=== PATIENT | female | born 1995 | race Hispanic/Latino ===

== ENCOUNTER 2021-02-20 13:54 | Emergency (ER) | payer OTHER, SELFPAY ==
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
[2021-02-20 14:09] VITALS: BP 110/87; PULSE 92; RESP 16; TEMP 36.6; O2SAT 99
[2021-02-20 14:10] VITALS: BP 110/87; PULSE 92; RESP 16; TEMP 36.6; O2SAT 99
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
[2021-02-20] MEDS: ACETAMINOPHEN 500 MG TABLET 1000 MG PO (14:50)
== END 2021-02-20 15:12 | disposition home or self-care (01) ==
PROVIDERS: Emergency Provider Nurse Practitioner
DX: S16.1XXA Strain of muscle, fascia and tendon at neck level, initial encounter (principal); V49.40XA Driver injured in collision with unspecified motor vehicles in traffic accident, initial encounter
CPT/HCPCS: 72040; 99213; A9270; G0463

== ENCOUNTER 2022-12-20 11:54 | Emergency (ER) | payer OTHER, SELFPAY ==
--- NOTE | ~2022-12-20 | XR_ITS ---
EXAMINATION: XR knee LT min 4V DATE: 12/20/2022 13:53 INDICATION: Left knee pain post fall TECHNIQUE: Anteroposterior, 2 oblique and crosstable lateral views of the left knee were obtained COMPARISON: None. FINDINGS: Alignment is normal. No fracture. No joint effusion/layering lipohemarthrosis. Soft tissues are unre markable. IMPRESSION: 1. Negative left knee radiographs. Reviewed, dictated and finalized at [facility].
[2022-12-20 12:57] VITALS: BP 115/76; PULSE 97; RESP 16; TEMP 37.1; O2SAT 100
--- NOTE | 2022-12-20 14:04 | ED.LOWEXIN ---
HPI - Extremity Injury (Lower) General Chief Complaint: Extremity Injury, Lower Stated Complaint: Knee Pain Time Seen by Provider: 12/20/22 13:44 Source: patient and RN notes reviewed Mode of arrival: ambulatory Limitations: no limitations History of Present Illness HPI Narrative: This is a 27 year old female who presents for evaluation of left knee pain. PAtient states yesterday she tripped and fell onto her left knee. She has been having pain and difficulty walking due to pain. She reports tingling to anterior knee. She denies swelling, fever, chills, chest pain, sob. She has not taken any medication or tried any treatment. Related Data Home Medications Medication Instructions Recorded Confirmed norgestimate 0.25 mg-ethinyl 1 tablet PO DAILY 02/20/21 02/20/21 estradiol 35 mcg tablet (Sprintec (28)) Allergies Allergy/AdvReac Type Severity Reaction Status Date / Time No Known Allergies Allergy Verified 12/20/22 11:54 Review of Systems Review of Systems: All systems reviewed & are unremarkable except as noted in HPI and below PMFSH Past Medical History Medical History (Updated 12/21/22 @ 00:00 by Grayson Craig) Patient denies medical problems Surgical History Surgical History (Updated 12/20/22 @ 14:23 by Ifeoma Blanton MD) No pertinent past surgical history Social History Social History (Updated 12/20/22 @ 14:24 by Ifeoma Blanton MD) Smoking status: Never smoker Exam Const: General: no acute distress and alert Nutritional Appearance: well nourished Orientation/consciousness: patient oriented x3 HENMT: Head: normal to inspection Eyes: EOM: EOMs intact bilaterally Neck: Neck: normal visual inspection Resp: Effort & Inspection: normal respiratory effort Skin: General skin exam: normal color Rashes: no rashes Wounds: no wounds Other: right hand dorsal ulnar side bruising Neuro: General: patient oriented x3, moves all extremities and CN's II-XI intact bilaterally Extrem: Other: no swelling or redness to left knee. She has pain with extension and flexion. strong pedal pulses present. Psych: Mental Status: mental status grossly normal Affect: normal affect Attitude: cooperative Course Reevaluation(s) Reevaluation #1: PAtient is up walking around her room. I discussed with patient that xray is unremarkable. She has bruising to right hand but she refused xray of her hand to rule out fracture. I wrapper her knee with bridger bandage Date: 12/20/22 Time: 15:05 Vital Signs Vital signs: Vital Signs Temperature 98.8 F 12/20/22 12:57 Pulse Rate 97 12/20/22 12:57 Respiratory Rate 16 12/20/22 12:57 Blood Pressure 115/76 12/20/22 12:57 Pulse Oximetry 100 12/20/22 12:57 Oxygen Delivery Room Air 12/20/22 12:57 Temperature 98.8 F 12/20/22 12:57 Pulse Rate 97 12/20/22 12:57 Respiratory Rate 16 12/20/22 12:57 Blood Pressure 115/76 12/20/22 12:57 Pulse Oximetry 100 12/20/22 12:57 Oxygen Delivery Room Air 12/20/22 12:57 MDM - Extremity Injury (Lower) MDM Narrative Medical decision making narrative: Patient presented with knee pain after fall. She also had right hand bruising and swelling along 5th metacarpal. left knee xray was ordered along with right hand xray. Patient refused right hand xray. knee xray was negative. I wrapped patient's knee for comfort and she was given ibuprofen 800 mg and ice pack. Patient is able to ambulate. I discussed discharge plan and follow with PCP if knee pain persist Differential Diagnosis Differential diagnosis: Likely acute internal derangement of knee and other (fibula fracture, tibia fracture, knee effusion, hand contusion, hand fracture) Imaging Data Radiologist's impression: ITS Impressions Knee X-Ray 12/20/22 13:55 IMPRESSION: 1. Negative left knee radiographs. Discharge Plan Discharge Clinical Impression: Left knee sprain, Traumatic ecchymosis
[2022-12-20] MEDS: IBUPROFEN 400 MG TABLET 800 MG PO (14:20)
--- NOTE | 2022-12-20 14:30 | PC.NURSE ---
Patient declined having hand xray after reporting to this RN that her hand was injured during the fall also yesterday.
== END 2022-12-20 15:31 | disposition home or self-care (01) ==
PROVIDERS: Emergency Provider General Practice
DX: S83.92XA Sprain of unspecified site of left knee, initial encounter (principal); S60.221A Contusion of right hand, initial encounter; W01.0XXA Fall on same level from slipping, tripping and stumbling without subsequent striking against object, initial encounter
CPT/HCPCS: 73564; 99283; A9270

== ENCOUNTER 2023-08-21 14:57 | Outpatient (CLI) | payer OTHER, SELFPAY ==
[2023-08-21 15:14] LABS: Basophils Percent Auto 0.4 % (0.2-1.2); Eosinophils Absolute Auto 0.1 K/mm3 (0-0.3); Eosinophils Percent Auto 1.1 % (0-4.4); Hematocrit 36.5 % (37.0-47.0); Hemoglobin 11.4 g/dL (12.0-15.0); Immature Granulocyte Absolute 0.02 K/mm3 (0.00-0.031); Immature Granulocyte Percent A 0.3 % (0-0.5); Lymphocytes Absolute Auto 2.41 K/mm3 (0.9-3.2); Lymphocytes Percent Auto 30.2 % (18.3-44.2); Mean Corpuscular HGB Conc 31.2 g/dl (32-36); Mean Corpuscular Hemoglobin 23.2 pg (26-34); Mean Corpuscular Volume 74.2 fl (80-100); Mean Platelet Volume 8.7 fl (7.4-10.4); Monocytes Absolute Auto 0.5 K/mm3 (0.1-0.6); Monocytes Percent Auto 6.6 % (2.6-8.5); Neutrophils Absolute Auto 4.9 K/mm3 (1.3-6.7); Neutrophils Percent Auto 61.4 % (45.5-73.1); Platelet Count Result 437 k/mm3 (150-375); Red Blood Count 4.92 M/mm3 (4.2-5.4); Red Cell Distribution Width 16.7 % (11.5-14.5)
[2023-08-21 15:22] LABS: Anisocytosis 1+ (NORMAL); Platelet Estimate Increased (Adequate); Schistocytes None Seen (NORMAL)
[2023-08-21 20:00] LABS: Iron 30 ug/dL (37-170)
[2023-08-21 20:09] LABS: Percent Iron Saturation 9 % (20-50)
[2023-08-21 20:16] LABS: Alanine Aminotransferase 17 U/L (6-35); Albumin Level 4.3 g/dL (3.5-5.1); Alkaline Phosphatase 126 U/L (38-126); Anion Gap 11 mmol/L (8-16); Aspartate Amino Transferase 28 U/L (14-36); Bilirubin,Total 0.4 mg/dL (0.2-1.3); Blood Urea Nitrogen 14 mg/dL (7-17); Calcium 9.2 mg/dL (8.4-10.2); Carbon Dioxide 26 mmol/L (22-30); Chloride 100 mmol/L (98-107); Estimated Glomerular Filt Rate > 60; Glucose 99 mg/dL (65-110); Sodium 137 mmol/L (137-145)
[2023-08-21 21:53] LABS: Folic Acid 6.3 ng/mL (2.76->20)
[2023-08-24 22:38] LABS: Methylmalonic Acid 144 nmol/L (87-318)
[2023-08-25 18:06] LABS: Soluble Transferrin Receptor 1.14 mg/L (0.76-1.76)
== END 2023-08-21 14:58 | disposition home or self-care (01) ==
LOC: ANHLAB 14:59
PROVIDERS: Nurse Practitioner Family; Visit Provider Internal Medicine Hematology & Oncology
DX: D50.9 Iron deficiency anemia, unspecified (principal)
CPT/HCPCS: 36415; 80053; 82607; 82728; 82746; 83540; 83550; 83921; 84238; 85025

== ENCOUNTER 2024-09-24 13:16 | Emergency (ER) | payer BC, SELFPAY ==
[2024-09-24 13:32] VITALS: BP 136/89; PULSE 79; RESP 16; TEMP 36.7; O2SAT 99
--- NOTE | 2024-09-24 14:23 | ED_ITS ---
HPI - URI/Sore Throat General Chief Complaint: Upper Respiratory Infection Stated Complaint: left ear pain Time Seen by Provider: 09/24/24 14:23 Source: patient Mode of arrival: ambulatory Limitations: no limitations History of Present Illness HPI Narrative: This is a 28-year-old female that presents the emergency department for left ear pain. Reports she was evaluated for this and diagnosed with an ear infection. She has been on the antibiotics for 2 days. Is still having difficulty hearing out of the ear. Reports subjective fevers. Related Data Home Medications ?Medication ?Instructions ?Recorded ?Confirmed ?Last Taken ?Type norgestimate 0.25 mg-ethinyl 1 tablet PO DAILY 02/20/21 02/20/21 Unknown History estradiol 35 mcg tablet (Sprintec (28)) Allergies Allergy/AdvReac Type Severity Reaction Status Date / Time No Known Allergies Allergy Verified 12/20/22 11:54 Review of Systems Review of Systems: CONSTITUTIONAL: Denies fever ENT: Reports otalgia. All systems reviewed & are unremarkable except as noted in HPI and below PMFSH Past Medical History Medical History (Updated 09/24/24 @ 14:25 by Sheela Garcia PA-C) Patient denies medical problems Surgical History Surgical History (Updated 12/20/22 @ 14:23 by Ifeoma Blanton MD) No pertinent past surgical history Social History Social History (Updated 12/20/22 @ 14:24 by Ifeoma Blanton MD) Smoking status: Never smoker Exam Narrative: GENERAL: Well-appearing, well-nourished, and in no acute distress. HEAD: Normocephalic, atraumatic. EYES: EOMI. ENT: Nares clear, no rhinorrhea or epistaxis. Mucous membranes moist. Oropharynx without tonsillar hypertrophy exudate or other lesions. Bilateral TMs pearly armendariz non-bulging NECK: Supple. No adenopathy or masses. CHEST: Clear to auscultation. No respiratory distress. No wheezes rales or rhonchi HEART: Regular rate and rhythm. No murmur heard. Normal peripheral pulses. EXTREMITIES: Normal range of motion. No edema. SKIN: Warm, dry, no rash. NEURO: No focal deficits. Alert and oriented x3. PSYCH: Normal mood and affect Course Course Emergency Course: Patient agrees with plan of care Vital Signs Vital signs: Vital Signs Temperature 98.0 F 09/24/24 13:32 Pulse Rate 79 09/24/24 13:32 Respiratory Rate 16 09/24/24 13:32 Blood Pressure 136/89 09/24/24 13:32 Pulse Oximetry 99 09/24/24 13:32 Oxygen Delivery Room Air 09/24/24 13:32 Temperature 98.0 F 09/24/24 13:32 Pulse Rate 79 09/24/24 13:32 Respiratory Rate 16 09/24/24 13:32 Blood Pressure 136/89 09/24/24 13:32 Pulse Oximetry 99 09/24/24 13:32 Oxygen Delivery Room Air 09/24/24 13:32 MDM - URI/Sore Throat MDM Narrative Medical decision making narrative: Patient presents the emergency department for ongoing ear discomfort. She is afebrile and nontoxic appearing. External auditory canal is normal. TM without erythema or bulging. She was instructed to finish her antibiotics as prescribed and on use of antihistamines. Will be given follow-up with ENT if symptoms persist. She was given warnings to return to the ER Differential Diagnosis Differential diagnosis: Likely upper respiratory infection, otitis media and other (Otitis externa) Critical Care Time Critical Care Time Critical Care Time: No Discharge Plan Discharge Clinical Impression: Upper respiratory infection Qualifiers: URI type: unspecified URI Qualified Code(s): J06.9 - Acute upper respiratory infection, unspecified Patient Disposition: Home, Self-Care Condition: Stable Instructions: Upper Respiratory Infection (ED) Additional Instructions: Return to the emergency department for worsening symptoms, or any other concerns Remain well-hydrated, get plenty of rest. Take Tylenol or Motrin [id number] for pain as needed. Flonase for nasal congestion. Zyrtec for runny nose. Finish your antibiotic as prescribed Follow up with ENT if your symptoms persist Patient Language: Citizen Of [place] Prescriptions: No Action norgestimate-ethinyl estradiol [Sprintec (28)] 0.25-35 mg-mcg tablet 1 tablet PO DAILY baclofen 10 mg tablet 10 mg PO TID PRN (Reason: muscle pain) Qty: 15 0RF ibuprofen 600 mg tablet 600 mg PO TID PRN (Reason: pain) Qty: 30 0RF ibuprofen 800 mg tablet 800 mg PO Q8H PRN (Reason: pain) Qty: 14 0RF Follow-up/Referrals: Rashaad Garcia MD [Physician] - UNKNOWN,DOCTOR [Primary Care Provider] -
[2024-09-24 14:50] VITALS: O2SAT 99
--- OUTSIDE RECORDS SUMMARY | 2024-10-01 17:55 | XMS_ITS | Encounter Summary ---
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 Name Role Phone Unavailable Primary Care Provider Unavailabl e Encounter Details Date Type Department Care Team (Late st Contact Info) Description 06/19/2023 Orders Only [facility] - Orthopedic Surgery [address] [place] [id number] Kate Merida, PAJoannaC [address] [place] [id number] Left knee pain, unspecified chronicity ; Right knee pain, unspecified chronicity Social History Tobacco Use Types Packs/Day Years Used Date Smoking Tobacco: Never Assessed Sex and Gender Information Value Date Recorded Sex Assigned at Not on file Gender Identity Not on file Sexual Orientation Not on file documented as of this encounter Plan of Treatment Not on file documented as of this encounter Results * XR KNEE BILAT 4VW OR MORE (07/05/2023 2:55 PM CDT) Anatomical Region Laterality Modality Lower Extremity Radiographic Milka ging 07/05/2023 3:09 PM CDT Impressions 07/05/2023 3:09 PM CDT Impression: No evidence of fracture. No acute bony abnormality of the knees. > Interpreting Provider: Kevin Enriquez MD on 07/05/2023 3:09 PM Narrative 07/05/2023 3:09 PM CDT Procedure: XR KNEE BILAT 4VW OR MORE ??Exam Date: ??07/05/2023 2:55 PM ?? Location: ??[facility] Indication: M25.562: Pain in left knee Findings: There is no evidence of fracture. The joint spaces are well-maintained. There is no bony destruction. There is no joint effusion. Procedure Note Kevin Enriquez MD - 07/05/2023 Procedure: XR KNEE BILAT 4VW OR MORE Exam Date: 07/05/2023 2:55 PM Location: [facility] Indication: M25.562: Pain in left knee Findings: There is no evidence of fracture. The joint spaces are well-maintained. There is no bony destruction. There is no jointeffusion. Impression: No evidence of fracture. No acute bony abnormality of the knees. > Interpreting Provider: Kevin Enriquez MD on 07/05/2023 3:09 PM Kate Merida PA-C DIAGNOSTIC IMAGING O RDERABLES documented in this encounter Visit Diagnoses Diagnosis Left knee pain, unspecified chronicity- Primary Right knee pain, unspecified chronicity Left knee pain, unspecified chronicity documented in this encounter
--- OUTSIDE RECORDS SUMMARY | 2024-10-01 17:55 | XMS_ITS | Encounter Summary ---
Author Organization [facility] Address [address] [place] [address] Care Team Providers Care Tower Control Operator Name Role Phone Salinas Escobar MD Primary Care Provider [phone] Reason for Referral * Radiology Services (Routine) - Closed Specialty Diagnoses / Procedures Referred By Contac t Referred To Contact Diagnoses Internal derangement of left knee Procedures MRI KNEE LEFT WO CONTRAST Kate Merida PA-C [address] [place] [phone] Referral ID Status Reason Start Date Expiration Date Visits Re quested Visits Authorized [id number] Closed 08/23/2023 08/22/2024 1 1 TO INSPECTOR * Radiology Services (Routine) - Closed Specialty Diagnoses / Procedures Referred By Contac t Referred To Contact Diagnoses Sprain of anterior cruciate ligament of right knee, subsequent encounter Knee instability, right Procedures MRI KNEE RIGHT WO CONTRAST Kate Merida PA-C [address] [place] [phone] Referral ID Status Reason Start Date Expiration Date Visits Re quested Visits Authorized [id number] Closed 08/23/2023 08/22/2024 1 1 TO INSPECTOR Reason for Visit * Reason Comments Follow-up Bilateral Knee Encounter Details Date Type Department Care Team (Late st Contact Info) Description 08/23/2023 9:30 AM POTATO INSPECTOR Office Visit [facility] - Orthopedic Surgery [address] [place] [id number] Kate Merida PA-C [address] [facility] [address] [place] [phone] Knee instability, right (Primary Dx); Sprain of anterior cruciate ligament of right knee, subsequent encounter; Chronic pain of left knee; Internal derangement of left knee Social History Tobacco Use Types Packs/Day Years Used Date Smoking Tobacco: Never Smokeless Tobacco: Never Sex and Gender Information Value Date Recorded Sex Assigned at Not on file Gender Identity Not on file Sexual Orientation Not on file documented as of this encounter Last Filed Vital Signs Vital Sign Reading Time Taken Comments Blood Pressure - - Pulse - - Temperature - - Respiratory Rate - - Oxygen Saturation - - Inhaled Oxygen Concentration - - Weight 106.1 kg (234 lb) 08/23/2023 9:36 AM POTATO INSPECTOR Height 165.1 cm (5' 5 ) 08/23/2023 9:36 AM POTATO INSPECTOR Body Mass Index 38.94 08/23/2023 9:36 AM POTATO INSPECTOR documented in this encounter Patient Instructions * Patient Instructions* Kate Merida PA-C - 08/23/2023 9:48 AM POTATO INSPECTOR Adult and Pediatric Orthopaedic Surgery Sports Medicine [email or web address] Verónica Stevenson 08/23/2023 Thank you for coming in to see us today. Work/School Excuse: Excused from Work/School on 08/23/23 Impression: 27 year old female Knee instability, right - Plan: MRI KNEE RIGHT WO CONTRAST Sprain of anterior cruciate ligament of right knee, subsequent encounter - Plan: MRI KNEE RIGHT WO CONTRAST Chronic pain of left knee Internal derangement of left knee - Plan: MRI KNEE LEFT WO CONTRAST Plan: Images were personally interpreted and reviewed by me today in clinic. We recommended: icing, tylenol, anti-inflammatory medications, activity modification, and MRI to evaluate for a tear Activity restrictions discussed: none Follow up: I will call them with advanced imaging results via tele health appointment and we will make a final treatment determination after the imaging is complete. DIAGNOSTIC TEST facility Scheduling options: [facility] imaging department: call [phone]. [facility] imaging department: call [phone] [facility] imaging department: call [phone] [facility]: call [phone], ext [phone] [facility]: call [phone] [facility] locations: , [email or web address] ; you will need to take your order to them to get scheduled [facility] locations: [phone], [email or web address] ; you will need e-mail yourorder to them to get scheduled Physical Therapy Facilities recommended (all are centralized scheduling numbers) [facility] PT: [email or web address], or [facility] PT: [phone] [facility]: [email or web address], , Referrals@20:20 Mobile (guaranteed appts within 24 hours) [facility]: [facility], [facility]: [facility], [facility]: [email or web address] [place] [facility]: [email or web address], NSAIDs (non-steroidal anti-inflammatory drugs): Aleve/naproxen and Motrin/ibuprofen are suggested to relieve inflammation and pain for a short course of therapy for 3 weeks, advised to take with food. Cryotherapy: is commonly used to reduce temperature, inflammation, pain, muscle spasm and symptoms of delayed onset muscle soreness. There are various methods of ice application such as ice pack, cold pack, cold water immersion, ice massage. There are also benefits of supplements such as: Vitamin D3 2997-4727 units daily, Glucosamine/chondriotin 500 to 2000 mg daily, and , Turmeric 1000mg daily (a natural anti-inflammatory). [facility] Orthopaedic office contact information: Office @ [facility]; [place] [phone], [address] [place] [address] Office @ [facility] [address] [place] [address], [address], [place] [address] Office @ [facility]; [facility] [address] [place] [id number] Please contact PEDRO Osorio at , if you have any further questions or concerns. Office @ [facility] location: [address] [facility], [place] [address] , [facility] location: [address] [place] [address] Sincerely, Kate Merida MPA, PA-C TO INSPECTOR documented in this encounter Progress Notes * Kate Merida PA-C - 08/23/2023 9:30 AM CST Images from the original note were not included. Dear Dr. Salinas Escobar MD ; Today, 08/23/23, we had the pleasure treating Verónica Stevenson at [facility] Orthopaedic Sports Medicine and [facility] for re-evaluation of her bilateral knee chief complaint. Verónica Stevenson is a 27 year old female who c/o Bilateral knee pain with right knee instability formonths. R knee twisting injury in April 2023. Left knee pain since December 2022 due to a fall. Pain is exacerbated with walking, bending, and any movement. She c/o stiffness in knee. Pain is improved with nothing. She has been doing PT for 6 weeks with no relief. She had a Right knee injectionin Apr 2023 by Ortho provider in [place], [place], she had 30% relief, she was lying down for injection. Previous treatment tried includes icing, physical therapy exercises, corticosteroid injections, anti-inflammatory medications and tylenol for their symptoms. 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 07/05/2023 08/23/2023 Patient-Reported Satisfaction Current state satisfactory? No No Prior treatment? No No Currently taking narcotics? No No 07/05/2023 08/23/2023 PROMIS Pain Interference PROMIS PI Score 76 (severe) 67 (moderate) 07/05/2023 08/23/2023 PROMIS Physical Function PROMIS PF Score 36 (moderate dysfunction) 37 (moderate dysfunction) 07/05/2023 08/23/2023 Depression Screening PHQ-2 Score Incomplete Incomplete Medications: Reviewed Current Outpatient Medications on File Prior to Visit Medication Sig Dispense Refill ??? meloxicam (Mobic) 15 MG tablet Take 1 (one) tablet by mouth once daily 30 tablet 2 No current facility-administered medications on file prior to visit. Allergies: Reviewed Allergies as of 08/23/2023 ??? (No Known Allergies) PMH: Reviewed No past medical history on file. No past surgical history on file. Social History: Reviewed Social History Occupational History ??? Not on file Tobacco Use ??? Smoking status: Never ??? Smokeless tobacco: Never Substance and Sexual Activity ??? Alcohol use: Not on file ??? Drug use: Not on file ??? Sexual activity: Not on file Family History: Reviewed No family history on file. REVIEW OF SYSTEMS: Pertinent Positives and Negatives Musculoskeletal: YES joint pain or stiffness, YES muscle aches, no leg cramping Neurologic: YES numbness and tingling, No dizziness or visual disturbances Endocrine: no thyroid problems, no diabetes General/Constitutional: No fever, chills, night sweats, insomnia, appetite changes, or weight changes Cardio: No chest pain or palpations Respiratory: No shortness of breath Abd: No abdnominal pain 14 System review of systems was otherwise negative as reviewed today. Physical Exam: Body mass index is 38.94 kg/m??. Vitals: 08/23/23 0936 Weight: 106.1 kg (234 lb) Height: 1.651 m (5' 5 ) The patient is awake, alert, oriented and they are pleasant to speak with. There is no pain with rotation of the right or left hip. There is a negative straight leg raise bilaterally. Gait is normal. The bilateral knee is neurovascularly intact with no active skin lesions. There is no effusion. There is tenderness of the medial joint line. Range of motion is unrestricted . Guilherme is negative. Quad strength is 5/5. There is not a palpable gap in the patellar and quadriceps tendons. They are able to do an active straight leg raise. There is no varus laxity. There is no valgus laxity. There is no posterior sag. McMurrays test is positive. Dial test is negative. The extensor mechanism is intact. The patellar tracks well. Patellar apprehension test is negative. Testing for generalized ligamentous laxity is negative. Imaging: bilateral knee X-rays images demonstrate mild medial joint narrowing of left knee. Images were personally reviewed and interpreted by me today in clinic. Impression: 27 year old female Knee instability, right - Plan: MRI KNEE RIGHT WO CONTRAST Sprain of anterior cruciate ligament of right knee, subsequent encounter - Plan: MRI KNEE RIGHT WO CONTRAST Chronic pain of left knee Internal derangement of left knee - Plan: MRI KNEE LEFT WO CONTRAST Plan: Images were personally interpreted and reviewed by me today in clinic. We recommended: icing, tylenol, activity modification, physical therapy exercises, and meloxicam MRI B knee to r/o meniscus tear internal derangement of knee Activity restrictions discussed: as tolerated Follow up: I will call them with advanced imaging results via tele health appointment and we will make a final treatment determination after the imaging is complete. Orders Placed This Encounter ??? MRI KNEE RIGHT WO CONTRAST ??? MRI KNEE LEFT WO CONTRAST On Today's visit with patient: I reviewed and interpreted prior medical records, discussed medication options with individual benefits vs risk/side effects, discussed referral physical therapy options and home exercise instruction. Patient was educated and given information regarding their diagnosis today. Please do not hesitate to contact me with questions regarding her or any other patient in the future. Sincerely, Kate Merida MPA, PA-C TO INSPECTOR documented in this encounter Plan of Treatment Not on file documented as of this encounter Results * MRI KNEE LEFT WO CONTRAST (09/04/2023 11:03 AM POTATO INSPECTOR) Anatomical Region Laterality Modality Lower Extremity Magnetic Resonan ce 09/04/2023 11:4 7 AM POTATO INSPECTOR Impressions 09/04/2023 12:10 PM POTATO INSPECTOR IMPRESSION: Examination demonstrates an abnormal appearance of the anterior cruciate ligament which appears to be somewhat thickened and edematous in appearance at its proximal extent extending to the mid aspect of the tendon. Some images suggest discontinuity of the femoral component of the anterior cruciate ligament raising concern for a full-thickness or complete or near complete tear. There is believed to be at least partial tear of this structure on the femoral side of this structure. This does not have the appearance of an acute tear. Intact appearing posterior cruciate ligament. Suspect a mild degree of tearing of the posterior horn of the medial meniscus which has a beaklike configuration. Thinning without disruption of the medial collateral ligament/medial patellar retinacular complex with suggestion of mild lateral patellar tilt or subluxation. Zone of edema consistent with a contusion of the medial posterior chondral surface of the patella with question a small midline chondral defect at the level of the median ridge. > Interpreting Provider: Daniel Steinberg MD on 09/04/2023 12:10 PM Narrative 09/04/2023 12:10 PM POTATO INSPECTOR PROCEDURE: ??MRI KNEE LEFT WO CONTRAST DATE/TIME OF EXAM: ??09/04/2023 11:03 AM CLINICAL INFORMATION: None relevant/not provided if blank. Indication: M23.92: Unspecified internal derangement of left knee Additional History: Left knee trauma. Meniscal injury. COMPARISON: 4 view left knee study dated 07/05/2023 TECHNIQUE: MRI of the left knee was performed without contrast. FINDINGS: Magnetic resonance imaging of the left knee was performed to include proton density and T2 fat saturation sagittal images as well as attempted T1 coronal, T2 fat saturation coronal and T2 fat saturation axial images. The T1 coronal images are degraded by patient motion. Additionally T2 sagittal images were obtained to assess the cruciate ligaments. The femoral-tibial articulation appears intact. On the axial images there is a question of mild lateral patellar tilt or subluxation. The medial collateral ligament/medial patellar retinaculum complex appears thinned but without definite disruption. The lateral collateral ligament/lateral patellar retinaculum complex appears intact and of normal signal intensity. There is concern for a beak like tear of the posterior horn of the medial meniscus. The anterior horn of the medial meniscus appears intact. The medial meniscal height appears adequately maintained. The lateral meniscus appears to be intact and of relatively normal signal intensity and height. The tibial aspect of the anterior cruciate ligament appears relatively intact with an intact attachment. However the femoral aspect of the anterior cruciate ligament is not clearly defined as a normal intact appearing structure, appearing somewhat thickened and edematous with some images suggesting discontinuity raising concern for a possible full thickness or near complete tear of the femoral side of the anterior cruciate ligament. By comparison the posterior cruciate ligament appears intact and of normal signal intensity. The visualized portions of the distal quadriceps tendon and patellar tendon of the extensor mechanism appears intact with suggestion of mild tendinosis of the distal aspect of the patellar tendon. On the axial images there appears to be considerable increased T2 signal consistent with edema of the medial aspect of the posterior chondral surface of the patella extending to the level of the median ridge. On a single axial image #23 there is a question of a subtle defect of the posterior chondral surface at the level of the median ridge. Mild amount of joint effusion identified. No discrete bone contusion, bone marrow edema, evidence for an occult fracture nor evidence for osteochondritis dissecans identified. Procedure Note Daniel Steinberg MD - 09/04/2023 PROCEDURE: MRI KNEE LEFT WO CONTRAST DATE/TIME OF EXAM: 09/04/2023 11:03 AM CLINICAL INFORMATION: None relevant/not provided if blank. Indication: M23.92: Unspecified internal derangement of left knee Additional History: Left knee trauma. Meniscal injury. COMPARISON: 4 view left knee study dated 07/05/2023 TECHNIQUE: MRI of the left knee was performed without contrast. FINDINGS: Magnetic resonance imaging of the left knee was performed to includeproton density and T2 fat saturation sagittal images as well as attempted T1 coronal, T2 fat saturation coronal and T2 fat saturation axial images.The T1 coronal images are degraded by patient motion. Additionally [id number] images were obtained to assess the cruciate ligaments. The femoral-tibial articulation appears intact. On the axial imagesthere is a question of mild lateral patellar tilt or subluxation. The medial collateral ligament/medial patellar retinaculum complex appears thinnedbut without definite disruption. The lateral collateral ligament/lateral patellar retinaculum complex appears intact and of normal signalintensity. There is concern for a beak like tear of the posterior horn of themedial meniscus. The anterior horn of the medial meniscus appears intact. The medial meniscal height appears adequately maintained. The lateralmeniscus appears to be intact and of relatively normal signal intensity andheight. The tibial aspect of the anterior cruciate ligament appears relatively intact with an intact attachment. However the femoral aspect of the anterior cruciate ligament is not clearly defined as a normal intact appearing structure, appearing somewhat thickened and edematous withsome images suggesting discontinuity raising concern for a possible full thickness or near complete tear of the femoral side of the anterior cruciate ligament. By comparison the posterior cruciate ligament appears intact and of normal signal intensity. The visualized portions of the distal quadriceps tendon and patellartendon of the extensor mechanism appears intact with suggestion of mildtendinosis of the distal aspect of the patellar tendon. On the axial images there appears to be considerable increased T2 signal consistent with edema of the medial aspect of the posterior chondral surface of the patella extending to the level of the median ridge. On a single axial image #23 there is a question of a subtle defect of the posterior chondral surface at the level of the median ridge. Mild amount of joint effusion identified. No discrete bone contusion,bone marrow edema, evidence for an occult fracture nor evidence for osteochondritis dissecans identified. IMPRESSION: Examination demonstrates an abnormal appearance of theanterior cruciate ligament which appears to be somewhat thickened and edematousin appearance at its proximal extent extending to the mid aspect of the tendon. Some images suggest discontinuity of the femoral component ofthe anterior cruciate ligament raising concern for a full-thickness orcomplete or near complete tear. There is believed to be at least partial tear of this structure on the femoral side of this structure. This does not have the appearance of an acute tear. Intact appearing posterior cruciate ligament. Suspect a mild degree of tearing of the posterior horn of the medial meniscus which has a beaklike configuration. Thinning without disruption of the medial collateral ligament/medial patellar retinacular complex with suggestion of mild lateral patellartilt or subluxation. Zone of edema consistent with a contusion of the medial posteriorchondral surface of the patella with question a small midline chondral defect atthe level of the median ridge. > Interpreting Provider: Daniel Steinberg MD on 09/04/2023 12:10 PM Kate Merida PA-C MR ORDERABLES * MRI KNEE RIGHT WO CONTRAST (09/04/2023 10:36 AM POTATO INSPECTOR) Anatomical Region Laterality Modality Lower Extremity Magnetic Resonan ce 09/04/2023 10:5 1 AM POTATO INSPECTOR Impressions 09/04/2023 11:04 AM POTATO INSPECTOR IMPRESSION: Examination demonstrates a mildly complex tear of the anterior horn of the lateral meniscus. Moderate-sized zone of edema presumably due to contusion of the medial aspect of the posterior chondral surface of the patella at the patellofemoral articulation, without evidence of a discrete osteochondral or chondral defect. Intact appearing cruciate ligaments and collateral ligaments. Mild degree of joint effusion. > Interpreting Provider: Daniel Steinberg MD on 09/04/2023 11:04 AM Narrative 09/04/2023 11:04 AM POTATO INSPECTOR PROCEDURE: ??MRI KNEE RIGHT WO CONTRAST DATE/TIME OF EXAM: ??09/04/2023 10:36 AM CLINICAL INFORMATION: None relevant/not provided if blank. Indication: S83.511D: Sprain of anterior cruciate ligament of right knee, subsequent encounter M25.361: Other instability, right knee Additional History: Knee trauma. Suspect internal derangement of the right knee including meniscal injury COMPARISON: 4 view right knee study dated 07/05/2023 TECHNIQUE: MRI of the right knee was performed without contrast. FINDINGS: Magnetic resonance imaging of the right knee was performed to include sagittal proton density and T2 fat saturation, T1 and T2 fat saturation coronal, T2 fat saturation axial, and T2 sagittal images angled through the cruciate ligaments. The femoral-tibial and patellofemoral articulations appear to be in anatomic alignment. The anterior and posterior cruciate ligaments appeared intact and of relatively normal signal intensity. The medial and lateral collateral ligaments appear intact and of relatively normal signal intensity. The medial meniscus appears relatively normal height and was without evidence of suggested tear nor severe degeneration. There is a mildly complex tear of the anterior horn of the lateral meniscus with extension to the inferior and suggested superior aspects of the articular surface. The posterior horn of the lateral meniscus appears intact. The visualized portion of the distal quadriceps tendon and patellar tendon of the extensor mechanism appeared intact. Suggestion of mild tendinosis of the distal aspect of the patellar tendon. The patellofemoral articulation appears to be in anatomic alignment. The medial and lateral patellar retinacula appear intact. There is a moderate size zone of edema involving the posterior medial patellar chondral surface extending to the midline. No discrete chondral or osteochondral defect however was identified. Mild amount of joint effusion noted. There is no evidence of suggested bone marrow edema or bone contusion, evidence of an occult fracture nor evidence of osteochondritis dissecans. Procedure Note Daniel Steinberg MD - 09/04/2023 PROCEDURE: MRI KNEE RIGHT WO CONTRAST DATE/TIME OF EXAM: 09/04/2023 10:36 AM CLINICAL INFORMATION: None relevant/not provided if blank. Indication: S83.511D: Sprain of anterior cruciate ligament of rightknee, subsequent encounter M25.361: Other instability, right knee Additional History: Knee trauma. Suspect internal derangement of theright knee including meniscal injury COMPARISON: 4 view right knee study dated 07/05/2023 TECHNIQUE: MRI of the right knee was performed without contrast. FINDINGS: Magnetic resonance imaging of the right knee was performed to include sagittal proton density and T2 fat saturation, T1 and T2 fat saturation coronal, T2 fat saturation axial, and T2 sagittal images angled throughthe cruciate ligaments. The femoral-tibial and patellofemoral articulations appear to be in anatomic alignment. The anterior and posterior cruciate ligaments appeared intact and of relatively normal signal intensity. The medial and lateral collateral ligaments appear intact and of relatively normal signal intensity. The medial meniscus appears relatively normal height and was without evidence of suggested tear nor severe degeneration. There is a mildly complex tear of the anterior horn of the lateralmeniscus with extension to the inferior and suggested superior aspects of the articular surface. The posterior horn of the lateral meniscus appears intact. The visualized portion of the distal quadriceps tendon and patellartendon of the extensor mechanism appeared intact. Suggestion of mild tendinosisof the distal aspect of the patellar tendon. The patellofemoral articulation appears to be in anatomic alignment. The medial and lateral patellar retinacula appear intact. There is amoderate size zone of edema involving the posterior medial patellar chondralsurface extending to the midline. No discrete chondral or osteochondral defect however was identified. Mild amount of joint effusion noted. There is no evidence of suggestedbone marrow edema or bone contusion, evidence of an occult fracture norevidence of osteochondritis dissecans. IMPRESSION: Examination demonstrates a mildly complex tear of theanterior horn of the lateral meniscus. Moderate-sized zone of edema presumably due to contusion of the medial aspect of the posterior chondral surface of the patella at the patellofemoral articulation, without evidence of a discreteosteochondral or chondral defect. Intact appearing cruciate ligaments and collateral ligaments. Mild degree of joint effusion. 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
--- OUTSIDE RECORDS SUMMARY | 2024-10-01 17:55 | XMS_ITS | Encounter Summary ---
Author Organization [facility] Address [facility] [facility]. [place], [place] [address] [place] [id number] Care Team Providers Care Revenue Enforcement Collection Agent Name Role Phone Tejinder Bergeron MD Primary Care Provider Reason for Referral * Imaging (Emergency) - Closed Specialty Diagnoses / Procedures Referred By Contac t Referred To Contact RADIOLOGY Procedures CT CERV SPINE WO Last Platt MD [address] [address] Phone: tel: fax: Referral ID Status Reason Start Date Expiration Date Visits Re quested Visits Authorized [id number] Closed 10/02/2022 10/02/2023 1 1 ICER FINISHER * Imaging (Emergency) - Closed Specialty Diagnoses / Procedures Referred By Cristopher melgar Referred To Contact RADIOLOGY Procedures CT HEAD WO Last Platt MD [address] [address] Phone: tel: fax: Referral ID Status Reason Start Date Expiration Date Visits Re quested Visits Authorized [id number] Closed 10/02/2022 10/02/2023 1 1 ICER FINISHER Reason for Visit * Reason Comments Headache Neck Pain Head Injury Encounter Details Date Type Department Care Team (Late st Contact Info) Description 10/02/2022 7:42 AM DE ICER FINISHER - 10/02/2022 9:53 AM DE ICER FINISHER Emergency [facility] [place] [address] Coleen Sumner PA [address] [place] [address] Headache; Neck Pain; Head Injury Discharge Disposition: Home or Self Care (Routine Discharge) Social History Tobacco Use Types Packs/Day Years Used Date Smoking Tobacco: Never Smokeless Tobacco: Never Tobacco Cessation:Counseling Given: Not Answered Alcohol Use Standard Drinks/Week Comments Not Currently 0 (1 standard drink = 0.6 oz pur e alcohol) social PHQ-2 Answer Date Recorded PHQ-2 Score - If the patient scores above 3, please move on to questions 3-9 0 06/03/2020 Comments No Sex and Gender Information Value Date Recorded Sex Assigned at Not on file Legal Sex Female 8:36 AM CDT Gender Identity Not on file Sexual Orientation Not on file COVID-19 Exposure Response Date Recorded In the last 10 days, have yo u been in contact with someone who was confirmed or suspected to have Coronavirus/COVID-19? No / Unsure 10/02/2022 7:31 AM DE ICER FINISHER documented as of this encounter Last Filed Vital Signs Vital Sign Reading Time Taken Comments Blood Pressure 107/71 10/02/2022 9:40 AM DE ICER FINISHER Pulse 72 10/02/2022 9:40 AM DE ICER FINISHER Temperature 36.2 ??C (97.1 ??F) 10/02/2022 7:36 AM CS T Respiratory Rate 18 10/02/2022 9:40 AM DE ICER FINISHER Oxygen Saturation 100% 10/02/2022 9:40 AM DE ICER FINISHER Inhaled Oxygen Concentration - - Weight 102.1 kg (225 lb 1.4 oz) 10/02/2022 7:36 AM DE ICER FINISHER Height 165.1 cm (5' 5 ) 10/02/2022 7:36 AM DE ICER FINISHER Body Mass Index 37.46 10/02/2022 7:36 AM DE ICER FINISHER documented in this encounter Functional Status * RETIRED Are you deaf or do you have serious difficulty hearing Answer Date of Assessment Author Status No 06/13/2020 2:48 PM CDT Activ e * RETIRED Are you blind or do you have serious difficulty seeing, even when wearing glasses? Answer Date of Assessment Author Status No 06/13/2020 2:48 PM CDT Activ e * Do you have serious difficulty walking or climbing stairs? Answer Date of Assessment Author Status No 06/13/2020 2:48 PM Najma Cardoso RN Active * Do you have difficulty dressing or bathing? Answer Date of Assessment Author Status No 06/13/2020 2:48 PM Najma Cardoso RN Active * Because of a physical, mental, or emotional condition, do you have difficulty doing errands alone such as visiting a doctor's office or shopping? Answer Date of Assessment Author Status No 06/13/2020 2:48 PM Najma Cardoso RN Active documented as of this encounter Mental Status * Because of a physical, mental, or emotional condition, do you have serious difficulty concentrating, remembering, or making decisions? Answer Entry Date Author Status No 06/13/2020 2:48 PM Najma Cardoso RN Active documented in this encounter Discharge Instructions * Discharge Instructions* HAWA Carpio - 10/02/2022 9:07 AM DE ICER FINISHER For head injury: 1) Please use Tylenol per package instructions for pain relief. 2) Very important for you to follow-up with your primary care doctor or the one referred to you in the next 2 to 3 days for close reevaluation. 3) Stay very hydrated. Get plenty of rest. Avoid any vigorous or physical activities to prevent recurrent injury. 4) Return to the emergency room for any new or worsening symptoms especially if you develop uncontrollable pain, uncontrollable vomiting, vision loss, lethargy, confusion/altered mental state, inability to walk or move extremities, weakness or other new emergent concerns. For back pain/neck pain: 1) For pain relief, you can use: Tylenol 650 mg every 4 hours as needed for pain (not to exceed 4 g/day) with Ibuprofen 600mg every 6-8 hours (do not exceed 3.2g/day) as needed for additional pain relief. Use medication as needed for muscle spasms/tightness. Do not drive, drink or operate heavy machinery on medication. This medication can make you sleepy. 2) Apply ice if muscles feel swollen. Use heat to promote blood flow to muscles. 3) Early movement as tolerated is good and will avoid muscle stiffness. Stretch affected area. The goal to relief of pain is to strengthen the muscles. 4) Return to the emergency room for any new or worsening symptoms especially if you develop fever, difficulty urinating, loss of control of urine or bowel, numbness/tingling down both legs/arms, inability to walk or other new emergent concerns. 5) Follow-up with your doctor this coming week for re-evaluation and possible referral to physical therapy or sooner if needed. This is very important for your health. Thank you for giving us the opportunity to care for you today. If at any point you are becoming more ill, your condition worsens or have concern, please call your doctor or return here. You are always welcome back. If you have any questions about this visit, concerns about your symptoms, questions about your medications or other concerns, please give us a call... Our practice is committed to providing you the exceptional care. We want to hear from you! Please fill out the survey you get from us. Your feedback is anonymous & helps us improve the patient experience for you and others in the community we serve. - Coleen Sumner PA-C - Emergency Medicine Provider ADDITIONAL DISCHARGE INSTRUCTIONS: --Please follow all the instructions that we have discussed or are provided here. Take all medications as directed. --Emergency Departments (ED) provide medical screening exams and initial stabilizing treatment of emergency medical conditions. Medicine is an inexact science and many conditions cannot be diagnosed or completely treated during a single ED visit. Your treating healthcare provider(s) today feel yourcondition has been stabilized so further care as an outpatient is reasonable. Emergency care does not substitute for complete, ongoing, or follow-up care by your primary care physician or benefits consultant.Please mention to your follow-up physician that you were in the emergency department and request that they review your labs and/or imaging to ensure all findings are followed up on. --Your medication list was reviewed prior to treatment, and at discharge, by the treating provider for the purpose of this outpatient visit only. Please review this entire medication list with your pharmacist, primary care physician, and specialist(s). It is your responsibility to share any new medication instructions you received this visit with your doctor(s). Although no medicine is without risk, your healthcare provider today feels reasonable decisions were made concerning starting new medications and stopping or changing the dosages of your usual medications until you receive follow-up care. Take medications only as directed. Many medications can cause drowsiness, especially those for pain, anxiety, muscle spasms, nausea, and allergies. DO NOT drive, drink alcohol, operate power machinery, or participate in potentially dangerous activities if taking medicines that make you tired. Chronic pain is best managed by pain specialists or primary care physicians, so narcotic refills are not routinely dispensed in the ED. DO NOT take multiple medications containing acetaminophen (Tylenol), such as many narcotic drug combinations and abju-vns-tigchxp cold medicines. --Again, it was a pleasure taking care of you. ICER FINISHER * Attachments The following attachments cannot be sent through Care Everywhere. * Postconcussion Syndrome (Spanish) * Generalized Neck Pain Discharge Instructions (Spanish) * Low Back Pain Discharge Instructions (Spanish) documented in this encounter Medications at Time of Discharge ciprofloxacin (CIPRO) 250 MG tablet Take 500 mg by mouth 2 (two) times daily. 09/28/2022 10/05/2022 cyclobenzaprine (FLEXERIL) 10 MG tablet Take 1 tablet (10 mg total) by mouth 3 (three) times daily as needed. 15 tablet 10/02/2022 03/04/2024 lidocaine 4 % patch Place 1 patch onto the skin daily. Remove & Discard patch within 12 hours or as directed by MD Erick ball 10/02/2022 03/04/2024 documented as of this encounter ED Notes * HAWA Carpio - 10/02/2022 8:07 AM CST ED NOTE Chief Complaint Chief Complaint Patient presents with ??? Headache ??? Neck Pain ??? Head Injury History of Present Illness 26-year-old female with a history of uterocele and UTI presents to the emergency room for evaluation of head injury that occurred yesterday around 10am. Patient reports that she works at [employer] when awhite pallet impacted the top of her head. No loss of consciousness. States that she had 1 bout of nonbloody emesis yesterday. Reports pain to the posterior neck, bilateral posterior shoulders, back and headache. Associated with headache. No difficulty with speech/vision/gait/hearing, memory loss, confusion/altered mental state, seizure like activity, use of anticoagulation, numbness, tingling, weakness, chest pain, shortness of breath, abdominal pain, nausea/vomiting, urinary symptoms, changes in bowel, vaginal complaints concern for . Patient denies any saddle anesthesia, urine or bowel incontinence, history of spinal surgery with metal implants or bilateral neurological symptoms. Patient reports unsure if she wants to make this a workmans comp case. PCP Rubio Medical History ALLERGIES: No Known Allergies MEDICATIONS: Prior to Admission medications Medication Sig Start Date End Date Taking? Authorizing Provider ciprofloxacin (CIPRO) 250 MG tablet Take 500 mg by mouth 2 (two) times daily. 09/28/22 10/05/22 Yes GENERICPROVIDER, DEFAULT HISTORY cyclobenzaprine (FLEXERIL) 10 MG tablet Take 1 tablet (10 mg total) by mouth 3 (three) times daily as needed. 10/02/22 Yes AHWA Carpio lidocaine 4 % patch Place 1 patch onto the skin daily. Remove & Discard patch within 12 hours or as directed by 10/02/22 Yes HAWA Carpio PAST MEDICAL HISTORY: Past Medical History: Diagnosis Date ??? Ureterocele ??? Urinary tract infection PAST SURGICAL HISTORY: Past Surgical History: Procedure Laterality Date ??? CHOLECYSTECTOMY ??? HERNIA REPAIR FAMILY HISTORY: Family History Problem Relation Name Age of Onset ??? No Known Problems Father ??? No Known Problems Mother SOCIAL HISTORY: Social History Tobacco Use ??? Smoking status: Never ??? Smokeless tobacco: Never Vaping Use ??? Vaping Use: Never used Substance Use Topics ??? Alcohol use: Not Currently Comment: social ??? Drug use: Never Review of Systems Review of Systems Constitutional: Negative for chills and fever. HENT: Negative for ear pain, sinus pain and sore throat. Eyes: Negative for pain and visual disturbance. Respiratory: Negative for cough and shortness of breath. Cardiovascular: Negative for chest pain and palpitations. Gastrointestinal: Positive for nausea and vomiting. Negative for abdominal pain and diarrhea. Genitourinary: Negative for dysuria, hematuria and urgency. Musculoskeletal: Positive for back pain and neck pain. Skin: Negative for rash and wound. Allergic/Immunologic: Negative for food allergies. Neurological: Positive for dizziness and headaches. Negative for tremors, seizures and numbness. Psychiatric/Behavioral: Negative. Physical Exam Filed Vitals: 10/02/22 0736 10/02/22 0940 BP: 118/73 107/71 Pulse: (!) 102 72 Resp: 18 18 Temp: 97.1 ??F (36.2 ??C) TempSrc: Temporal SpO2: 99% 100% Weight: 102.1 kg (225 lb 1.4 oz) Height: 5' 5 (1.651 m) Physical Exam Vitals and nursing note reviewed. Constitutional: Appearance: Normal appearance. She is well-developed. Comments: Nontoxic appearing HENT: Head: Normocephalic and atraumatic. Comments: No racoon eyes or mchugh sign No hemotympanum bilaterally Right Ear: Tympanic membrane, ear canal and external ear normal. Left Ear: Tympanic membrane, ear canal and external ear normal. Nose: Nose normal. Mouth/Throat: Mouth: Mucous membranes are moist. Pharynx: Oropharynx is clear. Eyes: Extraocular Movements: Extraocular movements intact. Conjunctiva/sclera: Conjunctivae normal. Pupils: Pupils are equal, round, and reactive to light. Comments: No nystagmus Cardiovascular: Rate and Rhythm: Normal rate and regular rhythm. Pulses: Normal pulses. Heart sounds: Normal heart sounds. Pulmonary: Effort: Pulmonary effort is normal. No respiratory distress. Breath sounds: Normal breath sounds. No stridor. No wheezing or rhonchi. Chest: Chest wall: No tenderness. Abdominal: General: Bowel sounds are normal. There is no distension. Palpations: Abdomen is soft. Tenderness: There is no abdominal tenderness. Musculoskeletal: General: Normal range of motion. Cervical back: Normal range of motion and neck supple. Comments: Moving all extremities fully. No bony tenderness along bilateral shoulders. UE and LE distal pulses, sensation, cap refill, temperature, patellar reflex and strength intact and equal bilaterally. Able to plantarflex and dorsiflex great toes bilaterally. No saddle anesthesia.No sensory or motor deficit throughout . Pt ambulatory with steady gait. No foot drop Skin: General: Skin is warm and dry. Capillary Refill: Capillary refill takes less than 2 seconds. Neurological: General: No focal deficit present. Mental Status: She is alert and oriented to person, place, and time. Cranial Nerves: No cranial nerve deficit. Comments: Cranial nerves III through XII intact UE and LE distal pulses, sensation, CR, temp and strength intact. No focal deficit. Finger to nose intact and equal bilaterally. Negative Romberg. Ambulatory with steady gait. Psychiatric: Mood and Affect: Mood normal. Behavior: Behavior normal. Diagnostic Studies / Procedures ELECTROCARDIOGRAMS: No results found for this visit on 10/02/22. LABORATORY STUDIES: No results found for this visit on 10/02/22. IMAGING STUDIES CT HEAD WO CON Final Result by User, [id number] (10/02 921) EXAM: CT HEAD WO CON DATE: 10/02/2022 8:07 AM INDICATION: Headache after work-related injury. TECHNIQUE: Transverse images through the head were obtained without intravenous contrast. A radiation dose lowering technique was used for this procedure, which may include, but is not limited to, dose reduction technique, automated exposure control, the use of iterative reconstruction, ALARA (As Low As Reasonably Achievable) techniques, and Image Gently techniques. COMPARISON: No comparison. FINDINGS: There is no evidence of acute intracranial hemorrhage. No evidence of abnormal intra or extra axial fluid collections. The ventricles are normal in size and symmetric. No evidence of mass, mass effect, or midline shift. The armendariz-white matter differentiation is preserved. The bony calvarium is unremarkable. Left maxillary mucosal thickening. Mastoid air cells appear clear. The globes and orbits are symmetric and grossly unremarkable. IMPRESSION: No acute intracranial abnormalities. Ordered By: LAST COHEN Interpreted By: Caden Herbert MD, 10/02/2022 9:[address] CERV SPINE WO CON Final Result by User, [id number] (10/02 919) EXAMINATION: CT Cervical Spine without contrast. EXAM DATE/TIME: 10/02/2022 8:07 AM REASON FOR EXAM: neck pain s/p head injury See Comments to the Radiologist Injury to the head yesterday. Vomiting yesterday afternoon. Headache and neck and shoulder pain. COMPARISON: None TECHNIQUE: Axial CT images of the cervical spine are obtained without the use of IV contrast agent. Subsequent coronal and sagittal reformatted sequences are created for evaluation. A dose lowering technique was used for this procedure, which may include, but is not limited to, dose reduction technique, automated exposure control, iterative reconstruction, ALARA (As Low As Reasonably Achievable), or Image Gently techniques. FINDINGS: Limited evaluation of posterior fossa contents unremarkable. The included skull base is intact. Mastoid air cells are clear. Visualized lung apices clear. No significant paravertebral soft tissue structural abnormalities. Straightening of cervical lordosis. Cervical vertebral body heights and alignment otherwise preserved. No acute fracture or dislocation. No destructive osseous lesions. ===== IMPRESSION: ===== 1. No acute traumatic abnormalities to the cervical spine. 2. Straightening of cervical lordosis may be secondary to muscle spasm or positioning for the study. Referred By: Interpreted By: Esau Ulloa MD, 10/02/2022 9:16 AM XR THOR SPINE 3V Final Result by User, [id number] (10/02 837) Examination: XR THOR SPINE 3V Exam time: 10/02/2022 8:17 AM Clinical history: Pain after work-related injury. Comparison: No comparison. Technique: AP, lateral and swimmer's views. Findings: There is normal alignment of the thoracic spine. Vertebral body heights and disc spaces are intact. No fracture or destructive process. The included lungs appear clear. IMPRESSION: No acute osseous abnormality identified involving the thoracic spine. Ordered By: COLEEN SUMNER Interpreted By: Caden Herbert MD, 10/02/2022 8:35 AM XR LUMB SPINE 3V Final Result by User, [id number] (10/02 0778) Examination: XR LUMB SPINE 3V Exam time: 10/02/2022 8:17 AM Clinical history: Pain after work-related injury. Comparison: No comparison. Technique: AP, lateral and L5-S1 views. Findings: There is normal alignment of the lumbar spine. Vertebral body heights and disc spaces are intact. No fracture or destructive osseous lesion is seen. Cholecystectomy clips noted. IMPRESSION: No acute osseous abnormality identified involving the lumbar spine. Ordered By: COLEEN SUMNER Interpreted By: Caden Herbert MD, 10/02/2022 8:35 AM ED Course / Medical Decision Making MDM Number of Diagnoses or Management Options Amount and/or Complexity of Data Reviewed Tests in the radiology section of CPT??: reviewed and ordered ED Course as of 10/02/22 0947 Sun Oct 02, [address] HEAD WO CON Per rad read: No acute intracranial abnormalities. [AD] 0924 CT CERV SPINE WO CON Per rad reaD: 1. No acute traumatic abnormalities to the cervical spine. 2. Straightening of cervical lordosis may be secondary to muscle spasm or positioning for the study. [AD] 0925 XR THOR SPINE 3V Per rad read: No acute osseous abnormality identified involving the thoracic spine. [AD] 0925 XR LUMB SPINE 3V Per rad read: No acute osseous abnormality identified involving the lumbar spine [AD] 0943 Nontoxic-appearing patient presents for head injury. GCS 15 NIH 0. No change in cognition. Patient ambulatory with a steady gait without any focal deficit. CT head negative. Suspect likely concussion. Plan to treat conservatively and have patient follow-up with PCP closely for further evaluati on. . Patient also complains of neck and back pain. No focal deficit noted. Patient is amatory steady gait. CT imaging negative of C-spine and x-rays negative of T and L-spine for any acute osseous or traumatic abnormality. Imaging results along with incidental results of all imaging reviewed with patient. No red flags or focal deficit to warrant further emergent imaging at this time. Suspect likely musculoskeletal etiology. Plan for conservative measures, adverse reactions of medications reviewed in which patient expresses verbal understanding. Stable for outpatient follow up. Strict verbal return precautions reviewed. Patient expresses verbal understanding and agreement with plan. All questions answered to the best of my ability. Teachback performed by patient. Nontoxic exit exam. Patient discharged home in stable condition. [AD] ED Course User Index [AD] HAWA Carpio Medications acetaminophen (TYLENOL) tablet 1,000 mg (1,000 mg Oral Given 10/02/22 0814) ondansetron (ZOFRAN-ODT) disintegrating tablet 4 mg (4 mg Oral Given 10/02/22 0814) Clinical Impression Injury of head, initial encounter (Primary) Neck pain Back pain Current Discharge Medication List START taking these medications Details cyclobenzaprine (FLEXERIL) 10 MG tablet Take 1 tablet (10 mg total) by mouth 3 (three) times daily as needed. Qty: 15 tablet, Refills: 0 Class: Eprescribe Pharmacy: [facility] [address] (Ph #: [phone]) lidocaine 4 % patch Place 1 patch onto the skin daily. Remove & Discard patch within 12 hours or as directed by Qty: 10 patch, Refills: 0 Class: Eprescribe Pharmacy: [facility] [address] (Ph #: [phone]) Disposition: Discharge Follow-Up: Tejinder Bergeron MD [address] [facility] [address] HAWA CARPIO 10/02/2022 HAWA Carpio 10/02/22 0947 Cosigned by Last Cohen MD at 10/04/2022 8:59 AM DE ICER FINISHER ICER FINISHER ICER FINISHER * Rocío Bolden RN - 10/02/2022 7:35 AM CST Patient reports that she was hit on the head with a palette at work yesterday- denies LOC, patient reports she vomited x1 yesterday afternoon. Patient reports a headache, neck, and shoulder pain ICER FINISHER documented in this encounter Plan of Treatment Not on file documented as of this encounter Procedures Procedure Name Priority Date/Time Associated Diagnosis Comments CT HEAD WO CON STAT 10/02/2022 8:36 AM DE ICER FINISHER CT CERV SPINE WO CON STAT 10/02/2022 8:36 AM DE ICER FINISHER XR THOR SPINE 3V STAT 10/02/2022 8:31 AM DE ICER FINISHER XR LUMB SPINE 3V STAT 10/02/2022 8:31 AM DE ICER FINISHER documented in this encounter Results * CT CERV SPINE WO CON (10/02/2022 8:36 AM DE ICER FINISHER) Anatomical Region Laterality Modality Spine Computed Tomogra phy 10/02/2022 9:16 AM DE ICER FINISHER Impressions 10/02/2022 9:19 AM DE ICER FINISHER IMPRESSION: ===== 1. ??No acute traumatic abnormalities to the cervical spine. 2. ??Straightening of cervical lordosis may be secondary to muscle spasm or positioning for the study. Referred By: ?? Interpreted By: Esau Ulloa MD, 10/02/2022 9:16 AM Narrative 10/02/2022 9:19 AM DE ICER FINISHER EXAMINATION: CT Cervical Spine without contrast. EXAM DATE/TIME: 10/02/2022 8:07 AM REASON FOR EXAM: ??neck pain s/p head injury See Comments to the Radiologist ?? Injury to the head yesterday. ??Vomiting yesterday afternoon. ??Headache and neck and shoulder pain. COMPARISON: None TECHNIQUE: Axial CT images of the cervical spine are obtained without the use of IV contrast agent. Subsequent coronal and sagittal reformatted sequences are created for evaluation. ??A dose lowering technique was used for this procedure, which may include, but is not limited to, dose reduction technique, automated exposure control, iterative reconstruction, ALARA (As Low As Reasonably Achievable), or Image Gently techniques. FINDINGS: Limited evaluation of posterior fossa contents unremarkable. ??The included skull base is intact. ??Mastoid air cells are clear. ??Visualized lung apices clear. ??No significant paravertebral soft tissue structural abnormalities. ??Straightening of cervical lordosis. ??Cervical vertebral body heights and alignment otherwise preserved. ??No acute fracture or dislocation. ??No destructive osseous lesions. ===== Procedure Note Esau Ulloa MD - 10/02/2022 EXAMINATION: CT Cervical Spine without contrast. EXAM DATE/TIME: 10/02/2022 8:07 AM REASON FOR EXAM: neck pain s/p head injury See Comments to the Radiologist Injury to the head yesterday. Vomiting yesterday afternoon. Headacheand neck and shoulder pain. COMPARISON: None TECHNIQUE: Axial CT images of the cervical spine are obtained without theuse of IV contrast agent. Subsequent coronal and sagittal reformattedsequences are created for evaluation. A dose lowering technique was usedfor this procedure, which may include, but is not limited to, dosereduction technique, automated exposure control, iterative reconstruction,ALARA (As Low As Reasonably Achievable), or Image Gently techniques. FINDINGS: Limited evaluation of posterior fossa contents unremarkable.The included skull base is intact. Mastoid air cells are clear.Visualized lung apices clear. No significant paravertebral soft tissuestructural abnormalities. Straightening of cervical lordosis. Cervicalvertebral body heights and alignment otherwise preserved. No acutefracture or dislocation. No destructive osseous lesions. ===== IMPRESSION: ===== 1. No acute traumatic abnormalities to the cervical spine. 2. Straightening of cervical lordosis may be secondary to muscle spasm orpositioning for the study. Referred By: Interpreted By: Esau Ulloa MD, 10/02/2022 9:16 AM us Last Cohen MD CT Final Re sult * CT HEAD WO CON (10/02/2022 8:36 AM DE ICER FINISHER) Anatomical Region Laterality Modality Head Computed Tomogra phy 10/02/2022 9:18 AM DE ICER FINISHER Impressions 10/02/2022 9:21 AM DE ICER FINISHER IMPRESSION: No acute intracranial abnormalities. Ordered By: LAST COHEN Interpreted By: Caden Herbert MD, 10/02/2022 9:18 AM Narrative 10/02/2022 9:21 AM DE ICER FINISHER EXAM: ??CT HEAD WO CON DATE: 10/02/2022 8:07 AM INDICATION: Headache after work-related injury. TECHNIQUE: Transverse images through the head were obtained without intravenous contrast. A radiation dose lowering technique was used for this procedure, which may include, but is not limited to, dose reduction technique, automated exposure control, the use of iterative reconstruction, ALARA (As Low As Reasonably Achievable) techniques, and Image Gently techniques. COMPARISON: No comparison. FINDINGS: There is no evidence of acute intracranial hemorrhage. No evidence of abnormal intra or extra axial fluid collections. The ventricles are normal in size and symmetric. No evidence of mass, mass effect, or midline shift. The armendariz-white matter differentiation is preserved. The bony calvarium is unremarkable. Left maxillary mucosal thickening. Mastoid air cells appear clear. The globes and orbits are symmetric and grossly unremarkable. Procedure Note Caden Herbert MD - 10/02/2022 EXAM: CT HEAD WO CON DATE: 10/02/2022 8:07 AM INDICATION: Headache after work-related injury. TECHNIQUE: Transverse images through the head were obtained without intravenouscontrast. A radiation dose lowering technique was used for this procedure,which may include, but is not limited to, dose reduction technique,automated exposure control, the use of iterative reconstruction, ALARA (AsLow As Reasonably Achievable) techniques, and Image Gently techniques. COMPARISON: No comparison. FINDINGS: There is no evidence of acute intracranial hemorrhage. No evidence ofabnormal intra or extra axial fluid collections. The ventricles are normalin size and symmetric. No evidence of mass, mass effect, or midline shift.The armendariz-white matter differentiation is preserved. The bony calvarium isunremarkable. Left maxillary mucosal thickening. Mastoid air cells appearclear. The globes and orbits are symmetric and grossly unremarkable. IMPRESSION: No acute intracranial abnormalities. Ordered By: LAST COHEN Interpreted By: Caden Herbert MD, 10/02/2022 9:18 AM us Last Cohen MD CT Final Re sult * XR LUMB SPINE 3V (10/02/2022 8:31 AM DE ICER FINISHER) Anatomical Region Laterality Modality Spine Radiographic Milka ging 10/02/2022 8:35 AM DE ICER FINISHER Impressions 10/02/2022 8:35 AM DE ICER FINISHER IMPRESSION: No acute osseous abnormality identified involving the lumbar spine. Ordered By: COLEEN SUMNER Interpreted By: Caden Herbert MD, 10/02/2022 8:35 AM Narrative 10/02/2022 8:35 AM DE ICER FINISHER Examination: XR LUMB SPINE 3V Exam time: 10/02/2022 8:17 AM Clinical history: Pain after work-related injury. Comparison: No comparison. Technique: AP, lateral and L5-S1 views. Findings: There is normal alignment of the lumbar spine. Vertebral body heights and disc spaces are intact. No fracture or destructive osseous lesion is seen. Cholecystectomy clips noted. Procedure Note Caden Herbert MD - 10/02/2022 Examination: XR LUMB SPINE 3V Exam time: 10/02/2022 8:17 AM Clinical history: Pain after work-related injury. Comparison: No comparison. Technique: AP, lateral and L5-S1 views. Findings: There is normal alignment of the lumbar spine. Vertebral body heights anddisc spaces are intact. No fracture or destructive osseous lesion is seen.Cholecystectomy clips noted. IMPRESSION: No acute osseous abnormality identified involving the lumbar spine. Ordered By: COLEEN SUMNER Interpreted By: Caden Herbert MD, 10/02/2022 8:35 AM Coleen Sumner PA GENER[facility] IMAG[facility] Final Result * XR THOR SPINE 3V (10/02/2022 8:31 AM DE ICER FINISHER) Anatomical Region Laterality Modality Spine Radiographic Milka ging 10/02/2022 8:35 AM DE ICER FINISHER Impressions 10/02/2022 8:36 AM DE ICER FINISHER IMPRESSION: No acute osseous abnormality identified involving the thoracic spine. Ordered By: COLEEN SUMNER Interpreted By: Caden Herbert MD, 10/02/2022 8:35 AM Narrative 10/02/2022 8:36 AM DE ICER FINISHER Examination: XR THOR SPINE 3V Exam time: 10/02/2022 8:17 AM Clinical history: Pain after work-related injury. Comparison: No comparison. Technique: AP, lateral and swimmer's views. Findings: There is normal alignment of the thoracic spine. Vertebral body heights and disc spaces are intact. No fracture or destructive process. The included lungs appear clear. Procedure Note Caden Herbert MD - 10/02/2022 Examination: XR THOR SPINE 3V Exam time: 10/02/2022 8:17 AM Clinical history: Pain after work-related injury. Comparison: No comparison. Technique: AP, lateral and swimmer's views. Findings: There is normal alignment of the thoracic spine. Vertebral body heightsand disc spaces are intact. No fracture or destructive process. Theincluded lungs appear clear. IMPRESSION: No acute osseous abnormality identified involving the thoracic spine. Ordered By: COLEEN SUMNER Interpreted By: Caden Herbert MD, 10/02/2022 8:35 AM Coleen Sumner [place] [facility] Final Result documented in this encounter Visit Diagnoses Diagnosis Injury of head, initial encounter- Primary Neck pain Cervicalgia Back pain Backache, unspecified documented in this encounter Administered Medications Inactive Administered Medications - up to 3 most recent administrations Medication Order MAR Action Action Date Dose Rate Site acetaminophen (TYLENOL) tablet 1,000 mg 1,000 mg, Oral, Once, 1 dose, On 10/02/22 at 0815, Maximum dose of acetaminophen is 4000 mg from all sources in 24 hours. Given 10/02/2022 8:14 AM DE ICER FINISHER 1,000 mg ondansetron (ZOFRAN-ODT) disintegrating tablet 4 mg 4 mg, Oral, Once, 1 dose, On 10/02/22 at 0815 Given 10/02/2022 8:14 AM DE ICER FINISHER 4 mg documented in this encounter Active and Recently Administered Medications Times are shown in DE ICER FINISHER. Scheduled Medication Order 09/30/2022 10/01/2022 10/02/2022 acetaminophen (TYLENOL) tablet 1,000 mg (COMPLETED) 1,000 mg, Oral, Once, 1 dose, On 10/02/22 at 0815, Maximum dose of acetaminophen is 4000 mg from all sources in 24 hours. 0814 (Given - Provid er: Dorothy Lowery RN) ondansetron (ZOFRAN-ODT) disintegrating tablet 4 mg (COMPLETED) 4 mg, Oral, Once, 1 dose, On 10/02/22 at 0815 0814 (Given - Provid er: Dorothy Lowery RN) documented in this encounter Care Teams Revenue Enforcement Collection Agent Relationship Specialty Start Date End Date Tejinder Bergeron MD [address] [address] [place] [address] PCP - General INTERNAL MEDICINE 05/04/20 01/06/24 documented as of this encounter
--- OUTSIDE RECORDS SUMMARY | 2024-10-01 17:55 | XMS_ITS | Patient Health Summary ---
Author Organization [facility] Address [address] [place] [address] Care Team Providers Care Com Writer Name Role Phone Salinas Escobar MD Primary Care Provider [phone] Note from [facility],non-owned Affiliates and Associated Physician Practices is amultiple site organization consisting of ambulatory clinics and hospital sitesin [place], [place], [place] and [place]. This disclosure is being madepursuant to the Care Everywhere program and may not contain all information available regarding this patient. Last updated 18.[facility] [employer] Allergies No known active allergies Medications Be aware that medications may not be up to date on this document. Always verify current medications with the patient. No known medications Active Problems Problem Noted Date Diagnosed Date Bilateral chronic knee pain 07/05/2023 Immunizations * DTaP VACCINE IM (6wk-6yrs)(Given 08/13/1999) * FLU VACCINE QUAD IIV4 SPLIT 0.25 ML IM(Given 08/18/2017) * HEP B VACCINE, PED/ADOL(Given 12/22/2003, 08/08/2000, 08/13/1999) * Human Papilloma Virus Bivalent Vaccine(Given 07/30/2008, 04/01/2008, 01/22/2008) * INFLUENZA VACCINE(Given 08/22/2014, 08/07/2013, 07/30/2008) * MENINGOCOCCAL VACCINE(Given 01/22/2008) * MMR(Given 08/08/2000, 08/13/1999) * POLIO IPV(Given 08/13/1999) * TDAP (7yrs+)(Given 10/05/2018, 12/30/2014, 01/22/2008) * Td (Adult), 2 Lf Tetanus Toxoid, Adsorbed, Pf(Given 08/13/1999) Social History Tobacco Use Types Packs/Day Years Used Date Smoking Tobacco: Never Smokeless Tobacco: Never Tobacco Cessation:Counseling Given: Not Answered Alcohol Use Standard Drinks/Week Comments Not Currently 0 (1 standard drink = 0.6 oz pur e alcohol) PHQ-2 Answer Date Recorded Patient Health Questionnaire-2 Score 0 09/06/2023 Sex and Gender Information Value Date Recorded Sex Assigned at Not on file Gender Identity Not on file Sexual Orientation Not on file Last Filed Vital Signs Vital Sign Reading Time Taken Comments Blood Pressure - - Pulse - - Temperature - - Respiratory Rate - - Oxygen Saturation - - Inhaled Oxygen Concentration - - Weight 106.1 kg (234 lb) 09/06/2023 10:42 AM SODA WORKER Height 165.1 cm (5' 5 ) 08/23/2023 9:36 AM SODA WORKER Body Mass Index 38.94 08/23/2023 9:36 AM SODA WORKER Procedures * MRI KNEE LEFT WO CONTRAST(Performed 09/04/2023) Performed for Internal derangement of left knee * MRI KNEE RIGHT WO CONTRAST(Performed 09/04/2023) Performed for Sprain of anterior cruciate ligament of right knee, subsequent encounter, Knee instability, right * XR KNEE BILAT 4VW OR MORE(Performed 07/05/2023) Performed for Left knee pain, unspecified chronicity Results * MRI KNEE LEFT WO CONTRAST (09/04/2023 11:03 AM SODA WORKER) Anatomical Region Laterality Modality Lower Extremity Magnetic Resonan ce 09/04/2023 11:4 7 AM SODA WORKER Impressions 09/04/2023 12:10 PM SODA WORKER IMPRESSION: Examination demonstrates an abnormal appearance of [...] 09/04/2023 12:10 PM Narrative 09/04/2023 12:10 PM SODA WORKER PROCEDURE: ??MRI KNEE LEFT WO CONTRAST DATE/TIME [...] images are degraded by patient motion. Additionally [id number] images were obtained to assess the cruciate [...] KNEE RIGHT WO CONTRAST (09/04/2023 10:36 AM SODA WORKER) Anatomical Region Laterality Modality Lower Extremity Magnetic Resonan ce 09/04/2023 10:5 1 AM SODA WORKER Impressions 09/04/2023 11:04 AM SODA WORKER IMPRESSION: Examination demonstrates a mildly complex tear [...] 09/04/2023 11:04 AM Narrative 09/04/2023 11:04 AM SODA WORKER PROCEDURE: ??MRI KNEE RIGHT WO CONTRAST DATE/TIME [...] 11:04 AM Kate Merida PA-C MR ORDERABLES * XR KNEE BILAT 4VW OR MORE [...] ??Exam Date: ??07/05/2023 2:55 PM ?? Location: ??[facility] Indication: M25.562: Pain in left knee Findings: There is no evidence of fracture. The joint spaces are well-maintained. There is no bony destruction. There is no joint effusion. Procedure Note Kevin Enriquez MD - 07/05/2023 Procedure: XR KNEE BILAT 4VW OR MORE Exam Date: 07/05/2023 2:55 PM Location: [facility] Indication: M25.562: Pain in left knee Findings: There is no evidence of fracture. The joint spaces are well-maintained. There is no bony destruction. There is no jointeffusion. Impression: No evidence of fracture. No acute bony abnormality of the knees. > Interpreting Provider: Kevin Enriquez MD on 07/05/2023 3:09 PM Kate Merida PA-C DIAGNOSTIC IMAGING O RDERABLES Care Teams Com Writer Relationship Specialty Start Date End Date Salinas Escobar MD [address] [place] [address] PCP - General Family Medicine 09/04/23
--- OUTSIDE RECORDS SUMMARY | 2024-10-01 17:55 | XMS_ITS | Encounter Summary ---
Author Organization [facility] Address [address] [place] [address]. [place] [address] [place] [address] Care Team Providers Care Community Assistant Name Role Phone Tejinder Duarte MD Primary Care Provider Reason for Visit * Reason Comments Abdominal Pain Vomiting * Auth/Cert Specialty Diagnoses / Procedures Referred By Cristopher t Referred To Contact Diagnoses Umbilical hernia with obstruction but no gangrene Cholelithiasis Biliary colic Umbilical hernia with obstruction but no gangrene Abdominal pain Procedures OBS Referral ID Status Reason Start Date Expiration Date Visits Re quested Visits Authorized [id number] 1 1 Encounter Details Date Type Department Care Team (Late st Contact Info) Description 06/16/2020 11:15 AM CDT - 06/16/2020 2:02 PM CDT Surgery New Site' OR [facility] [place] [address] Arturo Peraza MD [address] [place] [id number] LAPAROSCOPIC CHOLECYSTECTOMY WITH INTEROPERATIVE CHOLANGIOGRAMS Surgery Details Date/Time Status Location OR Service Patient Class Case Cl ass Case Type Trauma Case? 06/16/2020 11:15 AM Posted [facility] OR OR 3 General Inpatient E - Elective No Panel 1 Procedure LRB Anes Op Region Wound Class Comments LAPAROSCOPIC CHOLECYSTECTOMY WITH INTEROPERATIVE CHOLANGIOGRAMS N/A General Abdomen Clean HERNIORRHAPHY UMBILICAL N/A General Abdomen Clean Surgeon Surgeon Role Service Panel Arturo Peraza MD Primary General [address] Case Notes SCHED BY DR PERAZA WITH ABDOULAYE. 06/15/2020 JRM Special Needs C-ARM documented in this encounter Social History Tobacco Use Types Packs/Day Years Used Date Smoking Tobacco: Never Smokeless Tobacco: Never Alcohol Use Standard Drinks/Week Comments Yes 0 (1 standard drink = 0.6 oz [...] Exposure Response Date Recorded In the last month, have you been in contact with someone who was confirmed or suspected to have Coronavirus / COVID-19? No / Unsure 06/13/2020 2:40 PM CDT documented as of this encounter Last Filed Vital Signs Vital Sign Reading Time Taken Comments Blood Pressure 114/79 06/16/2020 1:45 PM CDT Pulse 68 06/16/2020 2:00 PM CDT Temperature 36.6 ??C (97.8 ??F) 06/16/2020 1:45 PM CD T Respiratory Rate 24 06/16/2020 2:00 PM CDT Oxygen Saturation 96% 06/16/2020 2:00 PM CDT Inhaled Oxygen Concentration - - Weight 95.1 kg (209 lb 10.5 oz) 06/13/2020 2:24 PM CDT Height 165.1 cm (5' 5 ) 06/13/2020 2:24 PM CDT Body Mass Index 34.89 06/13/2020 2:24 PM CDT documented in this encounter Functional Status * Question Answer Date of Assessment Author Status Do you have serious difficulty walking or climbing stairs? No 06/13/2020 2:48 PM CDT Najma Best RN Active * Question Answer Date of Assessment Author Status Do you have difficulty dressing or bathing? No 06/13/2020 2:48 PM CDT Najma Best RN Active Because of a physical, mental, or emotional condition, do you have difficulty doing errands alone such as visiting a doctor's office or shopping? No 06/13/2020 2:48 PM CDT Najma Best RN Active * RETIRED Are you deaf or do [...] Author Status No 06/13/2020 2:48 PM CDT Najma Best RN Active * Do you have difficulty dressing or bathing? Answer Date of Assessment Author Status No 06/13/2020 2:48 PM CDT Najma Best RN Active * Because of a physical, mental, or emotional condition, do you have difficulty doing errands alone such as visiting a doctor's office or shopping? Answer Date of Assessment Author Status No 06/13/2020 2:48 PM CDT Najma Best RN Active documented as of this encounter Mental Status * Question Answer Entry Date Author Status Because of a physical, mental, or emotional condition, do you have serious difficulty concentrating, remembering, or making decisions? No 06/13/2020 2:48 PM CDT Najma Best RN Active * Because of a physical, mental, or emotional condition, do you have serious difficulty concentrating, remembering, or making decisions? Answer Entry Date Author Status No 06/13/2020 2:48 PM CDT Najma Best RN Active documented in this encounter Discharge Summaries * Selena Cervantes MD - 06/17/2020 2:00 PM CDT Hospitalist Discharge Summary Patient ID: Clement Fuentes. female. 1995. Admit date: 06/13/2020 4:57 AM Discharge date and time: 06/19/20 Admitting Physician: Sanchez Díaz MD Attending Physician: No att. providers found Primary Care Physician: TEJINDER DUARTE MD Discharge Physician: SELENA CERVANTES MD Hospital Diagnosis: Umbilical Hernia with Obstruction without Gangrene Admission Condition: fair Discharged Condition: Stable Code Status: Prior Indication for Admission: Chief Complaint Patient presents with ??? Abdominal Pain ??? Vomiting Readmission/Mortality Score at discharge: Low 0-28, Medium 29-58, High >59 LACE+ Score Readmission Score: 51 Male Patient: Urgent Admission: 15 Discharge Institution: Length of Stay: 5 Alternative Level of Care Status: 0 ED Visits in Previous 6 Months: 0 Elective Admission in Previous Year: 6 Comorbidity Score (by age & number of urgent admissions): 25 Hospital Course: Clementomar Fuentes is a 24-year-old female with past medical history significant for gallstones,due to have a cholecystectomy via Dr. Mclaughlin this week, who presented with worsening abdominal pain and nausea intermittent for several weeks. Upon evaluation in the ED, she was found to have an umbilical hernia containing a focal small bowel loop with bowel obstruction proximal to the hernia. Shewas subsequently admitted and seen by general surgery where she underwent laparoscopic cholecystectomy with IOC in addition to umbilical herniorrhaphy. Post-operatively, her hospital course was unremarkable and upon the day of discharge she was tolerating her diet and passing flatus. She was provided with a script for analgesia by the surgeon and encouraged to utilize stool softeners to help in enabling bowel movement. She will follow-up with the surgeon in the outpatient setting. Findings that require further workup: Post-op follow-up per Dr. Peraza Consults: general surgery Significant Diagnostic Studies: No results found for this or any previous visit (from the past 24 hour(s)). Radiology Reports : CT abdomen pelvis with contrast 06/13 Impression: 1. ??Umbilical hernia containing a focal small bowel loop. ??There is bowel obstruction proximal tothis. ??The small bowel just proximal to entering the umbilical hernia is thickened and slightly inflamed possibly due to hyperemia. ??Although there is no pneumatosis intestinalis, there may be early ischemia. 2. ??Pelvic ascites possibly reactive to the bowel process. 3. ??Cholelithiasis. Discharge Exam: Filed Vitals: 06/16/20 2100 06/17/20 0024 06/17/20 0300 06/17/20 0700 BP: 118/78 113/57 104/69 Pulse: 71 62 50 64 Resp: 25 24 23 17 Temp: 97.3 ??F (36.3 ??C) 98.6 ??F (37 ??C) 97.7 ??F (36.5 ??C) TempSrc: Axillary Temporal Temporal SpO2: 100% 96% 97% 99% Weight: Height: Physical Exam Constitutional: She is oriented to person, place, and time and well-developed, well-nourished, and in no distress. HENT: Head: Normocephalic and atraumatic. Cardiovascular: Normal rate and regular rhythm. Pulmonary/Chest: Effort normal and breath sounds normal. Abdominal: Soft. Bowel sounds are normal. Non-distended. Incisional TTP. Musculoskeletal: She exhibits no edema. Neurological: She is alert and oriented to person, place, and time. Skin: Skin is warm and dry. Discharge Medications: Medication List START taking these medications docusate sodium 100 MG capsule Commonly known as: COLACE Take 1 capsule (100 mg total) by mouth 2 (two) times daily for 10 days. HYDROcodone-acetaminophen 5-325 MG tablet Commonly known as: NORCO Take 1-2 tablets by mouth every 6 (six) hours as needed. Indications: Acute Pain < 7 Day Supply Where to Get Your Medications These medications were sent to [address] [place] [address] [address] [facility] [address] ?? docusate sodium 100 MG capsule You can get these medications from any pharmacy Bring a paper prescription for each of these medications ?? HYDROcodone-acetaminophen 5-325 MG tablet Disposition: Home with self care Time Spent on Discharge: > 35 minutes Signed: SELENA CERVANTES MD documented in this encounter Discharge Instructions * Discharge Instructions* Clover Canseco RN - 06/17/2020 12:53 PM CDT Call [facility] after discharge to obtain a work note with restrictions. * Attachments The following attachments cannot be sent through Care Everywhere. * Cholecystectomy, Laparoscopic Surgery ([place]) documented in this encounter Medications at Time of Discharge docusate sodium 100 MG capsule Take 1 capsule (100 mg total) by mouth 2 (two) times daily for 10 days. 10 capsule 06/17/2020 06/27/2020 HYDROcodone-aceta minophen 5-325 MG tabletIndications :Acute Pain < 7 Day Supply Take 1-2 tablets by mouth every 6 (six) hours as needed. Indications: Acute Pain < 7 Day Supply 20 tablet 06/17/2020 10/02/2022 documented as of this encounter Progress Notes * Kaya Reyes RN - 06/17/2020 1:17 PM CDT Received consult that patient was needing transportation home. NCM spoke to patient and offered [employer] bus pass or [employer] trip. Patient reports she has a friend that will come get her, RN Clover notified. * Arturo Peraza MD - 06/17/2020 7:22 AM CDT General Surgery Progress Note-[facility] Clement Fuentes is an 24-year-old female. 1 Day Post-Op Procedure(s) (LRB): LAPAROSCOPIC CHOLECYSTECTOMY WITH INTEROPERATIVE CHOLANGIOGRAMS (N/A) HERNIORRHAPHY UMBILICAL (N/A) SUBJECTIVE: Feeling better, soreness last night OBJECTIVE: Blood pressure 104/69, pulse 64, temperature 97.7 ??F (36.5 ??C), temperature source Temporal, resp. rate 17, height 5' 5 (1.651 m), weight 95.1 kg (209 lb 10.5 oz), last menstrual period 05/27/2020, SpO2 99 %. Exam: Abdomen soft, incisions clean, tender as expected Labs noted Labs: Recent Labs Lab 06/14/2030 06/14/20 0909 06/15/20 0435 06/16/20 0515 06/17/20 0500 WBC 6.6 5.5 6.2 8.8 11.8* HGB 10.6* 9.8* 10.3* 12.8 11.7* MCV 82.1 80.9* 80.8* 81.5 79.5* PLT 197 188 198 231 234 Recent Labs Lab 06/15/20 0435 06/16/20 0515 06/17/20 0500 NA 139 136 137 K 3.4* 3.6 3.9 CL 107 105 107 CO2 26.9 24.7 25.3 BUN 6* 8 8 CR 0.57 0.63 0.60 Recent Labs Lab 06/14/20 0530 06/15/20 0435 06/16/20 0515 AST 11* 12* 13* ALT 16 13* 18 TBIL 0.6 0.4 0.3 ALB 2.9* 3.0* 3.4 Rads: No new studies IMPRESSION: 1 Day Post-Op Status post laparoscopic cholecystectomy with IOC/umbilical herniorrhaphy PLAN: 1. Advance diet 2. Encourage ambulation 3. Discharge okay with surgery 4. Follow-up as ordered with [facility] Charlene PERAZA MD 06/17/2020 * Jordan Fitzgerald PA-C - 06/16/2020 12:59 PM CDT Hospitalist Daily Progress Note Subjective Patient admitted for umbilical hernia obstruction and biliary colic. On exam this morning patient denies any abdominal pain or tenderness. Denies any nausea, vomiting, diarrhea, constipation, fevers or chills or other acute complaints at this time. Plan for surgery today at noon. Objective Filed Vitals: 06/15/20 1900 06/16/20 0500 06/16/20 1100 06/16/20 1255 BP: 124/84 99/58 106/62 Pulse: 63 56 62 Resp: 18 18 18 Temp: 98.3 ??F (36.8 ??C) 98.3 ??F (36.8 ??C) 98.8 ??F (37.1 ??C) (P) 98.8 ??F (37.1 ??C) TempSrc: Oral Oral Oral (P) Temporal SpO2: 100% 100% 99% Weight: Height: Physical Exam: Physical Exam Constitutional: She is oriented to person, place, and time. She appears well- developed and well-nourished. HENT: Head: Normocephalic and atraumatic. Eyes: Conjunctivae and EOM are normal. Neck: Neck supple. Cardiovascular: Normal rate, regular rhythm and normal heart sounds. Pulmonary/Chest: Effort normal and breath sounds normal. No respiratory distress. Abdominal: Soft. Bowel sounds are normal. She exhibits no distension. There is no tenderness. Musculoskeletal: Normal range of motion. She exhibits no edema. Neurological: She is alert and oriented to person, place, and time. Skin: Skin is warm and dry. No erythema. Psychiatric: She has a normal mood and affect. Her behavior is normal. Judgment and thought contentnormal. Intake/Output 24H Total: Intake/Output Summary (Last 24 hours) at 06/16/2020 1300 Last data filed at 06/16/2020 1239 Gross per 24 hour Intake 920 ml Output 22 ml Net 898 ml Medication ??? BUpivacaine ??? BUpivacaine-EPINEPHrine PF ??? famotidine 20 mg Intravenous 2 times per day Or ??? famotidine 20 mg Oral 2 times per day ??? ferrous sulfate EC 324 mg Oral Daily with breakfast ??? potassium chloride CR 20 mEq Oral Daily ??? lactated ringers 10 mL/hr at 06/16/20 1112 ??? sodium chloride PRN Meds: chlorhexidine, fentaNYL, HYDROcodone-acetaminophen, morphine, morphine, naLOXone, ondansetron Labs: Recent Labs Lab 06/13/2052306/14/2030 06/15/20 0435 06/16/20 0515 NA 136 140 139 136 K 3.5 3.6 3.4* 3.6 CL 102 109* 107 105 CO2 26.8 28.7 26.9 24.7 AGAP 7.2 2.3* 5.1 6.3 BUN 11 11 6* 8 CR 0.72 0.68 0.57 0.63 BUNCREATININ 15.3 16.1 10.6 12.8 GFRNON >90 >90 >90 >90 GFR >90 >90 >90 >90 GLU 129* 88 85 95 CA 9.5 8.5 8.5 9.2 MAGNESIUM -- 2.2 2.1 2.2 Recent Labs Lab 06/13/2052306/14/20 0530 06/14/20 0909 06/15/20 0435 06/16/20 0515 WBC 10.9 6.6 5.5 6.2 8.8 RBC 5.31 4.13* 3.82* 4.01* 4.98 HGB 13.6 10.6* 9.8* 10.3* 12.8 HCT 42.3 33.9* 30.9* 32.4* 40.6 MCV 79.7* 82.1 80.9* 80.8* 81.5 MCH 25.6* 25.7* 25.7* 25.7* 25.7* MCHC 32.2 31.3* 31.7* 31.8* 31.5* PLT 348 197 188 198 231 RDW 13.2 13.5 13.6 13.2 13.3 MPV 11.9 11.6 11.9 12.0 12.1 Recent Labs Lab 06/13/20 0524 06/14/20 0530 06/15/20 0435 06/16/20 0515 AST 17 11* 12* 13* ALT 21 16 13* 18 No results for input(s): INR, PTT in the last 168 hours. Invalid input(s): ABG arterial blood gases Recent Labs Lab 06/13/20 1205 06/13/20 1645 06/13/20 2133 TROP <0.015 <0.015 <0.015 No results for input(s): PH, PCO2, PO2, [id number], BICARBWB, BASEDEFICIT, BASEEXCESS in the eqne864 hours. X-Ray CT abdomen pelvis with contrast 06/13 Impression: 1. ??Umbilical hernia containing a focal small bowel loop. ??There is bowel obstruction proximal tothis. ??The small bowel just proximal to entering the umbilical hernia is thickened and slightly inflamed possibly due to hyperemia. ??Although there is no pneumatosis intestinalis, there may be early ischemia. 2. ??Pelvic ascites possibly reactive to the bowel process. 3. ??Cholelithiasis. Assessment/Plan: Umbilical hernia with obstruction but no gangrene: Umbilical??Hernia reduced in the ED w/o issue, pt had relief Afebrile. ??No leukocytosis. Lactic acid WNL Iv prn zofran, pain control PRN Gen surgery consulted - plan for surgery today Biliary colic Was already scheduled to undergo outpatient laparoscopic cholecystectomy in near future No leukocytosis. Afebrile. Hepatic panel WNL Covid??test negative Scheduled for laparoscopic cholecystectomy today Follow per general surgery ?? Iron deficiency anemia Suspect hemodilution Hgb trending downward- DC IVF fluids Iron low -start supplementation Continue to monitor CBC ?? Hypokalemia Repleted, monitor BMP ?? Hx of ureterocele With recurrent UTIs Follows with urology ?? Disposition: Plan for laparoscopic cholecystectomy with hernia repair today. Can discharge tomorrow if stable. ?? JORDAN REDZIC, PA-C 06/16/2020 1:00 PM Cosigned by Sanchez Díaz MD at 06/16/2020 8:01 PM CDT * Estella Will RN - 06/16/2020 8:34 AM CDT Problem: Pain Goal: Patient's pain/discomfort is manageable Description Assess and monitor patient's pain using appropriate pain scale. Collaborate with interdisciplinary team and initiate plan and interventions as ordered. Re-assess patient's pain level 30 - 60 minutes after pain management intervention. Outcome: Progressing Note: Patient denied pain this shift. Problem: Safety Goal: Patient will be injury free during hospitalization Description Assess and monitor vitals signs, neurological status including level of consciousness and orientation. Assess patient's risk for falls and implement fall prevention plan of care and interventions perhospital policy. Ensure arm band on, uncluttered walking paths in room, adequate room lighting, call light and overbed table within reach, bed in low position, wheels locked, side rails up per policy, and non-skid footwear provided. Outcome: Progressing Note: Patient refused bed alarm. Education provided about alarm use in relation to patient safety while in the hospital. Patient verbalized understanding. pure pak machine operator notified. Patient independent and ambulatory * Arturo Peraza MD - 06/16/2020 7:30 AM CDT General Surgery Progress Note-[facility] Clement Fuentes is an 24-year-old female. Date of Service: 06/16/2020 SUBJECTIVE: Resting comfortably, minimal tenderness OBJECTIVE: Blood pressure 99/58, pulse 56, temperature 98.3 ??F (36.8 ??C), temperature source Oral, resp. rate 18, height 5' 5 (1.651 m), weight 95.1 kg (209 lb 10.5 oz), last menstrual period 05/27/2020, SpO2 100 %. Exam: Abdomen soft, umbilical hernia tender at the fascial rim, mild right upper quadrant tenderness Labs noted Labs: Recent Labs Lab 06/13/20 0524 06/14/20 0530 06/14/20 0909 06/15/20 0435 06/16/20 0515 WBC 10.9 6.6 5.5 6.2 8.8 HGB 13.6 10.6* 9.8* 10.3* 12.8 MCV 79.7* 82.1 80.9* 80.8* 81.5 PLT 348 197 188 198 231 Recent Labs Lab 06/14/20 0530 06/15/20 0435 06/16/20 0515 NA 140 139 136 K 3.6 3.4* 3.6 CL 109* 107 105 CO2 28.7 26.9 24.7 BUN 11 6* 8 CR 0.68 0.57 0.63 Recent Labs Lab 06/14/20 0530 06/15/20 0435 06/16/20 0515 AST 11* 12* 13* ALT 16 13* 18 TBIL 0.6 0.4 0.3 ALB 2.9* 3.0* 3.4 Rads: No new studies IMPRESSION: Symptomatic cholelithiasis, symptomatic intermittently incarcerated umbilical hernia PLAN: 1. Umbilical herniorrhaphy, laparoscopic cholecystectomy with IOC, possible open 2. Risks and benefits of the procedure including risk of bleeding, infection, general anesthesia, potential for conversion to the open procedure, postoperative convalescence and cosmesis, potential injury to surrounding organs including biliary ducts, liver, bowels or vasculature was discussed. Patient realizes that additional surgery may be necessary, either immediate or delayed, possibly through different incisions, with possible transfer to a tertiary center for complicated reconstructions if indicated. Patient understands the rationale for the treatment plan outlined above and is willingto proceed. 3. Will also perform umbilical herniorrhaphy (no mesh) Charlene PERAZA MD 06/16/2020 * Jordan Fitzgerald PA-C - 06/15/2020 12:15 PM CDT Hospitalist Daily Progress Note Subjective Patient admitted for umbilical hernia incarceration and symptomatic cholelithiasis. On exam patientreports pain well controlled. Denies any nausea, vomiting, chest pain, shortness of breath, fevers or chills or other acute complaints at this time. Possible laparoscopic cholecystectomy with umbilical herniorrhaphy tomorrow per surgery. Objective Filed Vitals: 06/14/20 0500 06/14/20 1510 06/14/20 2131 06/15/20 0436 BP: 111/60 110/63 105/61 110/70 Pulse: 67 73 58 54 Resp: Temp: 98 ??F (36.7 ??C) 98.8 ??F (37.1 ??C) 98.3 ??F (36.8 ??C) 98 ??F (36.7 ??C) TempSrc: Oral Oral Oral Oral SpO2: 90% 98% 100% 99% Weight: Height: Physical Exam: Physical Exam Constitutional: She is oriented to person, place, and time. She appears well- developed and well-nourished. HENT: Head: Normocephalic and atraumatic. Eyes: Conjunctivae and EOM are normal. Neck: Neck supple. Cardiovascular: Normal rate, regular rhythm and normal heart sounds. Pulmonary/Chest: Effort normal and breath sounds normal. No respiratory distress. Abdominal: Soft. Bowel sounds are normal. She exhibits no distension. There is tenderness (mild TTPRUQ ). Musculoskeletal: Normal range of motion. She exhibits no edema. Neurological: She is alert and oriented to person, place, and time. Skin: Skin is warm and dry. No erythema. Psychiatric: She has a normal mood and affect. Her behavior is normal. Judgment and thought contentnormal. Intake/Output 24H Total: Intake/Output Summary (Last 24 hours) at 06/15/2020 1215 Last data filed at 06/14/2020 1825 Gross per 24 hour Intake 840 ml Output -- Net 840 ml Medication ??? famotidine 20 mg Intravenous 2 times per day Or ??? famotidine 20 mg Oral 2 times per day PRN Meds: HYDROcodone-acetaminophen, morphine, naLOXone, ondansetron Labs: Recent Labs Lab 06/13/20 0524 06/14/20 0530 06/15/20 0435 NA 136 140 139 K 3.5 3.6 3.4* CL 102 109* 107 CO2 26.8 28.7 26.9 AGAP 7.2 2.3* 5.1 BUN 11 11 6* CR 0.72 0.68 0.57 BUNCREATININ 15.3 16.1 10.6 GFRNON >90 >90 >90 GFR >90 >90 >90 GLU 129* 88 85 CA 9.5 8.5 8.5 MAGNESIUM -- 2.2 2.1 Recent Labs Lab 06/13/20 0524 06/14/20 0530 06/14/20 0909 06/15/20 0435 WBC 10.9 6.6 5.5 6.2 RBC 5.31 4.13* 3.82* 4.01* HGB 13.6 10.6* 9.8* 10.3* HCT 42.3 33.9* 30.9* 32.4* MCV 79.7* 82.1 80.9* 80.8* MCH 25.6* 25.7* 25.7* 25.7* MCHC 32.2 31.3* 31.7* 31.8* PLT 348 197 188 198 RDW 13.2 13.5 13.6 13.2 MPV 11.9 11.6 11.9 12.0 Recent Labs Lab 06/13/20 0524 06/14/20 0530 06/15/20 0435 AST 17 11* 12* ALT 21 16 13* No results for input(s): INR, PTT in the last 168 hours. Invalid input(s): ABG arterial blood gases Recent Labs Lab 06/13/20 1205 06/13/20 1645 06/13/20 2133 TROP <0.015 <0.015 <0.015 No results for input(s): PH, PCO2, PO2, [id number], BICARBWB, BASEDEFICIT, BASEEXCESS in the [id number] hours. X-Ray CT abdomen pelvis with contrast 06/13 Impression: 1. Umbilical hernia containing a focal small bowel loop. There is bowel obstruction proximal to this. The small bowel just proximal to entering the umbilical hernia is thickened and slightly inflamedpossibly due to hyperemia. Although there is no pneumatosis intestinalis, there may be early ischemia. 2. Pelvic ascites possibly reactive to the bowel process. 3. Cholelithiasis. Assessment/Plan: Umbilical hernia with obstruction but no gangrene: Umbilical??Hernia reduced in the ED w/o issue, pt had relief Afebrile. No leukocytosis. Lactic acid WNL Iv prn zofran, pain control PRN Gen surgery consulted - plan for possible intervention with cholecystectomy tomorrow Cholelithiasis, symptomatic Was already scheduled to undergo outpatient laparoscopic cholecystectomy in near future No leukocytosis. Afebrile. Hepatic panel WNL Covid test negative Scheduled for laparoscopic cholecystectomy tomorrow a.m. Follow per general surgery ?? Iron deficiency anemia Suspect hemodilution Hgb trending downward- DC IVF fluids Iron low -start supplementation Continue to monitor CBC ?? Hypokalemia Repleted, monitor BMP Hx of ureterocele With recurrent UTIs Follows with urology Disposition: Plan for laparoscopic cholecystectomy with hernia repair tomorrow. JORDAN FITZGERALD PA-C 06/15/2020 12:15 PM Cosigned by Sanchez Díaz MD at 06/15/2020 10:04 PM CDT * Kaya Reyes RN - 06/15/2020 9:56 AM CDT No needs noted per nursing admission summary and chart review. RNCM will reevaluate if consulted. * Arturo Peraza MD - 06/15/2020 8:09 AM CDT General Surgery Progress Note-[facility] Clement Fuentes is an 24-year-old female. Date of Service: 06/15/2020 SUBJECTIVE: Feeling much better OBJECTIVE: Blood pressure 110/70, pulse 54, temperature 98 ??F (36.7 ??C), temperature source Oral, resp. rate20, height 5' 5 (1.651 m), weight 95.1 kg (209 lb 10.5 oz), last menstrual period 05/27/2020, IsH545 %. Exam: Abdomen soft, mildly tender at the fascial rim of the umbilical hernia, mild right upper quadrant tenderness [Labs noted] Labs: Recent Labs Lab 06/13/20 0524 06/14/20 0530 06/14/20 0909 06/15/20 0435 WBC 10.9 6.6 5.5 6.2 HGB 13.6 10.6* 9.8* 10.3* MCV 79.7* 82.1 80.9* 80.8* PLT 348 197 188 198 Recent Labs Lab 06/13/20 0506/14/20 0530 06/15/20 0435 NA 136 140 139 K 3.5 3.6 3.4* CL 102 109* 107 CO2 26.8 28.7 26.9 BUN 11 11 6* CR 0.72 0.68 0.57 Recent Labs Lab 06/13/20 0506/14/20 0530 06/15/20 0435 AST 17 11* 12* ALT 21 16 13* TBIL 0.6 0.6 0.4 ALB 3.6 2.9* 3.0* Rads: No new studies IMPRESSION: Symptomatic cholelithiasis, umbilical hernia with recent incarceration (reduced at the bedside), COVID status pending PLAN: 1. We will plan for laparoscopic cholecystectomy with IOC, umbilical herniorrhaphy tomorrow 2. N.p.o. after midnight, obtain COVID status 3. Risks and benefits of the procedure including risk of bleeding, infection, general anesthesia, potential for conversion to the open procedure, postoperative convalescence and cosmesis, potential injury to surrounding organs including biliary ducts, liver, bowels or vasculature was discussed. Patient realizes that additional surgery may be necessary, either immediate or delayed, possibly through different incisions, with possible transfer to a tertiary center for complicated reconstructions if indicated. Patient understands the rationale for the treatment plan outlined above and is willing to proceed. Charlene PERAZA MD 06/15/2020 * Antoine Salinas PA-C - 06/14/2020 2:13 PM CDT Hospitalist Daily Progress Note Subjective Clementomar Fuentes is a 24-year-old female on hospital day 0 No acute events overnight. Patient still complains of abdominal soreness, intermittent nausea with poor intake otherwise no acute complaints. Review of Systems Constitutional: Negative for chills, fever and malaise/fatigue. Respiratory: Negative for cough and shortness of breath. Cardiovascular: Negative for chest pain and palpitations. Gastrointestinal: Positive for abdominal pain and nausea. Genitourinary: Negative for dysuria and urgency. Musculoskeletal: Negative for myalgias. Neurological: Negative for dizziness. All other systems reviewed and are negative. Patient seen and examined, notes were reviewed Medication ??? famotidine 20 mg Intravenous 2 times per day Or ??? famotidine 20 mg Oral 2 times per day PRN Meds: HYDROcodone-acetaminophen, morphine, naLOXone, ondansetron Objective PHYSICAL EXAMINATION: Vital 24 Hour Range Most Recent Value Temperature Temp Min: 98 ??F (36.7 ??C) Max: 98.6 ??F (37 ??C) 98 ??F (36.7 ??C) Pulse Pulse Min: 62 Max: 67 67 Respiratory Resp Min: 16 Max: 18 18 Blood Pressure BP Min: 107/70 Max: 123/64 111/60 Pulse Oximetry SpO2 Min: 90 % Max: 100 % 90 % O2 No data recorded Vital Most Recent Value First Value Weight 95.1 kg (209 lb 10.5 oz) Weight: 94.4 kg (208 lb 1.8 oz) Height 5' 5 (165.1 cm) Height: 5' 5 (165.1 cm) BMI 35 N/A Estimated body mass index is 34.89 kg/m?? as calculated from the following: Height as of this encounter: 5' 5 (1.651 m). Weight as of this encounter: 95.1 kg (209 lb 10.5 oz). Physical Exam Constitutional: She is oriented to person, place, and time. She appears not lethargic and to not bewrithing in pain. No distress. HENT: Head: Normocephalic and atraumatic. Eyes: Pupils are equal, round, and reactive to light. Conjunctivae and EOM are normal. Neck: No JVD present. Cardiovascular: Normal rate and regular rhythm. No murmur heard. Pulmonary/Chest: Effort normal. No respiratory distress. She has no wheezes. Abdominal: Soft. Normal appearance and bowel sounds are normal. She exhibits no distension. There is tenderness in the periumbilical area. There is no rebound. No hernia. Hernia confirmed negative inthe umbilical area. Musculoskeletal: She exhibits no edema. Neurological: She is alert and oriented to person, place, and time. She appears not lethargic. No cranial nerve deficit. Skin: Skin is warm and dry. She is not diaphoretic. No erythema. Psychiatric: Affect normal. Intake/Output last 3 shifts: I/O last 3 completed shifts: In: 0 Out: 3 [Urine:3] Labs: Recent Results (from the past 24 hour(s)) TROPONIN, QUANT Collection Time: 06/13/20 4:45 PM Result Value Ref Range TROPONIN I <0.015 <0.045 ng/mL. TROPONIN, QUANT Collection Time: 06/13/20 9:33 PM Result Value Ref Range TROPONIN I <0.015 <0.045 ng/mL. CBC W/DIFF AUTOMATED Collection Time: 06/14/20 5:30 AM Result Value Ref Range WBC 6.6 4.5 - 11.0 x10'3/uL RBC 4.13 (L) 4.20 - 5.40 x10'6/uL HGB 10.6 (L) 12.0 - 16.0 G/DL HCT 33.9 (L) 38.0 - 48.0 % MCV 82.1 81.0 - 99.0 FL MCH 25.7 (L) 27.0 - 31.0 PG MCHC 31.3 (L) 32.0 - 36.0 G/DL RDW 13.5 11.5 - 14.5 % PLT 197 130 - 400 x10'3/uL MPV 11.6 9.3 - 12.2 FL DIFFERENTIAL TYPE AUTOMATED DIFFERENTIAL NEUTROPHILS 69.0 % LYMPHOCYTES 22.7 % MONOCYTES 6.9 % EOSINOPHILS 0.9 % BASOPHILS 0.2 % IMMATURE GRANS 0.3 % ABS. NEUTROPHILS TOTAL 4.53 1.80 - 7.70 x10'3/uL ABS. LYMPHOCYTES 1.49 1.00 - 4.80 x10'3/uL ABS. MONOCYTES 0.45 0.24 - 0.86 x10'3/uL ABS. EOSINOPHILS 0.06 0.04 - 0.36 x10'3/uL ABS. BASOPHILS 0.01 0.01 - 0.08 x10'3/uL ABS. IMMATURE GRANULOCYTES 0.02 0.00 - 0.49 x10'3/uL COMPREHENSIVE METABOLIC PANEL Collection Time: 06/14/20 5:30 AM Result Value Ref Range GLUCOSE 88 70 - 99 MG/DL BUN 11 7 - 18 MG/DL CREATININE S/P/B 0.68 0.55 - 1.02 MG/DL SODIUM 140 136 - 145 MMOL/L POTASSIUM 3.6 3.5 - 5.1 MMOL/L CHLORIDE S/P/B 109 (H) 100 - 108 MMOL/L CO2 28.7 21 - 32 MMOL/L CALCIUM 8.5 8.5 - 10.1 MG/DL BILIRUBIN TOTAL S/P/B 0.6 0.2 - 1.2 MG/DL TOTAL PROTEIN S/P/B 6.9 6.4 - 8.2 G/DL ALBUMIN S/P/B 2.9 (L) 3.4 - 5.0 G/DL AST 11 (L) 15 - 37 U/L ALT 16 14 - 55 U/L ALKALINE PHOSPHATASE S/P/B 92 50 - 136 U/L ANION GAP 2.3 (L) 5 - 15 MMOL/L BUN CREATININE RATIO 16.1 6 - 26 A/G RATIO 0.7 (L) 1.0 - 2.0 RATIO eGFR Non-Afr. Amer. >90 >90 ML/MIN/1.73 M2 eGFR Afr. Amer. >90 >90 ML/MIN/1.73 M2 MAGNESIUM Collection Time: 06/14/20 5:30 AM Result Value Ref Range MAGNESIUM 2.2 1.8 - 2.4 MG/DL IRON SAT PANEL (IRON,IBC,%SAT) Collection Time: 06/14/20 5:30 AM Result Value Ref Range IRON 40 (L) 50.0 - 170.0 MCG/DL IRON BINDING CAPACITY 246 (L) 250 - 450 MCG/DL IRON SATURATION 16 (L) 20 - 55 % FERRITIN Collection Time: 06/14/20 5:30 AM Result Value Ref Range FERRITIN 55.1 8.0 - 388.0 NG/ML RETICULOCYTE CT, AUTO Collection Time: 06/14/20 5:30 AM Result Value Ref Range Reticulocyte Count 1.1 0.8 - 2.1 % Absolute Reticulocyte Count: 0.04 0.02 - 0.10 x10'6/uL Imm. Retic Fraction 10.5 3.0 - 15.9 % Retic Hgb 30.4 28.0 - 35.0 PG VITAMIN B-12 Collection Time: 06/14/20 5:30 AM Result Value Ref Range VITAMIN B12 S/P/B 931 254 - 1,320 PG/ML FOLIC ACID SERUM Collection Time: 06/14/20 5:30 AM Result Value Ref Range FOLATE 12.3 3.1 - 17.5 NG/ML CBC W/DIFF AUTOMATED Collection Time: 06/14/20 9:09 AM Result Value Ref Range WBC 5.5 4.5 - 11.0 x10'3/uL RBC 3.82 (L) 4.20 - 5.40 x10'6/uL HGB 9.8 (L) 12.0 - 16.0 G/DL HCT 30.9 (L) 38.0 - 48.0 % MCV 80.9 (L) 81.0 - 99.0 FL MCH 25.7 (L) 27.0 - 31.0 PG MCHC 31.7 (L) 32.0 - 36.0 G/DL RDW 13.6 11.5 - 14.5 % PLT 188 130 - 400 x10'3/uL MPV 11.9 9.3 - 12.2 FL DIFFERENTIAL TYPE AUTOMATED DIFFERENTIAL NEUTROPHILS 68.5 % LYMPHOCYTES 23.3 % MONOCYTES 6.9 % EOSINOPHILS 0.7 % BASOPHILS 0.2 % IMMATURE GRANS 0.4 % ABS. NEUTROPHILS TOTAL 3.79 1.80 - 7.70 x10'3/uL ABS. LYMPHOCYTES 1.29 1.00 - 4.80 x10'3/uL ABS. MONOCYTES 0.38 0.24 - 0.86 x10'3/uL ABS. EOSINOPHILS 0.04 0.04 - 0.36 x10'3/uL ABS. BASOPHILS 0.01 0.01 - 0.08 x10'3/uL ABS. IMMATURE GRANULOCYTES 0.02 0.00 - 0.49 x10'3/uL Imagining & Other Studies Radiology Results (Last 30 days) 06/13/20 1153 XR CHEST PORTABLE Final result Impression: IMPRESSION: No acute cardiopulmonary abnormality. Interpreted By: Gerry Mcwilliams MD, 06/13/2020 12:03 PM 06/13/[address] ABD+PEL W CON Final result Impression: Impression: 1. Umbilical hernia containing a focal small bowel loop. There is bowel obstruction proximal to this. The small bowel just proximal to entering the umbilical hernia is thickened and slightly inflamed possibly due to hyperemia. Although there is no pneumatosis intestinalis, there may be early ischemia. 2. Pelvic ascites possibly reactive to the bowel process. 3. Cholelithiasis. 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 No leukocytosis. Hepatic panel WNL Gen surgery consult-recs appreciated Per general surgery, plan for re-eval in the a.m. Iv prn zofran, pain medication, pepcid Follow with general surgery Microcytic anemia: Suspect hemodilution and underlying iron deficiency Hgb trending downward DC IVF fluids Anemia work-up pending Low yield for GIB source Trend a.m. labs History of gallstones: Currently scheduled to undergo outpatient laparoscopic cholecystectomy Will be reevaluated by general surgery tomorrow for further plan Covid test pending Disposition: Trend H&H. Suspect hemodilution and iron deficiency at this time. Plan for general surgery to re-eval in a.m. for possible lap carolynn while admitted. CODE STATUS: Full Code VTE: SCDs Other changes to meds to be made based on progress during hospitalization. All plans discussed with patient/patient's family/engineering aid. They are agreeable with plan and voiced understanding. This note was dictated with [email or web address] medical dictation software; misspellings, punctuation errors, omitted words or dictation variances may occur. ANTOINE SALINAS PA-C 06/14/2020 2:13 PM Primary care physician: TEJINDER DUARTE MD Extended Emergency Contact Information Primary Emergency Contact: UNKNOWN,UNKNOWN Mobile Relation: Other Cosigned by Sanchez Díaz MD at 06/14/2020 4:42 PM CDT * Evens Williamson MD - 06/14/2020 1:37 PM CDT Clement Fuentes is an 24-year-old female. Date of Service: 06/14/2020 SUBJECTIVE: States abdomen remains sore. Doesn't have much of an appetite and trying to take liquids makes her feel nauseated. Does not feel the lump at her navel anymore. OBJECTIVE: Blood pressure 111/60, pulse 67, temperature 98 ??F (36.7 ??C), temperature source Oral, resp. rate18, height 5' 5 (1.651 m), weight 95.1 kg (209 lb 10.5 oz), last menstrual period 05/27/2020, [id number] %. Physical Exam Constitutional: No distress. Pulmonary/Chest: Effort normal. Abdominal: Soft. She exhibits no mass. Tenderness: mild periumbilical. There is no rebound and no guarding. The umbilical hernia remains reduced Labs: Recent Labs Lab 06/13/20 0524 06/14/20 0530 06/14/20 0909 WBC 10.9 6.6 5.5 HGB 13.6 10.6* 9.8* MCV 79.7* 82.1 80.9* PLT 348 197 188 Recent Labs Lab 06/13/20 0524 06/14/20 0530 NA 136 140 K 3.5 3.6 CL 102 109* CO2 26.8 28.7 BUN 11 11 CR 0.72 0.68 Recent Labs Lab 06/13/20 0524 06/14/20 0530 AST 17 11* ALT 21 16 TBIL 0.6 0.6 ALB 3.6 2.9* Rads: IMPRESSION: Incarcerated umbilical hernia reduced H/O gallstones Patient states that she is still sore and is afraid this will happen again. She states she is staying in the hospital until everything is fixed . PLAN: I discussed management options with her. The hernia has stayed reduce for the past 24 hours. She wishes to stay in the hospital until the hernia is fixed and her gallbladder is removed . I will discuss this with Dr. Peraza who will be seeing her tomorrow. Will order COVID testing EVESN WILLIAMSON MD 06/14/2020 * Najma Best RN - 06/13/2020 5:52 PM CDT Problem: Pain Goal: Patient's pain/discomfort is manageable Description Assess and monitor patient's pain using appropriate pain scale. Collaborate with interdisciplinary team and initiate plan and interventions as ordered. Re- assess patient's pain level 30 - 60 minutes after pain management intervention. Outcome: Progressing Note: Patient denies pain thus far since arrival to floor. Problem: Safety Goal: Patient will be injury free during hospitalization Description Assess and monitor vitals signs, neurological status including level of consciousness and orientation. Assess patient's risk for falls and implement fall prevention plan of care and interventions perhospital policy. Ensure arm band on, uncluttered walking paths in room, adequate room lighting, call light and overbed table within reach, bed in low position, wheels locked, side rails up per policy, and non-skid footwear provided. Outcome: Progressing Problem: Daily Care Goal: Daily care needs are met Description Assess and monitor ability to perform self care and identify potential discharge needs. Outcome: Progressing Problem: Psychosocial Needs Goal: Demonstrates ability to cope with hospitalization/illness Description Assess and monitor patients ability to cope with his/her illness. Outcome: Progressing Goal: Collaborate with patient/family/caregiver to identify patient specific goals for this hospitalization Outcome: Progressing Problem: Discharge Barriers Goal: Patient's discharge needs are met Description Collaborate with interdisciplinary team and initiate plans and interventions as needed. Outcome: Progressing documented in this encounter H&P Notes * Phyllis Silva SOY Yadav - 06/13/2020 8:37 AM CDT Hospitalist History and Physical Patient: Clement Fuentes Date: 06/13/2020 female, 24-year-old Admit Date: 06/13/2020 Attending: Sanchez Díaz MD REASON FOR ADMISSION: Abdominal Pain and Vomiting HISTORY OF PRESENT ILLNESS: Clement Fuentes is a 24-year-old female With past medical history significant for gallstones,due to have a cholecystectomy via Dr. Mclaughlin this week, pt came is with abdominal pain and nausea,this has been intermittent for several weeks, but the pain caused her to come into the ED for evaluation. Reports having emesis and a small BM day prior. Denies any abd pain, chest pain, SOB, f/c. Allergy No Known Allergies Medication list (Not in a hospital admission) No current facility-administered medications on file prior to encounter. Current Outpatient Medications on File Prior to Encounter Medication Sig Dispense Refill ??? ciprofloxacin 500 MG tablet TAKE 1 TABLET BY MOUTH EVERY 12 HOURS FOR 5 DAYS ??? Clobetasol Propionate 0.05 % Shampoo APPLY A THIN LAYER TOPICALLY ONCE DAILY TO DRY SCALP LEAVEIN PLACE FOR 15 MINUTES THEN LATHER AND RINSE. ??? cyclobenzaprine 10 MG tablet Take 10 mg by mouth 3 (three) times daily as needed. ??? dicyclomine 10 MG capsule TAKE 1 CAPSULE BY MOUTH THREE TIMES DAILY NEEDED ??? fluconazole 150 MG tablet ??? ibuprofen 800 MG tablet TAKE 1 TABLET BY MOUTH THREE TIMES DAILY WITH FOOD OR MILK NEEDED ??? ketoconazole 2 % shampoo SHAMPOO 5 ML TOPICALLY TO SCALP TWICE A WEEK FOR 8 WEEKS ??? omeprazole 20 MG capsule TAKE 1 CAPSULE BY MOUTH ONCE DAILY 30 MINUTES BEFORE MORNING MEAL ??? ondansetron 4 MG disintegrating tablet DISSOLVE 1 TABLET ON TONGUE AND SWALLOW EVERY 8 HOURS ASNEEDED ??? triamcinolone 0.025 % ointment APPLY OINTMENT TOPICALLY TO AFFECTED AREA TWICE DAILY Past Medical History Past Medical History: Diagnosis Date ??? Urinary tract infection History reviewed. No pertinent surgical history. Social History Social History Socioeconomic History ??? Marital status: Single Spouse name: Not on file ??? Number of children: Not on file ??? Years of education: Not on file ??? Highest education level: Not on file Occupational History ??? Not on file Social Needs ??? Financial resource strain: Not on file ??? Food insecurity: Worry: Not on file Inability: Not on file ??? Transportation needs: Medical: Not on file Non-medical: Not on file Tobacco Use ??? Smoking status: Never Smoker ??? Smokeless tobacco: Never Used Substance and Sexual Activity ??? Alcohol use: Yes Comment: social ??? Drug use: Never ??? Sexual activity: Not Currently Lifestyle ??? Physical activity: Days per week: Not on file Minutes per session: Not on file ??? Stress: Not on file Relationships ??? Social connections: Talks on phone: Not on file Gets together: Not on file Attends restorationism service: Not on file Active member of club or organization: Not on file Attends meetings of clubs or organizations: Not on file Relationship status: Not on file ??? Intimate partner violence: Fear of current or ex partner: Not on file Emotionally abused: Not on file Physically abused: Not on file Forced sexual activity: Not on file Other Topics Concern ??? Not on file Social History Narrative ??? Not on file Family History Family History Problem Relation Name Age of Onset ??? No Known Problems Father ??? No Known Problems Mother REVIEW OF SYSTEMS: A 14 point review of systems was taken and pertinent positive as per HPI PHYSICAL EXAMINATION: Vital 24 Hour Range Most Recent Value Temperature Temp Min: 97.4 ??F (36.3 ??C) Max: 97.4 ??F (36.3 ??C) 97.4 ??F (36.3 ??C) Pulse Pulse Min: 59 Max: 79 79 Respiratory Resp Min: 18 Max: 20 18 Blood Pressure BP Min: 117/92 Max: 136/95 (!) 117/92 Pulse Oximetry SpO2 Min: 94 % Max: 97 % 96 % O2 No data recorded Vital Most Recent Value First Value Weight 94.4 kg (208 lb 1.8 oz) Weight: 94.4 kg (208 lb 1.8 oz) Height 5' 5 (165.1 cm) Height: 5' 5 (165.1 cm) BMI 34.7 N/A Physical Exam: Physical Exam Constitutional: She is oriented to person, place, and time. She appears well- developed and well-nourished. HENT: Head: Normocephalic and atraumatic. Eyes: Pupils are equal, round, and reactive to light. EOM are normal. Neck: Normal range of motion. Neck supple. Cardiovascular: Normal rate, regular rhythm, normal heart sounds and intact distal pulses. Pulmonary/Chest: Effort normal and breath sounds normal. Abdominal: Soft. She exhibits no distension and no mass. There is tenderness. There is no rebound and no guarding. Musculoskeletal: Normal range of motion. Neurological: She is alert and oriented to person, place, and time. Skin: Skin is warm and dry. Psychiatric: She has a normal mood and affect. Her behavior is normal. Intake/Output last 3 shifts: I/O last 3 completed shifts: In: 500 [I.V.:500] Out: - Labs: Recent Results (from the past 24 hour(s)) CREATININE WHOLE BLOOD Collection Time: 06/13/20 5:20 AM Result Value Ref Range CREATININE WHOLE BLOOD 0.6 0.60 - 1.10 mg/dL CBC W/DIFF AUTOMATED Collection Time: 06/13/20 5:24 AM Result Value Ref Range WBC 10.9 4.5 - 11.0 x10'3/uL RBC 5.31 4.20 - 5.40 x10'6/uL HGB 13.6 12.0 - 16.0 G/DL HCT 42.3 38.0 - 48.0 % MCV 79.7 (L) 80.0 - 94.0 FL MCH 25.6 (L) 27.0 - 31.0 PG MCHC 32.2 32.0 - 36.0 G/DL RDW 13.2 11.5 - 14.5 % PLT 348 130 - 400 x10'3/uL MPV 11.9 9.3 - 12.2 FL DIFFERENTIAL TYPE AUTOMATED DIFFERENTIAL NEUTROPHILS 86.5 % LYMPHOCYTES 9.3 % MONOCYTES 3.7 % EOSINOPHILS 0.0 % BASOPHILS 0.2 % IMMATURE GRANS 0.3 % ABS. NEUTROPHILS TOTAL 9.41 (H) 1.80 - 7.70 x10'3/uL ABS. LYMPHOCYTES 1.01 1.00 - 4.80 x10'3/uL ABS. MONOCYTES 0.40 0.24 - 0.86 x10'3/uL ABS. EOSINOPHILS 0.00 (L) 0.04 - 0.36 x10'3/uL ABS. BASOPHILS 0.02 0.01 - 0.08 x10'3/uL ABS. IMMATURE GRANULOCYTES 0.03 0.00 - 0.49 x10'3/uL COMPREHENSIVE METABOLIC PANEL Collection Time: 06/13/20 5:24 AM Result Value Ref Range GLUCOSE 129 (H) 70 - 99 MG/DL BUN 11 7 - 18 MG/DL CREATININE S/P/B 0.72 0.55 - 1.02 MG/DL SODIUM 136 136 - 145 MMOL/L POTASSIUM 3.5 3.5 - 5.1 MMOL/L CHLORIDE S/P/B 102 100 - 108 MMOL/L CO2 26.8 21 - 32 MMOL/L CALCIUM 9.5 8.5 - 10.1 MG/DL BILIRUBIN TOTAL S/P/B 0.6 0.2 - 1.2 MG/DL TOTAL PROTEIN S/P/B 8.6 (H) 6.4 - 8.2 G/DL ALBUMIN S/P/B 3.6 3.4 - 5.0 G/DL AST 17 15 - 37 U/L ALT 21 14 - 55 U/L ALKALINE PHOSPHATASE S/P/B 116 50 - 136 U/L ANION GAP 7.2 5 - 15 MMOL/L BUN CREATININE RATIO 15.3 6 - 26 A/G RATIO 0.7 (L) 1.0 - 2.0 RATIO eGFR Non-Afr. Amer. >90 >90 ML/MIN/1.73 M2 eGFR Afr. Amer. >90 >90 ML/MIN/1.73 M2 LACTIC ACID Collection Time: 06/13/20 5:24 AM Result Value Ref Range LACTIC ACID 0.6 0.4 - 2.0 MMOL/L LIPASE Collection Time: 06/13/20 5:24 AM Result Value Ref Range LIPASE 64 (L) 73 - 393 UNITS/L POCT urine Collection Time: 06/13/20 6:12 AM Result Value Ref Range URINE HCG TEST NEGATIVE NEGATIVE Internal Control performed as Expected? YES VALID URINALYSIS Collection Time: 06/13/20 6:13 AM Result Value Ref Range Specimen Type URINE CLEAN CATCH COLOR (U) YELLOW TRANSPARENCY TURBID Specific [place] (U) 1.033 (H) 1.001 - 1.030 U PH 6.0 5.0 - 9.0 LEUKOCYTE ESTERASE 250 (A) NEGATIVE NITRITES NEGATIVE NEGATIVE PROTEIN (U) 100 (H) <30 MG/DL URINE GLUCOSE NORMAL NORMAL MG/DL U KETONES 80 (A) NEGATIVE MG/DL UROBILINOGEN NORMAL NORMAL MG/DL BILIRUBIN (U) NEGATIVE NEGATIVE MG/DL BLOOD 1+ (A) NEGATIVE CULTURE & SENSITIVITY INDICATED? SPECIMEN SETUP FOR CULTURE MUCUS MANY /LPF WBC/HPF 10 (H) <6 /HPF RBC/HPF 22 (H) <6 /HPF AMORPHOUS SEDIMENT RARE /HPF SQUAMOUS EPITHELIALS MODERATE /HPF Imagining & Other Studies Date: 06/13/2020 6:17 AM ?? Exam: CT ABD+PEL W CON ?? Comparison: No comparisons. ?? Technique: Thin section images were obtained of the abdomen and pelvis with IV contrast. ??100 mL of [id number]-[id number] through existing IV site. ??Coronal and sagittal reconstructions. ??A dose lowering technique was used for this procedure, which may include, but is not limited to, dose reduction technique, automated exposure control, the use of iterative reconstruction, and ALARA (As Low As ReasonablyAchievable)/ Image gently techniques. ?? History: Abdominal pain with nausea and vomiting. ??Symptoms began yesterday. ??Patient is scheduled for cholecystectomy this Monday. ?? Findings: ?? Visualized lower chest: The lung bases are clear without consolidation or pleural effusion. ??The visualized inferior heart is normal in size. ?? Abdomen and pelvis: The liver, spleen, pancreas and adrenal glands appear normal. ??The kidneys arenormal. ??There is cholelithiasis without gallbladder wall thickening. ??The bile ducts are normal in caliber. ??The abdominal aorta, IVC and iliac vessels appear normal. ??There is no lymphadenopathy. ?? The stomach is normal. ??There is an umbilical hernia containing fat and a loop of small intestine.??The proximal jejunal intestine is dilated. ??The intestine distal to the umbilical hernia is decompressed. ??There is wall thickening of the bowel loop just proximal to the umbilical hernia possibly due to hyperemia. ??Although there is no pneumatosis intestinalis, early ischemia cannot be excluded. ??There is pelvis ascites possibly reactive to the bowel process. ??The urinary bladder is underdistended. ??The uterus and adnexa appear normal. ?? Osseous structures: The osseous structures appear normal. ?? Impression: ?? Impression: 1. ??Umbilical hernia containing a focal small bowel loop. ??There is bowel obstruction proximal tothis. ??The small bowel just proximal to entering the umbilical hernia is thickened and slightly inflamed possibly due to hyperemia. ??Although there is no pneumatosis intestinalis, there may be early ischemia. 2. ??Pelvic ascites possibly reactive to the bowel process. 3. ??Cholelithiasis. Narrative: ?? Procedure(s): XR CHEST PORTABLE Date of service: 06/13/2020 11:40 AM ?? Provided clinical information: 24 years, Female, chest pain Procedure and materials: AP portable Comparison studies: None. ?? Observations: ?? Cardiac silhouette is within normal limits. ??Lungs expanded and clear of any consolidations. ??No effusions. ? Impression: ?? IMPRESSION: No acute cardiopulmonary abnormality. ?? No results found for this visit on 06/13/20. Assessment & Plan Umbilical hernia with obstruction but no gangrene Abdominal pain Hernia reduced in the ED w/o issue, pt had relief Admit under obs Gen surgery consult-recs appreciated Bowel rest-npo, ivf hydration Iv prn zofran, pain medication, pepcid Labs stable at this time Chest pain Pt c/o of this to attending MD, ordered baseline EKG, CXR and trops No Tenisha consult at this time I have seen and examined the patient independently and anticipate patient will require 1 midnight. SOY JAMISON 06/13/2020 8:38 AM Cosigned by Sanchez Díaz MD at 06/13/2020 9:56 PM CDT Associated attestation - Sanchez Díaz MD - 06/13/2020 9:56 PM CDT I have seen and examined the patient, and discussed the plan of care with the Advanced Provider. I reviewed their note and agree with the findings and plan of care, as above. Physical Exam: Gen: Alert, cooperative, no distress Head: Normocephalic, without obvious abnormality, atraumatic Eyes: Conjunctivae/corneas clear, EOMI Nose: Mucosa normal. No drainage. Throat: Moist mucous membranes Neck: trachea midline Back: Symmetric, no curvature Resp: CTAB, no wheezes/rales/rhonchi CV: RRR, S1S2, No M/R/G Abd: S/NT/ND, mild RUQ tenderness, periumbilical tenderness, unable to appreciate hernia, BS+, no bruits, Ext: No clubbing, cyanosis, edema Skin: Skin color, texture, turgor normal. No rashes or lesions Neuro: No focal deficits Pain is improved after reduction of incarcerated hernia. Admit for IV fluids, s/p 500 cc of NS x2 of boluses, cont with 125 ml/hr NS, pain control, antinausea medication. Bowel rest Observe per surgery Chest pain CXR is not remarkable Trop is negative x2 EKG did not show ST elevation or deviation. FULL CODE No designated POA SANCHEZ DÍAZ MD documented in this encounter Consult Notes * Evens Williamson MD - 06/13/2020 11:32 AM CDT Clement Fuentes 24-year-old female Date of Service: 06/13/2020 CHIEF COMPLAINT: Abdominal pain HPI: 24 yo female with a history of gallstones presented to ER with pain across her mid abdomen, nausea, and vomiting. She had an outpatient CT ordered per Dr. Rueda for further evaluation prior toplanned cholecystectomy. CT showed an incarcerated umbilical hernia which has since been reduced by ER physician. She statesher symptoms are improved. PMH: Past Medical History: Diagnosis Date ??? Urinary tract infection PSH: History reviewed. No pertinent surgical history. ALL: No Known Allergies MEDS: Current: ??? famotidine 20 mg Intravenous 2 times per day Or ??? famotidine 20 mg Oral 2 times per day Prior to Admission medications Not on File Social History Socioeconomic History ??? Marital status: Single Spouse name: Not on file ??? Number of children: Not on file ??? Years of education: Not on file ??? Highest education level: Not on file Occupational History ??? Not on file Social Needs ??? Financial resource strain: Not on file ??? Food insecurity: Worry: Not on file Inability: Not on file ??? Transportation needs: Medical: Not on file Non-medical: Not on file Tobacco Use ??? Smoking status: Never Smoker ??? Smokeless tobacco: Never Used Substance and Sexual Activity ??? Alcohol use: Yes Comment: social ??? Drug use: Never ??? Sexual activity: Not Currently Lifestyle ??? Physical activity: Days per week: Not on file Minutes per session: Not on file ??? Stress: Not on file Relationships ??? Social connections: Talks on phone: Not on file Gets together: Not on file Attends restorationism service: Not on file Active member of club or organization: Not on file Attends meetings of clubs or organizations: Not on file Relationship status: Not on file ??? Intimate partner violence: Fear of current or ex partner: Not on file Emotionally abused: Not on file Physically abused: Not on file Forced sexual activity: Not on file Other Topics Concern ??? Not on file Social History Narrative ??? Not on file Family History Problem Relation Name Age of Onset ??? No Known Problems Father ??? No Known Problems Mother REVIEW OF SYSTEMS: 12 system review is negative aside from that mentioned in the HPI and PMH/PSH. PHYSICAL EXAM: Filed Vitals: 06/13/20 0456 06/13/20 0600 06/13/20 0700 06/13/20 0830 BP: (!) 136/95 125/69 (!) 117/92 121/83 Pulse: 74 59 79 72 Resp: 20 18 18 18 Temp: 97.4 ??F (36.3 ??C) TempSrc: Temporal SpO2: 94% 97% 96% 96% Weight: 94.4 kg (208 lb 1.8 oz) Height: 5' 5 (1.651 m) Physical Exam Alert Appears comfortable Abdomen is soft. She does not exhibit tenderness to deep palpation of the abdomen- in particular atthe umbilicus. There is a palpable fascial defect with a reducible hernia. This area has minimal giovanna tenderness with palpation. Skin is normal. LABS: Recent Labs Lab 06/13/20 0524 WBC 10.9 RBC 5.31 HGB 13.6 HCT 42.3 NA 136 K 3.5 CL 102 CO2 26.8 AGAP 7.2 BUN 11 CR 0.72 BUNCREATININ 15.3 GFRNON >90 GFR >90 GLU 129* CA 9.5 TP 8.6* ALB 3.6 TBIL 0.6 ALKP 116 AST 17 ALT 21 LIPASE 64* IMAGING: CT reviewed IMPRESSION: Gallstones- not the present issue Incarcerated umbilical hernia- has been reduced and patient has a benign abdominal exam. WBC is normal. PLAN: She is being admitted overnight for observation given CT findings. The management plans were discussed with her. All questions answered. EVENS WILLIAMSON MD 06/13/2020 documented in this encounter Nursing Notes * Shannan Wallace RN - 06/16/2020 5:01 PM CDT Patient refused TROP lab SHANNAN WALLACE RN * Tacos Powell RN - 06/16/2020 11:00 AM CDT Chlorhexidine wipes used on floor x 2, alcohol swabs x 2 placed in bilateral nares per OPS RN, patient tolerated well. * Shannan Wallace RN - 06/16/2020 8:32 AM CDT I have reviewed Jarett Bishop's RN charting and agree with it to the best of my Knowledge. SHANNAN WALLACE RN documented in this encounter OR Notes * Op Note - Arturo Peraza MD - 06/16/2020 12:47 PM CDT General Surgery Operative Report-[facility] Clement Fuentes is an 24-year-old female. Date of Operation:06/16/2020 Preoperative diagnosis: Symptomatic cholelithiasis, umbilical hernia Postoperative diagnosis: Same Procedure: Laparoscopic cholecystectomy with IOC, umbilical herniorrhaphy (no mesh) Anesthesia: General Assistants: State Manager: ISSAC Shen Relief Circulating Nurse: Veronica Pham RN Relief Scrub: ISSAC Crowley Circulating Nurse 1: Enedina Huff RN Scrub Person 1: Joan Albrecht, IRRIGATOR GRAVITY FLOW Estimated blood loss: 20 cc Brief history: Please refer to the patient's consultation note and progress notes Operative procedure: After proper informed consent was obtained, the patient was taken to the operating room and placed in the supine position. The patient was prepped and draped in the usual sterile fashion with specialattention to the abdomen. A 5 mm left subcostal incision was made and the Visiport trocar using a 0?? 5 mm scope was inserted under direct vision with no injury to intra-abdominal contents into the peritoneal cavity. Pneumoperitoneum was obtained without difficulty under direct vision. Under directvision additional trochars were placed in the epigastrium and umbilicus, a small infraumbilical incision was made and the hernia defect utilized to place a 12 mm Brunson trocar under direct vision.. The gallbladder was visualized and found to be acutely inflamed. The gallbladder was grasped at its fundus and retracted in an anteriolateral direction. Dissection commenced along Marley's pouch down to the level of the cystic duct and cystic artery so that these structures were clearly delineated from surrounding structures. A triangle formed by the cystic duct, common bile duct and liver edge contained only the cystic artery and a grasper passed freely behind the cystic duct signifying the gallbladder's only connection to the main biliary tree signifying the hepatocystic triangle. Once this critical view was obtained anteriorly and posteriorly we proceeded with dissection in this area. Theartery was doubly clipped on the patient's side and singly on the gallbladder side but not divided.The cystic duct was clipped at its junction with the neck of the gallbladder. A cystic ductotomy was then performed and the cholangiogram catheter was inserted without difficulty. Intraoperative cholangiogram revealed that we were, in fact, and the cystic duct with good filling of bilateral hepaticradicles and free flow of bile and contrast into the duodenum without obstruction and without evidence of choledocholithiasis. This report was confirmed with the radiologist intraoperatively. The cholangiogram catheter was then removed and 2 clips were placed on the patient's side of the cystic duct and the cystic duct divided between clips as was the artery with excellent hemostasis. The gallbladder was then removed from the liver bed in the avascular plane with excellent hemostasis. The gallbladder was then removed from the umbilical incision with minimal fascial dilatation necessary. The umbilical trocar was then replaced under direct vision. The clips on the duct and the artery were carefully inspected and found to be in excellent position and of good integrity. The liver bed was carefully visualized and hemostasis was ensured. Copious irrigation was used and suctioned free. The fascial closure device was used with an 0 Vicryl suture for a secure and airtight fascial closure of the umbilical fascial defect performing a umbilical herniorrhaphy. Pneumoperitoneum was allowed to resolve and all trochars were removed under direct vision. The skin was closed with a 4-0 Monocryl in asubcuticular stitch for an excellent cosmetic result. Dermabond was placed. Instrument, sponge and n eedle counts were correct at the end of the case. There were no complications. The patient was transported stable to the recovery room. Charlene PERAZA MD 06/16/2020 documented in this encounter ED Notes * Rodrigo Jennings MD - 06/13/2020 7:15 AM CDT Chief Complaint Chief Complaint Patient presents with ??? Abdominal Pain ??? Vomiting History of Present Illness The patient is a very pleasant 24-year-old female examined emergency department in bed #7. She presents today complaining of epigastric and right upper quadrant abdominal pain, nausea, and vomiting. Her symptoms began in the morning hours of the day prior to presentation. Of note, the patient is scheduled for a cholecystectomy by Dr. Rueda this coming Monday. Her symptoms are worsened with eating, palliated by nothing. Quality is described as right upper quadrant and epigastric pain consistent with previous episodes of biliary colic. There is no radiation. Severity is moderate. Time course constant since onset. Medical History ALLERGIES: No Known Allergies MEDICATIONS: Prior to Admission medications Medication Sig Start Date End Date Taking? Authorizing Provider ciprofloxacin 500 MG tablet TAKE 1 TABLET BY MOUTH EVERY 12 HOURS FOR 5 DAYS 05/01/20 Doc Abstract Clobetasol Propionate 0.05 % Shampoo APPLY A THIN LAYER TOPICALLY ONCE DAILY TO DRY SCALP LEAVE IN PLACE FOR 15 MINUTES THEN LATHER AND RINSE. 11/07/19 Doc Abstract cyclobenzaprine 10 MG tablet Take 10 mg by mouth 3 (three) times daily as needed. 01/31/20 Doc Abstract dicyclomine 10 MG capsule TAKE 1 CAPSULE BY MOUTH THREE TIMES DAILY NEEDED 02/13/20 Doc Abstract fluconazole 150 MG tablet 11/11/19 Doc Abstract ibuprofen 800 MG tablet TAKE 1 TABLET BY MOUTH THREE TIMES DAILY WITH FOOD OR MILK NEEDED 01/31/20 Doc Abstract ketoconazole 2 % shampoo SHAMPOO 5 ML TOPICALLY TO SCALP TWICE A WEEK FOR 8 WEEKS 05/08/20 Doc Abstract omeprazole 20 MG capsule TAKE 1 CAPSULE BY MOUTH ONCE DAILY 30 MINUTES BEFORE MORNING MEAL 05/01/20 Doc Abstract ondansetron 4 MG disintegrating tablet DISSOLVE 1 TABLET ON TONGUE AND SWALLOW EVERY 8 HOURS NEEDED 05/01/20 Doc Abstract triamcinolone 0.025 % ointment APPLY OINTMENT TOPICALLY TO AFFECTED AREA TWICE DAILY 01/31/20 Doc Abstract PAST MEDICAL HISTORY: Past Medical History: Diagnosis Date ??? Urinary tract infection PAST SURGICAL HISTORY: History reviewed. No pertinent surgical history. FAMILY HISTORY: Family History Problem Relation Name Age of Onset ??? No Known Problems Father ??? No Known Problems Mother SOCIAL HISTORY: Social History Tobacco Use ??? Smoking status: Never Smoker ??? Smokeless tobacco: Never Used Substance Use Topics ??? Alcohol use: Yes Comment: social ??? Drug use: Never Review of Systems Review of Systems REVIEW OF SYSTEMS: The patient denies fevers, chills, or sweats. Complains of nausea, and vomiting,denies diarrhea, or constipation, complains of abdominal pain. Denies chest pain, shortness of breath, dyspnea on exertion, or palpitations. Denies headache, loss of consciousness, or seizures. Denies dysuria or hematuria. Ten systems reviewed and negative except as described above or in the HPI. Physical Exam Filed Vitals: 06/13/20 0456 06/13/20 0600 06/13/20 0700 BP: (!) 136/95 125/69 (!) 117/92 Pulse: 74 59 79 Resp: 20 18 18 Temp: 97.4 ??F (36.3 ??C) TempSrc: Temporal SpO2: 94% 97% 96% Weight: 94.4 kg (208 lb 1.8 oz) Height: 5' 5 (1.651 m) Physical Exam VITALS: Reviewed. Hypertension noted. GENERAL: The patient is a very pleasant 24-year-old female examined in the Emergency Department. Patient is in no acute distress at the time of my exam. HEENT: Normocephalic, atraumatic. Pupils are PERRL. Eyes focus and track. Sclerae are nonicteric and not injected. The face is symmetric, round, and fully expressive. Hearing is adequate to conversational voice. Ears are without discharge. Nares are grossly patent, and also without discharge. Mucous membranes are slightly dry. NECK: No JVD, tracheal deviation, or subcutaneous emphysema is noted. CHEST: The thoracic cage is stable to palpation and nontender. LUNGS: Clear to auscultation bilaterally without wheezes, rales or rhonchi. Equal inspiratory and expiratory phases. HEART: Normal rate, regular rhythm. Grossly normal sounds. ABDOMEN: The patient is tender in the epigastrium and right upper quadrant. No true Shipman's sign is there is no inspiratory catch. No rebound, guarding, or rigidity is appreciated. No masses, bruits, or hepatosplenomegaly are noted. After the patient's CT exam is returned, the abdomen is reexamined with specific attention at the umbilicus. There is a umbilical hernia present. It is quite tender.The overlying skin is neither caloric nor erythematous. With mild effort this is reduced manually. The patient continues to have persistent pain to the right of the umbilicus, with and out peritonealsigns a half of an hour after reduction. EXTREMITIES: No clubbing, cyanosis, edema, or evidence of trauma is noted. NEURO: No gross focal neuro deficits are appreciated. GCS = 15. No seizure activity is noted in theemergency department. PSYCHIATRIC: The patient's mood, affect and interaction are appropriate to setting. SKIN: Normal color, temperature, and turgor noted throughout. Diagnostic Studies / Procedures LABORATORY STUDIES: Results for orders placed or performed during the hospital encounter of 06/13/20 CBC W/DIFF AUTOMATED Result Value Ref Range WBC 10.9 4.5 - 11.0 x10'3/uL RBC 5.31 4.20 - 5.40 x10'6/uL HGB 13.6 12.0 - 16.0 G/DL HCT 42.3 38.0 - 48.0 % MCV 79.7 (L) 80.0 - 94.0 FL MCH 25.6 (L) 27.0 - 31.0 PG MCHC 32.2 32.0 - 36.0 G/DL RDW 13.2 11.5 - 14.5 % PLT 348 130 - 400 x10'3/uL MPV 11.9 9.3 - 12.2 FL DIFFERENTIAL TYPE AUTOMATED DIFFERENTIAL NEUTROPHILS 86.5 % LYMPHOCYTES 9.3 % MONOCYTES 3.7 % EOSINOPHILS 0.0 % BASOPHILS 0.2 % IMMATURE GRANS 0.3 % ABS. NEUTROPHILS TOTAL 9.41 (H) 1.80 - 7.70 x10'3/uL ABS. LYMPHOCYTES 1.01 1.00 - 4.80 x10'3/uL ABS. MONOCYTES 0.40 0.24 - 0.86 x10'3/uL ABS. EOSINOPHILS 0.00 (L) 0.04 - 0.36 x10'3/uL ABS. BASOPHILS 0.02 0.01 - 0.08 x10'3/uL ABS. IMMATURE GRANULOCYTES 0.03 0.00 - 0.49 x10'3/uL COMPREHENSIVE METABOLIC PANEL Result Value Ref Range GLUCOSE 129 (H) 70 - 99 MG/DL BUN 11 7 - 18 MG/DL CREATININE S/P/B 0.72 0.55 - 1.02 MG/DL SODIUM 136 136 - 145 MMOL/L POTASSIUM 3.5 3.5 - 5.1 MMOL/L CHLORIDE S/P/B 102 100 - 108 MMOL/L CO2 26.8 21 - 32 MMOL/L CALCIUM 9.5 8.5 - 10.1 MG/DL BILIRUBIN TOTAL S/P/B 0.6 0.2 - 1.2 MG/DL TOTAL PROTEIN S/P/B 8.6 (H) 6.4 - 8.2 G/DL ALBUMIN S/P/B 3.6 3.4 - 5.0 G/DL AST 17 15 - 37 U/L ALT 21 14 - 55 U/L ALKALINE PHOSPHATASE S/P/B 116 50 - 136 U/L ANION GAP 7.2 5 - 15 MMOL/L BUN CREATININE RATIO 15.3 6 - 26 A/G RATIO 0.7 (L) 1.0 - 2.0 RATIO eGFR Non-Afr. Amer. >90 >90 ML/MIN/1.73 M2 eGFR Afr. Amer. >90 >90 ML/MIN/1.73 M2 LACTIC ACID Result Value Ref Range LACTIC ACID 0.6 0.4 - 2.0 MMOL/L LIPASE Result Value Ref Range LIPASE 64 (L) 73 - 393 UNITS/L URINALYSIS Result Value Ref Range Specimen Type URINE CLEAN CATCH COLOR (U) YELLOW TRANSPARENCY TURBID Specific [place] (U) 1.033 (H) 1.001 - 1.030 U PH 6.0 5.0 - 9.0 LEUKOCYTE ESTERASE 250 (A) NEGATIVE NITRITES NEGATIVE NEGATIVE PROTEIN (U) 100 (H) <30 MG/DL URINE GLUCOSE NORMAL NORMAL MG/DL U KETONES 80 (A) NEGATIVE MG/DL UROBILINOGEN NORMAL NORMAL MG/DL BILIRUBIN (U) NEGATIVE NEGATIVE MG/DL BLOOD 1+ (A) NEGATIVE CULTURE & SENSITIVITY INDICATED? SPECIMEN SETUP FOR CULTURE MUCUS MANY /LPF WBC/HPF 10 (H) <6 /HPF RBC/HPF 22 (H) <6 /HPF AMORPHOUS SEDIMENT RARE /HPF SQUAMOUS EPITHELIALS MODERATE /HPF CREATININE WHOLE BLOOD Result Value Ref Range CREATININE WHOLE BLOOD 0.6 0.60 - 1.10 mg/dL POCT urine Result Value Ref Range URINE HCG TEST NEGATIVE NEGATIVE Internal Control performed as Expected? YES VALID Urinalysis is likely a contaminated sample. Culture pending. IMAGING STUDIES CT ABD+PEL W CON Final Result by User, [id number] (06/13 [id number]) Date: 06/13/2020 6:17 AM Exam: CT ABD+PEL W CON Comparison: No comparisons. Technique: Thin section images were obtained of the abdomen and pelvis with IV contrast. 100 mL of Isovue-370 through existing IV site. Coronal and sagittal reconstructions. A dose lowering technique was used for this procedure, which may include, but is not limited to, dose reduction technique, automated exposure control, the use of iterative reconstruction, and ALARA (As Low As Reasonably Achievable)/ Image gently techniques. History: Abdominal pain with nausea and vomiting. Symptoms began yesterday. Patient is scheduled for cholecystectomy this Monday. Findings: Visualized lower chest: The lung bases are clear without consolidation or pleural effusion. The visualized inferior heart is normal in size. Abdomen and pelvis: The liver, spleen, pancreas and adrenal glands appear normal. The kidneys are normal. There is cholelithiasis without gallbladder wall thickening. The bile ducts are normal in caliber. The abdominal aorta, IVC and iliac vessels appear normal. There is no lymphadenopathy. The stomach is normal. There is an umbilical hernia containing fat and a loop of small intestine. The proximal jejunal intestine is dilated. The intestine distal to the umbilical hernia is decompressed. There is wall thickening of the bowel loop just proximal to the umbilical hernia possibly due to hyperemia. Although there is no pneumatosis intestinalis, early ischemia cannot be excluded. There is pelvis ascites possibly reactive to the bowel process. The urinary bladder is underdistended. The uterus and adnexa appear normal. Osseous structures: The osseous structures appear normal. Impression: 1. Umbilical hernia containing a focal small bowel loop. There is bowel obstruction proximal to this. The small bowel just proximal to entering the umbilical hernia is thickened and slightly inflamed possibly due to hyperemia. Although there is no pneumatosis intestinalis, there may be early ischemia. 2. Pelvic ascites possibly reactive to the bowel process. 3. Cholelithiasis. Interpreted By: Zaki Davis MD, 06/13/2020 6:41 AM ED Course / Medical Decision Making This patient was evaluated for the symptoms described in the history of present illness. She was evaluated in the context of the global COVID-19 pandemic, which necessitated consideration that the patient might be at risk for infection with the SARS-CoV-2 virus that causes COVID-19. Institutional protocols and algorithms that pertain to the evaluation of patients at risk for COVID-19 are in a state of rapid change based on information released by regulatory bodies including the CDC and federal and state organizations. These policies and algorithms were followed during the patient's care. Admit ABDOMINAL PAIN Consultation with hospitalist (Dr. Díaz) service. We thoroughly discussed the history, physical exam, laboratory and imaging studies, as well as, emergency department course. Based upon that discussion, we've decided to admit for further observation and evaluation of their abdominal pain. As I havedeemed necessary from their history, physical and studies, I have considered and evaluated for the following diagnoses: ACUTE APPENDICITIS, BOWEL OBSTRUCTION, CHOLECYSTITIS, DIVERTICULITIS, INCARCERATED HERNIA, MESENTERIC ISCHEMIA, PANCREATITIS, or PERFORATED BOWEL or ULCER. Discussed all the pertinent/baker information above including H&P and testing and my diagnosis/differential with Dr. Williamson of general surgery who agrees with the assessment and plan and recommends placement on observation status for serial exams due to the presence of continuing pain after reduction of the umbilical hernia. Clinical Impression Umbilical hernia with obstruction but no gangrene (Primary) Cholelithiasis Biliary colic Disposition: Admit Rodrigo Jennings MD 06/13/20725 * Kemi Rios RN - 06/13/2020 6:20 AM CDT Pt to CT. * Kemi Rios RN - 06/13/2020 5:03 AM CDT Pt to ed from home with abdominal pain, nausea, and vomiting that started yesterday in the am. Pt is due to have her gallbladder removed this Monday by dr rueda here. documented in this encounter Plan of Treatment Not on file documented as of this encounter Procedures Procedure Name Priority Date/Time Associated Diagnosis Comments BASIC METABOLIC PANEL Routine 06/17/2020 5:00 AM CDT CBC W/DIFF AUTOMATED Routine 06/17/2020 5:00 AM CDT TROPONIN, QUANT Routine 06/17/2020 5:00 AM CDT MAGNESIUM Routine 06/17/2020 5:00 AM CDT ECG 12-LEAD STAT 06/16/2020 4:36 PM CDT SURG XR CHOLANGIOGRAM Routine 06/16/2020 12:09 PM CDT HERNIORRHAPHY UMBILICAL 06/16/2020 11:19 AM CDT symptomatic cholelithiasis, umbilical hernia Case Notes SCHED BY DR PERAZA WITH ABDOULAYE. 06/15/2020 [facility] Special Needs C-ARM LAPAROSCOPIC CHOLECYSTECTOMY 06/16/2020 11:19 AM CDT symptomatic cholelithiasis, umbilical hernia Case Notes SCHED BY DR PERAZA WITH ABDOULAYE. 06/15/2020 [facility] Special Needs C-ARM TYPE & SCREEN Routine 06/16/2020 5:15 AM CDT COMPREHENSIVE METABOLIC PANEL Routine 06/16/2020 5:15 AM CDT CBC W/DIFF AUTOMATED Routine 06/16/2020 5:15 AM CDT MAGNESIUM Routine 06/16/2020 5:15 AM CDT PATHOLOGY Routine 06/16/2020 12:00 AM CDT COMPREHENSIVE METABOLIC PANEL Routine 06/15/2020 4:35 AM CDT LACTIC ACID Routine 06/15/2020 4:35 AM CDT CBC W/DIFF AUTOMATED Routine 06/15/2020 4:35 AM CDT MAGNESIUM Routine 06/15/2020 4:35 AM CDT RESPIRATORY PCR PANEL 2 Routine 06/14/2020 2:44 PM CDT CBC W/DIFF AUTOMATED STAT 06/14/2020 9:09 AM CDT IRON SAT PANEL (IRON,IBC,%SAT) Routine 06/14/2020 5:30 AM CDT VITAMIN B-12 Routine 06/14/2020 5:[address], AUTO Routine 06/14/2020 5:30 AM CDT COMPREHENSIVE METABOLIC PANEL Routine 06/14/2020 5:30 AM CDT FOLIC ACID SERUM Routine 06/14/2020 5:30 AM CDT CBC W/DIFF AUTOMATED Routine 06/14/2020 5:30 AM CDT MAGNESIUM Routine 06/14/2020 5:30 AM CDT FERRITIN Routine 06/14/2020 5:30 AM CDT TROPONIN, QUANT STAT 06/13/2020 9:33 PM CDT TROPONIN, QUANT STAT 06/13/2020 4:45 PM CDT TROPONIN, QUANT STAT 06/13/2020 12:05 PM CDT ECG 12-LEAD Routine 06/13/2020 12:04 PM CDT XR CHEST PORTABLE STAT 06/13/2020 11: [address] ABD+PEL W CON STAT 06/13/2020 6:34 AM CDT HC URINALYSIS AUTO W/O MICRO STAT 06/13/2020 6:13 AM CDT URINE BACTERIA CULTURE Routine 0 6:13 AM CDT POCT URINE (BACK OFFICE) STAT 06/13/2020 6:12 AM CDT COMPREHENSIVE METABOLIC PANEL STAT 06/13/2020 5:24 AM CDT LACTIC ACID TIMED 06/13/2020 5:24 AM CDT CBC W/DIFF AUTOMATED STAT 06/13/2020 5:24 AM CDT LIPASE STAT 06/13/2020 5:24 AM CDT CREATININE WHOLE BLOOD Routine 0 5:20 AM CDT documented in this encounter Results * MAGNESIUM (06/17/2020 5:00 AM CDT) MAGNESIUM 2.3 1.8 - 2.4 MG/DL 06/17/2020 5:36 AM CDT [facility] 06/17/2020 5:00 AM CDT Arturo Peraza MD LABORATORY Final Res ult [facility] [address] [place] [address], [place] [phone] * TROPONIN, QUANT (06/17/2020 5:00 AM CDT) TROPONIN I <0.015 <0.045 ng/mL. 06/17/2020 7:48 AM CDT [facility] Comment: HIGH DOSES OF BIOTIN MAY INTERFERE WITH THIS TEST RESULT. CORRELATION TO CLINICAL HISTORY AND PRESENTATION RECOMMENDED. 06/17/2020 5:00 AM CDT Jordan Fitzgerald PA-C LABORATORY Final Result Performing Organization Address [facility]/ZIP Co de Phone Number [facility] [address] [place] [address], [place] [phone] * (ABNORMAL) BASIC METABOLIC PANEL (06/17/2020 5:00 AM CDT) GLUCOSE 107(H) 70 - 99 MG/DL 06/17/2020 5:36 AM CDT [facility] BUN 8 7 - 18 MG/DL 06/17/2020 5:36 AM CDT [facility] CREATININE S/P/B 0.60 0.55 - 1.02 MG/DL 06/17/2020 5:36 AM CDT [facility] SODIUM S/P/B 137 136 - 145 MMOL/L 06/17/2020 5:36 AM CDT [facility] POTASSIUM S/P/B 3.9 3.5 - 5.1 MMOL/L 06/17/2020 5:36 AM CDT [facility] CHLORIDE S/P/B 107 100 - 108 MMOL/L 06/17/2020 5:36 AM CDT [facility] CO2 25.3 21 - 32 MMOL/L 06/17/2020 5:36 AM CDT [facility] CALCIUM S/P/B 9.1 8.5 - 10.1 MG/DL 06/17/2020 5:36 AM CDT [facility] [facility] ANION GAP 4.7(L) 5 - 15 MMOL/L 06/17/2020 5:36 AM CDT [facility] BUN CREATININE RATIO 13.4 6 - 26 06/17/2020 5:36 AM CDT [facility] EGFR NON-AFR. AMER. >90 >90 ML/MIN/1.7 3 M2 06/17/2020 5:36 AM CDT [facility] EGFR AFR. AMER. >90 >90 ML/MIN/1.7 3 M2 06/17/2020 5:36 AM CDT [facility] Comment: NOTE: eGFR is not calculated for patients <18 years of age. This is an estimated GFR (CKD EPI) and should not be used for calculating drug doses. 06/17/2020 5:00 AM CDT us Jordan Fitzgerald PA-C LABORATORY Final Result [facility] [address] [place] [address], [place] [phone] * (ABNORMAL) CBC W/DIFF AUTOMATED (06/17/2020 5:00 AM CDT) WBC 11.8(H) 4.5 - 11.0 x10'3/uL 06/17/2020 5:16 AM CDT [facility] RBC 4.59 4.20 - 5.40 x10'6/uL 06/17/2020 5:16 AM CDT [facility] HGB 11.7(L) 12.0 - 16.0 G/DL 06/17/2020 5:16 AM CDT [facility] HCT 36.5(L) 38.0 - 48.0 % 06/17/2020 5:16 AM CDT [facility] MCV 79.5(L) 81.0 - 99.0 FL 06/17/2020 5:16 AM CDT [facility] MCH 25.5(L) 27.0 - 31.0 PG 06/17/2020 5:16 AM CDT [facility] MCHC 32.1 32.0 - 36.0 G/DL 06/17/2020 5:16 AM CDT [facility] RDW 13.4 11.5 - 14.5 % 06/17/2020 5:16 AM CDT [facility] PLT 234 130 - 400 x10'3/uL 06/17/2020 5:16 AM CDT [facility] MPV 11.8 9.3 - 12.2 FL 06/17/2020 5:16 AM CDT [facility] DIFFERENTIAL TYPE AUTOMATED DIFFERENTIAL 06/17/2020 5:16 AM CDT [facility] NEUTROPHILS % 84.7 % 06/17/2020 5:16 AM CDT [facility] LYMPHOCYTES % 9.7 % 06/17/2020 5:16 AM CDT [facility] MONOCYTES % 5.2 % 06/17/2020 5:16 AM CDT [facility] EOSINOPHILS 0.0 % 06/17/2020 5:16 AM CDT [facility] BASOPHILS 0.1 % 06/17/2020 5:16 AM CDT [facility] IMMATURE GRANS % 0.3 % 06/17/20 20 5:16 AM CDT [facility] ABS. NEUTROPHILS TOTAL 10.00(H) 1.80 - 7.70 x10'3/uL 06/17/2020 5:16 AM CDT [facility] ABS. LYMPHOCYTES 1.14 1.00 - 4.80 x10'3/uL 06/17/2020 5:16 AM CDT [facility] ABS. MONOCYTES 0.61 0.24 - 0.86 x10'3/uL 06/17/2020 5:16 AM CDT [facility] ABS. EOSINOPHILS 0.00(L) 0.04 - 0.36 x10'3/uL 06/17/2020 5:16 AM CDT [facility] ABS. BASOPHILS 0.01 0.01 - 0.08 x10'3/uL 06/17/2020 5:16 AM CDT [facility] ABS. IMMATURE GRANULOCYTES 0.04 0.00 - 0.49 x10'3/uL 06/17/2020 5:16 AM CDT [facility] 06/17/2020 5:00 AM CDT us Jordan Fitzgerald PA-C LABORATORY Final Result [facility] [address] [place] [address], [place] [phone] * ECG 12 lead (06/16/2020 4:36 PM CDT) 06/16/2020 4:36 PM CDT Narrative [facility] ([facility] RAD - 06/16/2020 10:46 PM CDT ?[facility] [place] ? [address] [facility] [place] ? Test Date: ?2020-06-16 Pat Name: ? CLEMENTOMAR FUENTES ?Department: ? Room: ? N94828 Gender: ? Female ? 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 Requested By: JORDAN FITZGERALD Order Number: [id number] ? Reading MD: ?? Shiyam Satwani ? Measurements Intervals ?[place] ? Rate: ? 64 ? P: ?-1 [place]: ? 136 ?QRS: ?21 QRSD: ? 86 ? T: ?20 QT: ? 382 ? QTc: ?396 ? Interpretive Statements SINUS RHYTHM Compared to ECG 06/13/2020 12:04:34 No significant changes Procedure Note Aliza Mak MD - 06/16/[address] [facility] 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 : 1995 Requested By: JORDAN FITZGERALD Order Number: [id number] Reading MD: Aliza Mak Measurements Intervals [place] Rate: 64 P: -1 [place]: 136 QRS: 21 QRSD: 86 T: 20 QT: 382 QTc: 396 Interpretive Statements SINUS RHYTHM Compared to ECG 06/13/2020 12:04:34 No significant changes us Jordan SHAIKH-Ricardo ECG ORDERABLES Final Result [facility] RAD * SURG XR CHOLANGIOGRAM (06/16/2020 12:09 PM CDT) Anatomical Region Laterality Modality Abdomen Radiographic Milka ging 06/16/2020 12:1 4 PM CDT Impressions 06/16/2020 12:16 PM CDT =====IMPRESSION:===== ?? 1. ??No definite retained stone although exam is somewhat limited. 2. ??Dr. Peraza was notified of these findings by me by phone at 12:15 PM on 06/16/2020. Narrative 06/16/2020 12:16 PM CDT EXAMINATION: Intraoperative Cholangiogram EXAM DATE/TIME: 06/16/2020 12:04 PM ?? REASON FOR EXAM: ??ruq pain ? TECHNIQUE: Intraoperative fluoroscopic spot views of cholangiogram with 4 images submitted for interpretation. A total of 5.1 seconds of fluoroscopic time was utilized for the study. FINDINGS: Exam is somewhat limited as portions of biliary tract are not well visualized. There may be a low inserting right hepatic duct which is incompletely opacified. No definite retained stone is seen in the biliary system. Some irregularity and or narrowing of the distal common bile duct is suspected. Contrast in the duodenum is seen. Minimal opacification of the pancreatic duct is noted. Procedure Note Allan Mujica MD - 06/16/2020 EXAMINATION: Intraoperative Cholangiogram EXAM DATE/TIME: 06/16/2020 12:04 PM REASON FOR EXAM: ruq pain TECHNIQUE: Intraoperative fluoroscopic spot views of cholangiogram with4 images submitted for interpretation. A total of 5.1 seconds offluoroscopic time was utilized for the study. FINDINGS: Exam is somewhat limited as portions of biliary tract are not well visualized. There may be a low inserting right hepatic duct whichis incompletely opacified. No definite retained stone is seen in thebiliary system. Some irregularity and or narrowing of the distal common bileduct is suspected. Contrast in the duodenum is seen. Minimal opacification of the pancreatic duct is noted. =====IMPRESSION:===== 1. No definite retained stone although exam is somewhat limited. 2. Dr. Peraza was notified of these findings by me by phone at 12:15 PMon 06/16/2020. Arturo Peraza MD IMAGES ONLY Final Res ult * TYPE & SCREEN (06/16/2020 5:15 AM CDT) ABO/RH O POSITIVE 06/16/2020 7:28 AM CDT [facility] ANTIBODY SCREEN NEGATIVE 06/16/2020 7:28 AM CDT [facility] SAMPLE EXPIRATION 06/19/2020,2 359 06/16/2020 7:28 AM CDT [facility] 06/16/2020 5:15 AM CDT Jordan SHAIKH- BLOOD BANK TEST ORDERABLES Fin al Result Performing Organization Address City/[facility]/ZIP Co de Phone Number [facility] [address] [place] [address], [place] [phone] * MAGNESIUM (06/16/2020 5:15 AM CDT) Pathologist [facility] MAGNESIUM 2.2 1.8 - 2.4 MG/DL 06/16/2020 6:06 AM CDT [facility] 06/16/2020 5:15 AM CDT Arturo Peraza MD LABORATORY Final Res ult [facility] [address] [place] [id number], [place] [phone] * (ABNORMAL) COMPREHENSIVE METABOLIC PANEL (06/16/2020 5:15 AM CDT) Pathologist [facility] GLUCOSE 95 70 - 99 MG/DL 06/16/2020 6:06 AM CDT [facility] BUN 8 7 - 18 MG/DL 06/16/2020 6:06 AM T [facility] CREATININE S/P/B 0.63 0.55 - 1.02 MG/DL 06/16/2020 6:06 AM T [facility] SODIUM S/P/B 136 136 - 145 MMOL/L 06/16/2020 6:06 AM T [facility] POTASSIUM S/P/B 3.6 3.5 - 5.1 MMOL/L 06/16/2020 6:06 AM T [facility] CHLORIDE S/P/B 105 100 - 108 MMOL/L 06/16/2020 6:06 AM T [facility] CO2 24.7 21 - 32 MMOL/L 06/16/2020 6:06 AM T [facility] CALCIUM S/P/B 9.2 8.5 - 10.1 MG/DL 06/16/2020 6:06 AM T [facility] BILIRUBIN TOTAL S/P/B 0.3 0.2 - 1.2 MG/DL 06/16/2020 6:06 AM T [facility] Comment: THIS ASSAY IS NOT RECOMMENDED FOR PATIENTS UNDERGOING TREATMENT WITH ELTROMBOPAG DUE TO THE POTENTIAL FOR FALSELY ELEVATED RESULTS. TOTAL PROTEIN S/P/B 8.3(H) 6.4 - 8.2 G/DL 06/16/2020 6:06 AM T [facility] ALBUMIN S/P/B 3.4 3.4 - 5.0 G/DL 06/16/2020 6:06 AM T [facility] AST 13(L) 15 - 37 U/L 06/16/2020 6:06 AM T [facility] ALT 18 14 - 55 U/L 06/16/2020 6:06 AM T [facility] ALKALINE PHOSPHATASE S/P/B 111 50 - 136 U/L 06/16/2020 6:06 AM CDT [facility] ANION GAP 6.3 5 - 15 MMOL/L 06/16/2020 6:06 AM CDT [facility] BUN CREATININE RATIO 12.8 6 - 26 06/16/2020 6:06 AM CDT [facility] A/G RATIO 0.7(L) 1.0 - 2.0 RATIO 06/16/2020 6:06 AM CDT [facility] EGFR NON-AFR. AMER. >90 >90 ML/MIN/1.7 3 M2 06/16/2020 6:06 AM CDT [facility] EGFR AFR. AMER. >90 >90 ML/MIN/1.7 3 M2 06/16/2020 6:06 AM CDT [facility] Comment: NOTE: eGFR is not calculated for patients <18 years of age. This is an estimated GFR (CKD EPI) and should not be used for calculating drug doses. 06/16/2020 5:15 AM CDT Phyllis OLIVIER LABORATORY Final Res ult [facility] [address] [place] [id number], [place] [phone] * (ABNORMAL) CBC W/DIFF AUTOMATED (06/16/2020 5:15 AM CDT) WBC 8.8 4.5 - 11.0 x10'3/uL 06/16/2020 5:44 AM CDT [facility] RBC 4.98 4.20 - 5.40 x10'6/uL 06/16/2020 5:44 AM CDT [facility] HGB 12.8 12.0 - 16.0 G/DL 06/16/2020 5:44 AM CDT [facility] HCT 40.6 38.0 - 48.0 % 06/16/2020 5:44 AM CDT [facility] MCV 81.5 80.0 - 94.0 FL 06/16/2020 5:44 AM CDT [facility] MCH 25.7(L) 27.0 - 31.0 PG 06/16/2020 5:44 AM CDT [facility] MCHC 31.5(L) 32.0 - 36.0 G/DL 06/16/2020 5:44 AM CDT [facility] RDW 13.3 11.5 - 14.5 % 06/16/2020 5:44 AM CDT [facility] PLT 231 130 - 400 x10'3/uL 06/16/2020 5:44 AM CDT [facility] MPV 12.1 9.3 - 12.2 FL 06/16/2020 5:44 AM CDT [facility] DIFFERENTIAL TYPE AUTOMATED DIFFERENTIAL 06/16/2020 5:44 AM CDT [facility] NEUTROPHILS % 73.8 % 06/16/2020 5:44 AM CDT [facility] LYMPHOCYTES % 18.9 % 06/16/2020 5:44 AM CDT [facility] MONOCYTES % 5.8 % 06/16/2020 5:44 AM CDT [facility] EOSINOPHILS 1.0 % 06/16/2020 5:44 AM CDT [facility] BASOPHILS 0.2 % 06/16/2020 5:44 AM CDT [facility] IMMATURE GRANS % 0.3 % 06/16/20 20 5:44 AM CDT [facility] ABS. NEUTROPHILS TOTAL 6.46 1.80 - 7.70 x10'3/uL 06/16/2020 5:44 AM CDT [facility] ABS. LYMPHOCYTES 1.66 1.00 - 4.80 x10'3/uL 06/16/2020 5:44 AM CDT [facility] ABS. MONOCYTES 0.51 0.24 - 0.86 x10'3/uL 06/16/2020 5:44 AM CDT [facility] ABS. EOSINOPHILS 0.09 0.04 - 0.36 x10'3/uL 06/16/2020 5:44 AM CDT [facility] ABS. BASOPHILS 0.02 0.01 - 0.08 x10'3/uL 06/16/2020 5:44 AM CDT [facility] ABS. IMMATURE GRANULOCYTES 0.03 0.00 - 0.49 x10'3/uL 06/16/2020 5:44 AM CDT [facility] 06/16/2020 5:15 AM CDT Phyllis Yadav AP LABORATORY Final Res ult [facility] [address] [place] [address], * Pathology (06/16/2020 12:00 AM CDT) COPATH REPORT ? [facility] ? [address] ? [place] ??[id number] ? [id number] ? Department of Pathology ? Pathology Report ? SURGICAL FINAL REPORT Patient Name: CLEMENT MACE ? : 1995 (Age: 24) ?Location: [id number] Gender: F ?Collected Date: 06/16/2020 Med Rec #: [id number] ?Date Received: 06/16/2020 Date Reported: 06/17/2020 Provider: RODRIGO JENNINGS MD ?SANCHEZ DÍAZ MD ?JORDAN Silva ?WILLIAM PERAZA ?TEJINDER DUARTE MD Specimen(s) Gallbladder Final Pathologic Diagnosis GALLBLADDER, CHOLECYSTECTOMY: ? CHOLELITHIASIS ? CHOLESTEROLOSIS Electronically Signed Out ? YISSEL TAYLOR MD Pathologist SMO:pb Microscopic Description: Microscopic examination substantiates the above diagnosis. Clinical History Symptomatic cholelithiasis, umbilical hernia Gross Description The specimen is received in a single formalin-filled container labeled with the patient's name (Clement Fuenets), (1995) and gallbladder. ??The specimen consists of an intact gallbladder that is 8 cm in length x 3.8 cm in maximum diameter. ??The secured proximal cystic duct resection margin is probed patent, stenotic and 0.1 cm in diameter. ??Palpation reveals no grossly apparent lymph node. ??The serosal surface is purple-armendariz to pale green, smooth, glistening and demonstrates numerous congested blood vessels. ??The hepatic bed is ferreira-brown, roughened and cauterized. ??The specimen is opened longitudinally to reveal an abundant amount of dark green-brown, mucoid bile. ??Intermixed within the bile are eight yellow-orange, friable, multinodular spheroid calculi that range from 0.5-1.0 cm in greatest dimension. ??The mucosal surface is dark green-brown, velvety, glistening and demonstrates diffuse yellow stippling (grossly consistent with cholesterolosis). ??The specimen has an attenuated wall and is up to 0.2 cm in maximum thickness. ?? Club Lounge Attendant sections are submitted, as follows: ? 1- ? Proximal cystic duct resection margin (submitted en face) and gallbladder wall, to display yellow stippling (submitted on edge). ?? :pb Billing Fee Code(s): 62541 [facility] Tissue specimen (specimen) GALLBLADDER STRUCTURE / Unknown 06/16/2020 12:03 PM CDT Arturo Peraza MD PATHOLOGY/CYTOLOGY ORDERA BLES Final Result [facility] [address] [place] [address], * MAGNESIUM (06/15/2020 4:35 AM CDT) MAGNESIUM 2.1 1.8 - 2.4 MG/DL 06/15/2020 5:19 AM CDT [facility] 06/15/2020 4:35 AM CDT Arturo Peraza MD LABORATORY Final Res ult [facility] [address] [place] [address], [place] [phone] * LACTIC ACID - SINGLE (06/15/2020 4:35 AM CDT) LACTIC ACID VENOUS 0.8 0.4 - 2.0 MMOL/L 06/15/2020 5:27 AM CDT [facility] 06/15/2020 4:35 AM CDT Antoine Salinas PA-C LABORATORY Final Result Performing Organization Address City/[facility]/ZIP Co de Phone Number [facility] [address] [place] [address], [place] [phone] * (ABNORMAL) COMPREHENSIVE METABOLIC PANEL (06/15/2020 4:35 AM CDT) Pathologist [facility] GLUCOSE 85 70 - 99 MG/DL 06/15/2020 5:19 AM CDT [facility] BUN 6(L) 7 - 18 MG/DL 06/15/2020 5:19 AM CDT [facility] CREATININE S/P/B 0.57 0.55 - 1.02 MG/DL 06/15/2020 5:19 AM CDT [facility] SODIUM S/P/B 139 136 - 145 MMOL/L 06/15/2020 5:19 AM CDT [facility] POTASSIUM S/P/B 3.4(L) 3.5 - 5.1 MMOL/L 06/15/2020 5:19 AM CDT [facility] CHLORIDE S/P/B 107 100 - 108 MMOL/L 06/15/2020 5:19 AM CDT [facility] CO2 26.9 21 - 32 MMOL/L 06/15/2020 5:19 AM T [facility] CALCIUM S/P/B 8.5 8.5 - 10.1 MG/DL 06/15/2020 5:19 AM [facility] BILIRUBIN TOTAL S/P/B 0.4 0.2 - 1.2 MG/DL 06/15/2020 5:19 AM T [facility] Comment: THIS ASSAY IS NOT RECOMMENDED FOR PATIENTS UNDERGOING TREATMENT WITH ELTROMBOPAG DUE TO THE POTENTIAL FOR FALSELY ELEVATED RESULTS. TOTAL PROTEIN S/P/B 6.9 6.4 - 8.2 G/DL 06/15/2020 5:19 AM T [facility] ALBUMIN S/P/B 3.0(L) 3.4 - 5.0 G/DL 06/15/2020 5:19 AM T [facility] AST 12(L) 15 - 37 U/L 06/15/2020 5:19 AM [facility] ALT 13(L) 14 - 55 U/L 06/15/2020 5:19 AM [facility] ALKALINE PHOSPHATASE S/P/B 88 50 - 136 U/L 06/15/2020 5:19 AM [facility] ANION GAP 5.1 5 - 15 MMOL/L 06/15/2020 5:19 AM T [facility] BUN CREATININE RATIO 10.6 6 - 26 06/15/2020 5:19 AM [facility] A/G RATIO 0.8(L) 1.0 - 2.0 RATIO 06/15/2020 5:19 AM [facility] EGFR NON-AFR. AMER. >90 >90 ML/MIN/1.7 3 M2 06/15/2020 5:19 AM T [facility] EGFR AFR. AMER. >90 >90 ML/MIN/1.7 3 M2 06/15/2020 5:19 AM CDT [facility] Comment: NOTE: eGFR is not calculated for patients <18 years of age. This is an estimated GFR (CKD EPI) and should not be used for calculating drug doses. 06/15/2020 4:35 AM CDT Phyllis Yadav APNP LABORATORY Final Res ult [facility] [address] [place] [address], * (ABNORMAL) CBC W/DIFF AUTOMATED (06/15/2020 4:35 AM CDT) WBC 6.2 4.5 - 11.0 x10'3/uL 06/15/2020 4:57 AM CDT [facility] RBC 4.01(L) 4.20 - 5.40 x10'6/uL 06/15/2020 4:57 AM CDT [facility] HGB 10.3(L) 12.0 - 16.0 G/DL 06/15/2020 4:57 AM CDT [facility] HCT 32.4(L) 38.0 - 48.0 % 06/15/2020 4:57 AM CDT [facility] MCV 80.8(L) 81.0 - 99.0 FL 06/15/2020 4:57 AM CDT [facility] MCH 25.7(L) 27.0 - 31.0 PG 06/15/2020 4:57 AM CDT [facility] MCHC 31.8(L) 32.0 - 36.0 G/DL 06/15/2020 4:57 AM CDT [facility] RDW 13.2 11.5 - 14.5 % 06/15/2020 4:57 AM CDT [facility] PLT 198 130 - 400 x10'3/uL 06/15/2020 4:57 AM CDT [facility] MPV 12.0 9.3 - 12.2 FL 06/15/2020 4:57 AM CDT [facility] DIFFERENTIAL TYPE AUTOMATED DIFFERENTIAL 06/15/2020 4:57 AM CDT [facility] NEUTROPHILS % 59.7 % 06/15/2020 4:57 AM CDT [facility] LYMPHOCYTES % 32.6 % 06/15/2020 4:57 AM CDT [facility] MONOCYTES % 5.7 % 06/15/2020 4:57 AM CDT [facility] EOSINOPHILS 1.5 % 06/15/2020 4:57 AM CDT [facility] BASOPHILS 0.3 % 06/15/2020 4:57 AM CDT [facility] IMMATURE GRANS % 0.2 % 06/15/20 20 4:57 AM CDT [facility] ABS. NEUTROPHILS TOTAL 3.69 1.80 - 7.70 x10'3/uL 06/15/2020 4:57 AM CDT [facility] ABS. LYMPHOCYTES 2.01 1.00 - 4.80 x10'3/uL 06/15/2020 4:57 AM CDT [facility] ABS. MONOCYTES 0.35 0.24 - 0.86 x10'3/uL 06/15/2020 4:57 AM CDT [facility] ABS. EOSINOPHILS 0.09 0.04 - 0.36 x10'3/uL 06/15/2020 4:57 AM CDT [facility] ABS. BASOPHILS 0.02 0.01 - 0.08 x10'3/uL 06/15/2020 4:57 AM CDT [facility] ABS. IMMATURE GRANULOCYTES 0.01 0.00 - 0.49 x10'3/uL 06/15/2020 4:57 AM CDT [facility] 06/15/2020 4:35 AM CDT Phyllis Yadav APNP LABORATORY Final Res ult [facility] [address] [place] [address], [place] [phone] * RESPIRATORY PCR PANEL 2 (06/14/2020 2:44 PM CDT) ADENOVIRUS PCR (RESP) NOT DETECTED NOT DETECTED 06/15/2020 7:44 AM CDT [facility] CORONAVIRUS 229E PCR (RESP) NOT DETECTED NOT DETECTED 06/15/2020 7:44 AM CDT [facility] CORONAVIRUS HKU1 PCR (RESP) NOT DETECTED NOT DETECTED 06/15/2020 7:44 AM CDT [facility] CORONAVIRUS NL63 PCR (RESP) NOT DETECTED NOT DETECTED 06/15/2020 7:44 AM CDT [facility] CORONAVIRUS OC43 PCR (RESP) NOT DETECTED NOT DETECTED 06/15/2020 7:44 AM CDT [facility] METAPNEUMOVIRUS PCR (RESP) NOT DETECTED NOT DETECTED 06/15/2020 7:44 AM CDT [facility] RHINOVIRUS/ENTEROV IRUS PCR (RESP) NOT DETECTED NOT DETECTED 06/15/2020 7:44 AM CDT [facility] INFLUENZA A PCR (RESP) NOT DETECTED NOT DETECTED 06/15/2020 7:44 AM CDT [facility] INFLUENZA B PCR (RESP) NOT DETECTED NOT DETECTED 06/15/2020 7:44 AM CDT [facility] PARAINFLUENZA 1 PCR (RESP) NOT DETECTED NOT DETECTED 06/15/2020 7:44 AM CDT [facility] PARAINFLUENZA 2 PCR (RESP) NOT DETECTED NOT DETECTED 06/15/2020 7:44 AM CDT [facility] PARAINFLUENZA 3 PCR (RESP) NOT DETECTED NOT DETECTED 06/15/2020 7:44 AM CDT [facility] PARAINFLUENZA 4 PCR (RESP) NOT DETECTED NOT DETECTED 06/15/2020 7:44 AM CDT [facility] RSV PCR (RESP) NOT DETECTED NOT DETECTED 06/15/2020 7:44 AM CDT [facility] B PARAPERTUSIS PCR (RESP) NOT DETECTED NOT DETECTED 06/15/2020 7:44 AM CDT [facility] BORDETELLA PERTUSSIS PCR (RESP) NOT DETECTED NOT DETECTED 06/15/2020 7:44 AM CDT [facility] CHLAMYDOPHILA PNEUMONIAE PCR (RESP) NOT DETECTED NOT DETECTED 06/15/2020 7:44 AM CDT [facility] MYCOPLASMA PNEUMONIAE PCR (RESP) NOT DETECTED NOT DETECTED 06/15/2020 7:44 AM CDT [facility] CORONAVIRUS SARS COV 2 PCR (RESP) NOT DETECTED NOT DETECTED 06/15/2020 7:44 AM CDT [facility] Comment: THE SARS-CoV-2 TEST HAS BEEN AUTHORIZED BY THE FDA UNDER AN EUA FOR USE BY AUTHORIZED LABORATORIES. 06/14/2020 2:44 PM CDT us Sanchez Díaz MD MICROBIOLOGY - GENERAL ORDERABLE S Final Result [facility] [address] [place] [address], [place] [phone] * (ABNORMAL) CBC W/DIFF AUTOMATED (06/14/2020 9:09 AM CDT) [facility] WBC 5.5 4.5 - 11.0 x10'3/uL 06/14/2020 9:31 AM CDT [facility] RBC 3.82(L) 4.20 - 5.40 x10'6/uL 06/14/2020 9:31 AM CDT [facility] HGB 9.8(L) 12.0 - 16.0 G/DL 06/14/2020 9:31 AM CDT [facility] HCT 30.9(L) 38.0 - 48.0 % 06/14/2020 9:31 AM CDT [facility] MCV 80.9(L) 81.0 - 99.0 FL 06/14/2020 9:31 AM CDT [facility] MCH 25.7(L) 27.0 - 31.0 PG 06/14/2020 9:31 AM CDT [facility] MCHC 31.7(L) 32.0 - 36.0 G/DL 06/14/2020 9:31 AM CDT [facility] RDW 13.6 11.5 - 14.5 % 06/14/2020 9:31 AM CDT [facility] PLT 188 130 - 400 x10'3/uL 06/14/2020 9:31 AM CDT [facility] MPV 11.9 9.3 - 12.2 FL 06/14/2020 9:31 AM CDT [facility] DIFFERENTIAL TYPE AUTOMATED DIFFERENTIAL 06/14/2020 9:31 AM CDT [facility] NEUTROPHILS % 68.5 % 06/14/2020 9:31 AM CDT [facility] LYMPHOCYTES % 23.3 % 06/14/2020 9:31 AM CDT [facility] MONOCYTES % 6.9 % 06/14/2020 9:31 AM CDT [facility] EOSINOPHILS 0.7 % 06/14/2020 9:31 AM CDT [facility] BASOPHILS 0.2 % 06/14/2020 9:31 AM CDT [facility] IMMATURE GRANS % 0.4 % 06/14/20 9:31 AM CDT [facility] ABS. NEUTROPHILS TOTAL 3.79 1.80 - 7.70 x10'3/uL 06/14/2020 9:31 AM CDT [facility] ABS. LYMPHOCYTES 1.29 1.00 - 4.80 x10'3/uL 06/14/2020 9:31 AM CDT [facility] ABS. MONOCYTES 0.38 0.24 - 0.86 x10'3/uL 06/14/2020 9:31 AM CDT [facility] ABS. EOSINOPHILS 0.04 0.04 - 0.36 x10'3/uL 06/14/2020 9:31 AM CDT [facility] ABS. BASOPHILS 0.01 0.01 - 0.08 x10'3/uL 06/14/2020 9:31 AM CDT [facility] ABS. IMMATURE GRANULOCYTES 0.02 0.00 - 0.49 x10'3/uL 06/14/2020 9:31 AM CDT [facility] 06/14/2020 9:09 AM CDT us Sanchez Díaz MD LABORATORY Final Result [facility] [address] [place] [address], [place] [phone] * FOLIC ACID SERUM (06/14/2020 5:30 AM CDT) FOLATE 12.3 3.1 - 17.5 NG/ML 06/14/2020 11:13 AM CDT [facility] 06/14/2020 5:30 AM CDT us Sanchez Díaz MD LABORATORY Final Result Performing Organization Address City/[facility]/ZIP Co de Phone Number [facility] [address] [place] [id number], [place] [phone] * VITAMIN B-12 (06/14/2020 5:30 AM CDT) VITAMIN B12 S/P/B 931 254 - 1,320 PG/ML 06/14/2020 11:13 AM CDT [facility] 06/14/2020 5:30 AM CDT us Sanchez Díaz MD LABORATORY Final Result Performing Organization Address City/[facility]/ZIP Co de Phone Number [facility] [address] [place] [id number], [place] [phone] * RETICULOCYTE CT, AUTO (06/14/2020 5:30 AM CDT) RETICULOCYTE COUNT 1.1 0.8 - 2.1 % 06/14/2020 10:10 AM CDT [facility] ABSOLUTE RETICULOCYTE 0.04 0.02 - 0.10 x10'6/uL 06/14/2020 10:10 AM CDT [facility] IMMATURE RETIC FRACTION 10.5 3.0 - 15.9 % 06/14/2020 10:10 AM CDT [facility] RETIC HGB 30.4 28.0 - 35.0 PG 06/14/2020 10:10 AM CDT [facility] 06/14/2020 5:30 AM CDT us Sanchez Díaz MD LABORATORY Final Result [facility] [address] [place] [id number], [place] [phone] * FERRITIN (06/14/2020 5:30 AM CDT) FERRITIN 55.1 8.0 - 388.0 NG/ML 06/14/2020 11:13 AM CDT [facility] 06/14/2020 5:30 AM CDT us Sanchez Díaz MD LABORATORY Final Result Performing Organization Address [facility] Co de Phone Number [facility] [address] [place] [address], [place] [phone] * (ABNORMAL) IRON SAT PANEL (IRON,IBC,%SAT) (06/14/2020 5:30 AM CDT) IRON 40(L) 50.0 - 170.0 MCG/DL 06/14/2020 10:48 AM CDT [facility] IRON BINDING CAPACITY 246(L) 250 - 450 MCG/DL 06/14/2020 10:48 AM CDT [facility] IRON SATURATION 16(L) 20 - 55 % 0 10:48 AM CDT [facility] 06/14/2020 5:30 AM CDT us Sanchez Díaz MD LABORATORY Final Result Performing Organization Address City/[facility]/ZIP Co de Phone Number [facility] [address] [place] [address], [place] [phone] * MAGNESIUM (06/14/2020 5:30 AM CDT) MAGNESIUM 2.2 1.8 - 2.4 MG/DL 06/14/2020 6:17 AM CDT [facility] 06/14/2020 5:30 AM CDT us Arturo Peraza MD LABORATORY Final Res ult [facility] [address] [place] [address], [place] [phone] * (ABNORMAL) COMPREHENSIVE METABOLIC PANEL (06/14/2020 5:30 AM CDT) GLUCOSE 88 70 - 99 MG/DL 06/14/2020 6:17 AM CDT [facility] BUN 11 7 - 18 MG/DL 06/14/2020 6:17 AM CDT [facility] CREATININE S/P/B 0.68 0.55 - 1.02 MG/DL 06/14/2020 6:17 AM CDT [facility] SODIUM S/P/B 140 136 - 145 MMOL/L 06/14/2020 6:17 AM CDT [facility] POTASSIUM S/P/B 3.6 3.5 - 5.1 MMOL/L 06/14/2020 6:17 AM CDT [facility] CHLORIDE S/P/B 109(H) 100 - 108 MMOL/L 06/14/2020 6:17 AM CDT [facility] CO2 28.7 21 - 32 MMOL/L 06/14/2020 6:17 AM CDT [facility] CALCIUM S/P/B 8.5 8.5 - 10.1 MG/DL 06/14/2020 6:17 AM CDT [facility] BILIRUBIN TOTAL S/P/B 0.6 0.2 - 1.2 MG/DL 06/14/2020 6:17 AM T [facility] Comment: THIS ASSAY IS NOT RECOMMENDED FOR PATIENTS UNDERGOING TREATMENT WITH ELTROMBOPAG DUE TO THE POTENTIAL FOR FALSELY ELEVATED RESULTS. TOTAL PROTEIN S/P/B 6.9 6.4 - 8.2 G/DL 06/14/2020 6:17 AM T [facility] ALBUMIN S/P/B 2.9(L) 3.4 - 5.0 G/DL 06/14/2020 6:17 AM T [facility] AST 11(L) 15 - 37 U/L 06/14/2020 6:17 AM T [facility] ALT 16 14 - 55 U/L 06/14/2020 6:17 AM [facility] ALKALINE PHOSPHATASE S/P/B 92 50 - 136 U/L 06/14/2020 6:17 AM [facility] ANION GAP 2.3(L) 5 - 15 MMOL/L 06/14/2020 6:17 AM T [facility] BUN CREATININE RATIO 16.1 6 - 26 06/14/2020 6:17 AM [facility] A/G RATIO 0.7(L) 1.0 - 2.0 RATIO 06/14/2020 6:17 AM [facility] EGFR NON-AFR. AMER. >90 >90 ML/MIN/1.7 3 M2 06/14/2020 6:17 AM [facility] EGFR AFR. AMER. >90 >90 ML/MIN/1.7 3 M2 06/14/2020 6:17 AM [facility] Comment: NOTE: eGFR is not calculated for patients <18 years of age. This is an estimated GFR (CKD EPI) and should not be used for calculating drug doses. 06/14/2020 5:30 AM CDT us Phyllis Yadav APNP LABORATORY Final Res ult [facility] [address] [place] [address], [place] [phone] * (ABNORMAL) CBC W/DIFF AUTOMATED (06/14/2020 5:30 AM CDT) [facility] WBC 6.6 4.5 - 11.0 x10'3/uL 06/14/2020 5:56 AM CDT [facility] RBC 4.13(L) 4.20 - 5.40 x10'6/uL 06/14/2020 5:56 AM CDT [facility] HGB 10.6(L) 12.0 - 16.0 G/DL 06/14/2020 5:56 AM CDT [facility] HCT 33.9(L) 38.0 - 48.0 % 06/14/2020 5:56 AM CDT [facility] MCV 82.1 81.0 - 99.0 FL 06/14/2020 5:56 AM CDT [facility] MCH 25.7(L) 27.0 - 31.0 PG 06/14/2020 5:56 AM CDT [facility] MCHC 31.3(L) 32.0 - 36.0 G/DL 06/14/2020 5:56 AM CDT [facility] RDW 13.5 11.5 - 14.5 % 06/14/2020 5:56 AM CDT [facility] PLT 197 130 - 400 x10'3/uL 06/14/2020 5:56 AM CDT [facility] MPV 11.6 9.3 - 12.2 FL 06/14/2020 5:56 AM CDT [facility] DIFFERENTIAL TYPE AUTOMATED DIFFERENTIAL 06/14/2020 5:56 AM CDT [facility] NEUTROPHILS % 69.0 % 06/14/2020 5:56 AM CDT [facility] LYMPHOCYTES % 22.7 % 06/14/2020 5:56 AM CDT [facility] MONOCYTES % 6.9 % 06/14/2020 5:56 AM CDT [facility] EOSINOPHILS 0.9 % 06/14/2020 5:56 AM CDT [facility] BASOPHILS 0.2 % 06/14/2020 5:56 AM CDT [facility] IMMATURE GRANS % 0.3 % 06/14/20 5:56 AM CDT [facility] ABS. NEUTROPHILS TOTAL 4.53 1.80 - 7.70 x10'3/uL 06/14/2020 5:56 AM CDT [facility] ABS. LYMPHOCYTES 1.49 1.00 - 4.80 x10'3/uL 06/14/2020 5:56 AM CDT [facility] ABS. MONOCYTES 0.45 0.24 - 0.86 x10'3/uL 06/14/2020 5:56 AM CDT [facility] ABS. EOSINOPHILS 0.06 0.04 - 0.36 x10'3/uL 06/14/2020 5:56 AM CDT [facility] ABS. BASOPHILS 0.01 0.01 - 0.08 x10'3/uL 06/14/2020 5:56 AM CDT [facility] ABS. IMMATURE GRANULOCYTES 0.02 0.00 - 0.49 x10'3/uL 06/14/2020 5:56 AM CDT [facility] 06/14/2020 5:30 AM CDT Phyllis Yadav APNP LABORATORY Final Res ult [facility] [address] [place] [address], * TROPONIN, QUANT (06/13/2020 9:33 PM CDT) TROPONIN I <0.015 <0.045 ng/mL. 06/13/2020 10:10 PM CDT [facility] Comment: HIGH DOSES OF BIOTIN MAY INTERFERE WITH THIS TEST RESULT. CORRELATION TO CLINICAL HISTORY AND PRESENTATION RECOMMENDED. 06/13/2020 9:33 PM CDT Phyllis Dorantesantoine CHILDRESSNP LABORATORY Final Res ult [facility] [address] [place] [address], * TROPONIN, QUANT (06/13/2020 4:45 PM CDT) TROPONIN I <0.015 <0.045 ng/mL. 06/13/2020 5:36 PM CDT [facility] Comment: HIGH DOSES OF BIOTIN MAY INTERFERE WITH THIS TEST RESULT. CORRELATION TO CLINICAL HISTORY AND PRESENTATION RECOMMENDED. 06/13/2020 4:45 PM CDT Phyllis Dorantesjohn APNP LABORATORY Final Res ult [facility] [address] [place] [address], * TROPONIN, QUANT (06/13/2020 12:05 PM CDT) TROPONIN I <0.015 <0.045 ng/mL. 06/13/2020 12:46 PM CDT [facility] Comment: HIGH DOSES OF BIOTIN MAY INTERFERE WITH THIS TEST RESULT. CORRELATION TO CLINICAL HISTORY AND PRESENTATION RECOMMENDED. 06/13/2020 12:0 5 PM CDT us Phyllis Yadav APNP LABORATORY Final Res ult [facility] [address] [place] [address], * ECG 12 lead (06/13/2020 12:04 PM CDT) 06/13/2020 12:0 4 PM CDT Narrative [facility] - 06/14/2020 6:45 PM CDT ?[facility] ? [address] [facility] [address] [place] ? Test Date: ?2020-06-13 Pat Name: ? CLEMENTOMAR FUENTES ?Department: ? Room: ? A318 Gender: ? Female ? 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 Requested By: SANCHEZ DÍAZ Order Number: [id number] ? Reading : ?? Antoine Young ? Measurements Intervals ?[place] ? Rate: ? 75 ? P: ?148 [place]: ? 366 ?QRS: ?36 QRSD: ? 92 ? T: ?29 QT: ? 382 ? QTc: ?427 ? Interpretive Statements sinus rhythm Baseline artifact ABNORMAL RHYTHM ECG No previous ECG available for comparison Procedure Note Antoine Young MD - 06/14/2020 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1995 Requested By: SANCHEZ DÍAZ Order Number: [id number] Reading MD: Antoine Young Measurements Intervals [place] Rate: 75 P: 148 [place]: 366 QRS: 36 QRSD: 92 T: 29 QT: 382 QTc: 427 Interpretive Statements sinus rhythm Baseline artifact ABNORMAL RHYTHM ECG No previous ECG available for comparison us Sanchez Díaz MD ECG ORDERABLES Final Result [facility] * XR CHEST PORTABLE (06/13/2020 11:53 AM CDT) Anatomical Region Laterality Modality Chest Radiographic Milka ging 06/13/2020 12:0 3 PM CDT Impressions 06/13/2020 12:04 PM CDT IMPRESSION: No acute cardiopulmonary abnormality. Interpreted By: Gerry Mcwilliams MD, 06/13/2020 12:03 PM Narrative 06/13/2020 12:04 PM CDT Procedure(s): XR CHEST PORTABLE Date of service: 06/13/2020 11:40 AM Provided clinical information: 24 years, Female, chest pain Procedure and materials: AP portable Comparison studies: None. Observations: ?? Cardiac silhouette is within normal limits. ??Lungs expanded and clear of any consolidations. ??No effusions. Procedure Note Gerry Mcwilliams MD - 06/13/2020 Procedure(s): XR CHEST PORTABLE Date of service: 06/13/2020 11:40 AM Provided clinical information: 24 years, Female, chest pain Procedure and materials: AP portable Comparison studies: None. Observations: Cardiac silhouette is within normal limits. Lungs expanded and clear ofany consolidations. No effusions. IMPRESSION: No acute cardiopulmonary abnormality. Interpreted By: Gerry Mcwilliams MD, 06/13/2020 12:03 PM us Sanchez Díaz MD GENERAL IMAGING Final Result * CT ABD+PEL W CON (06/13/2020 6:34 AM CDT) Anatomical Region Laterality Modality Abdomen Computed Tomogra phy 06/13/2020 6:41 AM CDT Impressions 06/13/2020 6:45 AM CDT Impression: 1. ??Umbilical hernia containing a focal small bowel loop. ??There is bowel obstruction proximal to this. ??The small bowel just proximal to entering the umbilical hernia is thickened and slightly inflamed possibly due to hyperemia. ??Although there is no pneumatosis intestinalis, there may be early ischemia. 2. ??Pelvic ascites possibly reactive to the bowel process. 3. ??Cholelithiasis. Interpreted By: Zaki Davis MD, 06/13/2020 6:41 AM Narrative 06/13/2020 6:45 AM CDT Date: 06/13/2020 6:17 AM Exam: CT ABD+PEL W CON Comparison: No comparisons. Technique: Thin section images were obtained of the abdomen and pelvis with IV contrast. ??100 mL of Isovue-370 through existing IV site. ??Coronal and sagittal reconstructions. ??A dose lowering technique was used for this procedure, which may include, but is not limited to, dose reduction technique, automated exposure control, the use of iterative reconstruction, and ALARA (As Low As Reasonably Achievable)/ Image gently techniques. History: Abdominal pain with nausea and vomiting. ??Symptoms began yesterday. ??Patient is scheduled for cholecystectomy this Monday. Findings: Visualized lower chest: The lung bases are clear without consolidation or pleural effusion. ??The visualized inferior heart is normal in size. Abdomen and pelvis: The liver, spleen, pancreas and adrenal glands appear normal. ??The kidneys are normal. ??There is cholelithiasis without gallbladder wall thickening. ??The bile ducts are normal in caliber. ??The abdominal aorta, IVC and iliac vessels appear normal. ??There is no lymphadenopathy. The stomach is normal. ??There is an umbilical hernia containing fat and a loop of small intestine. ??The proximal jejunal intestine is dilated. ??The intestine distal to the umbilical hernia is decompressed. ??There is wall thickening of the bowel loop just proximal to the umbilical hernia possibly due to hyperemia. ??Although there is no pneumatosis intestinalis, early ischemia cannot be excluded. ??There is pelvis ascites possibly reactive to the bowel process. ??The urinary bladder is underdistended. ??The uterus and adnexa appear normal. Osseous structures: The osseous structures appear normal. Procedure Note Zaki Davis MD - 06/13/2020 Date: 06/13/2020 6:17 AM Exam: CT ABD+PEL W CON Comparison: No comparisons. Technique: Thin section images were obtained of the abdomen and pelviswith IV contrast. 100 mL of Isovue-370 through existing IV site. Coronaland sagittal reconstructions. A dose lowering technique was used for thisprocedure, which may include, but is not limited to, dose reductiontechnique, automated exposure control, the use of iterativereconstruction, and ALARA (As Low As Reasonably Achievable)/ Image gentlytechniques. History: Abdominal pain with nausea and vomiting. Symptoms beganyesterday. Patient is scheduled for cholecystectomy this Monday. Findings: Visualized lower chest: The lung bases are clear without consolidation orpleural effusion. The visualized inferior heart is normal in size. Abdomen and pelvis: The liver, spleen, pancreas and adrenal glands appearnormal. The kidneys are normal. There is cholelithiasis withoutgallbladder wall thickening. The bile ducts are normal in caliber. Theabdominal aorta, IVC and iliac vessels appear normal. There is nolymphadenopathy. The stomach is normal. There is an umbilical hernia containing fat and aloop of small intestine. The proximal jejunal intestine is dilated. Theintestine distal to the umbilical hernia is decompressed. There is wallthickening of the bowel loop just proximal to the umbilical herniapossibly due to hyperemia. Although there is no pneumatosis intestinalis,early ischemia cannot be excluded. There is pelvis ascites possiblyreactive to the bowel process. The urinary bladder is underdistended.The uterus and adnexa appear normal. Osseous structures: The osseous structures appear normal. Impression: 1. Umbilical hernia containing a focal small bowel loop. There is bowelobstruction proximal to this. The small bowel just proximal to enteringthe umbilical hernia is thickened and slightly inflamed possibly due tohyperemia. Although there is no pneumatosis intestinalis, there may beearly ischemia. 2. Pelvic ascites possibly reactive to the bowel process. 3. Cholelithiasis. Interpreted By: Zaki Davis MD, 06/13/2020 6:41 AM Rodrigo Jennings MD CT Final Result * CULTURE URINE (06/13/2020 6:13 AM CDT) SPEC DESCRIPTION URINE CLEAN CATCH 06/13/2020 6:38 AM CDT [facility] SPECIAL REQUESTS NO SPECIAL REQUEST 06/13/2020 6:38 AM CDT [facility] CULTURE RESULT POLYMICROBIAL GROWTH CONSISTENT WITH NORMAL GENITAL CORWIN. ?? SUSCEPTIBILITIES NOT ROUTINELY PERFORMED. 06/14/2020 9:10 AM CDT [facility] URINE SPECIMEN OBTAINED BY CLEAN CATCH PROCEDURE / Unknown 06/13/2020 6:13 AM CDT 06/13/2020 6:38 AM CDT Rodrigo Jennings MD MICROBIOLOGY - GENERAL ORDERABL ES Final Result [facility] [address] [place] [id number], [place] [phone] * (ABNORMAL) URINALYSIS (06/13/2020 6:13 AM CDT) SPECIMEN TYPE URINE CLEAN CATCH 06/13/2020 6:12 AM CDT [facility] COLOR (U) YELLOW 06/13/2020 6:38 AM CDT [facility] TRANSPARENCY TURBID 06/13/2020 6:38 AM CDT [facility] SPECIFIC GRAVITY (U) 1.033(H) 1.001 - 1.030 06/13/2020 6:38 AM CDT [facility] U PH 6.0 5.0 - 9.0 06/13/2020 6:38 AM CDT [facility] LEUKOCYTES (U) 250(A) NEGATIVE 06/13/2020 6:38 AM CDT [facility] NITRITES NEGATIVE NEGATIVE 06/13/2020 6:38 AM CDT [facility] PROTEIN (U) 100(H) <30 MG/DL 06/13/2020 6:38 AM CDT [facility] URINE GLUCOSE NORMAL NORMAL MG/DL 06/13/2020 6:38 AM CDT [facility] KETONES MG/DL (U) 80(A) NEGATIVE MG/DL 06/13/2020 6:38 AM CDT [facility] UROBILINOGEN NORMAL NORMAL MG/DL 06/13/2020 6:38 AM CDT [facility] BILIRUBIN (U) NEGATIVE NEGATIVE MG/DL 06/13/2020 6:38 AM T [facility] BLOOD (U) 1+(A) NEGATIVE 06/13/2020 6:38 AM T [facility] CULTURE & SENSITIVITY INDICATED? SPECIMEN SETUP FOR CULTURE 06/13/2020 6:38 AM CDT [facility] MUCUS MANY /LPF 06/13/2020 6:38 AM CDT [facility] WBC/HPF 10(H) <6 /HPF 06/13/2020 6:38 AM T [facility] RBC/HPF 22(H) <6 /HPF 06/13/2020 6:38 AM CDT [facility] AMORPHOUS SEDIMENT RARE /HPF 06/13/2020 6:38 AM CDT [facility] SQUAMOUS EPITHELIALS MODERATE /HPF 06/13/2020 6:38 AM T [facility] URINE SPECIMEN OBTAINED BY CLEAN CATCH PROCEDURE / Unknown 06/13/2020 6:13 AM CDT us Rodrigo Jennings MD URINE ORDERABLES Final Result [facility] [address] [place] [address], * POCT urine (06/13/2020 6:12 AM CDT) [facility] URINE HCG TEST NEGATIVE NEGATIVE Comment:[id number], EXP:2020 Internal Control performed as Expected? YES VALID us Rodrigo Jennings MD POINT OF CARE TEST ORDERABLES F inal Result * (ABNORMAL) LIPASE (06/13/2020 5:24 AM CDT) [facility] LIPASE 64(L) 73 - 393 UNITS/L 06/13/2020 5:54 AM CDT [facility] 06/13/2020 5:24 AM CDT us Rodrigo Jennings MD LABORATORY Final Result [facility] [address] [place] [address], * LACTIC ACID (06/13/2020 5:24 AM CDT) [facility] LACTIC ACID VENOUS 0.6 0.4 - 2.0 MMOL/L 06/13/2020 6:06 AM CDT [facility] 06/13/2020 5:24 AM CDT us Rodrigo Jennings MD LABORATORY Final Result [facility] [address] [place] [address], [place] [phone] * (ABNORMAL) COMPREHENSIVE METABOLIC PANEL (06/13/2020 5:24 AM CDT) [facility] GLUCOSE 129(H) 70 - 99 MG/DL 06/13/2020 5:54 AM CDT [facility] BUN 11 7 - 18 MG/DL 06/13/2020 5:54 AM T [facility] CREATININE S/P/B 0.72 0.55 - 1.02 MG/DL 06/13/2020 5:54 AM CDT [facility] SODIUM S/P/B 136 136 - 145 MMOL/L 06/13/2020 5:54 AM CDT [facility] POTASSIUM S/P/B 3.5 3.5 - 5.1 MMOL/L 06/13/2020 5:54 AM CDT [facility] CHLORIDE S/P/B 102 100 - 108 MMOL/L 06/13/2020 5:54 AM T [facility] CO2 26.8 21 - 32 MMOL/L 06/13/2020 5:54 AM T [facility] CALCIUM S/P/B 9.5 8.5 - 10.1 MG/DL 06/13/2020 5:54 AM T [facility] BILIRUBIN TOTAL S/P/B 0.6 0.2 - 1.2 MG/DL 06/13/2020 5:54 AM T [facility] Comment: THIS ASSAY IS NOT RECOMMENDED FOR PATIENTS UNDERGOING TREATMENT WITH ELTROMBOPAG DUE TO THE POTENTIAL FOR FALSELY ELEVATED RESULTS. TOTAL PROTEIN S/P/B 8.6(H) 6.4 - 8.2 G/DL 06/13/2020 5:54 AM CDT [facility] ALBUMIN S/P/B 3.6 3.4 - 5.0 G/DL 06/13/2020 5:54 AM CDT [facility] AST 17 15 - 37 U/L 06/13/2020 5:54 AM CDT [facility] ALT 21 14 - 55 U/L 06/13/2020 5:54 AM T [facility] ALKALINE PHOSPHATASE S/P/B 116 50 - 136 U/L 06/13/2020 5:54 AM CDT [facility] ANION GAP 7.2 5 - 15 MMOL/L 06/13/2020 5:54 AM CDT [facility] BUN CREATININE RATIO 15.3 6 - 26 06/13/2020 5:54 AM CDT [facility] A/G RATIO 0.7(L) 1.0 - 2.0 RATIO 06/13/2020 5:54 AM CDT [facility] EGFR NON-AFR. AMER. >90 >90 ML/MIN/1.7 3 M2 06/13/2020 5:54 AM CDT [facility] EGFR AFR. AMER. >90 >90 ML/MIN/1.7 3 M2 06/13/2020 5:54 AM CDT [facility] Comment: NOTE: eGFR is not calculated for patients <18 years of age. This is an estimated GFR (CKD EPI) and should not be used for calculating drug doses. 06/13/2020 5:24 AM CDT Rodrigo Jennings MD LABORATORY Final Result [facility] [address] [place] [id number], [place] [phone] * (ABNORMAL) CBC W/DIFF AUTOMATED (06/13/2020 5:24 AM CDT) WBC 10.9 4.5 - 11.0 x10'3/uL 06/13/2020 5:35 AM CDT [facility] RBC 5.31 4.20 - 5.40 x10'6/uL 06/13/2020 5:35 AM CDT [facility] HGB 13.6 12.0 - 16.0 G/DL 06/13/2020 5:35 AM CDT [facility] HCT 42.3 38.0 - 48.0 % 06/13/2020 5:35 AM CDT [facility] MCV 79.7(L) 80.0 - 94.0 FL 06/13/2020 5:35 AM CDT [facility] MCH 25.6(L) 27.0 - 31.0 PG 06/13/2020 5:35 AM CDT [facility] MCHC 32.2 32.0 - 36.0 G/DL 06/13/2020 5:35 AM CDT [facility] RDW 13.2 11.5 - 14.5 % 06/13/2020 5:35 AM CDT [facility] PLT 348 130 - 400 x10'3/uL 06/13/2020 5:35 AM CDT [facility] MPV 11.9 9.3 - 12.2 FL 06/13/2020 5:35 AM CDT [facility] DIFFERENTIAL TYPE AUTOMATED DIFFERENTIAL 06/13/2020 5:35 AM CDT [facility] NEUTROPHILS % 86.5 % 06/13/2020 5:35 AM CDT [facility] LYMPHOCYTES % 9.3 % 06/13/2020 5:35 AM CDT [facility] MONOCYTES % 3.7 % 06/13/2020 5:35 AM CDT [facility] EOSINOPHILS 0.0 % 06/13/2020 5:35 AM CDT [facility] BASOPHILS 0.2 % 06/13/2020 5:35 AM CDT [facility] IMMATURE GRANS % 0.3 % 06/13/20 20 5:35 AM CDT [facility] ABS. NEUTROPHILS TOTAL 9.41(H) 1.80 - 7.70 x10'3/uL 06/13/2020 5:35 AM CDT [facility] ABS. LYMPHOCYTES 1.01 1.00 - 4.80 x10'3/uL 06/13/2020 5:35 AM CDT [facility] ABS. MONOCYTES 0.40 0.24 - 0.86 x10'3/uL 06/13/2020 5:35 AM CDT [facility] ABS. EOSINOPHILS 0.00(L) 0.04 - 0.36 x10'3/uL 06/13/2020 5:35 AM CDT [facility] ABS. BASOPHILS 0.02 0.01 - 0.08 x10'3/uL 06/13/2020 5:35 AM CDT [facility] ABS. IMMATURE GRANULOCYTES 0.03 0.00 - 0.49 x10'3/uL 06/13/2020 5:35 AM CDT [facility] 06/13/2020 5:24 AM CDT Rodrigo Jennings MD LABORATORY Final Result [facility] [address] [place] [address], [place] [phone] * CREATININE WHOLE BLOOD (06/13/2020 5:20 AM CDT) CREATININE WHOLE BLOOD 0.6 0.60 - 1.10 mg/dL 06/13/2020 5:25 AM CDT [facility] 06/13/2020 5:20 AM CDT us Rodrigo Jennings MD LABORATORY Final Result [facility] [address] [place] [address], [place] [phone] documented in this encounter Visit Diagnoses Not on filedocumented in this encounter Admitting Diagnoses Diagnosis Cholelithiasis Calculus of gallbladder without mention of cholecystitis or obstruction Biliary colic Calculus of gallbladder without mention of cholecystitis or obstruction documented in this encounter Administered Medications Inactive Administered Medications - up to 3 most recent administrations Medication Order MAR Action Action Date Dose Rate Site acetaminophen (TYLENOL) tablet 1,000 mg 1,000 mg, Oral, Once, 1 dose, On 06/16/20 at 1130, Maximum dose of acetaminophen is 4000 mg from all sources in 24 hours., Pre-Op Given 06/16/2020 11:11 AM CDT 1,000 mg BUpivacaine-EPINEPHrine 0.5% -[id number] injection As needed, Starting on e 06/16/20 at 1234, Until Mon06/16/20 at 1252, Intra-Op Given 06/16/2020 12:34 PM CDT 20 mLs Operative Site famotidine (PEPCID) injection 20 mg 20 mg, Intravenous, Every 12 hours scheduled (2 times per day), First dose on 06/13/20 at 0900, Until Discontinued, Give if unable to take PO. IV Push over 2 minutes Given 06/16/2020 8:04 AM CDT 20 mg Given 06/13/2020 9:14 PM CDT 20 mg famotidine (PEPCID) tablet 20 mg 20 mg, Oral, Every 12 hours scheduled (2 times per day), First dose on 06/13/20 at 0900, Until Discontinued Given 06/17/2020 10:10 AM CDT 20 mg Given 06/16/2020 8:54 PM CDT 20 mg Given 06/15/2020 9:43 PM CDT 20 mg fentaNYL (SUBLIMAZE) injection 25 mcg 25 mcg, Intravenous, Every 5 min PRN, Moderate pain (Scale 4 - 7), Moderate pain, 4 doses, Starting on e 06/16/20 at 1234, Until Tu06/16/20 at 1405, Maximum cumulative dose 100 mcg. Do not administer if patient is overly sedated, SpO2 less than 90%, or Respiratory Rate less than 12. If more than one IV analgesic is ordered per pain level, use in this order: fentaNYL, morphine, HYDROmorphone. If desired pain control is not reached, move to next ordered medication at next dosing interval., PACU Given 06/16/2020 1:17 PM CDT 25 mcg Given 06/16/2020 1:09 PM CDT 25 mcg fentaNYL (SUBLIMAZE) injection 50 mcg 50 mcg, Intravenous, Once, 1 dose, On 06/13/20 at 0730, If intravenous (IV) route has been ordered, give over 1-2 minutes. Given 06/13/2020 8:36 AM CDT 50 mcg ferrous sulfate EC tablet 324 mg 324 mg, Oral, Daily with breakfast, First dose on Mon06/16/20 at 0800, Until Discontinued, Give 2 hours before or 4 hours after antacids. Do not break, chew, or crush. Given 06/17/2020 10:10 AM CDT 324 mg Given 06/16/2020 5:06 PM CDT 324 mg gabapentin (NEURONTIN) capsule 300 mg 300 mg, Oral, Once, 1 dose, On Mon06/16/20 at 1130, Pre-Op Given 06/16/2020 11:11 AM CDT 300 mg HYDROcodone-acetaminophen (NORCO) 5-325 MG tablet 1 tablet 1 tablet, Oral, Every 4 hours PRN, Moderate pain (Scale 4 - 7), Starting on 06/13/20 at 0817, Until Mon06/17/20 at 1645, Maximum dose of acetaminophen is 4000 mg from all sources in 24 hours. Given 06/17/2020 12:19 PM CDT 1 tab let Given 06/16/2020 8:54 PM CDT 1 tablet Given 06/16/2020 3:58 PM CDT 1 tablet iopamidol (ISOVUE-300) 61 % injection As needed, Starting on Mon06/16/20 at 1208, Until Mon06/16/20 at 1252, Intra-Op Given 06/16/2020 12:08 PM CDT 12 mLs Operative Site iopamidol (ISOVUE-370) 76 % injection 100 mL 100 mL, Intravenous, IMG once as needed, Contrast, 1 dose, Starting on 06/13/20 at 0537, Until 06/13/20 at 0537 Given 06/13/2020 5:37 AM CDT 100 mLs ketorolac (TORADOL) injection 15 mg 15 mg, Intravenous, Once, 1 dose, On 06/13/20 at 0515, Max dose is 15 mg for: patients 65 years or older, renal function less than 30 mL/min, and weight less than 50 kg. Given 06/13/2020 5:19 AM CDT 15 mg lactated ringers infusion at 10 mL/hr, Intravenous, Continuous, Starting on Mon06/16/20 at 1130, Until Mon06/17/20 at 1645, Infuse at TKO rate, Pre-Op New Bag 06/16/2020 11:12 AM CDT 10 mL/hr morphine injection 2 mg 2 mg, Intravenous, Every 2 hours PRN, Severe pain (Scale 8 - 10), Starting on Mon06/13/20 at 0817, Until Mon06/17/20 at 1645 morphine injection 4 mg 4 mg, Intravenous, Once, 1 dose, On Mon06/13/20 at 0515 Given 06/13/2020 5:19 AM CDT 4 mg naLOXone (NARCAN) injection 0.4 mg 0.4 mg, Intravenous, As needed, Opioid reversal, Starting on Mon06/13/20 at 0817, Until Mon06/17/20 at 1645 ondansetron (ZOFRAN) injection 4 mg 4 mg, Intravenous, Once, 1 dose, On Mon06/13/20 at 0515, IV push over 2-5 minutes. Given 06/13/2020 5:19 AM CDT 4 mg ondansetron (ZOFRAN) injection 4 mg 4 mg, Intravenous, Every 8 hours PRN, Nausea, Vomiting, Starting on Mon06/13/20 at 0817, Until Mon06/17/20 at 1645, IV push over 2-5 minutes. ondansetron (ZOFRAN-ODT) disintegrating tablet 8 mg 8 mg, Oral, Once, 1 dose, On Mon06/16/20 at 1130, On admission, Pre-Op Given 06/16/2020 11:11 AM CDT 8 mg potassium chloride CR (K-TAB) tablet 20 mEq 20 mEq, Oral, Daily, First dose on 06/15/20 at 1245, Until Discontinued, Do not break, chew, or crush. Given 06/17/2020 10:10 AM CDT 20 mEq Given 06/16/2020 5:05 PM CDT 20 mEq Given 06/15/2020 1:46 PM CDT 20 mEq sodium chloride 0.9% bolus infusion SOLN 500 mL 500 mL, Intravenous, Administer over 15 Minutes, Once, 1 dose, On 06/13/20 at 0515 New Bag 06/13/2020 5:19 AM CDT 500 mLs sodium chloride 0.9% bolus infusion SOLN 500 mL 500 mL, Intravenous, Administer over 15 Minutes, Once, 1 dose, On 06/13/20 at 0730 New Bag 06/13/2020 8:35 AM CDT 500 mLs sodium chloride 0.9% infusion at 75 mL/hr, Intravenous, Continuous, Starting on Mon06/13/20 at 0730, Until Mon06/14/20 at 1341 Rate/Dose Change 06/14/2020 10:31 AM CDT 75 mL/hr New Bag 06/14/2020 9:05 AM CDT 125 mL/hr New Bag 06/14/2020 12:51 AM CDT 125 mL/hr sodium chloride 0.9% infusion at 100 mL/hr, Intravenous, Continuous, Starting on Mon06/16/20 at 0500, Until Mon06/17/20 at 1645, Pre-Op sodium chloride 0.9% infusion at 100 mL/hr, Intravenous, Continuous, Starting on Mon06/16/20 at 1545, Until Mon06/17/20 at 1645, Post-Op New Bag 06/16/2020 4:09 PM CDT 10 0 mL/hr documented in this encounter Active and Recently Administered Medications Times are shown in CDT. Scheduled Medication Order 06/15/2020 06/16/2020 06/17/2020 acetaminophen (TYLENOL) tablet 1,000 mg (COMPLETED) 1,000 mg, Oral, Once, 1 dose, On Mon06/16/20 at 1130, Maximum dose of acetaminophen is 4000 mg from all sources in 24 hours., Pre-Op 1111 (Given - Provider: Tacos Powell RN)1130 (Due) ceFAZolin (ANCEF) 2 g in sodium chloride 0.9 % 100 mL IVPB (COMPLETED)(Linked Group 1) 2 g, Intravenous, at 200 mL/hr, on call pharmacy technician, 1 dose, On Mon06/16/20 at 0500, Give 2 gram dose for patients less than 120 kg. Give within 60 minutes of surgical incision., Pre-Op 0945 (Canceled Entry - Provider: Katelyn Woods CRNA)1136 (New Bag - Provider: Katelyn Woods CRNA)1151 (Infusion Stop Time - Provider: Katelyn Woods CRNA) famotidine (PEPCID) injection 20 mg(Linked Group 2) 20 mg, Intravenous, Every 12 hours scheduled (2 times per day), First dose on Mon06/13/20 at 0900, Until Discontinued, Give if unable to take PO. IV Push over 2 minutes 0915 (See Alternative - Provider: Nikole Sharma RN)214 (See Alternative - Provider: Estella Will RN) 0804 (Given - Provider: Jarett Fontana RN)1119 (MAR Hold - Provider: User Epic - Reason: Unreviewed Transfer Orders)125 (NOV Unhold - Provider: User Epic)2053 (See Alternative - Provider: Billy Nava RN) 1010 (See Alternative - Provider: Clover Canseco RN) famotidine (PEPCID) tablet 20 mg(Linked Group 2) 20 mg, Oral, Every 12 hours scheduled (2 times per day), First dose on Mon06/13/20 at 0900, Until Discontinued 15 (Given - Provider: Nikole Sharma RN)214 (Given - Provider: Estella Will, PEDRO) 0804 (See Alternative - Provider: Jarett Fontana RN)111 (MAR Hold - Provider: User Epic - Reason: Unreviewed Transfer Orders)125 ([facility] Unhold - Provider: User Epic)2053 (Given - Provider: Billy Nava RN) 1010 (Given - Provider: Clover Canseco RN) ferrous sulfate EC tablet 324 mg 324 mg, Oral, Daily with breakfast, First dose on Mon06/16/20 at 0800, Until Discontinued, Give 2 hours before or 4 hours after antacids. Do not break, chew, or crush. 1119 (NOV Hold - Provider: User Epic - Reason: Unreviewed Transfer Orders)1255 (MAR Unhold - Provider: User Epic)170 (Given - Provider: Jarett Fontana RN) 1010 (Given - Provider: Clover Canseco RN) gabapentin (NEURONTIN) capsule 300 mg (COMPLETED) 300 mg, Oral, Once, 1 dose, On Mon06/16/20 at 1130, Pre-Op 1111 (Given - Provider: Tacos Powell, PEDRO)1130 (Due) ondansetron (ZOFRAN-ODT) disintegrating tablet 8 mg (COMPLETED) 8 mg, Oral, Once, 1 dose, On Mon06/16/20 at 1130, On admission, Pre-Op 1111 (Given - Provider: Tacos Powell, PEDRO)1130 (Due) potassium chloride CR (K-TAB) tablet 20 mEq 20 mEq, Oral, Daily, First dose on Mon06/15/20 at 1245, Until Discontinued, Do not break, chew, or crush. 1346 (Given - Provider: Nikole Sharma, PEDRO) 1119 (MAR Hold - Provider: User Epic - Reason: Unreviewed Transfer Orders)1255 (MAR Unhold - Provider: User Epic)1705 (Given - Provider: Jarett Fontana, PEDRO) 1010 (Given - Provider: Clover Canseco, PEDRO) Continuous Medication Order 06/15/2020 06/16/2020 06/17/2020 lactated ringers infusion at 10 mL/hr, Intravenous, Continuous, Starting on Mon06/16/20 at 1130, Until Mon06/17/20 at 1645, Infuse at TKO rate, Pre-Op 1112 (New Bag - Provider: Tacos Powell RN)1239 (Anesthesia Volume Adjustment - Provider: Katelyn Woods CRNA)1659 (Not Given - Provider: Shannan Wallace RN - Reason: Patient already took) sodium chloride 0.9% infusion at 100 mL/hr, Intravenous, Continuous, Starting on Mon06/16/20 at 0500, Until Mon06/17/20 at 1645, Pre-Op 0500 (Canceled Entry - Provi ayleen: Automatic Discharge Provider - Comment: Automatically canceled at discontinue of medication order) sodium chloride 0.9% infusion at 100 mL/hr, Intravenous, Continuous, Starting on Mon06/16/20 at 1545, Until Mon06/17/20 at 1645, Post-Op 1609 (New Bag - Provider: Jarett Fontana, PEDRO) PRN Medication Order 06/15/2020 06/16/2020 06/17/2020 bisacodyl (DULCOLAX) suppository 10 mg 10 mg, Rectal, Daily as needed, Constipation, Starting on Mon06/16/20 at 1517, Until Mon06/17/20 at 1645, Post-Op BUpivacaine-EPINEPHrine 0.5% -[id number] injection (CANCELED) As needed, Starting on Mon06/16/20 at 1234, Until Mon06/16/20 at 1252, Intra-Op 1234 (Given - Provider: Arturo Peraza MD) fentaNYL (SUBLIMAZE) injection 25 mcg (CANCELED) 25 mcg, Intravenous, Every 5 min PRN, Moderate pain (Scale 4 - 7), Moderate pain, 4 doses, Starting on Mon06/16/20 at 1234, Until Mon06/16/20 at 1405, Maximum cumulative dose 100 mcg. Do not administer if patient is overly sedated, SpO2 less than 90%, or Respiratory Rate less than 12. If more than one IV analgesic is ordered per pain level, use in this order: fentaNYL, morphine, HYDROmorphone. If desired pain control is not reached, move to next ordered medication at next dosing interval., PACU 1309 (Given - Provider: Merlin Meyer RN)1317 (Given - Provider: Merlin Meyer RN) HYDROcodone-acetaminophe n (NORCO) 5-325 MG tablet 1 tablet 1 tablet, Oral, Every 4 hours PRN, Moderate pain (Scale 4 - 7), Starting on 06/13/20 at 0817, Until Mon06/17/20 at 1645, Maximum dose of acetaminophen is 4000 mg from all sources in 24 hours. 1205 (Given - Provider: Nikole Sharma RN) 1119 (MAR Hold - Provider: User [employer] - Reason: Unreviewed Transfer Orders)1255 (MAR Unhold - Provider: User Epic)1558 (Given - Provider: Jarett Fontana, PEDRO)2054 (Given - Provider: Billy Nava RN) 1219 (Given - Provider: Clover Canseco RN) iopamidol (ISOVUE-300) 61 % injection (CANCELED) As needed, Starting on Mon06/16/20 at 1208, Until Mon06/16/20 at 1252, Intra-Op 1208 (Given - Provider: Arturo Peraza MD) magnesium hydroxide (MILK OF MAGNESIA) 400 MG/5ML suspension 30 mL 30 mL, Oral, Daily as needed, Constipation, Starting on Mon06/16/20 at 1517, Until Mon06/17/20 at 1645, Shake Well. Administer only with a full liquid diet or greater., Post-Op morphine injection 2 mg 2 mg, Intravenous, Every 2 hours PRN, Severe pain (Scale 8 - 10), Starting on Mon06/13/20 at 0817, Until Mon06/17/20 at 1645 1119 ([facility] Hold - Provider: User Epic - Reason: Unreviewed Transfer Orders)1255 ([facility] Unhold - Provider: User Epic) naLOXone (NARCAN) injection 0.4 mg 0.4 mg, Intravenous, As needed, Opioid reversal, Starting on Mon06/13/20 at 0817, Until Mon06/17/20 at 1645 1119 ([facility] Hold - Provider: User Epic - Reason: Unreviewed Transfer Orders)1255 ([facility] Unhold - Provider: User Epic) ondansetron (ZOFRAN) injection 4 mg 4 mg, Intravenous, Every 8 hours PRN, Nausea, Vomiting, Starting on Mon06/13/20 at 0817, Until Mon06/17/20 at 1645, IV push over 2-5 minutes. 1119 ([facility] Hold - Provider: User Epic - Reason: Unreviewed Transfer Orders)1255 ([facility] Unhold - Provider: User Epic) Linked Groups Order Group 1: ceFAZolin (ANCEF) 2 g in sodium chloride 0.9 % 100 mL IVPB (COMPLETED)Jump to med 2 g, Intravenous, at 200 mL/hr, on call pharmacy technician, 1 dose, On Mon06/16/20 at 0500, Give 2 gram dose for patients less than 120 kg. Give within 60 minutes of surgical incision., Pre-Op Or ceFAZolin (ANCEF) 3 g in sodium chloride 0.9 % 100 mL IVPB (COMPLETED) 3 g, Intravenous, at 200 mL/hr, on call pharmacy technician, 1 dose, On Mon06/16/20 at 0500, Give 3 gram dose for patients 120 kg and greater. Give within 60 minutes of surgical incision., Pre-Op Group 2: famotidine (PEPCID) injection 20 mgJump to med 20 mg, Intravenous, Every 12 hours scheduled (2 times per day), First dose on 06/13/20 at 0900, Until Discontinued, Give if unable to take PO. IV Push over 2 minutes Or famotidine (PEPCID) tablet 20 mgJump to med 20 mg, Oral, Every 12 hours scheduled (2 times per day), First dose on 06/13/20 at 0900, Until Discontinued documented in this encounter Additional Health Concerns Infection Onset Date Last Indicated Resolved Time COVID-19 Rule Out 06/14/2020 06/14/2020 06/15/2020 7:45 AM CDT documented as of this encounter Care Teams Community Assistant Relationship Specialty Start Date End Date Tejinder Duarte MD [address] [address] PCP - General INTERNAL MEDICINE 05/04/20 01/06/24 documented as of this encounter
--- OUTSIDE RECORDS SUMMARY | 2024-10-01 17:55 | XMS_ITS | Encounter Summary ---
Author Organization [facility] Address [address] [place] [address]. [place] [address] [place] [address] Care Team Providers Care Taper/Finisher Name Role Phone Tejinder Duarte MD Primary Care Provider [phone] Reason for Visit * Imaging (Routine) - Closed Specialty Diagnoses / Procedures Referred By Cristopher melgar Referred To Contact RADIOLOGY Diagnoses Abdominal pain Procedures US ABD LIMITED US ABD PEL OR RETRO DUPLEX LTD Tejinder Duarte MD [address] [facility] [address] [place] [address] Phone: tel: fax: Referral ID Status Reason Start Date Expiration Date Visits Re quested Visits Authorized [id number] Closed 06/14/2022 07/14/2023 1 1 Encounter Details Date Type Department Care Team (Latest Contact Info) Description 06/29/2022 9:45 AM CDT - 06/29/2022 11:59 PM CDT Hospital Encounter [facility] [address] [place], [place] [id number] Tejinder Duarte MD [address] [facility] [address] [place] [address] Discharge Disposition: Home or Self Care (Routine [...] suspected to have Coronavirus/COVID-19? No / Unsure 06/29/2022 9:43 AM CDT documented as of this encounter Functional Status * RETIRED Are [...] Best RN Active documented in this encounter Medications at Time of Discharge HYDROcodone-aceta minophen 5-325 MG tabletIndications :Acute Pain < 7 Day Supply Take 1-2 tablets by mouth every 6 (six) hours as needed. Indications: Acute Pain < 7 Day Supply 20 tablet 06/17/2020 10/02/2022 documented as of this encounter Plan of Treatment Not on file documented as of this encounter Procedures Procedure Name Priority Date/Time Associated Diagnosis Comments US ABD LIMITED Routine 06/29/2022 10:30 AM CDT Abdominal pain documented in this encounter Results * US ABD LIMITED (06/29/2022 10:30 AM CDT) Anatomical Region Laterality Modality Abdomen Ultrasound 07/02/2022 8:51 AM CDT Impressions 07/02/2022 8:53 AM CDT IMPRESSION: 1. Absent gallbladder. 2. Otherwise, no sonographic abnormality observed within the right upper quadrant. Ordered By: TEJINDER DUARTE Interpreted By: Memo Grant MD, 07/02/2022 8:51 AM Narrative 07/02/2022 8:53 AM CDT EXAMINATION: Limited abdomen ultrasound: RUQ CLINICAL HISTORY: Abdominal pain. COMPARISON: CT abdomen/pelvis on 06/13/2020 TECHNIQUE: An ultrasound examination of the RUQ was performed to assess grayscale appearance, color-flow characteristics and spectral doppler analysis. FINDINGS: Liver: Normal echogenicity. No masses. No intrahepatic duct dilatation. Pancreas: Partially visualized with normal echogenicity. Portal vein: Spectral analysis reveals normal hepatopedal flow. Gallbladder: Surgically absent. Common hepatic duct: Measure up to 3 mm. in diameter. ??No distinct intraluminal stone. Common bile duct ??Suboptimally visualized due to overlying bowel gas. Right kidney: Measures 11.8 cm. Normal echogenicity. Normal cortical perfusion. No masses, cysts, stones or hydronephrosis. Other findings: No ascites. Procedure Note Memo Grant MD - 07/02/2022 EXAMINATION: Limited abdomen ultrasound: RUQ CLINICAL HISTORY: Abdominal pain. COMPARISON: CT abdomen/pelvis on 06/13/2020 TECHNIQUE: An ultrasound examination of the RUQ was performed to assessgrayscale appearance, color-flow characteristics and spectral doppleranalysis. FINDINGS: Liver: Normal echogenicity. No masses. No intrahepatic duct dilatation. Pancreas: Partially visualized with normal echogenicity. Portal vein: Spectral analysis reveals normal hepatopedal flow. Gallbladder: Surgically absent. Common hepatic duct: Measure up to 3 mm. in diameter. No distinctintraluminal stone. Common bile duct Suboptimally visualized due to overlying bowel gas. Right kidney: Measures 11.8 cm. Normal echogenicity. Normal corticalperfusion. No masses, cysts, stones or hydronephrosis. Other findings: No ascites. IMPRESSION: 1. Absent gallbladder. 2. Otherwise, no sonographic abnormality observed within the right upperquadrant. Ordered By: TEJINDER DUARTE Interpreted By: Memo Grant MD, 07/02/2022 8:51 AM us Tejinder Duarte MD ULTRASOUND Final Resul t documented in this encounter Visit Diagnoses Diagnosis Abdominal pain Abdominal pain, unspecified site documented in this encounter Care Teams Taper/Finisher Relationship Specialty Start Date End Date Tejinder Duarte MD [address] [address] [place] [address] PCP - General INTERNAL MEDICINE 05/04/20 01/06/24 documented as of this encounter
--- OUTSIDE RECORDS SUMMARY | 2024-10-01 17:55 | XMS_ITS | Clinical Summary ---
Author Organization [facility] Address [address] [place] [address]. [place] [address] [place] [address] Care Team Providers Care Underpresser Hand Name Role Phone Salinas Escobar MD Primary Care Provider [phone] Allergies No known active allergies Medications [id number] OR Take 1 tablet by mouth daily. Active Active Problems No known active problems Resolved Problems Problem Noted Date Diagnosed Date Resolved Date Cholelithiasis 06/17/2020 06/17/2020 Biliary colic 06/17/2020 06/17/2020 Umbilical hernia with obstru ction but no gangrene 06/13/2020 06/17/2020 Abdominal pain 06/13/2020 06/17/2020 Encounters Date Type Department Care Team Description 09/03/2024 Telephone [facility] Orthopedic & Sports Medicine - [address] [address] Shad Wells MD Information from Last 3 Months Family History Medical History Relation Comments No Known Problems Father No Known Problems Mother Relation Status Comments Father Mother Social History Tobacco Use Types Packs/Day Years Used Date Smoking Tobacco: Never Smokeless Tobacco: Never Tobacco Cessation:Counseling Given: No Alcohol Use Standard Drinks/Week Comments Not Currently 0 (1 standard drink = 0.6 oz pur e alcohol) social PHQ-2 Answer Date Recorded Patient Health Questionnaire-2 Score 0 03/04/2024 Comments No Sex and Gender Information Value Date Recorded Sex Assigned at Not on file Legal Sex Female 8:36 AM CDT Gender Identity Not on file Sexual Orientation Not on file Last Filed Vital Signs Vital Sign Reading Time Taken Comments Blood Pressure 109/74 03/04/2024 9:27 AM CDT Pulse 84 03/04/2024 9:27 AM CDT Temperature 36.4 ??C (97.5 ??F) 03/04/2024 9:27 AM CD T Respiratory Rate 16 01/07/2024 2:01 PM CDT Oxygen Saturation 98% 03/04/2024 9:27 AM CDT Inhaled Oxygen Concentration - - Weight 105 kg (231 lb 6.4 oz) 03/04/2024 9:27 AM CDT Height 165.1 cm (5' 5 ) 03/04/2024 9:27 AM CDT Body Mass Index 38.51 03/04/2024 9:27 AM CDT Plan of Treatment Health Maintenance Due Date Last Done Comments Annual Physical 1996 Cervical Cancer Screening Pap with HPV Testing (Age 30 to 64) Every 5 Years 12/20/2023 09/28/2022, 07/14/2022 COVID-19 Vaccine ( season) 2024 Influenza Adult (#1) 2024 08/18/2017, 08/22/2014, 08/07/2013, Additional history exists Cervical Cancer Screening Pap Smear (Age 30 to 64) Every 3 Years 09/28/2025 09/28/2022, 07/14/2022 Cervical Cancer Screening with HPV 09/28/2025 DTaP, Tdap and Td Vaccines (5 - Td or Tdap) 10/05/2028 10/05/2018, 12/30/2014, 01/22/2008, Additional history exists Hepatitis B Vaccines Completed 12/22/2003, 08/08/2000, 08/13/1999 Meningococcal Vaccine Aged Out 01/22/2008 No gloria anne marie eligible based on patient's age to complete this topic HPV Vaccines Completed 07/30/2008, 03/18, 01/22/2008 Hepatitis C Completed 07/14/2022, 07/14/2022 Pneumococcal Vaccine: Pediatrics (0 to 5 Years) and At-Risk Patients (6 to 64 Years) Aged Out No longer eligible based on patient's age to complete this topic RSV Immunizations Under 20 Months Aged Out No longer eligible based on patient's age to complete this topic Insurance [facility] Advance Directives * Full Code (Latest Code Status on File) Date Activated Date Inactivated Comments 06/16/2020 3:17 PM 06/17/2020 4:50 PM * Full Code Date Activated Date Inactivated Comments 06/13/2020 8:37 AM 06/16/2020 3:17 PM * Full Code Date Activated Date Inactivated Comments 06/13/2020 8:18 AM 06/13/2020 8:37 AM Care Teams Underpresser Hand Relationship Specialty Start Date End Date Salinas Escobar MD [address] [place] [address] PCP - General FAMILY PRACTICE 01/14/24
--- OUTSIDE RECORDS SUMMARY | 2024-10-01 17:55 | XMS_ITS | Encounter Summary ---
Author Organization [facility] Address [address] [facility] [place] [address] Care Team Providers Care Retail Account Specialist Name Role Phone Salinas Escobar MD Primary Care Provider [phone] Reason for Visit * Reason Onset Date Comments Imaging 09/05/2023 Encounter Details Date Type Department Care Team (Late st Contact Info) Description 09/05/2023 Telephone [facility] [address] [facility] [address] [place] [address] Kate Merida PA-C [address] [place] [address] Imaging Social History Tobacco Use Types Packs/Day Years Used Date Smoking Tobacco: Never Smokeless Tobacco: Never PHQ-2 Answer Date Recorded Patient Health Questionnaire-2 Score 0 09/06/2023 Sex and Gender Information Value Date Recorded Sex Assigned at Not on file Gender Identity Not on file Sexual Orientation Not on file documented as of this encounter Miscellaneous Notes * Telephone Encounter - Kate Merida PA-C - 09/05/2023 10:09 AM ARMORED VEHICLE OFFICER 09/05/2023 10:10 AM I called patient to discuss her MRI results, no answer. LVM for her to call us back and strongly recommend she sign up for mychart. I recommend she f/u in office to review her results and discuss possible surgery with Dr. Riddle or Dr. Pollock. 09/05/2023 4:13 PM I spoke with patient about her MRI results. She c/o instability in knee. I recommend she keep her appt with Dr. Riddle on 09/06 for re-evaluation and review of images to discuss possible surgery. I explained the location and time arrival for tomorrow. She understands. Kate Merida MPA, PA-C MRI R knee demonstrates: mildly complex tear of the anterior horn of the lateral meniscus. Intact appearing cruciate ligaments and collateral ligaments. Mild degree of joint effusion. MRI L knee demonstrates: abnormal appearance of the anterior cruciate ligament which appears to be somewhat thickened and edematous in appearance at its proximal extent extending to the mid aspect of the tendon. Some images suggest discontinuity of the femoral component of the anterior cruciate ligament raising concern fora full- thickness or near complete tear. There is believed to be at least partial tear of this structure on the femoral side of this structure Intact appearing posterior cruciate ligament. Suspect a mild degree of tearing of the posterior horn of the medial meniscus which has a beaklike configuration. Thinning without disruption of the medial collateral ligament/medial patellar retinacular complex with suggestion of mild lateral patellar tilt or subluxation. Telephone Note Today's visit was conducted virtually. The patient and/or guardian has given verbal consent to havetoday's visit conducted by this same means with treatment provided remotely. The patient verbally consents to the billing and collection practices of the provider's medical group. Patient location: Home This encounter was performed using: Audio Reason for not using video for visit: Not medically necessary Total time spent on visit on date of encounter is: 15 minutes spent in medical decision making Patient/Guardian consented to participate in telephone medicine encounter. Patient completed a telephone encounter regarding: MRI All aspects of patient's medical history were reviewed and updated as documented in Epic The plan was reviewed with the patient/guardian and the they confirmed understanding of the plan and all follow-up steps. Kate Merida MPA, PA-C RED VEHICLE OFFICER documented in this encounter Plan of Treatment Not on file documented as of this encounter Visit Diagnoses Diagnosis Sprain of anterior cruciate ligament of right knee, subsequent encounter- Primary Knee instability, right Chronic pain of left knee Pain in joint, lower leg documented in this encounter Care Teams Retail Account Specialist Relationship Specialty Start Date End Date Salinas Escobar MD [address] [place] [phone] PCP - General Family Medicine 09/04/23 documented as of this encounter
--- OUTSIDE RECORDS SUMMARY | 2024-10-01 17:55 | XMS_ITS | Encounter Summary ---
Author Organization [facility] Address [address] [facility] [place] [address] Care Team Providers Care Baby Formula Worker Name Role Phone Salinas Escobar MD Primary Care Provider [phone] Reason for Referral * Evaluate (Routine) - Closed Specialty Diagnoses / Procedures Referred By Contac t Referred To Contact Weight Management Diagnoses Obesity (BMI 30-39.9) Kate Merida PA-C [address] [address] Referral ID Status Reason Start Date Expiration Date V isits Requested Visits Authorized [id number] Closed Specialty Services Required 07/05/2023 07/04/2024 1 1 * Evaluate & Treat (Routine) - Closed Specialty Diagnoses / Procedures Referred By Contac t Referred To Contact Diagnoses Knee instability, right Sprain of anterior cruciate ligament of right knee, initial encounter Bilateral chronic knee pain Kate Merida PA-C [address] [place] [address] Referral ID Status Reason Start Date Expiration Date V isits Requested Visits Authorized [id number] Closed Specialty Services Required 07/05/2023 07/04/2024 1 1 Reason for Visit * Reason Comments Pain Knee Bilateral-RT is wors e Encounter Details Date Type Department Care Team (Late st Contact Info) Description 07/05/2023 2:45 PM CDT Office Visit [facility] [address] [place] [address] Kate Merida PA-C [address] - [facility] [address] [place] [phone] Knee instability, right (Primary Dx); Sprain of anterior cruciate ligament of right knee, initial encounter; Bilateral chronic knee pain; Obesity (BMI 30-39.9) Social History Tobacco Use Types Packs/Day Years Used Date Smoking Tobacco: Never Smokeless Tobacco: Never Tobacco Cessation:Counseling Given: Not Answered Sex and Gender Information Value Date Recorded [...] - - Weight 106.1 kg (234 lb) 07/05/2023 3:00 PM CDT Height 165.1 cm (5' 5 ) 07/05/2023 3:00 PM CDT Body Mass Index 38.94 07/05/2023 3:00 PM CDT documented in this encounter Patient Instructions * Patient Instructions* Kate Merida PA-C - 07/05/2023 4:03 PM CDT Adult and Pediatric Orthopaedic Surgery Sports Medicine Verónica Stevenson 07/05/2023 Thank you for coming in to see us today. Work/School Excuse: Excused from Work/School on 07/05/23 Impression: 27 year old female Knee instability, right - Plan: AMB REFERRAL TO PHYSICAL THERAPY, meloxicam (Mobic) 15 MG tablet Sprain of anterior cruciate ligament of right knee, initial encounter - Plan: AMB REFERRAL TO PHYSICAL THERAPY, meloxicam (Mobic) 15 MG tablet Bilateral chronic knee pain - Plan: AMB REFERRAL TO PHYSICAL THERAPY, meloxicam (Mobic) 15 MG tablet Plan: Images were personally interpreted and reviewed by me today in clinic. We recommended: icing, tylenol, activity modification, physical therapy exercises, and meloxicam Activity restrictions discussed: as tolerated Follow up: 4 weeks after therapy to re-evaluate, possible MRI if not improved after Referral to weight loss clinic. Contact [facility] Health Weight Management Services to explore weight loss options. Website: Roadmap/weight-management Physical Therapy Facilities recommended (all are centralized scheduling numbers) [facility] PT: [email or web address], or [facility] PT: [phone] [facility]: [email or web address], , [email or web address] CommunicationsstlBH[employer] PT: [employer], [employer] PT: apexnetworkpt[employer], [place] PT: [email or web address] [place] PT: Service at Home, NSAIDs (non-steroidal anti-inflammatory drugs): Aleve/naproxen and Motrin/ibuprofen [...] benefits of supplements such as: Vitamin D3 1382-6687 units daily, Glucosamine/chondriotin 500 to 2000 mg daily, and , Turmeric 1000mg daily (a natural anti-inflammatory). [facility] Orthopaedic office contact information: Office @ [facility]; [facility] [phone], [address] [place] [address] Office @ [facility] [address] [place] [address], [address] [address] Office @ [facility]; [facility] [address] [place] [address] Please contact PEDRO Osorio at , if you have any further questions or concerns. Office @ [facility] location: [address], [place] [address] , [facility] Clinic location: [address] [place] [address] Sincerely, Kate Merida MPA, PA-C [email or web address] documented in this encounter Progress Notes * Kate Merida PA-C - 07/05/2023 3:38 PM CDT Images from the original note were not included. Dear Dr. Salinas Escobar MD ; Today, 07/05/23, we had the pleasure treating Verónica Stevenson at [facility] Orthopaedic Sports Medicine and Shoulder Surgery Clinic for evaluation of her bilateral knee chief complaint. Verónica Stevenson is a 27 year old female who c/o Bilateral knee pain and instability for months. Pain is exacerbated with walking, bending, and any movement. Pain is improved with resting, and OTC creams. R knee pain x 3 mo, with twisting injury in April 2023. Left knee pain since December 2022 due to a fall. No PT. She had a Right knee injection in Apr 2023 by Ortho provider in [place], [place], she had 30% relief, she was lying down for injection. Previous treatment tried includes icing, corticosteroid injections, anti- inflammatory medications and tylenol for their symptoms. 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 Pain Numbness/tingling Stiffness How did this pain/injury begin? i was running with my son and thats how it started When did your pain/injury start? Does any other area/part of your body hurt? leg leg too Active Worker's Comp claim? No Pain level at rest 7 Pain level with activity 8 What makes your pain worse? lifting it up Treatments tried Rest/activity modification Opioid/narcotic pain medication Injection Currently employed? Yes Smoking status Never Alcohol intake? Yes Taking opioid/narcotic? No 07/05/2023 2:57 PM Patient-Reported Satisfaction Current state satisfactory? No Prior treatment? No Currently taking narcotics? No 07/05/2023 3:02 PM PROMIS Pain Interference PROMIS PI Score 76 (severe) 07/05/2023 3:02 PM PROMIS Physical Function PROMIS PF Score 36 (moderate dysfunction) 07/05/2023 3:03 PM Depression Screening PHQ-2 Score Incomplete Medications: Reviewed No current outpatient medications on file prior to visit. No current facility-administered medications on file prior to visit. Allergies: Reviewed Allergies as of 07/05/2023 ??? (No Known Allergies) PMH: Reviewed No [...] Body mass index is 38.94 kg/m??. Vitals: 07/05/23 1500 Weight: 106.1 kg (234 lb) Height: 1.651 [...] year old female Knee instability, right - Sprain of anterior cruciate ligament of right knee, initial encounter Bilateral chronic knee pain Plan: Images were personally interpreted and reviewed by me today in clinic. We recommended: icing, tylenol, activity modification, physical therapy exercises, and meloxicam Activity restrictions discussed: as tolerated Follow up: 4 weeks after therapy to re-evaluate, possible MRI if not improved after Referral to weight loss clinic. Orders Placed This Encounter ??? AMB REFERRAL TO PHYSICAL THERAPY ??? AMB REFERRAL TO WEIGHT LOSS CLINIC ??? meloxicam (Mobic) 15 MG tablet On Today's visit with patient: I reviewed and interpreted prior medical records, discussed medication options with individual benefits vs risk/side effects, discussed referral physical therapy options and home exercise instruction. Patient was educated and given information regarding their diagnosis today. Please do not hesitate to contact me with questions regarding her or any other patient in the future. Sincerely, Kate Merida MPA, PA-C documented in this encounter Plan of Treatment Scheduled Referrals Name Type Priority Associated Diagnoses Order Schedule AMB REFERRAL TO PHYSICAL THERAPY Outpatient Referral Routine Knee instability, right Sprain of anterior cruciate ligament of right knee, initial encounter Bilateral chronic knee pain 1 Occurrences starting 07/05/2023 until 07/05/2024 AMB REFERRAL TO WEIGHT LOSS CLINIC Outpatient Referral Routine Obesity (BMI 30-39.9) 1 Occurrences starting 07/05/2023 until 07/04/2024 documented as of this encounter Visit Diagnoses Diagnosis Knee instability, right- Primary Sprain of anterior cruciate ligament of right knee, initial encounter Bilateral chronic knee pain Pain in joint, lower leg Obesity (BMI 30-39.9) Obesity, unspecified documented in this encounter Care Teams Baby Formula Worker Relationship Specialty Start Date End Date Salinas Escobar MD [address] [place] [address] PCP - General Family Medicine 07/05/23 09/03/23 documented as of this encounter
--- OUTSIDE RECORDS SUMMARY | 2024-10-01 17:55 | XMS_ITS | Encounter Summary ---
Author Organization [facility] Address [address] [place] [address]. [place] [address] [place] [address] Care Team Providers Care Neurology Physician Name Role Phone Salinas Escobar MD Primary Care Provider [phone] Reason for Visit * Reason Onset Date Comments Information 09/03/2024 Encounter Details Date Type Department Care Team (Late st Contact Info) Description 09/03/2024 Telephone [facility] Orthopedic & Sports Medicine - [place] [address] [place], [place] [phone] Shad Wells MD [address] [place], [place] [phone] Information Social History Tobacco Use Types Packs/Day Years Used Date Smoking Tobacco: Never Smokeless Tobacco: Never Alcohol Use Standard Drinks/Week Comments Not Currently [...] on file documented as of this encounter Functional Status [...] Status No 06/13/2020 2:48 PM CDT Najma Best, RN Active * Do you have difficulty [...] Best RN Active documented in this encounter Progress Notes * Kristel Rawls RN - 09/03/2024 9:34 AM CST Images have been sent. URIZING FURNACE OPERATOR * Kristel Rawls RN - 09/03/2024 9:05 AM CST Message sent to XR dept about sending over images. URIZING FURNACE OPERATOR * Melanie Herbert - 09/03/2024 8:44 AM CSTSummary: x ray push to [facility] Bismark Landin from [facility] ortho department called in and stated that they will be seeing this patient this week and they wanted to know if we could push over the x ray that we did in office for BL knee, URIZING FURNACE OPERATOR documented in this encounter Plan of Treatment Not on file documented as of this encounter Visit Diagnoses Not on filedocumented in this encounter Care Teams Neurology Physician Relationship Specialty Start Date End Date Salinas Escobar MD [address] [place] [address] PCP - General FAMILY PRACTICE 01/14/24 documented as of this encounter
--- OUTSIDE RECORDS SUMMARY | 2024-10-01 17:55 | XMS_ITS | Encounter Summary ---
Author Organization [facility] Address [address] [place] [address]. [place], [place] [address] [place] [address] Care Team Providers Care Tooth Cutter Name Role Phone Salinas Escobar MD Primary Care Provider [phone] Encounter Details Date Type Department Care Team (Latest Contact Info) Description 03/04/2024 Scan [facility] Scanned, Doc Med Group Social History Tobacco Use Types Packs/Day Years [...] Assessment Author Status No 06/13/2020 2:48 PM LYNDONT Najma Best RN Active * Because of [...] 2:48 PM CDT Najma Best, RN Active documented in this encounter Plan of Treatment Not on file documented as of this encounter Visit Diagnoses Not on filedocumented in this encounter Care Teams Tooth Cutter Relationship Specialty Start Date End Date Salinas Escobar MD [address] [place] [phone] PCP - General FAMILY PRACTICE 01/14/24 documented as of this encounter
--- OUTSIDE RECORDS SUMMARY | 2024-10-01 17:55 | XMS_ITS | Encounter Summary ---
Author Organization [facility] Address [address] [facility] [place] [address] Care Team Providers Care Spiritual Care Coordinator Name Role Phone Salinas Escobar MD Primary Care Provider [phone] Reason for Referral * Radiology Services (Routine) - Closed Specialty Diagnoses / Procedures Referred By Contac t Referred To Contact Diagnoses Sprain of anterior cruciate ligament of right knee, subsequent encounter Knee instability, right Procedures MRI KNEE RIGHT WO CONTRAST Kate Merida PA-C [address] [address] Referral ID Status Reason Start Date Expiration Date Visits Re quested Visits Authorized [id number] Closed 08/23/2023 08/22/2024 1 1 PERSON Reason for Visit * Radiology Services (Routine) - Closed Specialty Diagnoses / Procedures Referred By Contac t Referred To Contact Diagnoses Sprain of anterior cruciate ligament of right knee, subsequent encounter Knee instability, right Procedures MRI KNEE RIGHT WO CONTRAST Kate Merida PA-C [address] [place] [address] Referral ID Status Reason Start Date Expiration Date Visits Re quested Visits Authorized [id number] Closed 08/23/2023 08/22/2024 1 1 Encounter Details Date Type Department Care Team (Latest Contact Info) Description 09/04/2023 9:58 AM PREP PERSON - 09/04/2023 11:59 PM PREP PERSON Hospital Encounter [facility] Health Imaging Services - MRI [address] [place] [address] Kate Merida PA-C [address] [facility] [address] [place] [phone] Discharge Disposition: Home or Self Care Social History Tobacco Use Types Packs/Day Years Used Date Smoking Tobacco: Never Smokeless Tobacco: Never Sex and Gender Information Value Date Recorded Sex Assigned at Not on file Gender Identity Not on file Sexual Orientation Not on file documented as of this encounter Medications at Time of Discharge Medication Sig Dispensed Refills Start Date End Date meloxicam (Mobic) 15 MG tabletIndications:Knee instability, right,Sprain of anterior cruciate ligament of right knee, initial encounter,Bilateral chronic knee pain Take 1 (one) tablet by mouth once daily 30 tablet 2 07/05/2023 09/06/2023 modafinil (Provigil) 200 MG tablet Take 1 (one) tablet by mouth every 24 hours 08/01/2023 09/06/2023 documented as of this encounter Plan of Treatment Not on file documented as of this encounter Procedures Procedure Name Priority Date/Time Associated Diagnosis Comments MRI KNEE RIGHT WO CONTRAST Routine 09/04/2023 10:36 AM PREP PERSON Sprain of anterior cruciate ligament of right knee, subsequent encounter Knee instability, right documented in this encounter Results * MRI KNEE RIGHT WO CONTRAST (09/04/2023 10:36 AM PREP PERSON) Anatomical Region Laterality Modality Lower Extremity Magnetic Resonan ce 09/04/2023 10:5 1 AM PREP PERSON Impressions 09/04/2023 11:04 AM PREP PERSON IMPRESSION: Examination demonstrates a mildly complex tear [...] 09/04/2023 11:04 AM Narrative 09/04/2023 11:04 AM PREP PERSON PROCEDURE: ??MRI KNEE RIGHT WO CONTRAST DATE/TIME [...] documented in this encounter Visit Diagnoses Diagnosis Sprain of anterior cruciate ligament of right knee, subsequent encounter Knee instability, right documented in this encounter Care Teams Spiritual Care Coordinator Relationship Specialty Start Date End Date Salinas Escobar MD [address] [place] [address] PCP - General Family Medicine 09/04/23 documented as of this encounter
--- OUTSIDE RECORDS SUMMARY | 2024-10-01 17:55 | XMS_ITS | Encounter Summary ---
Author Organization [facility] Address [address] [place] [address]. [place] [id number] [place] [address] Care Team Providers Care Crutcher Helper Name Role Phone Tejinder Duarte MD Primary Care Provider Reason for Referral * Surgical (Routine) - Closed Specialty Diagnoses / Procedures Referred By Cristopher melgar Referred To Contact Procedures Case request operating room: LAPAROSCOPIC CHOLECYSTECTOMY w/IOC, Umbilical herniorrhaphy Arturo Peraza MD [address] [place] [address] Phone: tel: fax: Referral ID Status Reason Start Date Expiration Date Visits Re quested Visits Authorized [id number] Closed 06/15/2020 07/15/2021 1 1 * Imaging (Emergency) - Closed Specialty Diagnoses / Procedures Referred By Cristopher t Referred To Contact RADIOLOGY Procedures CT ABD+PEL W CON Rodrigo Jennings MD [address] [place] [address] Phone: tel: fax: Referral ID Status Reason Start Date Expiration Date Visits Re quested Visits Authorized [id number] Closed 06/13/2020 07/13/2021 1 1 Reason for Visit * Reason Comments Abdominal Pain Vomiting * Auth/Cert Specialty Diagnoses / Procedures Referred By Cristopher t Referred To Contact Diagnoses Umbilical hernia with obstruction but no gangrene Cholelithiasis Biliary colic Umbilical hernia with obstruction but no gangrene Abdominal pain Procedures OBS Referral ID Status Reason Start Date Expiration Date Visits Re quested Visits Authorized [id number] 1 1 Encounter Details Date Type Department Care Team (Late st Contact Info) Description 06/13/2020 4:57 AM CDT - 06/17/2020 2:00 PM CDT Emergency [facility] [address] [place] [address] Rodrigo Jennings MD [address] [place] [address] Sanchez Díaz MD [address] [place] [address] [phone] (Work) Jordan Fitzgerald PA-C [address] [address] Veronica Peraza NP [address] [place] [address] [phone] (Work) Selena Cervantes MD [address] [place] [address] [phone] (Work) Abdominal Pain; Vomiting Discharge Disposition: Home or Self Care (Routine [...] Sign Reading Time Taken Comments Blood Pressure 104/69 06/17/2020 7:00 AM CDT Pulse 64 06/17/2020 7:00 AM CDT Temperature 36.5 ??C (97.7 ??F) 06/17/2020 3:00 AM CD T Respiratory Rate 17 06/17/2020 7:00 AM CDT Oxygen Saturation 99% 06/17/2020 7:00 AM CDT Inhaled Oxygen Concentration - - Weight 95.1 kg (209 lb 10.5 oz) 06/13/2020 2:24 PM CDT Height 165.1 cm (5' 5 ) 06/13/2020 2:2 4 PM CDT Body Mass Index 34.89 06/13/2020 [...] or making decisions? No 06/13/2020 2:48 PM CDNajma Salomon RN Active * Because of a physical, [...] number of urgent admissions): 25 Hospital Course: Clement Fuentes is a 24-year-old female with past [...] Your Medications These medications were sent to [address], [facility] [address] ?? docusate sodium 100 MG capsule You can get these medications from any pharmacy Bring a paper prescription for each of these medications ?? HYDROcodone-acetaminophen 5-325 MG tablet Disposition: Home with self care Time Spent on Discharge: > 35 minutes Signed: SELENA CERVANTES MD documented in this encounter Discharge Instructions * Discharge Instructions* Clover Canseco RN - 06/17/2020 12:53 PM CDT Call [facility] after discharge to obtain a work note with restrictions. * Attachments The following attachments cannot be sent through Care Everywhere. * Cholecystectomy, Laparoscopic Surgery (Portuguese) documented in this encounter Medications at Time [...] consult that patient was needing transportation home. [facility] spoke to patient and offered seema bus pass or [employer] trip. Patient reports she has a friend that will come get her, PEDRO Galo notified. * Arturo Peraza MD - 06/17/2020 7:22 AM CDT General Surgery Progress Note-[facility] Clement Fuentes is an 24-year-old [...] expected Labs noted Labs: Recent Labs Lab 06/14/20 0530 06/14/20 0909 06/15/20 0435 06/16/20 0515 06/17/20 [...] LSA Charlene PERAZA MD 06/17/2020 * Jordan HerreraMYKE gan - 06/16/2020 12:59 PM CDT Hospitalist Daily [...] 0524 06/14/20 0530 06/15/20 0435 06/16/20 0515 NA 136 140 [...] Labs Lab 06/13/2052306/14/20 0530 06/14/20 0909 06/15/20 04306/16/20 0515 WBC 10.9 6.6 5.5 6.2 8.8 [...] 11.9 12.0 12.1 Recent Labs Lab 06/13/20 0506/14/20 0530 06/15/20 0435 06/16/20 0515 AST 17 11* 12* 13* ALT 21 16 13* 18 No results for input(s): INR, PTT in the last 168 hours. Invalid input(s): ABG arterial blood gases Recent Labs Lab 06/13/20 1205 06/13/20 1645 06/13/20 2133 TROP <0.015 <0.015 <0.015 No results for input(s): PH, PCO2, PO2, [id number], BICARBWB, BASEDEFICIT, BASEEXCESS in the giel171 hours. X-Ray CT abdomen pelvis with contrast [...] Can discharge tomorrow if stable. ?? JORDAN FITZGERALD PA-C 06/16/2020 1:00 PM Cosigned by Sanchez [...] while in the hospital. Patient verbalized understanding. 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 Patient independent and ambulatory * Arturo Peraza MD - 06/16/2020 7:30 AM CDT General Surgery Progress Note-[facility] Clement Fuentes is an 24-year-old [...] outlined above and is willing to proceed. 3. Will also perform umbilical herniorrhaphy [...] 110/70 Pulse: 67 73 58 54 Resp: 18 20 Temp: 98 ??F (36.7 ??C) 98.8 ??F [...] No results for input(s): PH, PCO2, PO2, [id number], BICARBWB, BASEDEFICIT, BASEEXCESS in the twes089 hours. X-Ray CT abdomen pelvis with contrast [...] 06/15/2020 8:09 AM CDT General Surgery Progress Note-[facility] Clement Fuentes is an 24-year-old female. Date of Service: 06/15/2020 SUBJECTIVE: Feeling much better OBJECTIVE: Blood pressure 110/70, pulse 54, temperature 98 ??F (36.7 ??C), temperature source Oral, resp. rate20, height 5' 5 (1.651 m), weight 95.1 kg (209 lb 10.5 oz), last menstrual period 05/27/2020, [id number] %. Exam: Abdomen soft, mildly tender at the fascial rim of the umbilical hernia, mild right upper quadrant tenderness [Labs noted] Labs: Recent Labs Lab 06/13/20 0524 06/14/20 0530 06/14/20 0909 06/15/20 0435 WBC 10.9 6.6 5.5 6.2 HGB 13.6 10.6* 9.8* 10.3* MCV 79.7* 82.1 80.9* 80.8* PLT 348 197 188 198 Recent Labs Lab 06/13/20 0524 06/14/20 0530 06/15/20 0435 NA 136 140 139 K 3.5 3.6 3.4* CL 102 109* 107 CO2 26.8 28.7 26.9 BUN 11 11 6* CR 0.72 0.68 0.57 Recent Labs Lab 06/13/20 0524 06/14/20 0530 [...] to proceed. Charlene PERAZA MD 06/15/2020 * Cece Salinas PA-C - 06/14/2020 2:13 PM CDT Hospitalist Daily Progress Note Subjective Clement Fuentes is a 24-year-old female on hospital [...] encounter of 06/13/20 [address] [address] [facility] Test Date: 2020-06-13 Pat Name: CLEMENT FUENTES Department: Room: 70 Gender: Female At Risk Specialist: : 1995 Requested By: SANCHEZ DÍAZ Order Number: [id number] Reading MD: Measurements Intervals [place] Rate: 75 P: 148 ME: 366 QRS: 36 QRSD: 92 T: 29 [...] during hospitalization. 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 They are agreeable with plan and voiced understanding. This note was dictated with Tame medical dictation software; misspellings, punctuation errors, omitted words or dictation variances may occur. CECE SALINAS PA-C 06/14/2020 2:13 PM Primary care [...] lb 10.5 oz), last menstrual period 05/27/2020, [id number] %. Physical Exam Constitutional: No distress. Pulmonary/Chest: [...] seeing her tomorrow. Will order COVID testing EVENS WILLIAMSON MD 06/14/2020 * Najma Best RN [...] documented in this encounter H&P Notes * SOY Lindsey - 06/13/2020 8:37 AM CDT Hospitalist History and Physical Patient: Clementomar Fuentes Date: 06/13/2020 female, 24-year-old Admit Date: 06/13/2020 Attending: Sanchez Díaz MD REASON FOR ADMISSION: Abdominal Pain and Vomiting HISTORY OF PRESENT ILLNESS: Clementomar Fuentes is a 24-year-old female With past [...] file Gets together: Not on file Attends hinduism service: Not on file Active member of [...] CATCH COLOR (U) YELLOW TRANSPARENCY TURBID Specific Flushing (U) 1.033 (H) 1.001 - 1.030 U [...] anticipate patient will require 1 midnight. SOY LINDSEY 06/13/2020 8:38 AM Cosigned by Sanchez Díaz [...] file Gets together: Not on file Attends hinduism service: Not on file Active member of [...] 06/16/2020 12:47 PM CDT General Surgery Operative Report-[facility] Clement Fuentes is an 24-year-old female. Date of Operation:06/16/2020 Preoperative diagnosis: Symptomatic cholelithiasis, umbilical hernia Postoperative diagnosis: Same Procedure: Laparoscopic cholecystectomy with IOC, umbilical herniorrhaphy (no mesh) Anesthesia: General Assistants: Hand Finisher: ISSAC Shen Relief Circulating Nurse: Veronica Pham RN Relief Scrub: ISSAC Crowley Circulating Nurse 1: Enedina Huff RN Scrub Person 1: Joan Albrecht, RECOOPERER Estimated blood loss: 20 cc Brief history: [...] CATCH COLOR (U) YELLOW TRANSPARENCY TURBID Specific Flushing (U) 1.033 (H) 1.001 - 1.030 U [...] ABD+PEL W CON Final Result by User, [id number] (06/13 646) Date: 06/13/2020 6:17 AM Exam: [...] Biliary colic Disposition: Admit Rodrigo Jennings MD 06/13/20 0726 * Kemi Rios RN - 06/13/2020 6:20 [...] - 2.4 MG/DL 06/17/2020 5:36 AM CDT [facility] 06/17/2020 5:00 AM CDT Arturo Peraza MD LABORATORY Final Res ult [facility] [address] [place] [address], [place] [phone] * TROPONIN, QUANT (06/17/2020 5:00 AM CDT) TROPONIN I <0.015 <0.045 ng/mL. 06/17/2020 7:48 AM CDT [facility] Comment: HIGH DOSES OF BIOTIN MAY INTERFERE WITH THIS TEST RESULT. CORRELATION TO CLINICAL HISTORY AND PRESENTATION RECOMMENDED. 06/17/2020 5:00 AM CDT Jordan Fitzgerald PA-C LABORATORY Final Result Performing Organization Address [facility] Co de Phone Number [facility] [address] [place] [address], [place] [phone] * (ABNORMAL) BASIC METABOLIC PANEL (06/17/2020 5:00 AM CDT) GLUCOSE 107(H) 70 - 99 MG/DL 06/17/2020 5:36 AM CDT [facility] BUN 8 7 - 18 MG/DL 06/17/2020 5:36 AM CDT [facility] CREATININE S/P/B 0.60 0.55 - 1.02 MG/DL 06/17/2020 5:36 AM CDT [facility] SODIUM S/P/B 137 136 - 145 MMOL/L 06/17/2020 5:36 AM CDT [facility] POTASSIUM S/P/B 3.9 3.5 - 5.1 MMOL/L 06/17/2020 5:36 AM CDT [facility] CHLORIDE S/P/B 107 100 - 108 MMOL/L 06/17/2020 5:36 AM CDT [facility] CO2 25.3 21 - 32 MMOL/L 06/17/2020 5:36 AM CDT [facility] CALCIUM S/P/B 9.1 8.5 - 10.1 MG/DL 06/17/2020 5:36 AM CDT [facility] ANION GAP 4.7(L) 5 - 15 MMOL/L 06/17/2020 5:36 AM CDT [facility] BUN CREATININE RATIO 13.4 6 - 26 06/17/2020 5:36 AM CDT [facility] EGFR NON-AFR. AMER. >90 >90 ML/MIN/1.7 3 M2 06/17/2020 5:36 AM CDT [facility] EGFR AFR. AMER. >90 >90 ML/MIN/1.7 3 M2 06/17/2020 5:36 AM CDT [facility] Comment: NOTE: eGFR is not calculated for patients <18 years of age. This is an estimated GFR (CKD EPI) and should not be used for calculating drug doses. 06/17/2020 5:00 AM CDT Jordan Fitzgerald PA-C LABORATORY Final Result [facility] [address] [place] [address], [place] [phone] * (ABNORMAL) CBC W/DIFF AUTOMATED (06/17/2020 5:00 AM CDT) WBC 11.8(H) 4.5 - 11.0 x10'3/uL 06/17/2020 5:16 AM CDT [facility] RBC 4.59 4.20 - 5.40 x10'6/uL 06/17/2020 5:16 AM CDT [facility] HGB 11.7(L) 12.0 - 16.0 G/DL 06/17/2020 5:16 AM CDT [facility] HCT 36.5(L) 38.0 - 48.0 % 06/17/2020 5:16 AM CDT [facility] MCV 79.5(L) 81.0 - 99.0 FL 06/17/2020 5:16 AM CDT [facility] MCH 25.5(L) 27.0 - 31.0 PG 06/17/2020 5:16 AM CDT [facility] MCHC 32.1 32.0 - 36.0 G/DL 06/17/2020 5:16 AM CDT [facility] RDW 13.4 11.5 - 14.5 % 06/17/2020 5:16 AM CDT [facility] PLT 234 130 - 400 x10'3/uL 06/17/2020 5:16 AM CDT [facility] MPV 11.8 9.3 - 12.2 FL 06/17/2020 5:16 AM CDT [facility] DIFFERENTIAL TYPE AUTOMATED DIFFERENTIAL 06/17/2020 5:16 AM CDT [facility] NEUTROPHILS % 84.7 % 06/17/2020 5:16 AM CDT [facility] LYMPHOCYTES % 9.7 % 06/17/2020 5:16 AM CDT [facility] MONOCYTES % 5.2 % 06/17/2020 5:16 AM CDT [facility] EOSINOPHILS 0.0 % 06/17/2020 5:16 AM CDT [facility] BASOPHILS 0.1 % 06/17/2020 5:16 AM CDT [facility] IMMATURE GRANS % 0.3 % 06/17/20 20 5:16 AM CDT [facility] ABS. NEUTROPHILS TOTAL 10.00(H) 1.80 - 7.70 x10'3/uL 06/17/2020 5:16 AM CDT [facility] ABS. LYMPHOCYTES 1.14 1.00 - 4.80 x10'3/uL 06/17/2020 5:16 AM CDT [facility] ABS. MONOCYTES 0.61 0.24 - 0.86 x10'3/uL 06/17/2020 5:16 AM CDT [facility] ABS. EOSINOPHILS 0.00(L) 0.04 - 0.36 x10'3/uL 06/17/2020 5:16 AM CDT [facility] ABS. BASOPHILS 0.01 0.01 - 0.08 x10'3/uL 06/17/2020 5:16 AM CDT [facility] ABS. IMMATURE GRANULOCYTES 0.04 0.00 - 0.49 x10'3/uL 06/17/2020 5:16 AM CDT [facility] 06/17/2020 5:00 AM CDT Jordan Fitzgerald PA-C LABORATORY Final Result [facility] [address] [place] [id number], * ECG 12 lead (06/16/2020 4:36 PM CDT) 06/16/2020 4:36 PM CDT Narrative [facility] - 06/16/2020 10:46 PM CDT ?[facility] [place] ? [address] [place] ? Test Date: ?2020-06-16 Pat Name: ? CLEMENT ODILON GIRONA ?Department: ? Room: ? [id number] Gender: ? Female ? At Risk Specialist: ?? RK : ?1995 ? Requested By: JORDAN LIA Order Number: [id number] ? Reading MD: ?? Shiyam Satwani ? Measurements Intervals ?[place] ? Rate: ? 64 ? P: ?-1 ME: ? 136 ?QRS: ?21 QRSD: ? 86 ? T: ?20 QT: ? 382 ? QTc: ?396 ? Interpretive Statements SINUS RHYTHM Compared to ECG 06/13/2020 12:04:34 No significant changes Procedure Note Aliza Mak MD - 06/16/[address] [facility] [address] Test Date: 2020-06-16 Pat Name: CLEMENT FUENTES Department: Room: [id number] Gender: Female At Risk Specialist: SO : 1995 Requested By: JORDAN FITZGERALD Order Number: [id number] Reading MD: Aliza Mak Measurements Intervals [place] Rate: 64 P: -1 ME: 136 QRS: 21 QRSD: 86 T: 20 QT: 382 QTc: 396 Interpretive Statements SINUS RHYTHM Compared to ECG 06/13/2020 12:04:34 No significant changes us Jordan Fitzgerald PA-C ECG ORDERABLES Final Result [facility] RAD * SURG XR CHOLANGIOGRAM (06/16/2020 12:09 [...] ABO/RH O POSITIVE 06/16/2020 7:28 AM CDT [facility] ANTIBODY SCREEN NEGATIVE 06/16/2020 7:28 AM CDT [facility] SAMPLE EXPIRATION 06/19/2020,2 359 06/16/2020 7:28 AM CDT [facility] 06/16/2020 5:15 AM CDT Jordan Fitzgerald PA-C BLOOD BANK TEST ORDERABLES Fin al Result Performing Organization Address City/[facility]/ZIP Co de Phone Number [facility] [address] [place] [address], [place] [phone] * MAGNESIUM (06/16/2020 5:15 AM CDT) MAGNESIUM 2.2 1.8 - 2.4 MG/DL 06/16/2020 6:06 AM CDT [facility] 06/16/2020 5:15 AM CDT us Arturo Peraza MD LABORATORY Final Res ult Performing Organization Address City/[facility]/ZIP Co de Phone Number [facility] [address] [place] [address], [place] [phone] * (ABNORMAL) COMPREHENSIVE METABOLIC PANEL (06/16/2020 5:15 AM CDT) GLUCOSE 95 70 - 99 MG/DL 06/16/2020 6:06 AM CDT [facility] BUN 8 7 - 18 MG/DL 06/16/2020 6:06 AM CDT [facility] CREATININE S/P/B 0.63 0.55 - 1.02 MG/DL 06/16/2020 6:06 AM CDT [facility] SODIUM S/P/B 136 136 - 145 MMOL/L 06/16/2020 6:06 AM CDT [facility] POTASSIUM S/P/B 3.6 3.5 - 5.1 MMOL/L 06/16/2020 6:06 AM T [facility] CHLORIDE S/P/B 105 100 - 108 MMOL/L 06/16/2020 6:06 AM [facility] CO2 24.7 21 - 32 MMOL/L 06/16/2020 6:06 AM [facility] CALCIUM S/P/B 9.2 8.5 - 10.1 MG/DL 06/16/2020 6:06 AM T [facility] BILIRUBIN TOTAL S/P/B 0.3 0.2 - 1.2 MG/DL 06/16/2020 6:06 AM [facility] Comment: THIS ASSAY IS NOT RECOMMENDED FOR PATIENTS UNDERGOING TREATMENT WITH ELTROMBOPAG DUE TO THE POTENTIAL FOR FALSELY ELEVATED RESULTS. TOTAL PROTEIN S/P/B 8.3(H) 6.4 - 8.2 G/DL 06/16/2020 6:06 AM T [facility] ALBUMIN S/P/B 3.4 3.4 - 5.0 G/DL 06/16/2020 6:06 AM [facility] AST 13(L) 15 - 37 U/L 06/16/2020 6:06 AM [facility] ALT 18 14 - 55 U/L 06/16/2020 6:06 AM T [facility] ALKALINE PHOSPHATASE S/P/B 111 50 - 136 U/L 06/16/2020 6:06 AM [facility] ANION GAP 6.3 5 - 15 MMOL/L 06/16/2020 6:06 AM T [facility] BUN CREATININE RATIO 12.8 6 - 26 06/16/2020 6:06 AM [facility] A/G RATIO 0.7(L) 1.0 - 2.0 RATIO 06/16/2020 6:06 AM [facility] EGFR NON-AFR. AMER. >90 >90 ML/MIN/1.7 3 M2 06/16/2020 6:06 AM CDT [facility] EGFR AFR. AMER. >90 >90 ML/MIN/1.7 3 M2 06/16/2020 6:06 AM CDT [facility] Comment: NOTE: eGFR is not calculated for patients <18 years of age. This is an estimated GFR (CKD EPI) and should not be used for calculating drug doses. 06/16/2020 5:15 AM CDT Phyllis OLIVIER LABORATORY Final Res ult [facility] [address] [place] [id number], [place] [phone] * (ABNORMAL) CBC W/DIFF AUTOMATED (06/16/2020 5:15 AM CDT) WBC 8.8 4.5 - 11.0 x10'3/uL 06/16/2020 5:44 AM CDT [facility] RBC 4.98 4.20 - 5.40 x10'6/uL 06/16/2020 5:44 AM CDT [facility] HGB 12.8 12.0 - 16.0 G/DL 06/16/2020 5:44 AM CDT [facility] HCT 40.6 38.0 - 48.0 % 06/16/2020 5:44 AM CDT [facility] MCV 81.5 80.0 - 94.0 FL 06/16/2020 5:44 AM CDT [facility] MCH 25.7(L) 27.0 - 31.0 PG 06/16/2020 5:44 AM CDT [facility] MCHC 31.5(L) 32.0 - 36.0 G/DL 06/16/2020 5:44 AM CDT [facility] RDW 13.3 11.5 - 14.5 % 06/16/2020 5:44 AM CDT [facility] PLT 231 130 - 400 x10'3/uL 06/16/2020 5:44 AM CDT [facility] MPV 12.1 9.3 - 12.2 FL 06/16/2020 5:44 AM CDT [facility] DIFFERENTIAL TYPE AUTOMATED DIFFERENTIAL 06/16/2020 5:44 AM CDT [facility] NEUTROPHILS % 73.8 % 06/16/2020 5:44 AM CDT [facility] LYMPHOCYTES % 18.9 % 06/16/2020 5:44 AM CDT [facility] MONOCYTES % 5.8 % 06/16/2020 5:44 AM CDT [facility] EOSINOPHILS 1.0 % 06/16/2020 5:44 AM CDT [facility] BASOPHILS 0.2 % 06/16/2020 5:44 AM CDT [facility] IMMATURE GRANS % 0.3 % 06/16/20 20 5:44 AM CDT [facility] ABS. NEUTROPHILS TOTAL 6.46 1.80 - 7.70 x10'3/uL 06/16/2020 5:44 AM CDT [facility] ABS. LYMPHOCYTES 1.66 1.00 - 4.80 x10'3/uL 06/16/2020 5:44 AM CDT [facility] ABS. MONOCYTES 0.51 0.24 - 0.86 x10'3/uL 06/16/2020 5:44 AM CDT [facility] ABS. EOSINOPHILS 0.09 0.04 - 0.36 x10'3/uL 06/16/2020 5:44 AM CDT [facility] ABS. BASOPHILS 0.02 0.01 - 0.08 x10'3/uL 06/16/2020 5:44 AM CDT [facility] ABS. IMMATURE GRANULOCYTES 0.03 0.00 - 0.49 x10'3/uL 06/16/2020 5:44 AM CDT [facility] 06/16/2020 5:15 AM CDT us Phyllis Yadav APNP LABORATORY Final Res ult [facility] [address] [facility] [place] [address], * Pathology (06/16/2020 12:00 AM CDT) COPATH REPORT ? [facility] ? [address] [facility] [address] ? [place] ??[id number] ? [id number] ? Department of Pathology ? Pathology Report ? SURGICAL FINAL REPORT Patient Name: CLEMENT MACE ? : 1995 (Age: 24) ?Location: [address] Gender: F ?Collected Date: 06/16/2020 Med Rec #: [id number] ?Date Received: 06/16/2020 Date Reported: 06/17/2020 Provider: [...] container labeled with the patient's name (Clement Fuentes), (1995) and gallbladder. ??The specimen consists of [...] to 0.2 cm in maximum thickness. ?? Learning And Development Analyst sections are submitted, as follows: ? 1- ? Proximal cystic duct resection margin (submitted en face) and gallbladder wall, to display yellow stippling (submitted on edge). ?? :pb Billing Fee Code(s): 07065 [facility] Tissue specimen (specimen) GALLBLADDER STRUCTURE / Unknown 06/16/2020 12:03 PM CDT Arturo Peraza MD PATHOLOGY/CYTOLOGY ORDERA BLES Final Result Performing Organization Address City/[facility]/ZIP Co de Phone Number [facility] [address] [place] [address], * MAGNESIUM (06/15/2020 4:35 AM CDT) Pathologist [facility] MAGNESIUM 2.1 1.8 - 2.4 MG/DL 06/15/2020 5:19 AM CDT [facility] 06/15/2020 4:35 AM CDT us Arturo Peraza MD LABORATORY Final Res ult Performing Organization Address City/[facility]/ZIP Co de Phone Number [facility] [address] [place] [address], [place] [phone] * LACTIC ACID - SINGLE (06/15/2020 4:35 AM CDT) LACTIC ACID VENOUS 0.8 0.4 - 2.0 MMOL/L 06/15/2020 5:27 AM CDT [facility] 06/15/2020 4:35 AM CDT Cece Salinas PA-C LABORATORY Final Result [facility] [address] [place] [address], * (ABNORMAL) COMPREHENSIVE METABOLIC PANEL (06/15/2020 4:35 AM CDT) GLUCOSE 85 70 - 99 MG/DL 06/15/2020 5:19 AM CDT [facility] BUN 6(L) 7 - 18 MG/DL 06/15/2020 5:19 AM CDT [facility] CREATININE S/P/B 0.57 0.55 - 1.02 MG/DL 06/15/2020 5:19 AM CDT [facility] SODIUM S/P/B 139 136 - 145 MMOL/L 06/15/2020 5:19 AM CDT [facility] POTASSIUM S/P/B 3.4(L) 3.5 - 5.1 MMOL/L 06/15/2020 5:19 AM CDT [facility] CHLORIDE S/P/B 107 100 - 108 MMOL/L 06/15/2020 5:19 AM CDT [facility] CO2 26.9 21 - 32 MMOL/L 06/15/2020 5:19 AM CDT [facility] CALCIUM S/P/B 8.5 8.5 - 10.1 MG/DL 06/15/2020 5:19 AM CDT [facility] BILIRUBIN TOTAL S/P/B 0.4 0.2 - 1.2 MG/DL 06/15/2020 5:19 AM CDT [facility] Comment: THIS ASSAY IS NOT RECOMMENDED FOR PATIENTS UNDERGOING TREATMENT WITH ELTROMBOPAG DUE TO THE POTENTIAL FOR FALSELY ELEVATED RESULTS. TOTAL PROTEIN S/P/B 6.9 6.4 - 8.2 G/DL 06/15/2020 5:19 AM T [facility] ALBUMIN S/P/B 3.0(L) 3.4 - 5.0 G/DL 06/15/2020 5:19 AM T [facility] AST 12(L) 15 - 37 U/L 06/15/2020 5:19 AM [facility] ALT 13(L) 14 - 55 U/L 06/15/2020 5:19 AM [facility] ALKALINE PHOSPHATASE S/P/B 88 50 - 136 U/L 06/15/2020 5:19 AM [facility] ANION GAP 5.1 5 - 15 MMOL/L 06/15/2020 5:19 AM T [facility] BUN CREATININE RATIO 10.6 6 - 26 06/15/2020 5:19 AM [facility] A/G RATIO 0.8(L) 1.0 - 2.0 RATIO 06/15/2020 5:19 AM [facility] EGFR NON-AFR. AMER. >90 >90 ML/MIN/1.7 3 M2 06/15/2020 5:19 AM T [facility] EGFR AFR. AMER. >90 >90 ML/MIN/1.7 3 M2 06/15/2020 5:19 AM [facility] Comment: NOTE: eGFR is not calculated for patients <18 years of age. This is an estimated GFR (CKD EPI) and should not be used for calculating drug doses. 06/15/2020 4:35 AM CDT Phyllis C Vicenta APNP LABORATORY Final Res ult [facility] [address] [place] [address], * (ABNORMAL) CBC W/DIFF AUTOMATED (06/15/2020 4:35 AM CDT) [facility] Signature WBC 6.2 4.5 - 11.0 x10'3/uL 06/15/2020 4:57 AM CDT [facility] RBC 4.01(L) 4.20 - 5.40 x10'6/uL 06/15/2020 4:57 AM CDT [facility] HGB 10.3(L) 12.0 - 16.0 G/DL 06/15/2020 4:57 AM CDT [facility] HCT 32.4(L) 38.0 - 48.0 % 06/15/2020 4:57 AM CDT [facility] MCV 80.8(L) 81.0 - 99.0 FL 06/15/2020 4:57 AM CDT [facility] MCH 25.7(L) 27.0 - 31.0 PG 06/15/2020 4:57 AM CDT [facility] MCHC 31.8(L) 32.0 - 36.0 G/DL 06/15/2020 4:57 AM CDT [facility] RDW 13.2 11.5 - 14.5 % 06/15/2020 4:57 AM CDT [facility] PLT 198 130 - 400 x10'3/uL 06/15/2020 4:57 AM CDT [facility] MPV 12.0 9.3 - 12.2 FL 06/15/2020 4:57 AM CDT [facility] DIFFERENTIAL TYPE AUTOMATED DIFFERENTIAL 06/15/2020 4:57 AM CDT [facility] NEUTROPHILS % 59.7 % 06/15/2020 4:57 AM CDT [facility] LYMPHOCYTES % 32.6 % 06/15/2020 4:57 AM CDT [facility] MONOCYTES % 5.7 % 06/15/2020 4:57 AM CDT [facility] EOSINOPHILS 1.5 % 06/15/2020 4:57 AM CDT [facility] BASOPHILS 0.3 % 06/15/2020 4:57 AM CDT [facility] IMMATURE GRANS % 0.2 % 06/15/20 20 4:57 AM CDT [facility] ABS. NEUTROPHILS TOTAL 3.69 1.80 - 7.70 x10'3/uL 06/15/2020 4:57 AM CDT [facility] ABS. LYMPHOCYTES 2.01 1.00 - 4.80 x10'3/uL 06/15/2020 4:57 AM CDT [facility] ABS. MONOCYTES 0.35 0.24 - 0.86 x10'3/uL 06/15/2020 4:57 AM CDT [facility] ABS. EOSINOPHILS 0.09 0.04 - 0.36 x10'3/uL 06/15/2020 4:57 AM CDT [facility] ABS. BASOPHILS 0.02 0.01 - 0.08 x10'3/uL 06/15/2020 4:57 AM CDT [facility] ABS. IMMATURE GRANULOCYTES 0.01 0.00 - 0.49 x10'3/uL 06/15/2020 4:57 AM CDT [facility] 06/15/2020 4:35 AM CDT us Phyllis Yadav APNP LABORATORY Final Res ult [facility] [address] [place] [address], [place] [phone] * RESPIRATORY PCR PANEL 2 (06/14/2020 2:44 PM CDT) [facility] ADENOVIRUS PCR (RESP) NOT DETECTED NOT DETECTED 06/15/2020 7:44 AM CDT [facility] CORONAVIRUS 229E PCR (RESP) NOT DETECTED NOT DETECTED 06/15/2020 7:44 AM CDT [facility] CORONAVIRUS HKU1 PCR (RESP) NOT DETECTED NOT DETECTED 06/15/2020 7:44 AM CDT [facility] CORONAVIRUS NL63 PCR (RESP) NOT DETECTED NOT DETECTED 06/15/2020 7:44 AM CDT [facility] CORONAVIRUS OC43 PCR (RESP) NOT DETECTED NOT DETECTED 06/15/2020 7:44 AM CDT [facility] METAPNEUMOVIRUS PCR (RESP) NOT DETECTED NOT DETECTED 06/15/2020 7:44 AM CDT [facility] RHINOVIRUS/ENTEROV IRUS PCR (RESP) NOT DETECTED NOT DETECTED 06/15/2020 7:44 AM CDT [facility] INFLUENZA A PCR (RESP) NOT DETECTED NOT DETECTED 06/15/2020 7:44 AM CDT [facility] INFLUENZA B PCR (RESP) NOT DETECTED NOT DETECTED 06/15/2020 7:44 AM CDT [facility] PARAINFLUENZA 1 PCR (RESP) NOT DETECTED NOT DETECTED 06/15/2020 7:44 AM CDT [facility] PARAINFLUENZA 2 PCR (RESP) NOT DETECTED NOT DETECTED 06/15/2020 7:44 AM CDT [facility] PARAINFLUENZA 3 PCR (RESP) NOT DETECTED NOT DETECTED 06/15/2020 7:44 AM CDT [facility] PARAINFLUENZA 4 PCR (RESP) NOT DETECTED NOT DETECTED 06/15/2020 7:44 AM CDT [facility] RSV PCR (RESP) NOT DETECTED NOT DETECTED 06/15/2020 7:44 AM CDT [facility] B PARAPERTUSIS PCR (RESP) NOT DETECTED NOT DETECTED 06/15/2020 7:44 AM CDT [facility] BORDETELLA PERTUSSIS PCR (RESP) NOT DETECTED NOT DETECTED 06/15/2020 7:44 AM CDT [facility] CHLAMYDOPHILA PNEUMONIAE PCR (RESP) NOT DETECTED NOT DETECTED 06/15/2020 7:44 AM CDT [facility] MYCOPLASMA PNEUMONIAE PCR (RESP) NOT DETECTED NOT DETECTED 06/15/2020 7:44 AM CDT [facility] CORONAVIRUS SARS COV 2 PCR (RESP) NOT DETECTED NOT DETECTED 06/15/2020 7:44 AM CDT [facility] Comment: THE SARS-CoV-2 TEST HAS BEEN AUTHORIZED BY THE FDA UNDER AN EUA FOR USE BY AUTHORIZED LABORATORIES. 06/14/2020 2:44 PM CDT Sanchez Díaz MD MICROBIOLOGY - GENERAL ORDERABLE S Final Result [facility] [address] [place] [address], [place] [phone] * (ABNORMAL) CBC W/DIFF AUTOMATED (06/14/2020 9:09 AM CDT) WBC 5.5 4.5 - 11.0 x10'3/uL 06/14/2020 9:31 AM CDT [facility] RBC 3.82(L) 4.20 - 5.40 x10'6/uL 06/14/2020 9:31 AM CDT [facility] HGB 9.8(L) 12.0 - 16.0 G/DL 06/14/2020 9:31 AM CDT [facility] HCT 30.9(L) 38.0 - 48.0 % 06/14/2020 9:31 AM CDT [facility] MCV 80.9(L) 81.0 - 99.0 FL 06/14/2020 9:31 AM CDT [facility] MCH 25.7(L) 27.0 - 31.0 PG 06/14/2020 9:31 AM CDT [facility] MCHC 31.7(L) 32.0 - 36.0 G/DL 06/14/2020 9:31 AM CDT [facility] RDW 13.6 11.5 - 14.5 % 06/14/2020 9:31 AM CDT [facility] PLT 188 130 - 400 x10'3/uL 06/14/2020 9:31 AM CDT [facility] MPV 11.9 9.3 - 12.2 FL 06/14/2020 9:31 AM CDT [facility] DIFFERENTIAL TYPE AUTOMATED DIFFERENTIAL 06/14/2020 9:31 AM CDT [facility] NEUTROPHILS % 68.5 % 06/14/2020 9:31 AM CDT [facility] LYMPHOCYTES % 23.3 % 06/14/2020 9:31 AM CDT [facility] MONOCYTES % 6.9 % 06/14/2020 9:31 AM CDT [facility] EOSINOPHILS 0.7 % 06/14/2020 9:31 AM CDT [facility] BASOPHILS 0.2 % 06/14/2020 9:31 AM CDT [facility] IMMATURE GRANS % 0.4 % 06/14/20 20 9:31 AM CDT [facility] ABS. NEUTROPHILS TOTAL 3.79 1.80 - 7.70 x10'3/uL 06/14/2020 9:31 AM CDT [facility] ABS. LYMPHOCYTES 1.29 1.00 - 4.80 x10'3/uL 06/14/2020 9:31 AM CDT [facility] ABS. MONOCYTES 0.38 0.24 - 0.86 x10'3/uL 06/14/2020 9:31 AM CDT [facility] ABS. EOSINOPHILS 0.04 0.04 - 0.36 x10'3/uL 06/14/2020 9:31 AM CDT [facility] ABS. BASOPHILS 0.01 0.01 - 0.08 x10'3/uL 06/14/2020 9:31 AM CDT [facility] ABS. IMMATURE GRANULOCYTES 0.02 0.00 - 0.49 x10'3/uL 06/14/2020 9:31 AM CDT [facility] 06/14/2020 9:09 AM CDT us Sanchez Díaz MD LABORATORY Final Result [facility] [address] [place] [address], [place] [phone] * FOLIC ACID SERUM (06/14/2020 5:30 AM CDT) FOLATE 12.3 3.1 - 17.5 NG/ML 06/14/2020 11:13 AM CDT [facility] 06/14/2020 5:30 AM CDT us Sanchez Díaz MD LABORATORY Final Result [facility] [address] [place] [address], [place] [phone] * VITAMIN B-12 (06/14/2020 5:30 AM CDT) VITAMIN B12 S/P/B 931 254 - 1,320 PG/ML 06/14/2020 11:13 AM CDT [facility] 06/14/2020 5:30 AM CDT us Sanchez Díaz MD LABORATORY Final Result [facility] [address] [place] [address], * RETICULOCYTE CT, AUTO (06/14/2020 5:30 AM CDT) [facility] RETICULOCYTE COUNT 1.1 0.8 - 2.1 % 06/14/2020 10:10 AM CDT [facility] ABSOLUTE RETICULOCYTE 0.04 0.02 - 0.10 x10'6/uL 06/14/2020 10:10 AM CDT [facility] IMMATURE RETIC FRACTION 10.5 3.0 - 15.9 % 06/14/2020 10:10 AM CDT [facility] RETIC HGB 30.4 28.0 - 35.0 PG 06/14/2020 10:10 AM CDT [facility] 06/14/2020 5:30 AM CDT us Sanchez Díaz MD LABORATORY Final Result [facility] [address] [place] [address], [place] [phone] * FERRITIN (06/14/2020 5:30 AM CDT) Pathologist [facility] FERRITIN 55.1 8.0 - 388.0 NG/ML 06/14/2020 11:13 AM CDT [facility] 06/14/2020 5:30 AM CDT us Sanchez Díaz MD LABORATORY Final Result Performing Organization Address City/[facility]/ZIP Co de Phone Number [facility] [address] [place] [address], [place] [phone] * (ABNORMAL) IRON SAT PANEL (IRON,IBC,%SAT) (06/14/2020 5:30 AM CDT) IRON 40(L) 50.0 - 170.0 MCG/DL 06/14/2020 10:48 AM CDT [facility] IRON BINDING CAPACITY 246(L) 250 - 450 MCG/DL 06/14/2020 10:48 AM CDT [facility] IRON SATURATION 16(L) 20 - 55 % 0 10:48 AM CDT [facility] 06/14/2020 5:30 AM CDT Sanchez Díaz MD LABORATORY Final Result Performing Organization Address [facility] Co de Phone Number [facility] [address] [place] [address], [place] [phone] * MAGNESIUM (06/14/2020 5:30 AM CDT) MAGNESIUM 2.2 1.8 - 2.4 MG/DL 06/14/2020 6:17 AM CDT [facility] 06/14/2020 5:30 AM CDT Arturo Peraza MD LABORATORY Final Res ult [facility] [address] [place] [address], [place] [phone] * (ABNORMAL) COMPREHENSIVE METABOLIC PANEL (06/14/2020 5:30 AM CDT) [facility] GLUCOSE 88 70 - 99 MG/DL 06/14/2020 6:17 AM CDT [facility] BUN 11 7 - 18 MG/DL 06/14/2020 6:17 AM CDT [facility] CREATININE S/P/B 0.68 0.55 - 1.02 MG/DL 06/14/2020 6:17 AM CDT [facility] SODIUM S/P/B 140 136 - 145 MMOL/L 06/14/2020 6:17 AM CDT [facility] POTASSIUM S/P/B 3.6 3.5 - 5.1 MMOL/L 06/14/2020 6:17 AM CDT [facility] CHLORIDE S/P/B 109(H) 100 - 108 MMOL/L 06/14/2020 6:17 AM CDT [facility] CO2 28.7 21 - 32 MMOL/L 06/14/2020 6:17 AM CDT [facility] CALCIUM S/P/B 8.5 8.5 - 10.1 MG/DL 06/14/2020 6:17 AM CDT [facility] BILIRUBIN TOTAL S/P/B 0.6 0.2 - 1.2 MG/DL 06/14/2020 6:17 AM CDT [facility] Comment: THIS ASSAY IS NOT RECOMMENDED FOR PATIENTS UNDERGOING TREATMENT WITH ELTROMBOPAG DUE TO THE POTENTIAL FOR FALSELY ELEVATED RESULTS. TOTAL PROTEIN S/P/B 6.9 6.4 - 8.2 G/DL 06/14/2020 6:17 AM CDT [facility] ALBUMIN S/P/B 2.9(L) 3.4 - 5.0 G/DL 06/14/2020 6:17 AM CDT [facility] AST 11(L) 15 - 37 U/L 06/14/2020 6:17 AM CDT [facility] ALT 16 14 - 55 U/L 06/14/2020 6:17 AM CDT [facility] ALKALINE PHOSPHATASE S/P/B 92 50 - 136 U/L 06/14/2020 6:17 AM CDT [facility] ANION GAP 2.3(L) 5 - 15 MMOL/L 06/14/2020 6:17 AM CDT [facility] BUN CREATININE RATIO 16.1 6 - 06/14/2020 6:17 AM CDT [facility] A/G RATIO 0.7(L) 1.0 - 2.0 RATIO 06/14/2020 6:17 AM CDT [facility] EGFR NON-AFR. AMER. >90 >90 ML/MIN/1.7 3 M2 06/14/2020 6:17 AM CDT [facility] EGFR AFR. AMER. >90 >90 ML/MIN/1.7 3 M2 06/14/2020 6:17 AM CDT [facility] Comment: NOTE: eGFR is not calculated for patients <18 years of age. This is an estimated GFR (CKD EPI) and should not be used for calculating drug doses. 06/14/2020 5:30 AM CDT Phyllis CHILDRESSNP LABORATORY Final Res ult [facility] [address] [place] [address], [place] [phone] * (ABNORMAL) CBC W/DIFF AUTOMATED (06/14/2020 5:30 AM CDT) WBC 6.6 4.5 - 11.0 x10'3/uL 06/14/2020 5:56 AM CDT [facility] RBC 4.13(L) 4.20 - 5.40 x10'6/uL 06/14/2020 5:56 AM CDT [facility] HGB 10.6(L) 12.0 - 16.0 G/DL 06/14/2020 5:56 AM CDT [facility] HCT 33.9(L) 38.0 - 48.0 % 06/14/2020 5:56 AM CDT [facility] MCV 82.1 81.0 - 99.0 FL 06/14/2020 5:56 AM CDT [facility] MCH 25.7(L) 27.0 - 31.0 PG 06/14/2020 5:56 AM CDT [facility] MCHC 31.3(L) 32.0 - 36.0 G/DL 06/14/2020 5:56 AM CDT [facility] RDW 13.5 11.5 - 14.5 % 06/14/2020 5:56 AM CDT [facility] PLT 197 130 - 400 x10'3/uL 06/14/2020 5:56 AM CDT [facility] MPV 11.6 9.3 - 12.2 FL 06/14/2020 5:56 AM CDT [facility] DIFFERENTIAL TYPE AUTOMATED DIFFERENTIAL 06/14/2020 5:56 AM CDT [facility] NEUTROPHILS % 69.0 % 06/14/2020 5:56 AM CDT [facility] LYMPHOCYTES % 22.7 % 06/14/2020 5:56 AM CDT [facility] MONOCYTES % 6.9 % 06/14/2020 5:56 AM CDT [facility] EOSINOPHILS 0.9 % 06/14/2020 5:56 AM CDT [facility] BASOPHILS 0.2 % 06/14/2020 5:56 AM CDT [facility] IMMATURE GRANS % 0.3 % 06/14/20 20 5:56 AM CDT [facility] ABS. NEUTROPHILS TOTAL 4.53 1.80 - 7.70 x10'3/uL 06/14/2020 5:56 AM CDT [facility] ABS. LYMPHOCYTES 1.49 1.00 - 4.80 x10'3/uL 06/14/2020 5:56 AM CDT [facility] ABS. MONOCYTES 0.45 0.24 - 0.86 x10'3/uL 06/14/2020 5:56 AM CDT [facility] ABS. EOSINOPHILS 0.06 0.04 - 0.36 x10'3/uL 06/14/2020 5:56 AM CDT [facility] ABS. BASOPHILS 0.01 0.01 - 0.08 x10'3/uL 06/14/2020 5:56 AM CDT [facility] ABS. IMMATURE GRANULOCYTES 0.02 0.00 - 0.49 x10'3/uL 06/14/2020 5:56 AM CDT [facility] 06/14/2020 5:30 AM CDT Phyllis Yadav APNP LABORATORY Final Res ult [facility] [address] [place] [address], * TROPONIN, QUANT (06/13/2020 9:33 PM CDT) TROPONIN I <0.015 <0.045 ng/mL. 06/13/2020 10:10 PM CDT [facility] Comment: HIGH DOSES OF BIOTIN MAY INTERFERE WITH THIS TEST RESULT. CORRELATION TO CLINICAL HISTORY AND PRESENTATION RECOMMENDED. 06/13/2020 9:33 PM CDT Phyllis Yadav [facility] LAB[facility] Final Res ult [facility] [address] [place] [address], * TROPONIN, QUANT (06/13/2020 4:45 PM CDT) TROPONIN I <0.015 <0.045 ng/mL. 06/13/2020 5:36 PM CDT [facility] Comment: HIGH DOSES OF BIOTIN MAY INTERFERE WITH THIS TEST RESULT. CORRELATION TO CLINICAL HISTORY AND PRESENTATION RECOMMENDED. 06/13/2020 4:45 PM CDT Phyllis Yadav [facility] Final Res ult Performing Organization Address [facility] Co de Phone Number [facility] [address] [place] [address], * TROPONIN, QUANT (06/13/2020 12:05 PM CDT) TROPONIN I <0.015 <0.045 ng/mL. 06/13/2020 12:46 PM CDT [facility] Comment: HIGH DOSES OF BIOTIN MAY INTERFERE WITH THIS TEST RESULT. CORRELATION TO CLINICAL HISTORY AND PRESENTATION RECOMMENDED. 06/13/2020 12:0 5 PM CDT Phyllis Yadav [facility] Final Res ult Performing Organization Address City/[facility]/ZIP Co de Phone Number [facility] [address] [place] [address], * ECG 12 lead (06/13/2020 12:04 PM CDT) 06/13/2020 12:0 4 PM CDT Narrative [facility] ([facility]) RAD - 06/14/2020 6:45 PM CDT ?[place] ? [address] [place] [place] ? Test Date: ?2020-06-13 Pat Name: ? CLEMENTOMAR FUENTES ?Department: ? Room: ? A318 Gender: ? Female ? At Risk Specialist: ?? : ?1995 ? Requested By: SANCHEZ DÍAZ Order Number: [id number] ? Reading MD: ?? Cece Young ? Measurements Intervals ?[place] ? Rate: ? 75 ? P: ?148 ME: ? 366 ?QRS: ?36 QRSD: ? 92 ? T: ?29 QT: ? 382 ? QTc: ?427 ? Interpretive Statements sinus rhythm Baseline artifact ABNORMAL RHYTHM ECG No previous ECG available for comparison Procedure Note Cece Young MD - 06/14/[address] [facility] [address] Test Date: 2020-06-13 Pat Name: CLEMENT FUENTES Department: Room: A318 Gender: Female At Risk Specialist: : 1995 Requested By: SANCHEZ DÍAZ Order Number: [id number] [place] MD: Cece Young Measurements Intervals [place] Rate: 75 P: 148 ME: 366 QRS: 36 QRSD: 92 T: 29 QT: 382 QTc: 427 Interpretive Statements sinus rhythm Baseline artifact ABNORMAL RHYTHM ECG No previous ECG available for comparison us Sanchez Díaz MD ECG ORDERABLES Final Result [facility] ([facility]) RAD * XR CHEST PORTABLE (06/13/2020 11:53 [...] By: Gerry Mcwilliams MD, 06/13/2020 12:03 PM Sanchez Díaz MD GENERAL IMAGING Final Result [...] URINE CLEAN CATCH 06/13/2020 6:38 AM CDT [facility] SPECIAL REQUESTS NO SPECIAL REQUEST 06/13/2020 6:38 AM CDT [facility] CULTURE RESULT POLYMICROBIAL GROWTH CONSISTENT WITH NORMAL GENITAL CORWIN. ?? SUSCEPTIBILITIES NOT ROUTINELY PERFORMED. 06/14/2020 9:10 AM CDT [facility] URINE SPECIMEN OBTAINED BY CLEAN CATCH PROCEDURE / Unknown 06/13/2020 6:13 AM CDT 06/13/2020 6:38 AM CDT Rodrigo Jennings MD MICROBIOLOGY - GENERAL ORDERABL ES Final Result [facility] [address] [place] [address], [place] [phone] * (ABNORMAL) URINALYSIS (06/13/2020 6:13 AM CDT) SPECIMEN TYPE URINE CLEAN CATCH 06/13/2020 6:12 AM CDT [facility] COLOR (U) YELLOW 06/13/2020 6:38 AM CDT [facility] TRANSPARENCY TURBID 06/13/2020 6:38 AM CDT [facility] SPECIFIC GRAVITY (U) 1.033(H) 1.001 - 1.030 06/13/2020 6:38 AM CDT [facility] U PH 6.0 5.0 - 9.0 06/13/2020 6:38 AM CDT [facility] LEUKOCYTES (U) 250(A) NEGATIVE 06/13/2020 6:38 AM CDT [facility] NITRITES NEGATIVE NEGATIVE 06/13/2020 6:38 AM CDT [facility] PROTEIN (U) 100(H) <30 MG/DL 06/13/2020 6:38 AM CDT [facility] URINE GLUCOSE NORMAL NORMAL MG/DL 06/13/2020 6:38 AM CDT [facility] KETONES MG/DL (U) 80(A) NEGATIVE MG/DL 06/13/2020 6:38 AM CDT [facility] UROBILINOGEN NORMAL NORMAL MG/DL 06/13/2020 6:38 AM CDT [facility] BILIRUBIN (U) NEGATIVE NEGATIVE MG/DL 06/13/2020 6:38 AM CDT [facility] BLOOD (U) 1+(A) NEGATIVE 06/13/2020 6:38 AM CDT [facility] CULTURE & SENSITIVITY INDICATED? SPECIMEN SETUP FOR CULTURE 06/13/2020 6:38 AM CDT [facility] MUCUS MANY /LPF 06/13/2020 6:38 AM CDT [facility] WBC/HPF 10(H) <6 /HPF 06/13/2020 6:38 AM CDT [facility] RBC/HPF 22(H) <6 /HPF 06/13/2020 6:38 AM CDT [facility] AMORPHOUS SEDIMENT RARE /HPF 06/13/2020 6:38 AM CDT [facility] SQUAMOUS EPITHELIALS MODERATE /HPF 06/13/2020 6:38 AM CDT [facility] URINE SPECIMEN OBTAINED BY CLEAN CATCH PROCEDURE / Unknown 06/13/2020 6:13 AM CDT us Rodrigo Jennings MD URINE ORDERABLES Final Result [facility] [address] [place] [address], [place] [phone] * POCT urine (06/13/2020 6:12 AM CDT) URINE HCG TEST NEGATIVE NEGATIVE Comment:[id number], EXP:[id number] Internal Control performed as Expected? YES VALID us Rodrigo Jennings MD POINT OF CARE TEST ORDERABLES F inal Result * (ABNORMAL) LIPASE (06/13/2020 5:24 AM CDT) LIPASE 64(L) 73 - 393 UNITS/L 06/13/2020 5:54 AM CDT [facility] 06/13/2020 5:24 AM CDT us Rodrigo Jennings MD LABORATORY Final Result [facility] [address] [place] [address], [place] [phone] * LACTIC ACID (06/13/2020 5:24 AM CDT) Pathologist [facility] LACTIC ACID VENOUS 0.6 0.4 - 2.0 MMOL/L 06/13/2020 6:06 AM CDT [facility] 06/13/2020 5:24 AM CDT us Rodrigo Jennings MD LABORATORY Final Result Performing Organization Address City/[facility]/ZIP Co de Phone Number [facility] [address] [place] [address], [place] [phone] * (ABNORMAL) COMPREHENSIVE METABOLIC PANEL (06/13/2020 5:24 AM CDT) GLUCOSE 129(H) 70 - 99 MG/DL 06/13/2020 5:54 AM CDT [facility] BUN 11 7 - 18 MG/DL 06/13/2020 5:54 AM CDT [facility] CREATININE S/P/B 0.72 0.55 - 1.02 MG/DL 06/13/2020 5:54 AM CDT [facility] SODIUM S/P/B 136 136 - 145 MMOL/L 06/13/2020 5:54 AM CDT [facility] POTASSIUM S/P/B 3.5 3.5 - 5.1 MMOL/L 06/13/2020 5:54 AM CDT [facility] CHLORIDE S/P/B 102 100 - 108 MMOL/L 06/13/2020 5:54 AM CDT [facility] CO2 26.8 21 - 32 MMOL/L 06/13/2020 5:54 AM CDT [facility] CALCIUM S/P/B 9.5 8.5 - 10.1 MG/DL 06/13/2020 5:54 AM CDT [facility] BILIRUBIN TOTAL S/P/B 0.6 0.2 - 1.2 MG/DL 06/13/2020 5:54 AM CDT [facility] Comment: THIS ASSAY IS NOT RECOMMENDED FOR PATIENTS UNDERGOING TREATMENT WITH ELTROMBOPAG DUE TO THE POTENTIAL FOR FALSELY ELEVATED RESULTS. TOTAL PROTEIN S/P/B 8.6(H) 6.4 - 8.2 G/DL 06/13/2020 5:54 AM CDT [facility] ALBUMIN S/P/B 3.6 3.4 - 5.0 G/DL 06/13/2020 5:54 AM CDT [facility] AST 17 15 - 37 U/L 06/13/2020 5:54 AM CDT [facility] ALT 21 14 - 55 U/L 06/13/2020 5:54 AM CDT [facility] ALKALINE PHOSPHATASE S/P/B 116 50 - 136 U/L 06/13/2020 5:54 AM CDT [facility] ANION GAP 7.2 5 - 15 MMOL/L 06/13/2020 5:54 AM CDT [facility] BUN CREATININE RATIO 15.3 6 - 26 06/13/2020 5:54 AM CDT [facility] A/G RATIO 0.7(L) 1.0 - 2.0 RATIO 06/13/2020 5:54 AM CDT [facility] EGFR NON-AFR. AMER. >90 >90 ML/MIN/1.7 3 M2 06/13/2020 5:54 AM CDT [facility] EGFR AFR. AMER. >90 >90 ML/MIN/1.7 3 M2 06/13/2020 5:54 AM CDT [facility] Comment: NOTE: eGFR is not calculated for patients <18 years of age. This is an estimated GFR (CKD EPI) and should not be used for calculating drug doses. 06/13/2020 5:24 AM CDT Rodirgo Jennings MD LABORATORY Final Result [facility] [address] [place] [id number], * (ABNORMAL) CBC W/DIFF AUTOMATED (06/13/2020 5:24 AM CDT) WBC 10.9 4.5 - 11.0 x10'3/uL 06/13/2020 5:35 AM CDT [facility] RBC 5.31 4.20 - 5.40 x10'6/uL 06/13/2020 5:35 AM CDT [facility] HGB 13.6 12.0 - 16.0 G/DL 06/13/2020 5:35 AM CDT [facility] HCT 42.3 38.0 - 48.0 % 06/13/2020 5:35 AM CDT [facility] MCV 79.7(L) 80.0 - 94.0 FL 06/13/2020 5:35 AM CDT [facility] MCH 25.6(L) 27.0 - 31.0 PG 06/13/2020 5:35 AM CDT [facility] MCHC 32.2 32.0 - 36.0 G/DL 06/13/2020 5:35 AM CDT [facility] RDW 13.2 11.5 - 14.5 % 06/13/2020 5:35 AM CDT [facility] PLT 348 130 - 400 x10'3/uL 06/13/2020 5:35 AM CDT [facility] MPV 11.9 9.3 - 12.2 FL 06/13/2020 5:35 AM CDT [facility] DIFFERENTIAL TYPE AUTOMATED DIFFERENTIAL 06/13/2020 5:35 AM CDT [facility] NEUTROPHILS % 86.5 % 06/13/2020 5:35 AM CDT [facility] LYMPHOCYTES % 9.3 % 06/13/2020 5:35 AM CDT [facility] MONOCYTES % 3.7 % 06/13/2020 5:35 AM CDT [facility] EOSINOPHILS 0.0 % 06/13/2020 5:35 AM CDT [facility] BASOPHILS 0.2 % 06/13/2020 5:35 AM CDT [facility] IMMATURE GRANS % 0.3 % 06/13/20 20 5:35 AM CDT [facility] ABS. NEUTROPHILS TOTAL 9.41(H) 1.80 - 7.70 x10'3/uL 06/13/2020 5:35 AM CDT [facility] ABS. LYMPHOCYTES 1.01 1.00 - 4.80 x10'3/uL 06/13/2020 5:35 AM CDT [facility] ABS. MONOCYTES 0.40 0.24 - 0.86 x10'3/uL 06/13/2020 5:35 AM CDT [facility] ABS. EOSINOPHILS 0.00(L) 0.04 - 0.36 x10'3/uL 06/13/2020 5:35 AM CDT [facility] ABS. BASOPHILS 0.02 0.01 - 0.08 x10'3/uL 06/13/2020 5:35 AM CDT [facility] ABS. IMMATURE GRANULOCYTES 0.03 0.00 - 0.49 x10'3/uL 06/13/2020 5:35 AM CDT [facility] 06/13/2020 5:24 AM CDT us Rodrigo Jennings MD LABORATORY Final Result [facility] [address] [place] [address], [place] [phone] * CREATININE WHOLE BLOOD (06/13/2020 5:20 AM CDT) CREATININE WHOLE BLOOD 0.6 0.60 - 1.10 mg/dL 06/13/2020 5:25 AM CDT [facility] 06/13/2020 5:20 AM CDT us Rodrigo Jennings MD LABORATORY Final Result [facility] [address] [place] [address], [place] [phone] documented in this encounter Visit Diagnoses Diagnosis Umbilical hernia with obstruction but no gangrene- Primary Umbilical hernia with obstruction Umbilical hernia with obstruction but no gangrene Umbilical hernia with obstruction Cholelithiasis Calculus of gallbladder without mention of cholecystitis or obstruction Biliary colic Calculus of gallbladder without mention of cholecystitis or obstruction Abdominal pain Abdominal pain, unspecified site Cholelithiasis Calculus of gallbladder without mention of cholecystitis or obstruction Biliary colic Calculus of gallbladder without mention of cholecystitis or obstruction documented in this encounter Admitting Diagnoses Diagnosis Cholelithiasis [...] Given 06/16/2020 11:11 AM CDT 1,000 mg famotidine (PEPCID) injection 20 mg 20 mg, [...] Oral, Daily with breakfast, First dose on 06/16/20 at 0800, Until Discontinued, Give 2 hours [...] 06/16/2020 3:58 PM CDT 1 tablet iopamidol (ISOVUE-370) 76 % injection 100 mL [...] pain (Scale 8 - 10), Starting on 06/13/20 at 0817, Until Mon06/17/20 at 1645 morphine injection 4 mg 4 mg, Intravenous, Once, 1 dose, On Sat /26/20 at 0515 Given 06/13/2020 5:19 AM CDT [...] over 15 Minutes, Once, 1 dose, On Mon06/13/20 at 0515 New Bag 06/13/2020 5:19 AM CDT 500 mLs sodium chloride 0.9% bolus infusion SOLN 500 mL 500 mL, Intravenous, Administer over 15 Minutes, Once, 1 dose, On Mon06/13/20 at 0730 New Bag 06/13/2020 8:35 AM CDT 500 mLs sodium chloride 0.9% infusion at 75 mL/hr, Intravenous, Continuous, Starting on Mon06/13/20 at 0730, Until 06/14/20 at 1341 Rate/Dose Change 06/14/2020 10:31 AM [...] 1) 2 g, Intravenous, at 200 mL/hr, validation technician, 1 dose, On Mon06/16/20 at 0500, [...] 0915 (See Alternative - Provider: Nikole Sharma RN)2143 (See Alternative - Provider: Estella Will RN) 0804 (Given - Provider: Jarett Fontana RN)1119 (MAR Hold - Provider: User Epic - Reason: Unreviewed Transfer Orders)1255 (MAR Unhold - Provider: User Epic)2053 (See Alternative - Provider: Billy Nava, PEDRO) 1010 (See Alternative - Provider: Clover Canseco, PEDRO) famotidine (PEPCID) tablet 20 mg(Linked Group 2) 20 mg, Oral, Every 12 hours scheduled (2 times per day), First dose on Mon06/13/20 at 0900, Until Discontinued 0915 (Given - Provider: Nikole Sharma RN)2143 (Given - Provider: Estella Will RN) 0804 (See Alternative - Provider: Jarett Fontana RN)1119 ([facility] Hold - Provider: User Epic - Reason: Unreviewed Transfer Orders)1255 ([facility] Unhold - Provider: User Epic)2053 (Given - Provider: Billy Nava RN) 1010 (Given - Provider: Clover Canseco RN) ferrous sulfate EC tablet 324 mg 324 mg, Oral, Daily with breakfast, First dose on Mon06/16/20 at 0800, Until Discontinued, Give 2 hours before or 4 hours after antacids. Do not break, chew, or crush. 1119 ([facility] Hold - Provider: User Epic - Reason: Unreviewed Transfer Orders)1255 ([facility] Unhold - Provider: User Epic)1706 (Given - Provider: Jarett Fontana RN) 1010 (Given - Provider: Clover Canseco RN) gabapentin (NEURONTIN) capsule 300 mg (COMPLETED) 300 mg, Oral, Once, 1 dose, On Mon06/16/20 at 1130, Pre-Op 1111 (Given - Provider: Tacos Powell RN)1130 (Due) ondansetron (ZOFRAN-ODT) disintegrating tablet 8 mg (COMPLETED) 8 mg, Oral, Once, 1 dose, On Mon06/16/20 at 1130, On admission, Pre-Op 1111 (Given - Provider: Tacos Powell RN)1130 (Due) potassium chloride CR (K-TAB) tablet 20 mEq 20 mEq, Oral, Daily, First dose on Mon06/15/20 at 1245, Until Discontinued, Do not break, chew, or crush. 1346 (Given - Provider: Nikole Sharma RN) 1119 ([facility] Hold - Provider: User Epic - Reason: Unreviewed Transfer Orders)1255 (NOV Unhold - Provider: User Epic)1705 (Given - Provider: Jarett Fontana RN) 1010 (Given - Provider: Clover Canseco RN) Continuous Medication Order 06/15/2020 06/16/2020 06/17/2020 lactated [...] Post-Op 1609 (New Bag - Provider: Jarett Fontana RN) PRN Medication Order 06/15/2020 06/16/2020 06/17/2020 bisacodyl (DULCOLAX) suppository 10 mg 10 mg, Rectal, Daily as needed, Constipation, Starting on Mon06/16/20 at 1517, Until Mon06/17/20 at 1645, Post-Op BUpivacaine-EPINEPHrine 0.5% -[id number] injection (CANCELED) As needed, Starting on Mon06/16/20 [...] interval., PACU 1309 (Given - Provider: Merlin Meyer, PEDRO)1317 (Given - Provider: Merlin Meyer, PEDRO) HYDROcodone-acetaminophe n (NORCO) 5-325 MG tablet 1 tablet 1 tablet, Oral, Every 4 hours PRN, Moderate pain (Scale 4 - 7), Starting on 06/13/20 at 0817, Until Mon06/17/20 at 1645, Maximum dose of acetaminophen is 4000 mg from all sources in 24 hours. 1205 (Given - Provider: Nikole Sharma, PEDRO) 1119 (MAR Hold - Provider: User Epic - Reason: Unreviewed Transfer Orders)1255 (MAR Unhold - Provider: User Epic)1558 (Given - Provider: Jarett Fontana, PEDRO)2054 (Given - Provider: Billy Nava, RN) 1219 (Given - Provider: Clover Canseco [...] pain (Scale 8 - 10), Starting on 06/13/20 at 0817, Until Mon06/17/20 at 1645 1119 (MAR Hold - Provider: User Epic - Reason: Unreviewed Transfer Orders)1255 (MAR Unhold - Provider: User Epic) naLOXone (NARCAN) injection 0.4 mg 0.4 mg, Intravenous, As needed, Opioid reversal, Starting on Mon06/13/20 at 0817, Until Mon06/17/20 at 1645 1119 (NOV Hold - Provider: User Epic - Reason: Unreviewed Transfer Orders)1255 (NOV Unhold - Provider: User Epic) ondansetron (ZOFRAN) injection 4 mg 4 mg, Intravenous, Every 8 hours PRN, Nausea, Vomiting, Starting on Mon06/13/20 at 0817, Until Mon06/17/20 at 1645, IV push over 2-5 minutes. 1119 (NOV Hold - Provider: User Epic - Reason: Unreviewed Transfer Orders)1255 (NOV Unhold - Provider: User Epic) Linked Groups Order Group 1: ceFAZolin (ANCEF) 2 g in sodium chloride 0.9 % 100 mL IVPB (COMPLETED)Jump to med 2 g, Intravenous, at 200 mL/hr, validation technician, 1 dose, On Mon06/16/20 at 0500, Give 2 gram dose for patients less than 120 kg. Give within 60 minutes of surgical incision., Pre-Op Or ceFAZolin (ANCEF) 3 g in sodium chloride 0.9 % 100 mL IVPB (COMPLETED) 3 g, Intravenous, at 200 mL/hr, validation technician, 1 dose, On Mon06/16/20 at 0500, [...] dose on Mon06/13/20 at 0900, Until Discontinued documented in this encounter Additional Health Concerns Infection Onset Date Last Indicated Resolved Time COVID-19 Rule Out 06/14/2020 06/14/2020 06/15/2020 7:45 AM CDT documented as of this encounter Care Teams Crutcher Helper Relationship Specialty Start Date End Date Tejinder Duarte MD [address] [address] [place] [address] PCP - General INTERNAL MEDICINE 05/04/20 01/06/24 documented as of this encounter
--- OUTSIDE RECORDS SUMMARY | 2024-10-01 17:55 | XMS_ITS | Encounter Summary ---
Author Organization [facility] Address [address] [facility] [place] [address] Care Team Providers Care Internet Marketing Assistant Name Role Phone Salinas Escobar MD Primary Care Provider [phone] Encounter Details Date Type Department Care Team (Latest Contact Info) Description 07/05/2023 Travel Social History Tobacco Use Types Packs/Day Years [...] on filedocumented in this encounter Care Teams Internet Marketing Assistant Relationship Specialty Start Date End Date Salinas Escobar MD [address] [place] [address] PCP - General Family Medicine 07/05/23 09/03/23 documented as of this encounter
--- OUTSIDE RECORDS SUMMARY | 2024-10-01 17:55 | XMS_ITS | Encounter Summary ---
Author Organization [facility] Address [address] [place] [address]. [place] [address] [place] [address] Care Team Providers Care Remote Pilot Operator Name Role Phone Salinas Escobar MD Primary Care Provider [phone] Reason for Visit * Reason Comments New Patient Bilat knee pain Encounter Details Date Type Department Care Team (Late st Contact Info) Description 03/04/2024 9:00 AM CDT Office Visit [facility] - [place] [address] [place], [place] [phone] Lino Wells MD [address] [place], [place] [phone] New Patient (Bilat knee pain) Social History Tobacco Use Types Packs/Day Years [...] 03/04/2024 9:27 AM CD T Respiratory Rate - - Oxygen Saturation 98% 03/04/2024 9:27 AM CDT Inhaled Oxygen Concentration - - Weight 105 kg (231 lb 6.4 oz) 03/04/2024 9:27 AM CDT Height 165.1 cm (5' 5 ) 03/04/2024 9:27 AM CDT Body Mass Index 38.51 03/04/2024 9:27 AM CDT documented in this encounter Functional Status [...] documented in this encounter Progress Notes * Lino Wells MD - 03/04/2024 9:00 AM CDT Images from the original note were not included. Office Visit Reason for Visit: New Patient (Bilat knee pain) History of Present Illness: Patient is a 28 year old female who is referred today for an evaluation of her bilateral knees, left worse than right. She began having pain in the left knee last December. She does not recall any specific injury or trauma, at that time. Then, prior to she fell on the right knee. She did notseek treatment until July and obtained an MRI. She did have an injection into the right knee, and was ordered outpatient therapy. She did a course of physical therapy last fall. She is prescribed therapy again but had difficulty getting to sessions due to other commitments. She has children and also has 2 separate jobs. Vitals: Filed Vitals: 03/04/24 0927 BP: 109/74 Pulse: 84 Temp: 97.5 ??F (36.4 ??C) TempSrc: Temporal SpO2: 98% Weight: 105 kg (231 lb 6.4 oz) Height: 1.651 m (5' 5 ) Physical Exam: Physical Exam Constitutional: She is oriented to person, place, and time. She appears well- developed and well-nourished. HENT: Head: Normocephalic. Eyes: EOM are normal. Cardiovascular: Extremities perfused. Pulmonary/Chest: Effort normal. No respiratory distress. Neurological: She is alert and oriented to person, place, and time. Psychiatric: She has a normal mood and affect. Ortho: RLE: 10 degrees of hyperextension to almost 120 degrees of flexion. Good endpoints with Guilherme's. 1+ excursion with anterior drawer. Guilherme's is normal. No pain with rotational stress of the knee. Negative Tracy's. No effusion. Decent quadricep strength. LLE: 10 degrees of hyperextension to almost 120 degrees of flexion. No appreciable deficit with quadriceps testing. She has 2+ laxity to anterior drawer with soft or minimal endpoint. Also an abnormal Guilherme's exam. No effusion. OXR RT KNEE 3V PROCEDURE: OXR RT KNEE 3V VIEWS: 7 DATE: 03/04/24 CLINICAL INDICATION: knee pain FINDINGS: No fractures. No significant degenerative changes. IMPRESSION: Normal right knee. OXR LT KNEE 3V PROCEDURE: OXR LT KNEE 3V VIEWS: 4 DATE: 03/04/24 CLINICAL INDICATION: knee pain FINDINGS: No fractures. No significant degenerative changes. IMPRESSION: Normal left knee. MRI reports are available. These show anterior lateral meniscus tear on the right knee from June2023 and likely ACL tear left knee from the MRI from August 2023. Assessment: Left knee ACL disruption Right knee lateral meniscus tear Plan: I explained to the patient I do not feel she would benefit from any surgical intervention. We did discuss repeat injections, but I cautioned that we cannot repeat these too often. Primary complaint is weakness and quadricep strengthening and therapy are likely to help with her weakness. I offered anew prescription for outpatient therapy, she declined this. Follow up as needed. Procedures Summary: Verónica was seen today for new patient. Diagnoses and all orders for this visit: Left knee pain, unspecified chronicity - OXR LT KNEE 3V; Future Right knee pain, unspecified chronicity - OXR RT KNEE 3V; Future ROS: ROS Medications: Current Outpatient Medications: [id number] OR, Take 1 tablet by mouth daily., Disp: , Rfl: Allergies: Review of patient's allergies indicates: No Known Allergies Medical History: Past Medical History: Diagnosis Date Ureterocele Urinary tract infection Surgical History: Past Surgical History: Procedure Laterality Date CHOLECYSTECTOMY HERNIA REPAIR Social History: Social History Socioeconomic History Marital status: Single Tobacco Use Smoking status: Never Smokeless tobacco: Never Vaping Use Vaping status: Never Used Substance and Sexual Activity Alcohol use: Not Currently Comment: social Drug use: Never Sexual activity: Not Currently Social Determinants of Health Intimate Partner Violence: Not At Risk (12/22/2023) Received from [place], [place] and Affiliate Partners Intimate Partner Violence Are you in a relationship with someone who hurts you emotionally and/or physically?: No Family History: Family History Problem Relation Name Age of Onset No Known Problems Father No Known Problems Mother By signing below, Vannesa Hayes, attest that this documentation has been prepared in the presence of and under the direction of Dr. Lino Wells MD. Provider Attestation: LINO Hayes MD, personally performed the services described in thisdocumentation. All medical record and diagnosis entries made by the scribe were at my direction andin my presence. I have reviewed the chart and agree that the record reflects my personal performance and is accurate and complete. documented in this encounter Plan of Treatment Not on file documented as of this encounter Results * OXR RT KNEE 3V (03/04/2024 9:45 AM CDT) Anatomical Region Laterality Modality Radiographic Milka ging Narrative 03/04/2024 9:49 AM CDT PROCEDURE: OXR RT KNEE 3V VIEWS: 7 DATE: ??03/04/24 CLINICAL INDICATION: knee pain FINDINGS: No fractures. ??No significant degenerative changes. IMPRESSION: Normal right knee. us Lino Wells MD GENERAL IMAGING Final Result * OXR LT KNEE 3V (03/04/2024 9:44 AM CDT) Anatomical Region Laterality Modality Radiographic Milka ging Narrative 03/04/2024 9:49 AM CDT PROCEDURE: OXR LT KNEE 3V VIEWS: 4 DATE: ??03/04/24 CLINICAL INDICATION: knee pain FINDINGS: No fractures. ??No significant degenerative changes. IMPRESSION: Normal left knee. us Lino Wells MD GENERAL IMAGING Final Result documented in this encounter Visit Diagnoses Diagnosis Left knee pain, unspecified chronicity- Primary Right knee pain, unspecified chronicity documented in this encounter Care Teams Remote Pilot Operator Relationship Specialty Start Date End Date Salinas Escobar MD [address] [place] [address] PCP - General FAMILY PRACTICE 01/14/24 documented as of this encounter
--- OUTSIDE RECORDS SUMMARY | 2024-10-01 17:55 | XMS_ITS | Encounter Summary ---
Author Organization [facility] Address [address] [facility] [place] [address] Care Team Providers Care Retail Interior Designer Name Role Phone Salinas Escobar MD Primary Care Provider [phone] Encounter Details Date Type Department Care Team (Latest Contact Info) Description 09/06/2023 Travel Social History Tobacco Use Types Packs/Day [...] on filedocumented in this encounter Care Teams Retail Interior Designer Relationship Specialty Start Date End Date Salinas Escobar MD [address] [place] [address] PCP - General Family Medicine 09/04/23 documented as of this encounter
--- OUTSIDE RECORDS SUMMARY | 2024-10-01 17:55 | XMS_ITS | Encounter Summary ---
Author Organization [facility] Address [address] [facility] [place] [address] Care Team Providers Care Meat Service Team Member Name Role Phone Unavailable Primary Care Provider Unavailabl e Encounter Details Date Type Department Care Team (Latest Contact Info) Description 06/07/2023 Travel Social History Tobacco Use Types Packs/Day [...]
--- OUTSIDE RECORDS SUMMARY | 2024-10-01 17:55 | XMS_ITS | Encounter Summary ---
Author Organization [facility] Address [facility] [facility] [place], [place] [address] [place] [address] Care Team Providers Care Fire Extinguisher Repairer Inspector Name Role Phone Tejinder Bergeron MD Primary Care Provider Encounter Details Date Type Department Care Team (Latest Contact Info) Description 06/29/2022 Travel Social History Tobacco Use Types Packs/Day [...] Cardoso RN Active documented in this encounter Plan of Treatment Not on file documented as of this encounter Visit Diagnoses Not on filedocumented in this encounter Care Teams Fire Extinguisher Repairer Inspector Relationship Specialty Start Date End Date Tejinder Bergeron MD [address] [facility] [address] [place] [address] PCP - General INTERNAL MEDICINE 05/04/20 01/06/24 documented as of this encounter
--- OUTSIDE RECORDS SUMMARY | 2024-10-01 17:55 | XMS_ITS | Encounter Summary ---
Author Organization [facility] Address [address] [place] [address]. [place] [address] [place] [address] Care Team Providers Care End Trimmer Name Role Phone Salinas Escobar MD Primary Care Provider [phone] Reason for Visit * Reason Onset Date Comments Appointment Request 01/15/2024 Encounter Details Date Type Department Care Team (Late st Contact Info) Description 01/15/2024 Telephone [facility] Orthopedic & Sports Medicine - [place] [address] [place], [place] [id number] [phone] Shad Wells MD [address] [place], [place] [phone] Appointment Request Social History Tobacco Use Types Packs/Day Years [...] Progress Notes * Kristel Rawls RN - 01/15/2024 6:12 PM CDT OK to schedule with [facility] when available. * Krystal Hernández - 01/15/2024 9:56 AM CDTSummary: second opinion Pt called in and stated that recently have been going to see [facility] and have had MRI's taken on both knees and XR and they told told her RT knee is a mensicus tear and LT one is ACL per the MRI results, she doesn't have in hand the MRI disc or report, says it is only on phone currently. She is wanting to know if we can see her to get a second opinion and she also wants something closer to her home [phone] documented in this encounter Plan of Treatment Not on file documented as of this encounter Visit Diagnoses Not on filedocumented in this encounter Care Teams End Trimmer Relationship Specialty Start Date End Date Salinas Escobar MD [address] [place] [phone] PCP - General FAMILY PRACTICE 01/14/24 documented as of this encounter
--- OUTSIDE RECORDS SUMMARY | 2024-10-01 17:55 | XMS_ITS | Clinical Summary ---
Author Organization [facility] Address [address] [facility] [place] [address] Care Team Providers Care Customer Leader Name Role Phone Salinas Escobar MD Primary Care Provider [phone] Source Comments [facility],non-owned Affiliates and Associated Physician Practices is amultiple site organization consisting of ambulatory clinics and hospital sitesin [place], [place], [place] and [place]. This disclosure is being madepursuant to the Care Everywhere program and may not contain all information available regarding this patient. Last updated 18.[employer] Allergies No known active allergies Medications Be aware that medications may not be up to date on this document. Always verify current medications with the patient. No known medications Active Problems Problem Noted Date Diagnosed Date Bilateral chronic knee pain 07/05/2023 Immunizations Name Administration Dates Next Due DTaP VACCINE IM (6wk-6yrs) 08/13/1999 FLU VACCINE QUAD IIV4 SPLIT 0.25 ML IM 7 HEP B VACCINE, PED/ADOL 12/22/2003,08/08/2000, Human Papilloma Virus Bivalent Vaccine 8,04/01/2008,01/22/2008 INFLUENZA VACCINE 08/22/2014,08/07/2013,07/30/20 08 MENINGOCOCCAL VACCINE 01/22/2008 MMR 08/08/2000,08/13/1999 POLIO IPV 08/13/1999 TDAP (7yrs+) 10/05/2018,12/30/2014,01/22/2008 Td (Adult), 2 Lf Tetanus Tox oid, Adsorbed, Pf 08/13/1999 Social History Tobacco Use Types Packs/Day Years [...] 106.1 kg (234 lb) 09/06/2023 10:42 AM CUSTOMS OPENER VERIFIER PACKER Height 165.1 cm (5' 5 ) 08/23/2023 9:36 AM CUSTOMS OPENER VERIFIER PACKER Body Mass Index 38.94 08/23/2023 9:36 AM CUSTOMS OPENER VERIFIER PACKER Plan of Treatment Health Maintenance Due Date Last Done Comments PAP SMEAR 1993 HIV SCREENING 2008 HEPATITIS C SCREENING 12/15/2011 COVID-19 VACCINE ( season) 2024 INFLUENZA VACCINE (#1) 2024 7, 08/22/2014, 08/07/2013, Additional history exists DEPRESSION SCREENING 09/18/2024 09/06/2023 DTAP/TDAP/TD VACCINES (5 - Td or Tdap) 10/05/2028 10/05/2018, 12/30/2014, 01/22/2008, Additional history exists ZOSTER VACCINE (1 of 2) 12/20/2043 HEPATITIS B VACCINE Completed 12/22/2003, 08/08/2000, 08/13/1999 MENINGOCOCCAL VACCINE Aged Out 01/22/2008 No gloria anne marie eligible based on patient's age to complete this topic HPV VACCINE Completed 07/30/2008, 03/18, 01/22/2008 HIB VACCINE Aged Out No longer eligi ble based on patient's age to complete this topic PNEUMOCOCCAL VACCINE Aged Out No long er eligible based on patient's age to complete this topic Care Teams Customer Leader Relationship Specialty Start Date End Date Salinas Escobar MD [address] [place] [address] PCP - General Family Medicine 09/04/23
--- OUTSIDE RECORDS SUMMARY | 2024-10-01 17:55 | XMS_ITS | Encounter Summary ---
Author Organization [facility] Address [address] [place] [address]. [place] [address] [place] [address] Care Team Providers Care Printed Circuit Layout Taper Name Role Phone None, Provider Primary Care Provider Unavaila ble Reason for Visit * Reason Comments Medical Screening Encounter Details Date Type Department Care Team (Late st Contact Info) Description 01/07/2024 12:31 PM CDT - 01/07/2024 2:33 PM CDT Emergency Health system Emergency [place], [place] [id number] Ramesh Mckay, SAMY [address] [place] [id number] Medical Screening Discharge Disposition: Home or Self Care (Routine [...] Sign Reading Time Taken Comments Blood Pressure 119/79 01/07/2024 2:01 PM CDT Pulse 72 01/07/2024 2:01 PM CDT Temperature 36.4 ??C (97.5 ??F) 01/07/2024 12:00 PM C DT Respiratory Rate 16 01/07/2024 2:01 PM CDT Oxygen Saturation 98% 01/07/2024 2:01 PM CDT Inhaled Oxygen Concentration - - Weight 104.3 kg (230 lb) 01/07/2024 12:00 PM CDT Height 165.1 cm (5' 5 ) 01/07/2024 12:00 PM CDT Body Mass Index 38.27 01/07/2024 12:00 PM CDT documented in this encounter Functional [...] Date Author Status No 06/13/2020 2:48 PM [place] Najma Best RN Active documented in this encounter Discharge Instructions * Attachments The following attachments cannot be sent through Care Everywhere. * Urinary tract infections in adults (Zimbabwean) documented in this encounter Medications at Time of Discharge cephALEXin (KEFLEX) 500 MG capsule Take 1 capsule (500 mg total) by mouth 4 (four) times daily for 7 days. 28 capsule 01/07/2024 01/14/2024 cyclobenzaprine (FLEXERIL) 10 MG tablet Take 1 tablet (10 mg total) by mouth 3 (three) times daily as needed. 15 tablet 10/02/2022 03/04/2024 lidocaine 4 % patch Place 1 patch onto the skin daily. Remove & Discard patch within 12 hours or as directed by MD Erick ball 10/02/2022 03/04/2024 documented as of this encounter ED Notes * Lay Merida RN - 01/07/2024 2:27 PM CDT Provider discussed today's findings with the patient/family. The patient has been given informationregarding their treatment, follow up and concerning symptoms for which they should seek urgent or emergent attention. I have expressed the the importance of seeking attention should there be any new,or worsening symptoms or persistence of their condition. Patient verbalized understanding of the discharge instructions. * Ramesh Mckay NP - 01/07/2024 12:10 PM CDT [place], [place] ER/CC Encounter Chief Complaint Chief Complaint Patient presents with Medical Screening History of Present Illness Patient ambulatory to the emergency room with complaints of fatigue. Patient states that she believes that she may be dehydrated. Patient also states that she has been told in the past that she has anemia and low iron. Denies any chest pain, shortness of breath or palpitations. Denies any lightheadedness. Denies any known sick contacts. Denies any cough, nausea, vomiting, diarrhea. Medical History ALLERGIES: Review of patient's allergies indicates: No Known Allergies MEDICATIONS: Prior to Admission medications Medication Sig Start Date End Date Taking? Authorizing Provider cephALEXin (KEFLEX) 500 MG capsule Take 1 capsule (500 mg total) by mouth 4 (four) times daily for 7 days. 01/07/24 01/14/24 Yes Ramesh Mckay NP cyclobenzaprine (FLEXERIL) 10 MG tablet Take 1 tablet (10 mg total) by mouth 3 (three) times daily as needed. 10/02/22 [place] [place] lidocaine 4 % patch Place 1 patch onto the skin daily. Remove & Discard patch within 12 hours or as directed by 10/02/22 [place] [place] PAST MEDICAL HISTORY: Past Medical History: Diagnosis Date Ureterocele Urinary tract infection PAST SURGICAL HISTORY: Past Surgical History: Procedure Laterality Date CHOLECYSTECTOMY HERNIA REPAIR FAMILY HISTORY: Family History Problem Relation Name Age of Onset No Known Problems Father No Known Problems Mother SOCIAL HISTORY: Social History Tobacco Use Smoking status: Never Smokeless tobacco: Never Vaping Use Vaping status: Never Used Substance Use Topics Alcohol use: Not Currently Comment: social Drug use: Never Review of Systems Review of Systems Constitutional: Positive for fatigue. Negative for activity change, appetite change, chills, diaphoresis, fever and unexpected weight change. HENT: Negative. Eyes: Negative. Respiratory: Negative. Cardiovascular: Negative. Gastrointestinal: Negative. Endocrine: Negative. Genitourinary: Negative. Musculoskeletal: Negative. Skin: Negative. Allergic/Immunologic: Negative. Neurological: Negative. Hematological: Negative. Psychiatric/Behavioral: Negative. Physical Exam Filed Vitals: 01/07/24 1200 01/07/24 1309 01/07/24 1401 BP: 131/79 112/65 119/79 Pulse: 88 80 72 Resp: 18 16 16 Temp: 97.5 ??F (36.4 ??C) TempSrc: Temporal SpO2: 99% 100% 98% Weight: 104.3 kg (230 lb) Height: 1.651 m (5' 5 ) Physical Exam Vitals and nursing note reviewed. Constitutional: General: She is not in acute distress. Appearance: Normal appearance. She is not ill-appearing or toxic-appearing. HENT: Head: Normocephalic and atraumatic. Right Ear: External ear normal. Left Ear: External ear normal. Nose: Nose normal. Mouth/Throat: Mouth: Mucous membranes are moist. Eyes: Extraocular Movements: Extraocular movements intact. Pupils: Pupils are equal, round, and reactive to light. Cardiovascular: Rate and Rhythm: Normal rate. Heart sounds: No murmur heard. Pulmonary: Effort: Pulmonary effort is normal. Breath sounds: Normal breath sounds. Abdominal: General: There is no distension. Palpations: Abdomen is soft. There is no mass. Tenderness: There is no abdominal tenderness. There is no right CVA tenderness, left CVA tendernessor guarding. Musculoskeletal: General: No swelling or tenderness. Normal range of motion. Cervical back: Normal range of motion and neck supple. Skin: General: Skin is warm and dry. Capillary Refill: Capillary refill takes less than 2 seconds. Neurological: General: No focal deficit present. Mental Status: She is alert and oriented to person, place, and time. Psychiatric: Mood and Affect: Mood normal. Behavior: Behavior normal. Diagnostic Studies / Procedures ELECTROCARDIOGRAMS: No results found for this visit on 01/07/24. LABORATORY STUDIES: Results for orders placed or performed during the hospital encounter of 01/07/24 CBC W/DIFF AUTOMATED Result Value Ref Range WBC 9.32 4.5 - 11.0 x10'3/uL RBC 5.12 4.20 - 5.40 x10'6/uL HGB 12.6 12.0 - 16.0 G/DL HCT 39.8 38.0 - 48.0 % MCV 77.7 (L) 81.0 - 99.0 FL MCH 24.6 (L) 27.0 - 31.0 PG MCHC 31.7 (L) 32.0 - 36.0 G/DL RDW 15.9 (H) 11.5 - 14.5 % PLT 396 130 - 400 x10'3/uL MPV 9.5 9.3 - 12.2 FL DIFFERENTIAL TYPE AUTOMATED DIFFERENTIAL NEUTROPHILS 70.9 % LYMPHOCYTES 23.0 % MONOCYTES 5.0 % EOSINOPHILS 0.5 % BASOPHILS 0.3 % IMMATURE GRANS 0.3 % ABS. NEUTROPHILS 6.60 1.80 - 7.70 x10'3/uL ABS. LYMPHOCYTES 2.14 1.00 - 4.80 x10'3/uL ABS. MONOCYTES 0.47 0.24 - 0.86 x10'3/uL ABS. EOSINOPHILS 0.05 0.04 - 0.36 x10'3/uL ABS. BASOPHILS 0.03 0.01 - 0.08 x10'3/uL ABS. IMMATURE GRANULOCYTES 0.03 0.00 - 0.49 x10'3/uL COMPREHENSIVE METABOLIC PANEL Result Value Ref Range GLUCOSE 98 70 - 99 MG/DL BUN 11 7 - 18 MG/DL CREATININE S/P/B 0.64 0.55 - 1.02 MG/DL SODIUM S/P/B 136 136 - 145 MMOL/L POTASSIUM S/P/B 3.8 3.5 - 5.1 MMOL/L CHLORIDE S/P/B 106 100 - 108 MMOL/L CO2 25.3 21 - 32 MMOL/L CALCIUM S/P/B 9.1 8.5 - 10.1 MG/DL BILIRUBIN TOTAL S/P/B 0.8 0.2 - 1.2 MG/DL TOTAL PROTEIN S/P/B 8.4 (H) 6.4 - 8.2 G/DL ALBUMIN S/P/B 3.1 (L) 3.4 - 5.0 G/DL AST 12 (L) 15 - 37 U/L ALT 20 14 - 55 U/L ALKALINE PHOSPHATASE S/P/B 121 50 - 136 U/L ANION GAP 4.7 (L) 5 - 15 MMOL/L BUN CREATININE RATIO 17.3 6 - 26 A/G RATIO 0.6 (L) 1.0 - 2.0 RATIO GFR ESTIMATE >90 >90 ML/MIN/1.73 M2 TSH W/REFLEX Result Value Ref Range TSH 4.640 (H) 0.358 - 3.74 uIU/ML URINALYSIS Result Value Ref Range Specimen Type URINE CLEAN CATCH COLOR (U) LIGHT YELLOW TRANSPARENCY TURBID SPECIFIC GRAVITY (U) 1.015 1.001 - 1.030 U PH 5.0 5.0 - 9.0 LEUKOCYTES (U) 500 (A) NEGATIVE NITRITES NEGATIVE NEGATIVE PROTEIN RANDOM (U) NEGATIVE <30 MG/DL GLUCOSE (U) NORMAL NORMAL MG/DL KETONES (U) NEGATIVE NEGATIVE MG/DL UROBILINOGEN NORMAL NORMAL MG/DL BILIRUBIN (U) NEGATIVE NEGATIVE MG/DL BLOOD (U) 1+ (A) NEGATIVE CULTURE & SENSITIVITY INDICATED? SPECIMEN SETUP FOR CULTURE MUCUS RARE /LPF WBC/HPF 5 <6 /HPF RBC/HPF 5 <6 /HPF SQUAMOUS EPITHELIALS MANY /HPF THYROXINE, FREE (FT4) Result Value Ref Range FREE T4 1.02 0.76 - 1.46 NG/DL POCT urine Result Value Ref Range URINE HCG TEST NEGATIVE Internal Control: VALID IMAGING STUDIES No orders to display ED Course / Medical Decision Making MDM Number of Diagnoses or Management Options UTI (urinary tract infection) Diagnosis management comments: I have spoken to the patient about signs and symptoms. Patient awarethat she will receive IV, serum lab work, IV fluids. Patient comfortable with this plan. Patient aware that she is not anemic. Patient has no metabolic derangement. Patient does appear to have UTI. Patient will be placed on Keflex. Patient is comfortable with this plan. She is aware that urinary tract infection can make you feel fatigued. Patient encouraged to follow-up with primary care physician. She is comfortable with this plan has no questions or concerns. Risk of Complications, Morbidity, and/or Mortality Presenting problems: moderate Diagnostic procedures: moderate Management options: low Patient Progress Patient progress: stable Medications sodium chloride 0.9% bolus infusion 1,000 mL (0 mLs Intravenous Infusion Stop Time 01/07/24 1310) Clinical Impression UTI (urinary tract infection) (Primary) Current Discharge Medication List START taking these medications Details cephALEXin (KEFLEX) 500 MG capsule Take 1 capsule (500 mg total) by mouth 4 (four) times daily for 7 days. Qty: 28 capsule, Refills: 0 Class: Eprescribe Pharmacy: [address] (Ph #: [phone]) Disposition: Discharge Follow-Up: Tejinder Bergeron MD [address] [facility] [address] [facility] [id number] Ramesh Mckay NP 01/07/2024 Ramesh Mckay NP 01/07/24 1414 Cosigned by Esau Campbell MD at 01/07/2024 2:33 PM CDT * Preeti Patterson RN - 01/07/2024 12:06 PM CDT Pt ambulatory to ED w/ c/o low energy and feeling dehydrated. Pt denies n/v/diarrhea. Pt denies cough. Pt denies all other sx. Pt states this has been ongoing x3-4 months. Pt states she was told that her iron was low,a dn that she might need an infusion or transfusion . documented in this encounter Plan of Treatment Not on file documented as of this encounter Procedures Procedure Name Priority Date/Time Associated Diagnosis Comments TSH W/REFLEX STAT 01/07/2024 12:42 PM CDT HC URINALYSIS AUTO W/O MICRO STAT 01/07/2024 12:42 PM CDT URINE BACTERIA CULTURE Routine 12:42 PM CDT COMPREHENSIVE METABOLIC PANEL STAT 01/07/2024 12:42 PM CDT CBC W/DIFF AUTOMATED STAT 01/07/2024 12:42 PM CDT THYROXINE, FREE (FT4) STAT 01/07/2024 12:42 PM CDT POCT URINE (BACK OFFICE) STAT 01/07/2024 12:39 PM CDT documented in this encounter Results * THYROXINE, FREE (FT4) (01/07/2024 12:42 PM CDT) FREE T4 1.02 0.76 - 1.46 NG/DL 01/07/2024 1:48 PM CDT [facility] 01/07/2024 12:4 2 PM CDT Ramesh Mckay NP LABORATORY Final Result [facility] [address] [place] [address], [place] [phone] * CULTURE URINE (01/07/2024 12:42 PM CDT) SPEC DESCRIPTION URINE CLEAN CATCH 01/07/2024 1:13 PM CDT [facility] SPECIAL REQUESTS NO SPECIAL REQUEST 01/07/2024 1:13 PM CDT [facility] CULTURE RESULT POLYMICROBIAL GROWTH CONSISTENT WITH NORMAL GENITAL CORWIN. ?? SUSCEPTIBILITIES NOT ROUTINELY PERFORMED. 01/08/2024 9:33 AM CDT [facility] URINE SPECIMEN OBTAINED BY CLEAN CATCH PROCEDURE / Unknown 01/07/2024 12:42 PM CDT 01/07/2024 1:12 PM CDT us Ramesh Ricardo Mckay PLASTIC [employer]LLS M[employer] FILLER MICROBIOLOGY - GENERAL ORDERAB LES Final Result [facility] [address] [place] [address], [place] [phone] * (ABNORMAL) URINALYSIS (01/07/2024 12:42 PM CDT) SPECIMEN TYPE URINE CLEAN CATCH 01/07/2024 12:39 PM CDT [facility] COLOR (U) LIGHT YELLOW 01/07/2024 12:59 PM CDT [facility] TRANSPARENCY TURBID 01/07/2024 12:59 PM CDT [facility] SPECIFIC GRAVITY (U) 1.015 1.001 - 1.030 01/07/2024 12:59 PM CDT [facility] U PH 5.0 5.0 - 9.0 01/07/2024 12:59 PM CDT [facility] LEUKOCYTES (U) 500(A) NEGATIVE 01/07/2024 12:59 PM CDT [facility] NITRITES NEGATIVE NEGATIVE 01/07/2024 12:59 PM CDT [facility] PROTEIN RANDOM (U) NEGATIVE <30 MG/DL 01/07/2024 12:59 PM CDT [facility] GLUCOSE (U) NORMAL NORMAL MG/DL 01/07/2024 12:59 PM CDT [facility] KETONES MG/DL (U) NEGATIVE NEGATIVE MG/DL 01/07/2024 12:59 PM CDT [facility] UROBILINOGEN NORMAL NORMAL MG/DL 01/07/2024 12:59 PM CDT [facility] BILIRUBIN (U) NEGATIVE NEGATIVE MG/DL 01/07/2024 12:59 PM CDT [facility] BLOOD (U) 1+(A) NEGATIVE 01/07/2024 12:59 PM CDT [facility] CULTURE & SENSITIVITY INDICATED? SPECIMEN SETUP FOR CULTURE 01/07/2024 12:59 PM CDT [facility] MUCUS RARE /LPF 01/07/2024 12:59 PM CDT [facility] WBC/HPF 5 <6 /HPF 01/07/2024 12:59 PM CDT [facility] RBC/HPF 5 <6 /HPF 01/07/2024 12:59 PM CDT [facility] SQUAMOUS EPITHELIALS MANY /HPF 01/07/2024 12:59 PM CDT [facility] URINE SPECIMEN OBTAINED BY CLEAN CATCH PROCEDURE / Unknown 01/07/2024 12:42 PM CDT Ramesh Mckay NP URINE ORDERABLES Final Result [facility] [address] [place] [address], [place] [phone] * (ABNORMAL) TSH W/REFLEX (01/07/2024 12:42 PM CDT) TSH 4.640(H) 0.358 - 3.74 uIU/ML 01/07/2024 1:30 PM CDT [facility] Comment: HIGH DOSES OF BIOTIN MAY INTERFERE WITH THIS TEST RESULT. CORRELATION TO CLINICAL HISTORY AND PRESENTATION RECOMMENDED. 01/07/2024 12:4 2 PM CDT Ramesh Mckay P[employer]IC [employer] M[employer] FILLER LABORATORY Final Result [facility] [address] [place] [address], [place] [phone] * (ABNORMAL) COMPREHENSIVE METABOLIC PANEL (01/07/2024 12:42 PM CDT) [facility] GLUCOSE 98 70 - 99 MG/DL 01/07/2024 1:30 PM CDT [facility] BUN 11 7 - 18 MG/DL 01/07/2024 1:30 PM CDT [facility] CREATININE S/P/B 0.64 0.55 - 1.02 MG/DL 01/07/2024 1:30 PM CDT [facility] SODIUM S/P/B 136 136 - 145 MMOL/L 01/07/2024 1:30 PM CDT [facility] POTASSIUM S/P/B 3.8 3.5 - 5.1 MMOL/L 01/07/2024 1:30 PM CDT [facility] CHLORIDE S/P/B 106 100 - 108 MMOL/L 01/07/2024 1:30 PM CDT [facility] CO2 25.3 21 - 32 MMOL/L 01/07/2024 1:30 PM CDT [facility] CALCIUM S/P/B 9.1 8.5 - 10.1 MG/DL 01/07/2024 1:30 PM CDT [facility] BILIRUBIN TOTAL S/P/B 0.8 0.2 - 1.2 MG/DL 01/07/2024 1:30 PM CDT [facility] Comment: THIS ASSAY IS NOT RECOMMENDED FOR PATIENTS UNDERGOING TREATMENT WITH ELTROMBOPAG DUE TO THE POTENTIAL FOR FALSELY ELEVATED RESULTS. TOTAL PROTEIN S/P/B 8.4(H) 6.4 - 8.2 G/DL 01/07/2024 1:30 PM CDT [facility] ALBUMIN S/P/B 3.1(L) 3.4 - 5.0 G/DL 01/07/2024 1:30 PM CDT [facility] AST 12(L) 15 - 37 U/L 01/07/2024 1:30 PM CDT [facility] ALT 20 14 - 55 U/L 01/07/2024 1:30 PM CDT [facility] ALKALINE PHOSPHATASE S/P/B 121 50 - 136 U/L 01/07/2024 1:30 PM CDT [facility] ANION GAP 4.7(L) 5 - 15 MMOL/L 01/07/2024 1:30 PM CDT [facility] BUN CREATININE RATIO 17.3 6 - 26 01/07/2024 1:30 PM CDT [facility] A/G RATIO 0.6(L) 1.0 - 2.0 RATIO 01/07/2024 1:30 PM CDT [facility] GFR ESTIMATE >90 >90 ML/MIN/1.7 3 M2 01/07/2024 1:30 PM CDT [facility] Comment: NOTE: eGFR is not calculated for patients <18 years of age. This is an estimated GFR calculation using the new CKD EPI creatinine equation without race and so does not require a correction factor for race. This estimated GFR should not be used for calculating drug doses. 01/07/2024 12:4 2 PM CDT Ramesh Mckay NP LABORATORY Final Result [facility] [address] [place] [address], [place] [phone] * (ABNORMAL) CBC W/DIFF AUTOMATED (01/07/2024 12:42 PM CDT) WBC 9.32 4.5 - 11.0 x10'3/uL 01/07/2024 12:57 PM CDT [facility] RBC 5.12 4.20 - 5.40 x10'6/uL 01/07/2024 12:57 PM CDT [facility] HGB 12.6 12.0 - 16.0 G/DL 01/07/2024 12:57 PM CDT [facility] HCT 39.8 38.0 - 48.0 % 01/07/2024 12:57 PM CDT [facility] MCV 77.7(L) 81.0 - 99.0 FL 01/07/2024 12:57 PM CDT [facility] MCH 24.6(L) 27.0 - 31.0 PG 01/07/2024 12:57 PM CDT [facility] MCHC 31.7(L) 32.0 - 36.0 G/DL 01/07/2024 12:57 PM CDT [facility] RDW 15.9(H) 11.5 - 14.5 % 01/07/2024 12:57 PM CDT [facility] PLT 396 130 - 400 x10'3/uL 01/07/2024 12:57 PM CDT [facility] MPV 9.5 9.3 - 12.2 FL 01/07/2024 12:57 PM CDT [facility] DIFFERENTIAL TYPE AUTOMATED DIFFERENTIAL 01/07/2024 12:57 PM CDT [facility] NEUTROPHILS % 70.9 % 01/07/2024 12:57 PM CDT [facility] LYMPHOCYTES % 23.0 % 01/07/2024 12:57 PM CDT [facility] MONOCYTES % 5.0 % 01/07/2024 12:57 PM CDT [facility] EOSINOPHILS 0.5 % 01/07/2024 12:57 PM CDT [facility] BASOPHILS 0.3 % 01/07/2024 12:57 PM CDT [facility] IMMATURE GRANS % 0.3 % 01/07/20 12:57 PM CDT [facility] ABS. NEUTROPHILS 6.60 1.80 - 7.70 x10'3/uL 01/07/2024 12:57 PM CDT [facility] ABS. LYMPHOCYTES 2.14 1.00 - 4.80 x10'3/uL 01/07/2024 12:57 PM CDT [facility] ABS. MONOCYTES 0.47 0.24 - 0.86 x10'3/uL 01/07/2024 12:57 PM CDT [facility] ABS. EOSINOPHILS 0.05 0.04 - 0.36 x10'3/uL 01/07/2024 12:57 PM CDT [facility] ABS. BASOPHILS 0.03 0.01 - 0.08 x10'3/uL 01/07/2024 12:57 PM CDT [facility] ABS. IMMATURE GRANULOCYTES 0.03 0.00 - 0.49 x10'3/uL 01/07/2024 12:57 PM CDT [facility] 01/07/2024 12:4 2 PM CDT us Ramesh Mckay NP LABORATORY Final Result [facility] [address] [place] [address], [place] [phone] * POCT urine (01/07/2024 12:39 PM CDT) URINE HCG TEST NEGATIVE Internal Control: VALID Comment:[id number], exp 2 [id number] us Ramesh Mckay NP POINT OF CARE TEST ORDERABLES Final Result documented in this encounter Visit Diagnoses Diagnosis UTI (urinary tract infection)- Primary Urinary tract infection, site not specified documented in this encounter Administered Medications Inactive Administered Medications - up to 3 most recent administrations Medication Order MAR Action Action Date Dose Rate Site sodium chloride 0.9% bolus infusion 1,000 mL 1,000 mL, Intravenous, Administer over 60 Minutes, Once, 1 dose, On 01/07/24 at 1215 New Bag 01/07/2024 12:40 PM CDT 1,000 mLs documented in this encounter Active and Recently Administered Medications Times are shown in CDT. Scheduled Medication Order 01/05/2024 01/06/2024 01/07/2024 sodium chloride 0.9% bolus infusion 1,000 mL (COMPLETED) 1,000 mL, Intravenous, Administer over 60 Minutes, Once, 1 dose, On 01/07/24 at 1215 1240 (New Bag - Prov ider: Joanne Vargas RN)1310 (Infusion Stop Time - Provider: Lay Merida RN) documented in this encounter Care Teams Printed Circuit Layout Taper Relationship Specialty Start Date End Date None, Provider, PCP - General UNKNOWN PHYSICIAN SPECIALTY 01/07/24 documented as of this encounter
--- OUTSIDE RECORDS SUMMARY | 2024-10-01 17:55 | XMS_ITS | Encounter Summary ---
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
--- OUTSIDE RECORDS SUMMARY | 2024-10-01 17:55 | XMS_ITS | Encounter Summary ---
Author Organization [facility] Address [address] [facility] [place] [address] Care Team Providers Care Morning Show Newscast Producer Name Role Phone Salinas Escobar MD Primary Care Provider [phone] Reason for Referral * PT/OT/ST (Routine) - Open Specialty Diagnoses / Procedures Referred By Cristopher t Referred To Contact Diagnoses Sprain of anterior cruciate ligament of right knee, subsequent encounter Knee instability, right Internal derangement of left knee Cooper Riddle MD [address] [place] [address] [place] [address] Referral ID Status Reason Start Date Expiration Date V isits Requested Visits Authorized [id number] Open Specialty Services Required 01/09/2024 01/08/2025 16 16 Scheduling Instructions Diagnosis: right knee possible anterior horn lateral meniscus tear, left knee chronic ACL tear ?? Evaluate and treat. [email or web address]. Daily home program. ?? Freq: 1-2x/wk x8wks Please do not hesitate to contact me with questions regarding her or any other patient in the future. Our clinical nurse, Rita Kumar, can be reached at and at [email or web address] ? Cooper Riddle MD ?? ( Encounter Details Date Type Department Care Team (Late st Contact Info) Description 01/09/2024 Orders Only [facility] - Orth[facility]ics [address] [place] [address], [facility] [place] [address] Cooper Riddle MD [address] [place] [address] OF [place] [address] Sprain of anterior cruciate ligament of right knee, subsequent encounter ; Knee instability, right; Internal derangement of left knee Social History [...] as of this encounter Plan of Treatment Scheduled Referrals Name Type Priority Associated Diagnoses Orde r Schedule AMB REFERRAL TO PHYSICAL THERAPY Outpatient Referral Routine Sprain of anterior cruciate ligament of right knee, subsequent encounter Knee instability, right Internal derangement of left knee 1 Occurrences starting 01/09/2024 until 01/08/2025 documented as of this encounter Visit Diagnoses Diagnosis Sprain of anterior cruciate ligament of right knee, subsequent encounter- Primary Knee instability, right Internal derangement of left knee Unspecified internal derangement of knee documented in this encounter Care Teams Morning Show Newscast Producer Relationship Specialty Start Date End Date Salinas Escobar MD [address] [place] [address] PCP - General Family Medicine 09/04/23 documented as of this encounter
--- OUTSIDE RECORDS SUMMARY | 2024-10-01 17:55 | XMS_ITS | Encounter Summary ---
Author Organization [facility] Address [facility] [place] [address] [place] [address] Care Team Providers Care Cart Pusher Name Role Phone Tejinder Bergeron MD Primary Care Provider Reason for Visit * Auth/Cert Specialty Diagnoses / Procedures Referred By Cristopher t Referred To Contact Diagnoses Umbilical hernia with obstruction but no gangrene Cholelithiasis Biliary colic Umbilical hernia with obstruction but no gangrene Abdominal pain Procedures OBS Referral ID Status Reason Start Date Expiration Date Visits Re quested Visits Authorized [id number] 1 1 Encounter Details Date Type Department Care Team (Late st Contact Info) Description 06/16/2020 11:19 AM CDT Anesthesia Event [place] [place] [address] King Sheffield MD [address] [address] Anesthesia Record Procedure Summary Procedure Name Responsible Anesthesiologist Anesthesia Start Time Anesthesia Stop Time LAPAROSCOPIC CHOLECYSTECTOMY WITH INTEROPERATIVE CHOLANGIOGRAMS (Abdomen) King Sheffield MD 06/16/20 1119 06/16/20 1259 Events Date Time Event Comment 06/16/2020 1107 1107 AN Anesthesia Prepped 1119 An Start Patient ID and consent checked and patient reassessed. 1119 An Start Data 1119 Quick Note FARAZ Alvarado, present and supervise during this case. 1125 Preoxygenation 1127 An Induction 1129 An Intubation 1130 Anesthesia Ready 1244 An Emergence 1248 An Extubation 1248 Face Mask Applied 1250 an stop data 1259 Post Anesthetic Care Handoff I completed my handoff to the receiving nurse during which we: 1. Identified the patient 2. Identified the responsible provider 3. Reviewed the pertinent medical history 4. Discussed the surgical course 5. Reviewed intra-op anesthesia management and issues during anesthesia 6. Set expectations for post-procedure period 7. Allowed opportunity for questions and acknowledgement of understanding. 1259 An Stop Meds Name Total midazolam 2 mg/2 mL injection 2 mg fentaNYL (SUBLIMAZE) 250 mcg/5 mL inject ion 150 mcg lidocaine (PF) (XYLOCAINE) 2% injection 100 mg propofol (DIPRIVAN) 200 mg/20 mL injecti on 200 mg succinylcholine (ANECTINE) 20 mg/mL inje ction 200 mg rocuronium (ZEMURON) 50 mg/5 mL injectio n 80 mg dexamethasone (DECADRON) injection 8 mg sugammadex (BRIDION) 200 mg/2 mL injecti on 200 mg ceFAZolin (ANCEF) 2 g in sodium chloride 0.9 % 100 mL IVPB 2 g phenylephrine (TUCKER-SYNEPHRINE) injection 50 mcg lactated ringers infusion 800 mL * Agents Name O2 N2O Air Inspired Sevoflurane Sevoflurane * Blood No blood administrations on file. Lines, Drains, and Airways Type Details Placement Removal Peripheral IV Placement Date: 05/20 03/07; Placement Time: 05; Size: 20 G; Orientation: Right; Location: Antecubital; Site Prep: Chlorhexidine; Insertion attempts: 2; Ultrasound-guided Placement?: No; Patient Tolerance: Tolerated well; Removal Date: 06/17/20; Removal Time: 1144; Removal Reason: Patient Discharged 06/13/20 0518 by Kemi Rios RN 06/17/20 1144 by Clover Canseco RN Peripheral IV Placement Date: 05/20 06/07; Placement Time: 1100; Placed Outside of This Facility?: No; Size: 20 G; Orientation: Left; Location: Wrist; Inserted By: OR Staff; Removal Date: 06/17/20; Removal Time: 1143; Removal Reason: Patient Discharged 06/16/20 1100 by Merlin Meyer RN 06/17/20 1143 by Clover Canseco RN ETT Placement Date: 05/20 06/07; Placement Time: 1129; Placed Outside of This Facility?:No; Mask Ventilate: Other (Comment) (not attempted); Size (mm) : 7; Endotracheal: Oral; Blade Type: MAC 3; Placement Method: Direct Laryngoscopy (blade type in comment), Rapid Sequence Induction; View Grade: 1; Viewable Anatomy: Epiglottis, Arytenoid, Vocal cords; Insertion Attempts: 1; Placement Verified By: Capnography, Auscultation, Chest Rise; Placed By: Other (Comment) (FARAZ Hernández); Extubation Assessment: Atraumatic, Able to swallow, Deep breathes w/equal chest movements, Lifts et holds head > 5 seconds, Suctioned, Tolerated well, Patient spontaneously breathing, Moves all extremities strongly; Removal Date: 06/16/20; Removal Time: 1248; Removal Person: SUPERVISOR [employer]; Removal Reason: End of Case 06/16/20 1129 by Katelyn Woods CRNA 06/16/20 1248 by Katelyn Woods CRNA Surgical/Incision 06/16/20; 1205; Surg ical Wound; Abdomen; 3 trocar sites sutured under skin, dermabond(one is umbilical hernia repair); 06/17/20; 1207 06/16/20 1205 by Enedina Huff RN 06/17/20 1207 by Clover Canseco RN documented in this encounter Social History Tobacco [...] PM CDT documented as of this encounter Functional [...] Best RN Active documented in this encounter OR Notes * Anesthesia Postprocedure Evaluation - Josephine Silver CRNA - 06/17/2020 8:30 AM CDT Anesthesia Post-op Note Verónica Diego Procedure(s): LAPAROSCOPIC CHOLECYSTECTOMY WITH INTEROPERATIVE CHOLANGIOGRAMS(N/A Abdomen) HERNIORRHAPHY UMBILICAL (N/A Abdomen) Anesthesia type: general Vitals: 06/17/20 0700 BP: 104/69 Vitals: 06/17/20 0700 Pulse: 64 Vitals: 06/17/20 0700 Resp: 17 Vitals: 06/17/20 0300 Temp: 36.5 ??C Vitals: 06/17/20 0700 SpO2: 99% Patient Location: Inpatient Unit Level of Consciousness: awake, oriented and alert Pain Management: adequate analgesia Airway Patency: patent Respiratory Status: acceptable Cardiovascular Status: acceptable Post-Op Nausea: none Postoperative Hydration: euvolemic Complications: no anesthesia complication * Anesthesia Postprocedure Evaluation - King Sheffield MD - 06/16/2020 2:13 PM CDT Anesthesia Post-op Note Verónica Diego Procedure(s): LAPAROSCOPIC CHOLECYSTECTOMY WITH INTEROPERATIVE CHOLANGIOGRAMS(N/A Abdomen) HERNIORRHAPHY UMBILICAL (N/A Abdomen) Anesthesia type: general Vitals: 06/16/20 1345 BP: 114/79 Vitals: 06/16/20 1345 Pulse: 63 Vitals: 06/16/20 1345 Resp: 25 Vitals: 06/16/20 1255 Temp: 37.1 ??C Vitals: 06/16/20 1345 SpO2: 96% Patient Location: PACU Level of Consciousness: awake and lethargic Pain Management: adequate analgesia Airway Patency: patent Respiratory Status: acceptable Cardiovascular Status: acceptable Post-Op Nausea: none Postoperative Hydration: euvolemic Complications: no anesthesia complication * Anesthesia Preprocedure Evaluation - King Sheffield MD - 06/16/2020 11:04 AM CDT Anesthesia ROS/MED History Reviewed: Patient summary , Family history anesthesia, Anesthesia history , Medications , Labs , Unchecked boxes are not applicable Pre-Anesthetic State: alert, awake and responds appropriately no history of anesthetic complications Pulmonary neg pulmonary ROS (-) sleep apnea, asthma, smoker Cardiovascular neg cardio ROS (-) hypertension, past WI, CAD, angina Neuro/Psych (+) substance use, (alcohol use)(-) no TIA, no CVA GI/Hepatic/Renal neg GI/hepatic/renal ROS (-) GERD, liver disease, renal disease Endo/Other neg endo/other ROS (-) diabetes, hypothyroidism, hyperthyroidism, arthritis, blood dyscrasia GENERAL COMMENTS No Known Allergies Past Medical History: No date: Ureterocele No date: Urinary tract infection History reviewed. No pertinent surgical history. Physical Evaluation Airway Mallampati: III TM Distance: >3 FB Neck ROM: normal Dental No notable dental history Pulmonary Pulmonary exam normal Breath sounds clear to auscultation Cardiovascular Rhythm: regular Rate: normal Cardiovascular exam normal Other findings: Blood pressure 99/58, pulse 56, temperature 36.8 ??C, temperature source Oral, resp. rate 18, height 5' 5 (1.651 m), weight 95.1 kg (209 lb 10.5 oz), last menstrual period 05/27/2020, SpO2 100 %. 06/16/20 0515 WBC 8.8 RBC 4.98 HGB 12.8 HCT 40.6 PLT 231 NA 136 K 3.6 CL 105 CO2 24.7 AGAP 6.3 BUN 8 CR 0.63 BUNCREATININ 12.8 GFRNON >90 GFR >90 GLU 95 CA 9.2 Anesthesia Plan ASA 2 Intravenous Induction Anesthesia type: general Discussed potential risks of General Anesthesia including but not limited to corneal abrasion, visual impairment or visual loss, mouth injury, dental damage, sore throat, hoarseness, esophageal injury, awareness under anesthesia, nerve injury due to positioning, aspiration, pneumonia, stroke, cardiac event, adverse drug reactions and . GETA Informed Consent Anesthetic plan and risks discussed with patient of whom consent was obtained. . documented in this encounter Plan of Treatment Not on file documented as of this encounter Visit Diagnoses Not on filedocumented in this encounter Administered Medications Inactive Administered Medications - up to 3 most recent administrations Medication Order MAR Action Action Date Dose Rate Site ceFAZolin (ANCEF) 2 g in sodium chloride 0.9 % 100 mL IVPB 2 g, Intravenous, at 200 mL/hr, teacher physically impaired, 1 dose, On Mon06/16/20 at 0500, Give 2 gram dose for patients less than 120 kg. Give within 60 minutes of surgical incision., Pre-Op New Bag 06/16/2020 11:36 AM CDT 2 g dexamethasone (DECADRON) injection Intravenous, PRN, Starting on Mon06/16/20 at 1144, Until Mon06/16/20 at 1259, Anesthesia Intra-Op Given 06/16/2020 11:44 AM CDT 8 mg fentaNYL (SUBLIMAZE) injection Intravenous, PRN, Starting on Mon06/16/20 at 1127, Until Mon06/16/20 at 1259, Anesthesia Intra-Op Given 06/16/2020 12:46 PM CDT 50 mcg Given 06/16/2020 11:42 AM CDT 50 mcg Given 06/16/2020 11:27 AM CDT 50 mcg lidocaine (PF) (XYLOCAINE) 2 % injection Intravenous, PRN, Starting on Mon06/16/20 at 1127, Until Mon06/16/20 at 1259, Anesthesia Intra-Op Given 06/16/2020 11:27 AM CDT 100 mg midazolam (VERSED) injection Intravenous, PRN, Starting on Mon06/16/20 at 1117, Until Mon06/16/20 at 1259, Anesthesia Intra-Op Given 06/16/2020 11:17 AM CDT 2 mg phenylephrine (TUCKER-SYNEPHRINE) injection PRN, Starting on Mon06/16/20 at 1233, Until Mon06/16/20 at 1259, Anesthesia Intra-Op Given 06/16/2020 12:33 PM CDT 50 mcg propofol (DIPRIVAN) IV bolus Intravenous, PRN, Starting on Mon06/16/20 at 1127, Until Mon06/16/20 at 1259, Anesthesia Intra-Op Given 06/16/2020 11:27 AM CDT 200 mg rocuronium (ZEMURON) injection Intravenous, PRN, Starting on Mon06/16/20 at 1135, Until Mon06/16/20 at 1259, Anesthesia Intra-Op Given 06/16/2020 11:45 AM CDT 30 mg Given 06/16/2020 11:35 AM CDT 50 mg succinylcholine (ANECTINE) injection Intravenous, PRN, Starting on Mon06/16/20 at 1127, Until Mon06/16/20 at 1259, Anesthesia Intra-Op Given 06/16/2020 11:27 AM CDT 200 mg sugammadex (BRIDION) injection PRN, Starting on Mon06/16/20 at 1245, Until Mon06/16/20 at 1259, Anesthesia Intra-Op Given 06/16/2020 12:45 PM CDT 20 0 mg documented in this encounter Care Teams Cart Pusher Relationship Specialty Start Date End Date Tejinder Bergeron MD [address] [address] PCP - General INTERNAL MEDICINE 05/04/20 01/06/24 documented as of this encounter
--- OUTSIDE RECORDS SUMMARY | 2024-10-01 17:55 | XMS_ITS | Referral Summary ---
Author Organization [facility] [employer] Address [address] [facility] [place] [address] Care Team Providers Care Receptionist Secretary Name Role Phone Salinas Escobar MD Primary Care Provider [phone] Source Comments [facility] [employer],non-owned Affiliates and Associated Physician Practices is amultiple site organization consisting of ambulatory clinics and hospital sitesin [place], [place], [place]. This disclosure is being madepursuant to the Care Everywhere program and may not contain all information available regarding this patient. Last updated 18.[employer] Allergies No known active allergies Medications Be [...] 106.1 kg (234 lb) 09/06/2023 10:42 AM PICK UP AND DELIVERY DRIVER Height 165.1 cm (5' 5 ) 08/23/2023 9:36 AM PICK UP AND DELIVERY DRIVER Body Mass Index 38.94 08/23/2023 9:36 AM PICK UP AND DELIVERY DRIVER Plan of Treatment Not on file Care Teams Receptionist Secretary Relationship Specialty Start Date End Date Salinas Escobar MD [facility] [place] [address] PCP - General Family Medicine 09/04/23
--- OUTSIDE RECORDS SUMMARY | 2024-10-01 17:55 | XMS_ITS | Encounter Summary ---
Author Organization [facility] Address [address] [facility] [address] Care Team Providers Care Medical Operations Supervisor Name Role Phone Salinas Escobar MD Primary Care Provider [phone] Encounter Details Date Type Department Care Team (Latest Contact Info) Description 08/23/2023 Travel Social History Tobacco Use Types Packs/Day [...] on filedocumented in this encounter Care Teams Medical Operations Supervisor Relationship Specialty Start Date End Date Salinas Escobar MD [address] [place] [address] PCP - General Family Medicine 07/05/23 09/03/23 documented as of this encounter
--- OUTSIDE RECORDS SUMMARY | 2024-10-01 17:55 | XMS_ITS | Encounter Summary ---
Author Organization [facility] Address [address] [place] [address] Care Team Providers Care Jail Guard Name Role Phone Salinas Escobar MD Primary Care Provider [phone] Reason for Referral * Evaluate & Treat (Routine) - Closed Specialty Diagnoses / Procedures Referred By Cristopher t Referred To Contact Physical Therapy Diagnoses Left knee pain, unspecified chronicity Right knee pain, unspecified chronicity Cooper Riddle MD [address] [place] [address] [place] [address] Referral ID Status Reason Start Date Expiration Date V isits Requested Visits Authorized [id number] Closed Specialty Services Required 09/06/2023 09/05/2024 1 1 MAKER Reason for Visit * Reason Comments Pain Knee Salomón, Eval Encounter Details Date Type Department Care Team (Late Contact Info) Description 09/06/2023 10:30 AM END MAKER Office Visit [facility] - Orthopedics [address] [place] [address], [place] [id number] Cooper Riddle MD [address] [place] [address] [place] [address] Left knee pain, unspecified chronicity (Primary Dx); Right knee pain, unspecified chronicity Social History [...] 106.1 kg (234 lb) 09/06/2023 10:42 AM END MAKER Height - - Body Mass Index 38.94 08/23/2023 9:36 AM END MAKER documented in this encounter Progress Notes * Cooper Riddle MD - 09/06/2023 11:06 AM CST Images from the original note were not included. Cooper Riddle MD [facility] Orthopaedic Sports Medicine Adult and Pediatric Date of Clinic Visit: 09/06/[address] Salinas Escobar MD ; Today we had the pleasure of seeing Verónica Stevenson in [facility] Clinic for re-evaluation of her bilateral knee injury. Verónica Stevenson is a 27 year old female who had bilateral knee pain right worse than left. Right knee pain occurred after a fall in December. Pain is mostly located on the posterior aspect of both knees. Currently has finished PT with minimal improvement in her knee pain. The symptoms are activity-related and improved with rest. The symptoms limit their activities of daily living. No fevers, chills, numbness, paresthesias or gross motor weakness. They have tried tylenol, anti-inflammatory medications, activity modification and physical therapy exercises for their symptoms. Handedness: right-handed Pain Score: 09/06/23 1042 PainSc: Zero SANE Score (0-100): No data to display 07/05/2023 08/23/2023 09/06/2023 Depression Screening PHQ-2 Score Incomplete Incomplete Incomplete Patient Health Questionnaire-2 Score 0 09/06/2023 IKDC IKDC Score 28.77 Medications No current outpatient medications on file prior to visit. No current facility-administered medications on file prior to visit. Allergies as of 09/06/2023 ??? (No Known Allergies) No past medical history on file. No past surgical history on file. 14 System review of systems: Pertinent Positives and Negatives HEENT- No blurred vision Cardio- No chest pain or palpations Respiratory- No shortness of breath Abd- No abdnominal pain 14 System review of systems was otherwise negative as reviewed today. Social History Occupational History ??? Not on file Tobacco Use ??? Smoking status: Never ??? Smokeless tobacco: Never Vaping Use ??? Vaping Use: Never used Substance and Sexual Activity ??? Alcohol use: Not Currently ??? Drug use: Not on file ??? Sexual activity: Never Family History No family history on file. Otherwise reviewed and non-contributory Physical Exam: The patient is awake, alert, oriented and they are pleasant to speak with. Normal gait. There is nopain with rotation of the right or left hip. There is a negative straight leg raise bilaterally. The bilateral knee is neurovascularly intact with no active skin lesions. There is no effusion. There is tenderness of the medial joint line and lateral joint line. Range of motion is unrestricted. Guilherme is positive on the left side. Strength is good. There is no varus laxity. There is no valgus laxity. There is no posterior sag. McMurrays test is positive. Dial test is negative. The extensor mechanism is intact. The patellar tracks well. Patellar apprehension test is negative. Testing for generalized ligamentous laxity is negative. Imaging: I have personally reviewed the patient's imaging results. I have independently visualized and interpreted the images myself. By my read, the pertinent findings include: knee MRI images and report reviewed by me today are positive for ACL partial tear in the left knee,Medial meniscus injury in the left knee and right lateral meniscus injury. . Impression: ACL partial tear in the left knee right anterior horn lateral meniscus injury. Plan: We discussed the options of continued non-operative treatment vs right knee arthroscopy and partialmeniscectomy vs repair and left knee arthroscopy and ACL repair vs allograft reconstruction. She will follow-up in 4 weeks and does not need new knee xrays. Please do not hesitate to contact me with questions regarding her or any other patient in the future. Our clinical nurse, Rita Ryanton, can be reached at . Sincerely, Cooper Riddle MD MAKER * Buddy Ibarra RN - 09/06/2023 10:37 AM CST Here for Salomón Knee eval.- TS MAKER documented in this encounter Plan of Treatment Scheduled Referrals Name Type Priority Associated Diagnoses Orde r Schedule AMB REFERRAL TO PHYSICAL THERAPY Outpatient Referral Routine Left knee pain, unspecified chronicity Right knee pain, unspecified chronicity 1 Occurrences starting 09/06/2023 until 09/05/2024 documented as of this encounter Visit Diagnoses Diagnosis Left knee pain, unspecified chronicity- Primary Right knee pain, unspecified chronicity documented in this encounter Care Teams Jail Guard Relationship Specialty Start Date End Date Salinas Escobar MD [address] [place] [address] PCP - General Family Medicine 09/04/23 documented as of this encounter
--- OUTSIDE RECORDS SUMMARY | 2024-10-01 17:55 | XMS_ITS | Encounter Summary ---
Author Organization [facility] Address [facility] [facility] [place], [place] [address] [place] [address] Care Team Providers Care Change House Attendant Name Role Phone None, Provider Primary Care Provider Re robles Encounter Details Date Type Department Care Team (Latest Contact Info) Description 01/07/2024 Travel Social History Tobacco Use Types Packs/Day [...] on filedocumented in this encounter Care Teams Change House Attendant Relationship Specialty Start Date End Date None, Provider, PCP - General UNKNOWN PHYSICIAN SPECIALTY 01/07/24 documented as of this encounter
--- OUTSIDE RECORDS SUMMARY | 2024-10-01 17:55 | XMS_ITS | Encounter Summary ---
Author Organization [facility] Address [facility] [place], [place] [address] [place] [address] Care Team Providers Care Heavy Lift Rigger Name Role Phone Tejinder Bergeron MD Primary Care Provider [phone] Encounter Details Date Type Department Care Team (Latest Contact Info) Description 10/02/2022 Travel Social History Tobacco Use Types Packs/Day [...] Coronavirus/COVID-19? No / Unsure 10/02/2022 7:31 AM FLAMER AFTER LASTING documented as of this encounter Functional Status [...] on filedocumented in this encounter Care Teams Heavy Lift Rigger Relationship Specialty Start Date End Date Tejinder Bergeron MD [address] [facility] [address] [place] [address] PCP - General INTERNAL MEDICINE 05/04/20 01/06/24 documented as of this encounter
--- OUTSIDE RECORDS SUMMARY | 2024-10-01 17:55 | XMS_ITS | Encounter Summary ---
Author Organization [facility] Address [address] [place] [address] Care Team Providers Care Customer Sales Consultant Name Role Phone Salinas Escobar MD Primary Care Provider [phone] Reason for Referral * Radiology Services (Routine) - Closed Specialty Diagnoses / Procedures Referred By Contac t Referred To Contact Diagnoses Internal derangement of left knee Procedures MRI KNEE LEFT WO CONTRAST Kate Merida PA-C [address] - [address] [address] Referral ID Status Reason Start Date Expiration Date Visits Re quested Visits Authorized [id number] Closed 08/23/2023 08/22/2024 1 1 AL SERVICES ASSISTANT Reason for Visit * Radiology Services (Routine) - Closed Specialty Diagnoses / Procedures Referred By Contac t Referred To Contact Diagnoses Internal derangement of left knee Procedures MRI KNEE LEFT WO CONTRAST Kate Merida PA-C [address] - [address] [address] Referral ID Status Reason Start Date Expiration Date Visits Re quested Visits Authorized [id number] Closed 08/23/2023 08/22/2024 1 1 Encounter Details Date Type Department Care Team (Latest Contact Info) Description 09/04/2023 9:58 AM SOCIAL SERVICES ASSISTANT - 09/04/2023 11:59 PM SOCIAL SERVICES ASSISTANT Hospital Encounter [facility] Imaging Services - MRI [address] [place] [address] Kate Merida PA-C [address] [place] [address] Discharge Disposition: Home or Self Care Social [...] Priority Date/Time Associated Diagnosis Comments MRI KNEE LEFT WO CONTRAST Routine 09/04/2023 11:03 AM SOCIAL SERVICES ASSISTANT Internal derangement of left knee documented in this encounter Results * MRI KNEE LEFT WO CONTRAST (09/04/2023 11:03 AM SOCIAL SERVICES ASSISTANT) Anatomical Region Laterality Modality Lower Extremity Magnetic Resonan ce 09/04/2023 11:4 7 AM SOCIAL SERVICES ASSISTANT Impressions 09/04/2023 12:10 PM SOCIAL SERVICES ASSISTANT IMPRESSION: Examination demonstrates an abnormal appearance of [...] 09/04/2023 12:10 PM Narrative 09/04/2023 12:10 PM SOCIAL SERVICES ASSISTANT PROCEDURE: ??MRI KNEE LEFT WO CONTRAST DATE/TIME [...] images are degraded by patient motion. Additionally [id number] images were obtained to assess the cruciate [...] on 09/04/2023 12:10 PM Kate Merida PA-C ORDERABLES documented in this encounter Visit Diagnoses Diagnosis Internal derangement of left knee Unspecified internal derangement of knee documented in this encounter Care Teams Customer Sales Consultant Relationship Specialty Start Date End Date Salinas Escobar MD [address] [place] [address] PCP - General Family Medicine 09/04/23 documented as of this encounter
--- OUTSIDE RECORDS SUMMARY | 2024-10-01 17:55 | XMS_ITS | Encounter Summary ---
Author Organization [facility] Address [address] [place] [address]. [place], [place] [address] [place] [address] Care Team Providers Care Diamond Sizer And Sorter Name Role Phone Tejinder Bergeron MD Primary Care Provider [phone] Encounter Details Date Type Department Care Team (Latest Contact Info) Description 06/18/2020 Scan HEALTH INFO SRVCS Scanned, Documents Social History Tobacco Use Types Packs/Day Years [...] Date Author Status No 06/13/2020 2:48 PM CDNajma Salomon RN Active documented in this encounter Plan of Treatment Not on file documented as of this encounter Visit Diagnoses Not on filedocumented in this encounter Care Teams Diamond Sizer And Sorter Relationship Specialty Start Date End Date Tejinder Bergeron MD [address] [facility] [address] [place] [address] PCP - General INTERNAL MEDICINE 05/04/20 01/06/24 documented as of this encounter
--- OUTSIDE RECORDS SUMMARY | 2024-10-01 17:55 | XMS_ITS | Encounter Summary ---
Author Organization [facility] Address [address] [facility] [place] [address] Care Team Providers Care Teacher Name Role Phone Salinas Escobar MD Primary Care Provider [phone] Encounter Details Date Type Department Care Team (Latest Contact Info) Description 09/05/2023 Travel Social History Tobacco Use Types Packs/Day [...] on filedocumented in this encounter Care Teams Teacher Relationship Specialty Start Date End Date Salinas Escobar MD [address] [place] [address] PCP - General Family Medicine 09/04/23 documented as of this encounter
--- OUTSIDE RECORDS SUMMARY | 2024-10-01 17:55 | XMS_ITS | Encounter Summary ---
Author Organization [facility] Address [address] [place] [address] Care Team Providers Care Lean Coach Name Role Phone Salinas Escobar MD Primary Care Provider [phone] Encounter Details Date Type Department Care Team (Latest Contact Info) Description 07/05/2023 2:45 PM CDT - 07/05/2023 11:59 PM CDT Hospital Encounter [facility] - Orthopedics [address], [address] [place] [id number] Kate Merida PA-C [address] [place] [address] Discharge Disposition: Home or Self Care Social [...] once daily 30 tablet 2 07/05/2023 09/06/2023 documented as of this encounter Plan of Treatment Not on file documented as of this encounter Procedures Procedure Name Priority Date/Time Associated Diagnosis Comments XR KNEE BILAT 4VW OR MORE Routine 07/05/2023 2:55 PM CDT Left knee pain, unspecified chronicity documented in this encounter Results * XR KNEE BILAT [...] ??Exam Date: ??07/05/2023 2:55 PM ?? Location: ??[facility] Indication: M25.562: Pain in left knee Findings: There is no evidence of fracture. The joint spaces are well-maintained. There is no bony destruction. There is no joint effusion. Procedure Note Kevin Enriquez MD - 07/05/2023 Procedure: XR KNEE BILAT 4VW OR MORE Exam Date: 07/05/2023 2:55 PM Location: [facility] Indication: M25.562: Pain in left knee [...] Visit Diagnoses Diagnosis Left knee pain, unspecified chronicity documented in this encounter Care Teams Lean Coach Relationship Specialty Start Date End Date Salinas Escobar MD [address] [place] [address] PCP - General Family Medicine 07/05/23 09/03/23 documented as of this encounter
--- OUTSIDE RECORDS SUMMARY | 2024-10-01 17:55 | XMS_ITS | Encounter Summary ---
Author Organization [facility] Address [address] [place] [address]. [place], [place] [address] [place] [address] Care Team Providers Care Senior Salesforce Developer Name Role Phone Salinas Escobar MD Primary Care Provider Encounter Details Date Type Department Care Team (Latest Contact Info) Description 03/04/2024 Travel Social History Tobacco Use Types Packs/Day [...] on filedocumented in this encounter Care Teams Senior Salesforce Developer Relationship Specialty Start Date End Date Salinas Escobar MD [address] [place] [address] PCP - General FAMILY PRACTICE 01/14/24 documented as of this encounter
--- OUTSIDE RECORDS SUMMARY | 2024-10-01 17:56 | XMS_ITS | Encounter Summary ---
Author Organization [facility] Address [facility]. [place], [place] [address] [place] [address] Care Team Providers Care Rigging Up Worker Name Role Phone Tejinder Bergeron MD Primary Care Provider Encounter Details Date Type Department Care Team (Latest Contact Info) Description 06/13/2020 Travel Social History Tobacco Use Types Packs/Day [...] as of this encounter Functional Status * Question Answer [...] on filedocumented in this encounter Care Teams Rigging Up Worker Relationship Specialty Start Date End Date Tejinder Bergeron MD [address] [facility] [address] [place] [phone] PCP - General INTERNAL MEDICINE 05/04/20 01/06/24 documented as of this encounter
--- OUTSIDE RECORDS SUMMARY | 2024-10-01 17:56 | XMS_ITS | Encounter Summary ---
Author Organization [facility] Address [facility]. [place], [place] [address] [place] [address] Care Team Providers Care Automation Manager Name Role Phone Tejinder Duarte MD Primary Care Provider [phone] Reason for Visit * Reason Comments New Patient kidney stones, hemat uria * Consultation/Treatment (Routine) - Closed Specialty Diagnoses / Procedures Referred By Cristopher melgar Referred To Contact UROLOGY Diagnoses Ureterocele Tejinder Duarte MD [address] [facility] [address] [place] [address] Phone: tel: fax: [facility] [address] [facility] [place] [address] Phone: tel: fax: Referral ID Status Reason Start Date Expiration Date Visits Re quested Visits Authorized [id number] Closed 05/18/2020 05/18/2021 100 100 Encounter Details Date Type Department Care Team (Latest Contact Info) Description 06/03/2020 9:00 AM CDT Office Visit [address] [place] [address] Naima Ruiz, SOY [address] [facility] [address] [place] [address] New Patient (kidney stones, hematuria) Social History Tobacco Use Types Packs/Day Years Used Date Smoking Tobacco: Never Smokeless Tobacco: Never Alcohol Use Standard Drinks/Week Comments Yes 0 (1 standard drink = 0.6 oz pur e alcohol) social PHQ-2 Answer Date Recorded PHQ-2 Score - If the patient scores above 3, please move on to questions 3-9 0 06/03/2020 Comments Unknown Sex and Gender Information Value Date Recorded Sex Assigned at Not on file Legal Sex Female 8:36 AM CDT Gender Identity Not on file Sexual Orientation Not on file COVID-19 Exposure Response Date Recorded In the last month, have you been in contact with someone who was confirmed or suspected to have Coronavirus / COVID-19? No / Unsure 06/03/2020 9:02 AM CDT documented as of this encounter Last Filed Vital Signs Vital Sign Reading Time Taken Comments Blood Pressure 132/70 06/03/2020 9:17 AM CDT Pulse - - Temperature 36.7 ??C (98 ??F) 06/03/2020 9:17 AM CDT Respiratory Rate - - Oxygen Saturation - - Inhaled Oxygen Concentration - - Weight 111 kg (244 lb 11.2 oz) 06/03/2020 9:17 A M CDT Height 165.1 cm (5' 5 ) 06/03/2020 9:17 AM CDT Body Mass Index 40.72 06/03/2020 9:17 AM CDT documented in this encounter Progress Notes * SOY Langley - 06/03/2020 9:00 AM CDT Urology Consult Referring Provider: PCP: TEJINDER DUARTE MD Verónica Diego is an 24-year-old female here for Chief Complaint Patient presents with ??? 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 History of recurrent UTIs started approximately 9 years ago when she became sexually active. Symptoms of UTIs typically manifest with lateral lower back pain and dysuria. She estimates she has been treated twice per month for some time now for UTI last finishing antibiotics a little over 1 week ago. Currently is feeling well. She does report urinary frequency upwards of every hour with urgency and some associated incontinence but denies hesitancy or straining. Denies development of gross hematuria. Currently denies dysuria at night she typically awakens once. Denies any definite known family history or personal history of kidney stones. Reports left back pain which comes and goes. She tells me she recently lifted something heavy and is unsure if she is having the back pain because of this. She had an abdominal ultrasound in April of this year which noted gallstones and the visualized right kidney was unremarkable. She al so had a ultrasound of the pelvis due to pelvic pain which she continues to have which noted incidental bilateral ureteroceles and dilated distal ureters.She does report urinary stream going in different directions. Past Medical History: Diagnosis Date ??? Urinary tract infection History reviewed. No pertinent surgical history. Current Outpatient Medications Medication Sig Dispense Refill ??? Clobetasol Propionate 0.05 % Shampoo APPLY A THIN LAYER TOPICALLY ONCE DAILY TO DRY SCALP LEAVEIN PLACE FOR 15 MINUTES THEN LATHER AND RINSE. ??? cyclobenzaprine 10 MG tablet Take 10 mg by mouth 3 (three) times daily as needed. ??? ciprofloxacin 500 MG tablet TAKE 1 TABLET BY MOUTH EVERY 12 HOURS FOR 5 DAYS ??? dicyclomine 10 MG capsule TAKE 1 [...] OINTMENT TOPICALLY TO AFFECTED AREA TWICE DAILY No current facility-administered medications for this visit. Allergies: No Known Allergies Social History Tobacco Use ??? Smoking status: Never Smoker ??? Smokeless tobacco: Never Used Substance Use Topics ??? Alcohol use: Yes Comment: social Family History Problem Relation Name Age of Onset ??? No Known Problems Father ??? No Known Problems Mother Review of Systems Constitutional: Negative. Respiratory: Negative. Cardiovascular: Negative. Gastrointestinal: Negative for abdominal pain, constipation, diarrhea, nausea and vomiting. Genitourinary: Positive for frequency and urgency. Negative for dysuria, flank pain and hematuria. Musculoskeletal: Positive for back pain. Physical Exam: Blood pressure 132/70, temperature 98 ??F (36.7 ??C), height 5' 5 (1.651 m), weight 111 kg (244 lb11.2 oz). Physical Exam Constitutional: She is oriented to person, place, and time. She appears well- developed and well-nourished. Pulmonary/Chest: Effort normal. Abdominal: Soft. Neurological: She is alert and oriented to person, place, and time. Skin: Skin is warm and dry. No results found for: WBC, HGB, PLT No results found for: NA, K, CL, CO2, AGAP, BUN, CR, BUNCREATININ, GFRNON, GFR, GLU, CA, TP, ALB, TBIL, ALKP, AST, ALT No results found for this or any previous visit. No results found for: PSA Imaging: Examination: US Right Upper Quadrant Exam date/time: 05/13/2020 7:04 AM Reason For Exam: Abdominal pain Comparison: None. Findings: The pancreas is incompletely visualized, mostly obscured by overlying bowel gas. The pancreatic tail is completely obscured. Visualized portion of pancreatic head is grossly unremarkable. Liver contour and echogenicity are within normal limits. Visualized IVC is unremarkable. Intact antegrade portal vein blood flow is shown by color Doppler and spectral analysis. Gallbladder is nondistended. Multiple echogenic shadowing gallstones within the gallbladder lumen posteriorly. No significant gallbladder wall thickening or pericholecystic fluid. Common duct caliber is 3 mm. Visualized right kidney is unremarkable. ?? =====IMPRESSION:===== 1. Cholelithiasis without gallbladder distention or wall thickening. 2. Pancreas is obscured. Assessment & Plan: Orders Placed This Encounter Medications ??? triamcinolone 0.025 % ointment ??? ondansetron 4 MG disintegrating tablet ??? omeprazole 20 MG capsule ??? ketoconazole 2 % shampoo ??? ibuprofen 800 MG tablet ??? fluconazole 150 MG tablet ??? dicyclomine 10 MG capsule ??? cyclobenzaprine 10 MG tablet ??? Clobetasol Propionate 0.05 % Shampoo ??? ciprofloxacin 500 MG tablet 1. Other microscopic hematuria Urine will be sent for microscopy and culture 2. Pyuria Urine culture 3. Recurrent UTI Considering recurrent UTI, left sided back pain and ureterocele finding on ultrasound will obtain CT of the abdomen pelvis with and without contrast and will have her return for cystoscopy discussed this with patient and she agrees to proceed. 4. Ureterocele As above BOBBI Langley documented in this encounter Plan of Treatment Not on file documented as of this encounter Procedures Procedure Name Priority Date/Time Associated Diagnosis Comments URINALYSIS AUTO DIP Routine 06/03/2020 Other microscopic hematuria Pyuria documented in this encounter Results * CULTURE URINE (06/03/2020 10:09 AM CDT) SPEC DESCRIPTION URINE CLEAN CATCH 06/03/2020 4:34 PM CDT [facility] SPECIAL REQUESTS NO SPECIAL REQUEST 06/03/2020 4:34 PM CDT [facility] CULTURE RESULT NO GROWTH 2 DAYS 06/05/2020 10:43 AM CDT [facility] URINE SPECIMEN OBTAINED BY CLEAN CATCH PROCEDURE / Unknown 06/03/2020 10:09 AM CDT 06/03/2020 5:55 PM CDT Naima OLIVIER MICROBIOLOGY - GENERAL ORDJoe RUIZ Final Result [facility] [address] [place] [address], [place] [phone] * (ABNORMAL) URINALYSIS MICRO ONLY (06/03/2020 10:09 AM CDT) WBC/HPF 2 <6 /HPF 06/03/2020 6:09 PM CDT [facility] RBC/HPF 1 <6 /HPF 06/03/2020 6:09 PM CDT [facility] MUCUS RARE /LPF 06/03/2020 6:09 PM CDT [facility] BACTERIA (U) RARE(A) NONE /HPF 06/03/2020 6:09 PM CDT [facility] SQUAMOUS EPITHELIALS RARE /HPF 06/03/2020 6:09 PM CDT [facility] URINE SPECIMEN OBTAINED BY CLEAN CATCH PROCEDURE / Unknown 06/03/2020 10:09 AM CDT us Naima Ruiz APNP URINE ORDERABLES Final Resu lt [facility] [address] [place] [address], [place] [phone] * URINALYSIS AUTO DIP (06/03/2020) COLOR (U) YELLOW [facility] [address] ([address]), [place] TRANSPARENCY CLEAR [facility] [address] ([address]), [place] GLUCOSE (U) NEGATIVE NEGATIVE MG/DL [facility] ([address]), [place] BILIRUBIN (U) NEGATIVE NEGATIVE [facility] [address] ([address]), [place] KETONES MG/DL (U) NEGATIVE NEGATIVE MG/DL [facility] ([address]), [place] SPECIFIC GRAVITY (U) 1.015 1.001 - 1.035 [facility] [address] (3), [place] BLOOD (U) TRACE (Hemolyzed) NEGATIVE [facility] [address] ([address]), [place] U PH 8.0 5.0 - 9.0 [facility] [address] (3), [place] PROTEIN (U) NEGATIVE NEGATIVE mg/dL [facility] [address] ([address]), [place] UROBILINOGEN 0.2 0.2 - 1.0 EU/dL = mg/dL [facility] [address] (3), [place] NITRITES NEGATIVE NEGATIVE MG/DL [facility] [address] (3), [place] LEUKOCYTES (U) 1+ (SMALL) NEGATIVE [facility] [address] ([address]), [place] Urine specimen (specimen) URINE SPECIMEN OBTAINED BY CLEAN CATCH PROCEDURE / Unknown 06/03/2020 us Naima Ruiz APSAMY URINE ORDERABLES Final Resu lt [facility] [address] ([address]), [place] [address] [place] [address], documented in this encounter Visit Diagnoses Diagnosis Other microscopic hematuria- Primary Pyuria Other nonspecific finding on examination of urine Recurrent UTI Urinary tract infection, site not specified Ureterocele Other specified disorder of kidney and ureter documented in this encounter Care Teams Automation Manager Relationship Specialty Start Date End Date Tejinder Duarte MD [address] [facility] [address] [place] [address] PCP - General INTERNAL MEDICINE 05/04/20 01/06/24 documented as of this encounter
--- OUTSIDE RECORDS SUMMARY | 2024-10-01 17:56 | XMS_ITS | Encounter Summary ---
Author Organization [facility] Address [address] [place] [address]. [place], [place] [address] [place] [address] Care Team Providers Care Sofa Inspector Name Role Phone Tejinder Bergeron MD Primary Care Provider Encounter Details Date Type Department Care Team (Latest Contact Info) Description 06/03/2020 4:34 PM CDT - 06/03/2020 11:59 PM CDT Hospital Encounter [facility] [place] [address] Naima Ruiz, APNP [address] [address] Discharge Disposition: Home or Self Care (Routine [...] AM CDT documented as of this encounter Medications at Time of Discharge ciprofloxacin 500 MG tablet TAKE 1 TABLET BY MOUTH EVERY 12 HOURS FOR 5 DAYS 05/01/2020 0 Clobetasol Propionate 0.05 % Shampoo APPLY A THIN LAYER TOPICALLY ONCE DAILY TO DRY SCALP LEAVE IN PLACE FOR 15 MINUTES THEN LATHER AND RINSE. 11/07/2019 0 cyclobenzaprine 10 MG tablet Take 10 mg by mouth 3 (three) times daily as needed. 01/31/2020 0 dicyclomine 10 MG capsule TAKE 1 CAPSULE BY MOUTH THREE TIMES DAILY NEEDED 02/13/2020 0 fluconazole 150 MG tablet 11/11/2019 0 ibuprofen 800 MG tablet TAKE 1 TABLET BY MOUTH THREE TIMES DAILY WITH FOOD OR MILK NEEDED 01/31/2020 0 ketoconazole 2 % shampoo SHAMPOO 5 ML TOPICALLY TO SCALP TWICE A WEEK FOR 8 WEEKS 05/08/2020 0 omeprazole 20 MG capsule TAKE 1 CAPSULE BY MOUTH ONCE DAILY 30 MINUTES BEFORE MORNING MEAL 05/01/2020 0 ondansetron 4 MG disintegrating tablet DISSOLVE 1 TABLET ON TONGUE AND SWALLOW EVERY 8 HOURS NEEDED 05/01/2020 0 triamcinolone 0.025 % ointment APPLY OINTMENT TOPICALLY TO AFFECTED AREA TWICE DAILY 01/31/2020 0 documented as of this encounter Plan of Treatment Not on file documented as of this encounter Procedures Procedure Name Priority Date/Time Associated Diagnosis Comments URINE BACTERIA CULTURE Routine 06/03/2020 10:09 AM CDT Other microscopic hematuria Pyuria Recurrent UTI URINALYSIS MICRO ONLY Routine 06/03/2020 10:09 AM CDT Other microscopic hematuria documented in this encounter Results * (ABNORMAL) URINALYSIS MICRO ONLY (06/03/2020 10:09 AM CDT) WBC/HPF 2 <6 /HPF 06/03/2020 6:[address] [facility] RBC/HPF 1 <6 /HPF 06/03/2020 6:[address] [facility] MUCUS RARE /LPF 06/03/2020 6:[address] [facility] BACTERIA (U) RARE(A) NONE /HPF 06/03/2020 6:[address] [facility] SQUAMOUS EPITHELIALS RARE /HPF 06/03/2020 6:[address] [facility] URINE SPECIMEN OBTAINED BY CLEAN CATCH PROCEDURE / Unknown 06/03/2020 10:09 AM CDT Naima OLIVIER URINE ORDERABLES Final Resu lt Performing Organization Address City/[facility]/ZIP Co de Phone Number [facility] [address] [place] [address], * CULTURE URINE (06/03/2020 10:09 AM CDT) SPEC DESCRIPTION URINE CLEAN CATCH 06/03/2020 4:[address] [facility] SPECIAL REQUESTS NO SPECIAL REQUEST 06/03/2020 4:[address] [facility] CULTURE RESULT NO GROWTH 2 DAYS 06/05/2020 10:[address] [facility] URINE SPECIMEN OBTAINED BY CLEAN CATCH PROCEDURE / Unknown 06/03/2020 10:09 AM CDT 06/03/2020 5:55 PM CDT Niama OLIVIER MICROBIOLOGY - GENERAL ORDE RABLES Final Result Performing Organization Address City/[facility] Co de Phone Number [facility] [address] [place] [address], [place] [phone] documented in this encounter Visit Diagnoses Diagnosis Other microscopic hematuria Pyuria Other nonspecific finding on examination of urine Recurrent UTI Urinary tract infection, site not specified documented in this encounter Care Teams Sofa Inspector Relationship Specialty Start Date End Date Tejinder Bergeron MD [address] [facility] [address] [place] [address] PCP - General INTERNAL MEDICINE 05/04/20 01/06/24 documented as of this encounter
--- OUTSIDE RECORDS SUMMARY | 2024-10-01 17:56 | XMS_ITS | Encounter Summary ---
Author Organization [facility] Address [address] [place] [address]. [place], [place] [address] [place] [address] Care Team Providers Care Chemistry Professor Name Role Phone Tejinder Bergeron MD Primary Care Provider [phone] Encounter Details Date Type Department Care Team (Latest Contact Info) Description 05/13/2020 Travel Social History Tobacco Use Types Packs/Day Years Used Date Smoking Tobacco: Never Assessed Comments Unknown Sex and Gender Information Value Date Recorded Sex Assigned at Not on file Legal Sex Female 8:36 AM CDT Gender Identity Not on file Sexual Orientation Not on file COVID-19 Exposure Response Date Recorded In the last month, have you been in contact with someone who was confirmed or suspected to have Coronavirus / COVID-19? No / Unsure 05/13/2020 6:57 AM CDT documented as of this encounter Plan of Treatment Not on file documented as of this encounter Visit Diagnoses Not on filedocumented in this encounter Care Teams Chemistry Professor Relationship Specialty Start Date End Date Tejinder Bergeron MD [address] [facility] [address] [place] [address] PCP - General INTERNAL MEDICINE 05/04/20 01/06/24 documented as of this encounter
--- OUTSIDE RECORDS SUMMARY | 2024-10-01 17:56 | XMS_ITS | Encounter Summary ---
Author Organization [facility] Address [address] [place] [address]. [place], [place] [id number] [place] [address] Care Team Providers Care Wire Welder Name Role Phone Tejinder Bergeron MD Primary Care Provider Encounter Details Date Type Department Care Team (Latest Contact Info) Description 06/03/2020 Travel Social History Tobacco Use Types Packs/Day [...] on filedocumented in this encounter Care Teams Wire Welder Relationship Specialty Start Date End Date Tejinder Bergeron MD [address] [facility] [address] [place] [address] PCP - General INTERNAL MEDICINE 05/04/20 01/06/24 documented as of this encounter
--- OUTSIDE RECORDS SUMMARY | 2024-10-01 17:56 | XMS_ITS | Encounter Summary ---
Author Organization [facility] Address [address] [place] [address]. [place], [place] [address] [place] [address] Care Team Providers Care Foundry Tender Name Role Phone Tejinder Bergeron MD Primary Care Provider [phone]- [phone] Reason for Referral * Imaging (Routine) - Closed Specialty Diagnoses / Procedures Referred By Contac t Referred To Contact RADIOLOGY Diagnoses Abdominal pain Acute gastritis without bleeding Procedures US PELVIC NON OB COMP TA+TV Tejinder Bergeron MD [address] [address] Phone: tel: fax: [place] [address] Phone: tel: Referral ID Status Reason Start Date Expiration Date Visits Re quested Visits Authorized [id number] Closed 03/26/2020 04/25/2021 1 1 * Imaging (Routine) - Closed Specialty Diagnoses / Procedures Referred By Contac t Referred To Contact RADIOLOGY Diagnoses Abdominal pain Acute gastritis without bleeding Procedures US ABD LIMITED Tejinder Bergeron MD [address] [address] Phone: tel: fax: [place] [address] Phone: tel: Referral ID Status Reason Start Date Expiration Date Visits Re quested Visits Authorized [id number] Closed 03/26/2020 04/25/2021 1 1 Reason for Visit * Imaging (Routine) - Closed Specialty Diagnoses / Procedures Referred By Cristopher t Referred To Contact RADIOLOGY Diagnoses Abdominal pain Acute gastritis without bleeding Procedures [facility] Tejinder Bergeron MD [address] [address] Phone: tel: fax: [facility] [place] [address] Phone: tel: Referral ID Status Reason Start Date Expiration Date Visits Re quested Visits Authorized [id number] Closed 03/26/2020 04/25/2021 1 1 Encounter Details Date Type Department Care Team (Latest Contact Info) Description 05/13/2020 7:00 AM CDT - 05/13/2020 11:59 PM CDT Hospital Encounter [facility] [place] [address] Tejinder Bergeron MD [address] [address] Discharge Disposition: Home or Self Care [...] Associated Diagnosis Comments US ABD LIMITED Routine 05/13/2020 8:16 AM CDT Abdominal pain Acute gastritis without bleeding US PELVIC NON OB COMP TA+TV Routine 05/13/2020 7:46 AM CDT Abdominal pain Acute gastritis without bleeding documented in this encounter Results * US ABD LIMITED (05/13/2020 8:16 AM CDT) Anatomical Region Laterality Modality Abdomen Ultrasound 05/13/2020 8:43 AM CDT Impressions 05/13/2020 8:50 AM CDT =====IMPRESSION:===== 1. Cholelithiasis without gallbladder distention or wall thickening. 2. Pancreas is obscured. Narrative 05/13/2020 8:50 AM CDT Examination: US Right Upper Quadrant Exam date/time: 05/13/2020 7:04 AM ?? Reason For Exam: ??Abdominal pain ? Comparison: None. Findings: The pancreas is incompletely [...] 3 mm. Visualized right kidney is unremarkable. Procedure Note Zaki Espinoza MD - 05/13/2020 Examination: US Right Upper Quadrant Exam date/time: 05/13/2020 7:04 AM Reason For Exam: Abdominal pain Comparison: None. Findings: The pancreas is incompletely visualized, mostly obscured by overlying bowel gas. The pancreatic tail is completely obscured.Visualized portion of pancreatic head is grossly unremarkable. [...] 3 mm. Visualized right kidney is unremarkable. =====IMPRESSION:===== 1. Cholelithiasis without gallbladder distention or wall thickening. 2. Pancreas is obscured. us Tejinder Bergeron MD ULTRASOUND Final Resul t * US PELVIC NON OB COMP TA+TV (05/13/2020 7:46 AM CDT) Anatomical Region Laterality Modality Pelvis Ultrasound 05/13/2020 11:5 2 AM CDT Impressions 05/13/2020 12:05 PM CDT =====IMPRESSION:===== 1. Retroverted retroflexed uterus. 2. The tiny nabothian cyst. 3. Ovaries are sonographically unremarkable for age. 4. Minimal free pelvic fluid, within physiologic limits. 5. Incidental dilated distal ureters and bilateral ureteroceles. Narrative 05/13/2020 12:05 PM CDT EXAMINATION: Ultrasound pelvis EXAM DATE/TIME: 05/13/2020 7:04 AM REASON FOR EXAM: ??Abdominal pain and pelvic pain for 2 months. ? COMPARISON: None. TECHNIQUE: Transabdominal pelvic ultrasound, transvaginal pelvic ultrasound, color Doppler and spectral analysis. FINDINGS: On transabdominal exam, the uterus is retroverted and retroflexed. The uterus measures at least 6.8 x 4.4 x 5.4 cm. Endometrial complex measures 12 mm thick. No endometrial fluid collection. The bladder is nondistended. Incidental bilateral ureteroceles and dilated distal ureters. Minimal free fluid noted in the posterior pelvis. The right ovary measures 3.3 x 2.0 x 1.7 cm. The left ovary measures 5.0 x 3.0 x 2.9 cm and contains small hypoechoic follicles. Intact ovarian blood flow is shown by color Doppler and spectral analysis. On transvaginal imaging, tiny nabothian cyst is noted in the cervix. Retroverted retroflexed uterus again noted. Minimal free pelvic fluid. Ovaries are again visualized. Multiple small left ovarian follicles and mildly prominent paraovarian veins. No adnexal mass. Procedure Note Zaki Espinoza MD - 05/13/2020 EXAMINATION: Ultrasound pelvis EXAM DATE/TIME: 05/13/2020 7:04 AM REASON FOR EXAM: Abdominal pain and pelvic pain for 2 months. COMPARISON: None. TECHNIQUE: Transabdominal pelvic ultrasound, transvaginal pelvic ultrasound, color Doppler and spectral analysis. FINDINGS: On transabdominal exam, the uterus is retroverted and retroflexed. The uterus measures at least 6.8 x 4.4 x 5.4 cm.Endometrial complex measures 12 mm thick. No endometrial fluid collection. Thebladder is nondistended. Incidental bilateral ureteroceles and dilated distal ureters. Minimal free fluid noted in the posterior pelvis. The rightovary measures 3.3 x 2.0 x 1.7 cm. The left ovary measures 5.0 x 3.0 x 2.9 cmand contains small hypoechoic follicles. Intact ovarian blood flow is shownby color Doppler and spectral analysis. On transvaginal imaging, tiny nabothian cyst is noted in the cervix. Retroverted retroflexed uterus again noted. Minimal free pelvic fluid. Ovaries are again visualized. Multiple small left ovarian follicles and mildly prominent paraovarian veins. No adnexal mass. =====IMPRESSION:===== 1. Retroverted retroflexed uterus. 2. The tiny nabothian cyst. 3. Ovaries are sonographically unremarkable for age. 4. Minimal free pelvic fluid, within physiologic limits. 5. Incidental dilated distal ureters and bilateral ureteroceles. us Tejinder Bergeron MD ULTRASOUND Final Resul t documented in this encounter Visit Diagnoses Diagnosis Abdominal pain Abdominal pain, unspecified site Acute gastritis without bleeding Acute gastritis without mention of hemorrhage documented in this encounter Care Teams Foundry Tender Relationship Specialty Start Date End Date Tejinder Bergeron MD [address] [address] [place] [id number] PCP - General INTERNAL MEDICINE 05/04/20 01/06/24 documented as of this encounter
--- OUTSIDE RECORDS SUMMARY | 2024-10-01 17:58 | XMS_ITS | Clinical Summary ---
Author Organization [facility] Address [address], [facility] [place] [address] [place] [address] Phone Care Team Providers Care Bottoming Machine Operator Name Role Phone Provider, Unknown Primary Care Provider Allan Brooks MD Unavailable [phone] Allergies No known active allergies Medications Clzlqzse-Mow-Fp- FA ( VITAMINS PO) Take 1 Tab by mouth daily. Active Resolved Problems Problem Noted Date Diagnosed Date Resolved Date Immune thrombocytopenia affe cting in first trimester 07/05/2018 07/05/2018 Immunizations Immunization Administration Dates Next Due DTAP VACCINE 08/13/1999 Hepatitis B Vaccine, Pediatric/adolescent 2003,08/08/2000,08/13/1999 Human Papillomavirus (HPV) V accine, Bivalent 07/30/2008,04/01/2008,01/22/2008 Inactivated Polio Vaccine 08/13/1999 Influenza Vaccine,unspecified Formulation 2007 Influenza, Injectable, Quadrivalent 08/18/2017 Influenza, Seasonal, Injectable, Undefined 08/22,08/07/2013 MMR Vaccine 08/08/2000,08/13/1999 Meningococcal Vaccine, Unspe cified Formulation 01/22/2008 TD VACCINE 08/13/1999 TDAP Vaccine 10/05/2018,12/30/2014,01/22/2008 Family History Relation Name Status Comments Brother Alive Father Alive Mother Alive Sister Alive Social History Tobacco Use Types Packs/Day Years Used Date Smoking Tobacco: Never Smokeless Tobacco: Never Alcohol Use Standard Drinks/Week Comments No 0 (1 standard drink = 0.6 oz pur e alcohol) PHQ-2 Answer Date Recorded PHQ-2 Score 0 06/04/2019 Sexually Active Control Partners Comments Yes Comments Unknown Sex and Gender Information Value Date Recorded Sex Assigned at Not on file Legal Sex Female 8:48 AM CDT Gender Identity Not on file Sexual Orientation Not on file Last Filed Vital Signs Vital Sign Reading Time Taken Comments Blood Pressure 118/82 10/18/2018 9:49 AM CAPACITY MANAGEMENT SPECIALIST Pulse 96 10/18/2018 9:49 AM CAPACITY MANAGEMENT SPECIALIST Temperature 36.6 ??C (97.8 ??F) 10/18/2018 9:49 AM CS T Respiratory Rate 18 10/18/2018 9:49 AM CAPACITY MANAGEMENT SPECIALIST Oxygen Saturation 97% 10/18/2018 9:49 AM CAPACITY MANAGEMENT SPECIALIST Inhaled Oxygen Concentration - - Weight 106.4 kg (234 lb 9.6 oz) 10/18/2018 9:49 AM CAPACITY MANAGEMENT SPECIALIST Height 165.1 cm (5' 5 ) 10/18/2018 9:49 AM CAPACITY MANAGEMENT SPECIALIST Body Mass Index 39.04 10/18/2018 9:49 AM CAPACITY MANAGEMENT SPECIALIST Plan of Treatment Health Maintenance Due Date Last Done Comments Hepatitis C Virus (HCV) Screening 1993 Pap Smear 2014 Cervical Cancer Screening (CCS) 12/20/2023 HPV/Cotest 12/20/2023 Influenza Immunization (#1) 2024 08/18/2017, 1 09/29/2007 SARS-COV-2 Immunization ( season) 2024 Respiratory Syncytial Virus (RSV) Immunization (Adult) (1 - 1-dose 75+ series) 2068 Hepatitis B Immunization Completed 004, 08/08/2000, 08/13/1999 Meningococcal Immunization (ACWY) Aged Out 01/22/2008 No longer eligible based on patient's age to complete this topic Human Papillomavirus (HPV) Immunization Discontinued 07/30/2008, 04/01/2008, 01/22/2008 DTaP/Tdap/Td Immunization Discontinued 2018, 12/30/2014, 01/22/2008, Additional history exists Pneumococcal Immunization Combined Aged Out No longer eligible based on patient's age to complete this topic Rotavirus Immunization Aged Out No lo nger eligible based on patient's age to complete [place] [id number] Care Teams Bottoming Machine Operator Relationship Specialty Start Date End Date Provider, Unknown UNKNOWN PCP - General 07/05/18 Allan Denney MD [address] [place] [id number] Obstetrics & Gynecology 08/02/18
--- OUTSIDE RECORDS SUMMARY | 2024-10-01 17:58 | XMS_ITS | Encounter Summary ---
Author Organization [facility] Address [address] [place] [address] Phone Care Team Providers Care Patient Care Associate Name Role Phone Provider, Unknown Primary Care Provider Allan Brooks MD Unavailable [phone] Encounter Details Date Type Department Care Team (Late st Contact Info) Description 08/31/2023 Telephone [facility] [address] [address] Amadou Carter MD [address] [facility] [address] [place], [place] [id number] Social History Tobacco Use Types Packs/Day Years [...] encounter Miscellaneous Notes * Telephone Encounter - Tala Cano - 08/31/2023 10:00 AM CST Called and LM for PT to call us back to reschedule appt that she missed today. I will also send PT a letter. D BANK ASSISTANT documented in this encounter Plan of Treatment Not on file documented as of this encounter Visit Diagnoses Not on filedocumented in this encounter Additional Health Concerns Assessment Noted Time PHQ-9 Depression Total Score: 0 10/18/19 19 9:51 AM BLOOD BANK ASSISTANT documented as of this encounter Care Teams Patient Care Associate Relationship Specialty Start Date End Date Provider, Unknown UNKNOWN PCP - General 07/05/18 Allan Denney MD [address] [place] [address] Obstetrics & Gynecology 08/02/18 documented as of this encounter
--- OUTSIDE RECORDS SUMMARY | 2024-10-01 18:00 | XMS_ITS | Encounter Summary ---
Author Organization [facility] Address [address] [place] [address] Care Team Providers Care Corner Trimmer Operator Name Role Phone Allan Denney MD Primary Care Provider [phone] Encounter Details Date Type Department Care Team (Late st Contact Info) Description 02/17/2020 10:02 PM CDT - 02/17/2020 10:45 PM CDT Hospital Encounter [facility] Emergency Department [address] [place] [address] Unknown, Notinfile Discharge Disposition: Left without being seen Social History Tobacco Use Types Packs/Day Years Used Date Smoking Tobacco: Never Comments Unknown Sex and Gender Information Value Date Recorded Sex Assigned at Not on file Legal Sex Female 11:00 AM FLOW MANAGER Gender Identity Not on file Sexual Orientation Not on file documented as of this encounter Last Filed Vital Signs Vital Sign Reading Time Taken Comments Blood Pressure 140/89 02/17/2020 10:14 PM CDT Pulse 87 02/17/2020 10:14 PM CDT Temperature 37.1 ??C (98.7 ??F) 02/17/2020 10:14 PM C DT Respiratory Rate - - Oxygen Saturation 100% 02/17/2020 10:14 PM CDT Inhaled Oxygen Concentration - - Weight 98.7 kg (217 lb 9.5 oz) 02/17/2020 10:14 PM CDT Height 165.1 cm (5' 5 ) 02/17/2020 10:14 PM CDT Body Mass Index 36.21 02/17/2020 10:14 PM CDT documented in this encounter Discharge Disposition Disposition Code Departure Means Destination Left without being seen documented in this encounter Plan of Treatment Not on file documented as of this encounter Visit Diagnoses Not on filedocumented in this encounter Care Teams Corner Trimmer Operator Relationship Specialty Start Date End Date Allan Denney MD PCP - General 12/06/18 02/19/24 documented as of this encounter
--- OUTSIDE RECORDS SUMMARY | 2024-10-01 18:00 | XMS_ITS | Data Portability ---
Author Organization [facility] [place] Address [address] [place] [address] [place] [address] Assessment Encounter Date Assessment Date Assessment LastModified by Organization Details LastModified Time 03/06/2023 03/06/2023 Annual gynecological exam performed. Patient will come back in a year unless there are new symptoms. [email or web address] Not [facility] 03/06/2023 12:05:53 Plan of Treatment Reminders Order Date Submit Date Provider Last Modified By Organization Details Last Modified Time Details Appointments None recorded . Lab urinalys is, dipstick 2022 023 zully [place], [address], [place], [address], 3 15:32:59 pregnanc y test, urine 2022 023 zully [place], [facility] [address], [place], [address], 3 15:32:59 unlisted lab - [facility] swab plus, [place]AN 2023 024 [facility] (Lab), [address], [place], [address], 4 00:13:04 urinalys is, dipstick 2023 024 [email or web address] [place], [address], [place], [address], 4 17:29:25 culture, urine 2023 024 [facility] (Lab), [address], [place], [address], 4 00:13:04 Referral urologis t referral - Recurren t urinary tract infectio nPlease contact this patient to schedule an appointm ent.Eduard gascatamie are the patients demograp hics, most recent office visit notes and UA results. If you have any question s, please contact me at [phone].Th ank you,Facundo julian, Referral 's 2022 023 [facility], [address] [place] [address] [address], [place], [address], 3 16:07:22 Procedures None recorded . Surgeries None recorded . Imaging None recorded . Medication Orders ciproflo xacin 500 mg tablet 2022 023 [email or web address] [id number], [address], [place], [place], [id number], 3 12:34:45 metronid azole 500 mg tablet 2022 023 [facility] 2425, [address], [place], [address], 4 17:12:56 fluconaz ole 150 mg tablet 2022 023 [facility] 2425, [address], [place], [address], 4 17:12:53 nystatin -triamci nolone 100,000 unit/gra m-0.1 % topical ointment 2022 023 [email or web address] [facility] 2425, [address], [place], [address], 4 17:25:35 metronid azole 0.75 % (37.5 mg/5 gram) vaginal gel 2023 024 [place] Graham [facility] 2425, [address], [place], [address], 4 17:44:41 Macrobid 100 mg capsule 2023 024 [place], [address], [place], [address], 17:44:42 Patient TargetsNo targets recorded. Patient InstructionsNo instructions recorded. Reason for Referral Urologist Referral for Recur rent urinary tract infection Recurrent urinary tract infection Recurrent urinary tract infectionPlease contact this patient to schedule an appointment.Attached are the patients demographics, most recent office visit notes and UA results.If you have any questions, please contact me at [phone].Thank you,Tala Referral's Referring Physician: Felecia Hsu, [employer], Encounter Date: 09/28/2022 Results Created Date Observation Date Name Description Value Unit Range Abnormal Flag Note LastModifiedBy Organization Detail LastModifiedTime 09/28/19 23 09/28/2022 CT/GC AND TRICH OMONA S VAGIN MALU (RRNA ), SWAB chlamydia trachomatis, PCR Negati ve negati ve Not Available [facility] (Lab) [address], [place], [address], 09/29/2022 22:28:16 09/28/19 23 09/28/2022 CT/GC AND TRICH OMONA S VAGIN MALU (RRNA ), SWAB neisseria gonorrhoeae, PCR Negati ve negati ve Not Available [facility] (Lab) [address], [place], [address], 09/29/2022 22:28:16 09/28/19 23 09/28/2022 CT/GC AND TRICH OMONA S VAGIN MALU (RRNA ), SWAB trichomonas vaginalis ribosomal RNA (rrna) Negati ve negati ve Not Available [facility] (Lab) [address] [facility], [place], [address], 09/29/2022 22:28:16 09/28/19 23 09/28/2022 VAGIN ITIS/ VAGIN OSIS, DNA PROBE christy sp. detection, direct probe Negati ve negati ve Not Available [facility] (Lab) [address] [facility], [place], [address], 09/29/2022 22:28:16 09/28/19 23 09/28/2022 VAGIN ITIS/ VAGIN OSIS, DNA PROBE gardnerella vag. detection, direct probe Negati ve negati ve Not Available [facility] (Lab) [address] [facility] [facility], [place], [address], 09/29/2022 22:28:16 09/28/19 23 09/28/2022 VAGIN ITIS/ VAGIN OSIS, DNA PROBE trichomonas vag. detection, direct probe Negati ve negati ve Not Available [facility] (Lab) [address] [place], [address], 09/29/2022 22:28:16 09/28/19 23 09/28/2022 CULTU RE: URINE result report SEE RESULT S BELOW abnormal Test: Cultu re: Urine Speci men Sourc e: Urine Voide d Speci men Type: Urine Speci men Date: 2022 4:24 PM Resul t Date: 2022 8:39 AM Resul t Statu s: Final resul t Abnor mal: Yes Resul calvin Lab: [facility] [address] [facility] [address] Tel: CULTU RE ----- ----- ----- --- >100, 000 CFU/m l Esche ivan a coli (Abno rmal) KENYCE PTIBI LITY ----- ----- ----- --- Esche ivan a coli METHO D MK ----- ----- ----- ----- ----- ---- ----- ----- ----- ----- ---- AMIKA YAMILA <=16 ug/mL Susce ptibl e AMPIC ILLIN >16 ug/mL Resis tant AMPIC ILLIN /SULB ACTAM 16 ug/mL Inter media te AZTRE ONAM <=4 ug/mL Susce ptibl e CEFAZ ROBERT <=8 ug/mL Susce ptibl e CEFEP MARINA <=4 ug/mL Susce ptibl e CEFOX ITIN <=8 ug/mL Susce ptibl e CEFTA ZIDIM E <=1 ug/mL Susce ptibl e CEFTR IAXON E <=1 ug/mL Susce ptibl e CIPRO FLOXA YAMILA <=1 ug/mL Susce ptibl e GENTA MICIN <=4 ug/mL Susce ptibl e LEVOF LOXAC IN <=2 ug/mL Susce ptibl e MEROP ENEM <=1 ug/mL Susce ptibl e NITRO FURAN TOIN <=32 ug/mL Susce ptibl e PIPER ACILL IN/TA ZOBAC GAMEZ <=16 ug/mL Susce ptibl e TOBRA MYCIN <=4 ug/mL Susce ptibl e TRIME THOPR IM/LEO LFAME THOXA ZOLE >2 ug/mL Resis tant Not Available [facility] (Lab) [address], [place], [address], 10/01/2022 09:42:02 09/28/1909/28/2022 pregn leon test, urine HCG negati ve Not Available [place] [address], [place], [address], 09/28/2022 15:32:35 09/28/19 23 09/28/2022 urina lysis , dipst ick Leukocytes 2+ Not Available [facility] [address], [place], [address], 09/28/2022 15:31:04 09/28/19 23 09/28/2022 urina lysis , dipst ick Nitrite neg Not Available [place] [address], [place], [address], 09/28/2022 15:31:04 09/28/19 23 09/28/2022 urina lysis , dipst ick Urobilinogen neg Not Available [facility] [address], [place], [address], 09/28/2022 15:31:04 09/28/19 23 09/28/2022 urina lysis , dipst ick Protein 2+ Not Available [place] [address], [place], [address], 09/28/2022 15:31:04 09/28/19 23 09/28/2022 urina lysis , dipst ick pH 6 Not Available [place] [address], [place], [address], 09/28/2022 15:31:04 09/28/19 23 09/28/2022 urina lysis , dipst ick Blood +++ Not Available [place] [address], [place], [address], 09/28/2022 15:31:04 09/28/19 23 09/28/2022 urina lysis , dipst ick Specific Bivins 1.010 Not Available [facility] [address], [place], [address], 09/28/2022 15:31:04 09/28/19 23 09/28/2022 urina lysis , dipst ick Ketone 1+ Not Available [place] [address], [place], [address], 09/28/2022 15:31:04 09/28/19 23 09/28/2022 urina lysis , dipst ick Bilirubin neg Not Available [facility] [address], [place], [address], 09/28/2022 15:31:04 09/28/19 23 09/28/2022 urina lysis , dipst ick Glucose neg Not Available [place] [address], [place], [address], 09/28/2022 15:31:04 09/28/19 23 09/28/2022 urina lysis , dipst ick Appearance cloudy Not Available [facility] [address], [place], [address], 09/28/2022 15:31:04 09/28/19 23 09/28/2022 urina lysis , dipst ick Color yellow Not Available [place] [address], [place], [address], 09/28/2022 15:31:04 03/06/20 23 03/06/2023 IMAGE GUIDE D PAP, REFLE X HPV IF ASCUS ONLY image guided Pap, reflex HPV ASCUS only SEE RESULT S BELOW CASE REPOR T: Cytol ogy Gynec ologi susi Repor t Case: [id number] Autho qasim g Provi ayleen: Felecia Hsu, SAMY Colle cted: 03/06 1320 Order ing Locat ion: [place] [facility] Recei niels: 03/07 0827 First Scree n: Noora ni, Moham ed, CT Rescr een: Kary Guzman Speci men: Scree jennifer Pap - Image d, Cervi x STATE MENT OF ADEQU ACY: Satis facto ry for evalu ation Trans forma tion zone compo nent prese nt FINAL DIAGN OSIS: Negat lyssa for Intra epith elial Lesio n or Josué diego (NIL) . Elect esha corona joseph d by Kary Guzman on 2022 at 5:23 PM ----- ----- ----- ----- ----- ----- ----- ----- ----- ----- ----- ----- ----- ----- ----- ----- ----- ---- COMME NT: This speci men was revie wed by a Cytot echno logis t and/o r Patho logis t (as indic ated in this repor t) after evalu ation using the Thinp rep Imagi ng Syste m. CLINI SUSI INFOR MATIO N: Menst rual Statu s: LMP (if appli cable ): Clini susi Histo ry/Pr eviou s Pap: Type of Neopl cata (if appli cable ): Signi fican t Clini susi Findi ngs: Other Histo ry: Hormo jesus (if appli cable ): PAP EDUCA SADI L NOTE: The Pap Test is a scree jennifer test with an inher ent false negat lyssa rate. Liqui d-bas ed sampl ing may decre ase, but will not elimi jonathan, false negat lyssa resul ts. A negat lyssa resul t does not precl ude the prese nce and/o r devel opmen t of disea se, since the prese nce of abnor mal cells in the sampl e depen ds on the locat ion of the lesio n and sampl ing techn ique. [place] nued regul ar scree jennifer is the best metho d of cance r preve ntion . If repor larry cytol ogic findi ng do not corre late with physi susi and/o r histo rical findi ngs, furth er inves tigat ion is recom trice d, as sonido alba nted. Not Available [facility] (Lab) [address], [place], [address], 03/09/2023 18:27:23 07/17/20 23 07/17/2023 CT/GC (JARETH) , SWAB chlamydia trachomatis, PCR Negati ve negati ve Not Available [facility] (Lab) [address] [facility] [facility], [place], [address], 07/18/2023 14:24:34 07/17/20 23 07/17/2023 CT/GC (JARETH) , SWAB neisseria gonorrhoeae, PCR Negati ve negati ve Not Available [facility] (Lab) [address] [facility], [place], [address], 07/18/2023 14:24:34 07/17/20 23 07/17/2023 VAGIN ITIS/ VAGIN OSIS, DNA PROBE christy sp. detection, direct probe Negati ve negati ve Not Available [facility] (Lab) [address] [facility] [facility], [place], [address], 07/18/2023 14:24:34 07/17/20 23 07/17/2023 VAGIN ITIS/ VAGIN OSIS, DNA PROBE gardnerella vag. detection, direct probe Negati ve negati ve Not Available [facility] (Lab) [address] [facility], [place], [address], 07/18/2023 14:24:34 07/17/20 23 07/17/2023 VAGIN ITIS/ VAGIN OSIS, DNA PROBE trichomonas vag. detection, direct probe Negati ve negati ve Not Available [facility] (Lab) [address] [facility], [place], [address], 07/18/2023 14:24:34 07/17/20 23 07/17/2023 CULTU RE: HERPE S SIMPL EX VIRUS (HSV) , REFLE X TYPIN G source LESION SCRAPI NGS Not Available [facility] (Lab) [address] [facility], [place], [address], 07/21/2023 16:24:02 07/17/20 23 07/17/2023 CULTU RE: HERPE S SIMPL EX VIRUS (HSV) , REFLE X TYPIN G hsv culture, body fluid NOT ISOLAT ED vagin al Perfo rming Organ izati on Infor matio n: Site ID: CB Name: [facility] tamie Pina ss: [address] [place] [address] Direc tor: Kim navarro Not Available [facility] (Lab) [address] [facility], [place], [address], 07/21/2023 16:24:02 09/09/20 24 09/09/2024 CULTU RE: URINE result report SEE RESULT S BELOW abnormal Test: Cultu re: Urine Speci men Sourc e: Urine - Clean Catch Speci men Type: Urine Speci men Date: 09/09 1651 Resul t Date: 09/11 2309 Resul t Statu s: Final resul t Prerna mal: Yes Deloris simpson Lab: [facility] [address] [facility] [address] Tel: CULTU RE ----- ----- ----- --- >100, 000 CFU/m l Esche ivan a coli (Abno rmal) SUSCE PTIBI LITY ----- ----- ----- --- Esche ivan a coli METHO D MK ----- ----- ----- ----- ----- ---- ----- ----- ----- ----- ----- AMPIC ILLIN <=8 ug/mL Susce ptibl e AMPIC ILLIN /SULB ACTAM <=4 ug/mL Susce ptibl e AZTRE ONAM <=4 ug/mL Susce ptibl e CEFAZ ROBERT <=2 ug/mL Susce ptibl e CEFEP MARINA <=2 ug/mL Susce ptibl e CEFTA ZIDIM E <=1 ug/mL Susce ptibl e CEFTR IAXON E <=1 ug/mL Susce ptibl e CIPRO FLOXA YAMILA <=0.2 5 ug/mL Susce ptibl e GENTA MICIN <=2 ug/mL Susce ptibl e LEVOF LOXAC IN <=0.5 ug/mL Susce ptibl e MEROP ENEM <=1 ug/mL Susce ptibl e NITRO FURAN TOIN <=32 ug/mL Susce ptibl e PIPER ACILL IN/TA ZOBAC GAMEZ <=8 ug/mL Susce ptibl e TOBRA MYCIN <=2 ug/mL Susce ptibl e TRIME THOPR IM/LEO LFAME THOXA ZOLE <=0.5 ug/mL Susce ptibl e Not Available [facility] (Lab) [address] [place], [address], 09/12/2024 00:13:04 09/09/20 24 09/09/2024 WOMEN 'S HEALT H SWAB PLUS, [place] bacterial vaginosis (bv), tma Positi ve negati ve abnormal Not Available [facility] (Lab) [address] [place], [address], 09/12/2024 00:13:04 09/09/20 24 09/09/2024 WOMEN 'S HEALT H SWAB PLUS, [place] christy species, tma Negati ve negati ve Not Available [facility] (Lab) [address] [place], [address], 09/12/2024 00:13:04 09/09/20 24 09/09/2024 WOMEN 'S HEALT H SWAB PLUS, [place] christy glabrata, tma Negati ve negati ve Not Available [facility] (Lab) [address] [place], [address], 09/12/2024 00:13:04 09/09/20 24 09/09/2024 WOMEN 'S HEALT H SWAB PLUS, [place] trichomonas vaginalis, tma Negati ve negati ve Not Available [facility] (Lab) [address] [place], [address], 09/12/2024 00:13:04 09/09/20 24 09/09/2024 WOMEN 'S HEALT H SWAB PLUS, [place] chlamydia trachomatis, PCR Negati ve negati ve Not Available [facility] (Lab) [address] [place], [address], 09/12/2024 00:13:04 09/09/20 24 09/09/2024 WOMEN 'S HEALT H SWAB PLUS, [place]AN neisseria gonorrhoeae, PCR Negati ve negati ve Bacte rial vagin osis detec ts the follo wing bacte leonor assoc iated with bacte rial vagin osis (BV): Lacto bacil wenceslao (L. gasse ri, L. crisp atus and L. jense eladio), Gardn erell a vagin malu, and Atopo bium vagin ae. A singl e quali tativ e resul t is repor larry base on instr ument softw are to deter mine BV posit lyssa or negat lyssa statu s. The Peggy da speci es group tests for C. albic ans, C. tropi calis , C. parap nathaly is, C. dubli niens is. Testi ng is perfo rmed using the Trans cript ion Media alrry Ampli ficat ion metho d. Tests for Peggy da glabr kenzie, Trich omona s vagin malu, Chlam ydia trach omati s, and Neiss eria gonor rhoea e are also inclu ded in this panel . Not Available [facility] (Lab) [address] [facility], [place], [address], 09/12/2024 00:13:04 09/09/20 24 09/09/2024 urina lysis , dipst ick Leukocytes +++ Not Available Taya cuellar [address], [place], [address], 09/09/2024 17:27:07 09/09/20 24 09/09/2024 urina lysis , dipst ick Nitrite + Not Available [address], [place], [address], 09/09/2024 17:27:07 09/09/20 24 09/09/2024 urina lysis , dipst ick Urobilinogen - Not Available Izzy steve [address], [place], [address], 09/09/2024 17:27:07 09/09/20 24 09/09/2024 urina lysis , dipst ick Protein ++ Not Available [place] [address], [place], [address], 09/09/2024 17:27:07 09/09/20 24 09/09/2024 urina lysis , dipst ick pH 5 Not Available [place] [address], [place], [address], 09/09/2024 17:27:07 09/09/20 24 09/09/2024 urina lysis , dipst ick Blood ++ Not Available [place] [address], [place], [address], 09/09/2024 17:27:07 09/09/20 24 09/09/2024 urina lysis , dipst ick Specific Bivins 1.020 Not Available [facility] [address], [place], [address], 09/09/2024 17:27:07 09/09/20 24 09/09/2024 urina lysis , dipst ick Ketone - Not Available [place] [address], [place], [address], 09/09/2024 17:27:07 09/09/20 24 09/09/2024 urina lysis , dipst ick Bilirubin - Not Available [facility] earl [address], [place], [address], 09/09/2024 17:27:07 09/09/20 24 09/09/2024 urina lysis , dipst ick Glucose - Not Available [place] [address], [place], [address], 09/09/2024 17:27:07 09/09/20 24 09/09/2024 urina lysis , dipst ick Appearance cloudy Not Available Taya cuellar [address], [place], [address], 09/09/2024 17:27:07 09/09/20 24 09/09/2024 urina lysis , dipst ick Color dark yellow Not Available [place] [address], [place], [address], 09/09/2024 17:27:07 Result Notes None recorded. Procedures Surgical History Date Name Laterality Status Provider Name and Address Organization Details Recorded Time 023 Date of Last Pap Smear completed Adelina Barnhart [facility] 07/17/2023 09:11:27 023 Nexplanon Removal completed ASIYA [place] [address], [place], [address], [facility] 02/14/2023 13:41:25 022 Nexplanon Insert completed ASIYA [place] [address], [place], [address], [facility] 01/17/2022 13:04:55 021 Cholecystectomy completed Jennifer Hearn [facility] 01/11/2022 11:25:34 020 repair of umbilical hernia completed Adelina Barnhart [facility] 07/17/2023 09:12:04 013 termination of completed Adelina Barnhart [facility] 02/14/2023 12:41:54 Imaging Results None recorded. Procedure Notes None recorded. Medical Equipment None Reported. Allergies No known drug allergies Medications Name Sig Start Date Stop Date Status Note LastModified by Organization Details LastModified Time cyclobenzap rine 10 mg tablet TAKE 1 TABLET BY MOUTH THREE TIMES DAILY NEEDED 02/14 completed Not Available Not Available Not Available methocarbam ol 500 mg tablet TAKE 1 TABLET BY MOUTH AT BEDTIME NEEDED 02/14 completed Not Available Not Available Not Available prednisone 10 mg tablet 07/17 completed Not Available Not Available Not Available ketoconazol e 2 % shampoo APPLY 5 ML TOPICALLY TO SCALP TWO TIMES PER WEEK FOR 8 WEEKS 09/28 completed Not Available Not Available Not Available azithromyci n 250 mg tablet TAKE 2 TABLETS BY MOUTH ON DAY 1, AND THEN TAKE 1 TABLET BY MOUTH ONCE A DAY ON DAY 2 THROUGH DAY 5 09/09 completed Not Available Not Available Not Available fluconazole 150 mg tablet TAKE ONE TABLET BY MOUTH A ONE-TIME DOSE; REPEAT IN 7 DAYS 09/09 completed Not Available Not Available Not Available benzonatate 200 mg capsule TAKE 1 CAPSULE BY MOUTH THREE TIMES DAILY NEEDED FOR COUGH 09/09 completed Not Available Not Available Not Available tretinoin 0.025 % topical cream APPLY A PEA SIZED AMOUNT AT BEDTIME TO AFFECTED AREAS ON THIGHS 09/09 completed Not Available Not Available Not Available meloxicam 15 mg tablet 09/09 completed Not Available Not Available Not Available metronidazo le 0.75 % (37.5 mg/5 gram) vaginal gel Insert 1 applicato rful every day by vaginal route for 5 days. active Not Available Not Available No t Available topiramate 25 mg tablet TAKE 1 TABLET BY MOUTH ONCE DAILY IN THE EVENING 07/14 completed Not Available Not Available Not Available metronidazo le 500 mg tablet TAKE 1 TABLET BY MOUTH EVERY 12 HOURS FOR 7 DAYS 09/09 completed Not Available Not Available Not Available phentermine 37.5 mg tablet TAKE 1/2 (ONE-HALF ) TABLET BY MOUTH ONCE DAILY 07/14 completed Not Available Not Available Not Available ciprofloxac in 500 mg tablet TAKE 1 TABLET BY MOUTH EVERY 12 HOURS FOR 7 DAYS 02/14 completed Not Available Not Available Not Available omeprazole 40 mg capsule,del ayed release 02/14 completed Not Available Not Available Not Available nystatin-tr iamcinolone 100,000 unit/gram-0 .1 % topical ointment APPLY OINTMENT TOPICALLY TO AFFECTED AREA TWICE DAILY FOR 7 DAYS 09/09 completed Not Available Not Available Not Available meloxicam 7.5 mg tablet 07/17 completed Not Available Not Available Not Available amoxicillin 875 mg tablet active Not Available Not Available Not Available dicyclomine 20 mg tablet 02/14 completed Not Available Not Available Not Available cephalexin 500 mg capsule Take 1 capsule every 12 hours by oral route for 10 days. 07/14 completed Not Available Not Available Not Available dextroamphe tamine-amph etamine 20 mg tablet TAKE 1 TABLET BY MOUTH ONCE DAILY BEFORE BREAKFAST 09/09 completed Not Available Not Available Not Available methylpredn isolone 4 mg tablets in a dose pack active Not Available Not Available Not Available albuterol sulfate HFA 90 mcg/actuati on aerosol inhaler INHALE 2 PUFFS BY MOUTH EVERY 6 HOURS NEEDED FOR WHEEZING FOR SHORTNESS OF BREATH active Not Available Not Available No t Available naproxen 500 mg tablet TAKE 1 TABLET BY MOUTH EVERY 12 HOURS WITH FOOD OR MILK NEEDED 02/14 completed Not Available Not Available Not Available Sprintec (28) 0.25 mg-35 mcg tablet TAKE 1 TABLET BY MOUTH ONCE DAILY 07/14 completed Not Available Not Available Not Available Clotrimazol e-3 2 % vaginal cream Insert 1 applicato rful by vaginal route at bedtime for 3 days. 07/14 completed Not Available Not Available Not Available nitrofurant oin monohydrate /macrocryst als 100 mg capsule Take 1 capsule every 12 hours by oral route for 7 days. active Not Available Not Available No t Available Aspercreme (lidocaine) 4 % topical patch APPLY 1 TOPICALLY ONCE DAILY ONTO THE SKIN. REMOVE AND DISCARD PATCH WITHIN 12 HOURS OR DIRECTED BY DOCTOR 02/14 completed Not Available Not Available Not Available Vitals Date Recorded Body height Systolic blood pressure Diastolic blood pressure Provider Name and Address Organization Details Last Updated DateTime 09/28/2022 165.1 cm 121 mm[Hg] 79 mm[Hg] Jocelyne Bautista [facility] 09/28/2022 15:19:29 Date Recorded Body height Body mass index (BMI) Body weight Systolic blood pressure Diastolic blood pressure Provider Name and Address Organization Details Last Updated DateTime 02/14/2023 165.1 cm 38.9 kg/m2 730753.6 1 g 114 mm[Hg] 77 mm[Hg] Adelina Barnhart [facility] 3 12:34:36 Date Recorded Body height Body mass index (BMI) Body weight Systolic blood pressure Diastolic blood pressure Provider Name and Address Organization Details Last Updated DateTime 03/06/2023 165.1 cm 39.6 kg/m2 337049.9 8 g 117 mm[Hg] 80 mm[Hg] Jocelyne Bautista [facility] 3 12:06:11 Date Recorded Body height Body mass index (BMI) Body weight Systolic blood pressure Diastolic blood pressure Provider Name and Address Organization Details Last Updated DateTime 07/17/2023 165.1 cm 39.4 kg/m2 983517.3 9 g 115 mm[Hg] 77 mm[Hg] Adelina Barnhart [facility] 3 09:11:09 Date Recorded Body height Body mass index (BMI) Body weight Systolic blood pressure Diastolic blood pressure Provider Name and Address Organization Details Last Updated DateTime 09/09/2024 165.1 cm 39.8 kg/m2 954754.2 2 g 126 mm[Hg] 85 mm[Hg] Gracy Soeldad [facility] 4 17:26:38 Social History Question Answer Notes LastModified by Organizat ion Details LastModified Time Tobacco Smoking Status Never Smoker Jennifer lovell, [facility] 01/11/2022 11:14:43 What Is Your Level Of Alcohol Consumption? Occasional Information not available 01/11/2022 Are You Blind Or Do You Have Difficulty Seeing? No Information n ot available 01/11/2022 What Is Your Level Of Caffeine Consumption? Occasional [email or web address] Information not available 02/14/2023 In The 14 Days Before Symptom Onset, Have You Had Close Contact With A Laboratory-confirm ed COVID-19 While That Case Was Ill? No [email or web address] Information n ot available 02/14/2023 In The 14 Days Before Symptom Onset, Have You Had Close Contact With A Person Who Is Under Investigation For COVID-19 While That Person Was Ill? No [email or web address] Information not available 02/14/2023 Have You Been To An Area Known To Be High Risk For COVID-19? No Information not available 02/14/2023 Are You Deaf Or Do You Have Serious Difficulty Hearing? No Information not available 01/11/2022 What Type Of Diet Are You Following? REGULAR Information n ot available 01/11/2022 Have You Ever Been Counseled For Unhealthy Alcohol Use? No [email or web address] Information not available 02/14/2023 Do You Have Smoke And Carbon Monoxide Detectors In Your Home? Yes [email or web address] Information not available 02/14/2023 Do You Feel Stressed (tense, Restless, Nervous, Or Anxious, Or Unable To Sleep At Night)? [id number] [email or web address] Information not available 02/14/2023 Do You Use Any Illicit Or Recreational Drugs? No [email or web address] Information not available 02/14/2023 Do You Use Sunscreen Routinely? Yes [email or web address] Information not available 02/14/2023 Has Tobacco Cessation Counseling Been Provided? No [email or web address] Information not available 02/14/2023 Do You Or Have You Ever Used Any Other Forms Of Tobacco Or Nicotine? No [email or web address] Information not available 02/14/2023 Sex: Unknown Functional Status Question Answer Note LastModified by Organizat ion Details LastModified Time Do you have difficulty walking or climbing stairs? No Information not available 01/11/2022 Are you able to walk? YESWOREST Information not available 01/11/2022 Are you able to care for yourself? Yes Information not available 01/11/2022 Do you have difficulty dressing or bathing? No Information not available 01/11/2022 What is your exercise level? Moderate Information not available 01/11/2022 Mental Status None recorded. Family History Nothing Reported. Medical History Condition Response Allergies (Food, seasonal, environmental ) N Other N Drug/Latex Allergies/Reactions N Blood Transfusion N Breast Cancer N Dermatologic Disorders N Lung Disease N Defects or Inherited Disease N Breast Problem N Gestational Diabetes N Hematologic disorders N Anesthesia Complications N History of STI N Deep Vein Thrombosis N Polycystic ovary syndrome N Anxiety Disorder N Autoimmune disease N Arthritis N Polyps N Infertility N Acid Reflux (GERD) N History of abnormal pap N Cancer N Varicosities N Stroke N Neurologic/Epilepsy N Endometriosis N High Cholesterol Y Fibromyalgia N Headaches N Kidney Disease N Heart Problems N Thyroid Problems N Kidney or Bladder Problems N GI Problems Y Eating Disorder N Anemia N Art (IVF or FET) N Psychiatric Illness N Ovarian Cancer N Diabetes N Pulmonary (TB, Asthma) N Hepatitis/Liver Disease N No Past Medical History N Eczema N Urinary Tract Infection N Abuse/Domestic Violence N Asthma N Trauma/Violence N Depression/ depression N Heart Disease N Pre-Eclampsia N Hypertension N Osteoporosis N Thrombophilias N Gynecological History Statement/Question Response Flow Moderate Date of LMP 06/19/2023 Sexually Active? Y Menses Monthly Y STIs/STDs N HPV Vaccine N Date of Last Pap Smear 03/06/2023 Sexual Problems? N Duration of Flow (days) 4 Current Control Method None LMP Definite Obstetrics History GPAL:G 3 P 2 0 1 2 Type Value Full Term 2 Induced 1 Living 2 Total 3 Past Encounters Encounter ID Performer Location Encounter Start Date Encounter Closed Date Diagnosis/Indication Diagnosis SNOMED-CT Code Diagnosis ICD10 Code Diagnosis Note [id number] [facility] [place] [address] [address] 01/11/2022 11:09:46 01/11/2022 14:56:04 Venereal disease screening 777039861 Z11.3 Sexually t ransmitted infectious disease 7846959 A64 Unprotecte d sexual intercourse 3432330 Z72.51 [facility] 223805151 Z30.9 Urinary symptoms 9265069 08 R39.9 Here today for UTI symptoms for the past 2 weeks. Burning, frequency, urgency. Vaginal itching. No fevers, chills, or flu-like symptoms.S he had a D&C a month ago. Has had unprotecte d intercours e since .U rine hCG (-) today. Quant hCG orderedVag initis panel sent, STI testing sent, Blood STI testing ordered.UA today with 1+ leuks and 3+ blood, will start treatment for UTI and send for culture.Wi ll start yeast treatment. She is interested in nexplanon for control.No medical hx per patient.RT C on days 1-5 of next LMP for nexplanon insertion. Encouraged strict condom use until nexplanon insertion Time spent with patient was 40 minutes Vaginitis 42196006 N76.0 Gynecologi c examination 75287256 Z01.419 [id number] [facility] [place] [address] [address] 01/17/2022 09:55:31 01/17/2022 13:28:34 Contraception care management 046445194 Z30.9 Here today for nexplanon insertion. She had an about a month ago. Currently on her menses.Filipe nt hCG (-) at last visit and urine test (-) today. Discussed all control options in depth and pt is interested in Nexplanon. Discussed all risks and benefits including irregular unschedule d bleeding. Pt verbalized understand ing and would like to proceed.Ri sk of procedure discussed and accepted by patient (Infection , irregular bleeding, nexplanon moving location, etc) Patient is here currently on her menses. She was given all the r/b/a of placement of the Nexplanon device and has signed the consent. She is fully aware of all possible side effects of the device and has decided to move forward with placement. Insertion site was cleansed with betadine and 3cc lidocaine used for anesthesia . Device was placed in the left arm per usual fashion w/o complicati on and patient instructed to f/u in one month or earlier if there are any si/sx of infection or hypersensi tivity at the insertion site. Nexplanon placed without any immediate complicati on.RTC in 3 months for med check [id number] [facility] [place] [address] [address] 07/14/2022 16:46:03 07/14/2022 17:51:30 Vaginitis 94746517 N76.0 Suspect BV/yeast on examVagini tis panel sentSTI endocervic al testing sentBlood STI testing orderedWe discussed vulvar care guidelines in-depth. We discussed normal vaginal evelyn / pH. Discussed how vaginal washes/spr ays can disrupt the normal evelyn/ph and cause yeast/BV infections .use water/fing ers to cleanse the vulva, sensitive skin/free and clear body wash in the showercott on underwear onlyCondom use encouraged Rx sent, R/B of medication discussed with patient Venereal d isease screening 395437785 Z11.3 Sexually t ransmitted infectious disease 6342504 A64 Contracept ion care management 270986859 Z30.9 Nexplanon palpated in normal appearing positionHa ppy with nexplanon Time spent in visit is a total of 40 mins with at least 50% of visit consisting of counseling and review of plan of care. [id number] [facility] [place] [address],[place] [address] 09/28/2022 14:54:40 09/29/2022 16:48:36 Urinary symptoms 669406350 R39.9 UA today suggestive of UTICx sentWill treat for probable complicate d UTI with ciprofloxa yamila, twice daily for 7 days.R/B of medicaton discussedI ncrease water intake, decrease caffeineVa ginitis panel sentSTI endocervic al testing sentED precaution s discussed (worsening symptoms, fevers, N/V, worsening pain, etc)We discussed frequent UTI's, recommend urology consult, referral sent Time spent in visit is a total of 25 mins with at least 50% of visit consisting of counseling and review of plan of care. Pain in pelvis 49601983 R10.2 Vaginal discharge 843302 006 N89.8 Recurrent urinary tract infection 799531723 N39.0 [id number] [facility] [place] [address],[place] [address] 02/14/2023 12:08:26 02/14/2023 14:38:56 Removal of subcutaneous contraceptive 896139940 Z30.46 Removal site was cleansed with betadine and 3cc of lidocaine used for anesthesia . Device was removed in normal fashion without difficulty . Steri stips and pressure bandage placed. Precaution s discussed. condom use encouraged , declines BCShe may be interested in permeant sterlizati on/ablatio n. If desired, can schedule MD consult with Dr. Howard. [id number] [facility] [place] [address],[place] [address] 03/06/2023 11:46:07 03/07/2023 12:12:29 Gynecologic examination 19051868 Z01.419 Take Calcium with Vitamin D 1200mg daily if not receiving in daily diet. It is strongly advised to have an annual flu shot and up can obtain at most pharmacies . If you have not had a TDap shot in the last 10 years you should obtain one as well. Discussed with patient & provided with informatio n regarding Gardisil vaccine to prevent the 4 strains for HPV that cause cervical cancer if under age 26. Encourage safe sexual practices, to use condoms and limit partners if not already in a monogamous relationsh ip. Do monthly self breast exams. Have mammogram yearly or every other year depending on family history. BRCA testing is now available for patients with strong genetic history of female cancer. If interested contact the office. Engage in daily exercise of low impact aerobic exercise 45-60 minutes 4-5 times weekly. Avoid tobacco and illicit drugs as well as using moderation with alcohol intake less than 1-2 8 oz beverages daily. This lifestyle behavior pattern will lead to less health conditions and longer life span. If BMI greater than 25 weight watchers or dietary consult advised. Patient received above instructio ns, and questions have been answered. If you have any questions please call or respond to this email. Patient was made aware of the patient portal and may obtain a paper copy of today's plan if desired. WWEBC - condoms. Happy with this methodno hx of abnormal papspap done todaySTI testing declineden couraged annual exam with PCPRTC in 1 year or sooner if needed [id number] [facility] [place] [address],[facility] [place] [address] 07/17/2023 09:00:23 07/17/2023 09:51:29 Vaginitis 07254603 N76.0 suspect BV/yeastva ginitis panel sentSTI testing sentHSV PCR sentrx sent, r/b/a reviewedvu lvar care guidelines discussed (water/fin gers to cleanse the vulva, avoid scented soaps/prod ucts, free and clear laundry products, cotton underwear only, sleep with no underwear) RTC if symptoms persist past treatment Time spent in visit is a total of 30 mins with at least 50% of visit consisting of counseling and review of plan of care. Vulval irritation 649247 003 N90.89 Venereal d isease screening 568824341 Z11.3 [id number] NESS JUAREZ, [facility] [place] [address] [address] 09/09/2024 17:15:08 09/09/2024 17:50:06 Urinary symptoms 031999703 R39.9 Patient presents with symptoms of UTI. Results of dipstick were {{positive * negative }} for UTI.Advise d to drink clear fluids, Tylenol for pain and take prescribed medication s as instructed . Patient encouraged to follow up within 1 week if not improving. Urine culture sent. Vaginal discharge 134529 006 N89.8 Discussed empirical treatment with metronidaz ole for suspected BV based on reported symptoms and physical exam findings.D iscussed vulvar care guidelines in addition to laundry/sk in irritants to avoid.Valeriy mmended boric acid capsules - insert one capsule vaginally at H.S. after period, intercours e, and/or with symptoms.V aginitis panel sent. Venereal d isease screening 011680506 Z11.3 Pt requested STI testing for GC/CT/tric h.Discusse d the various types of STDs, related symptoms and the potential consequenc es (including effects on fertility) of STD infections . Reviewed ways to limit exposure and prevention techniques . Health Concerns Section Related Observation LastModified by Organization Detai ls LastModified Time None Recorded Concern Status LastModified by Organization Details LastModified Time None Recorded Advance Directives Directive None Recorded Payers Encounter Date Sequence Insurance Name Policy Number Policy Herrmann Covered Member ID Herrmann Member ID Guarantor Name 09/28/2022 1 [facility] [id number] Verónica Stevenson Diego [id number] 1 Verónica Stevenson Diego 02/14/2023 1 [facility] [id number] Verónica Stevenson Diego [id number] 1 Verónica Stevenson Diego 03/06/2023 1 [facility] [id number] Verónica Stevenson Diego [id number] 1 Verónica Stevenson Diego 07/17/2023 1 [facility] [id number] Verónica Stevenson Diego [id number] 1 Verónica Diego 09/09/2024 1 [facility] ([facility]) [id number] Veróncia Diego [id number] 93 Verónica Diego Notes Date Note Type Note Provider Name and Address Organization Details Recorded Time 3 text/html 26yoPresents for urinary frequency/pain, abdominal pressure, flank pains, and chillsSymptoms started about 1 week ago. Started as minor UTI symptoms, now worseningVaginal d/c on and off, no odors, itching, or irritationNexplanon for BC, inserted 01/17/22No new partnersDeclines any N/V, fevers, or severe painsShe often gets frequent UTI's [facility] [address], [place], [address], [facility] 09/28/2022 16:12:29 3 text/html 27yopresents for nexplanon removalhas noticed weight gain since insertion and desires removalwould like to use condoms for now, may be interested in permanent sterlization [facility] [address], [place], [address], [facility] 02/14/2023 13:41:30 3 text/html Annual GYNReported bypatient.Menstrual cycle:Normal menses Urinary symptoms:No hematuria; No incontinence Vulva:No genital lesion Vagina:Normal vaginal discharge Breast:No breast pain; No breast lump; No nipple discharge Current Contraception:Satisfie d with current contraception; Condoms Sexual complaints:No sexual complaints; No pain during intercourse; Normal libido Menopausal Symptoms:No menopausal symptoms; Normal vaginal lubrication Psychological symptoms:No depression; No anxiety; No PMDD Preventive measures:Encourage self breast examination; Encourage regular exercise; Encourage no tobacco use; Encourage regular mammograms starting age 40 [facility] [address], [place], [address], [facility] 03/06/2023 12:39:25 3 text/html 27yopresents for evaluation of vaginal itching, irritation, and dischargesymptoms present for 3 weeksitching, clear/white d/c with odorSA with steady male partner, condoms for BCneg urinary symptomsneg pelvic painneg n/v/fLMP 06/19 [facility] [address], [place], [address], [facility] 07/17/2023 09:47:00 4 text/html Patient here with c/o dysuria, urgency, frequency, and pelvic pressure x one week.Patient also c/o vaginal discharge and odor. Patient has hx of frequent BV infections. NESS JUAREZ NP [address], [place], [address], [facility] 09/09/2024 17:49:31 OBGyn Episode Ob Episode Information Episode Created Date Number of Fetuses Patient Bloodtype Patient rh Status Prepregnancy Weight lbs Domestic Partner Domestic Partner Phone Father Name Marketing Information Analyst Status 01/12/20 22 1 CLOSED Fetus Data First Name Last Name Admitted to NICU Weight (g) Sex Living Outcome Pediatric Complications Fetus ID Race Codes Race Delivery Type 3175.14 4 M Full Term [id number] Vaginal Delivery Noé Calculation Initial Noé Date Initial Exam Date Initial Exam Provider Initial Ultrasound Date Last Menstrual Period Date Ultra Sound Weeks Gestation 0 Eighteen To Twenty Week Noé Update Ultra Sound Date Fundal Height At Umbil Quickening Date Ultra Sound Latest Weeks Gestation Final Noé Confirmed By Final Noé Confirmed Date Final Noé Date Ultra Sound Latest Days Gestation 0 0 Menstrual History Last Menstrual Date Menses Monthly On Bcp Conception Prior Menses Frequency Hcg Plus Date Menarche Onset Age Delivery Information Delivery Date Delivery Type Labor Anesthesia Weeks Gestation Incision Type Labor Labor Length Hrs Delivered By Post Complications Tubal Sterilization Discharge Date Comments 5 39 Discharge Information Feeding Method Contraceptive Method Maternal HG B and HCT Levels Ob Episode Information Episode Created Date Number of Fetuses Patient Bloodtype Patient rh Status Prepregnancy Weight lbs Domestic Partner Domestic Partner Phone Father Name Marketing Information Analyst Status 02/15/20 23 1 CLOSED Fetus Data First Name Last Name Admitted to NICU Weight (g) Sex Living Outcome Pediatric Complications Fetus ID Race Codes Race Delivery Type , Induced Noé Calculation Initial Noé Date Initial Exam Date Initial Exam Provider Initial Ultrasound Date Last Menstrual Period Date Ultra Sound Weeks Gestation 0 Eighteen To Twenty Week Noé Update Ultra Sound Date Fundal Height At Umbil Quickening Date Ultra Sound Latest Weeks Gestation Final Noé Confirmed By Final Noé Confirmed Date Final Noé Date Ultra Sound Latest Days Gestation 0 0 Menstrual History Last Menstrual Date Menses Monthly On Bcp Conception Prior Menses Frequency Hcg Plus Date Menarche Onset Age Delivery Information Delivery Date Delivery Type Labor Anesthesia Weeks Gestation Incision Type Labor Labor Length Hrs Delivered By Post Complications Tubal Sterilization Discharge Date Comments 3 Discharge Information Feeding Method Contraceptive Method Maternal HG B and HCT Levels Ob Episode Information Episode Created Date Number of Fetuses Patient Bloodtype Patient rh Status Prepregnancy Weight lbs Domestic Partner Domestic Partner Phone Father Name Marketing Information Analyst Status 01/12/20 22 1 CLOSED Fetus Data First Name Last Name Admitted to NICU Weight (g) Sex Living Outcome Pediatric Complications Fetus ID Race Codes Race Delivery Type 4082.32 8 F Full Term [id number] Vaginal Delivery Noé Calculation Initial Noé Date Initial Exam Date Initial Exam Provider Initial Ultrasound Date Last Menstrual Period Date Ultra Sound Weeks Gestation 0 Eighteen To Twenty Week Noé Update Ultra Sound Date Fundal Height At Umbil Quickening Date Ultra Sound Latest Weeks Gestation Final Noé Confirmed By Final Noé Confirmed Date Final Noé Date Ultra Sound Latest Days Gestation 0 0 Menstrual History Last Menstrual Date Menses Monthly On Bcp Conception Prior Menses Frequency Hcg Plus Date Menarche Onset Age Delivery Information Delivery Date Delivery Type Labor Anesthesia Weeks Gestation Incision Type Labor Labor Length Hrs Delivered By Post Complications Tubal Sterilization Discharge Date Comments 9 39 Discharge Information Feeding Method Contraceptive Method Maternal HG B and HCT Levels
--- OUTSIDE RECORDS SUMMARY | 2024-10-01 18:00 | XMS_ITS | Encounter Summary ---
Author Organization [facility] Healthcare Address [address] [place] [address] Care Team Providers [facility] Director Name Role Phone Unavailable Primary Care Provider Unavailabl e Encounter Details Date Type Department Care Team (Latest Contact Info) Description 11/27/2018 7:42 PM CDT - 11/27/2018 9:20 PM CDT Hospital Encounter [facility] Allan Denney MD [address] [place] [address] Discharge Disposition: Discharge to home or self care Social History Tobacco Use Types Packs/Day Years Used Date Smoking Tobacco: Never Comments Unknown Sex and Gender Information Value Date Recorded Sex Assigned at Not on file 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 Gender Identity Not on file Sexual Orientation Not on file documented as of this encounter Last Filed Vital Signs Vital Sign Reading Time Taken Comments Blood Pressure 134/79 11/27/2018 8:03 PM CDT Pulse 105 11/27/2018 8:03 PM CDT Temperature 36.3 ??C (97.4 ??F) 11/27/2018 8:03 PM CD T Respiratory Rate - - Oxygen Saturation - - Inhaled Oxygen Concentration - - Weight 110.3 kg (243 lb 2.7 oz) 11/27/2018 8:03 PM CDT Height 165.1 cm (5' 5 ) 11/27/2018 8:03 PM CDT Body Mass Index 40.47 11/27/2018 8:03 PM CDT documented in this encounter Discharge Disposition Disposition Code Departure Means Destination Discharge to home or self care documented in this encounter Plan of Treatment Not on file documented as of this encounter Procedures Procedure Name Priority Date/Time Associated Diagnosis Comments MEMBRANE RUPTURE TEST Routine 11/27/2018 8:15 PM CDT URINALYSIS AND REFLEX TO MICROSCOPIC AND CULTURE Routine 11/27/2018 7:50 PM CDT documented in this encounter Results * MEMBRANE RUPTURE TEST (11/27/2018 8:15 PM CDT) Membranes Rupture NEGATIVE NEGATIVE 11/27/2018 8:53 PM T [facility] HISTORICAL RESULTS Comment: A negative result does not assure the absence of membrane rupture. Results should be used in conjunction with other clinical information. 11/27/2018 8:15 PM CDT 11/27/2018 8:37 PM CDT us Allan Denney MD LAB BLOOD ORDERABLES Final Result [facility] HISTORICAL RESULTS * (ABNORMAL) Urinalysis reflex to microscopic and culture (11/27/2018 7:50 PM CDT) Ur Collection Type CLEAN CATCH Ur Culture Indicated? C&S NOT INDICATED Urine Color YELLOW YELLOW Urine Clarity CLEAR CLEAR Urine Glucose (UA) NORMAL NORMAL mg/dL Urine Bilirubin NEGATIVE NEGATIVE mg/dl Urine Ketones NEGATIVE NEGATIVE mg/dL Ur Specific [place] 1.023 1.005 - 1.025 Urine Blood NEGATIVE NEGATIVE mg/dl Urine pH 6.0 5.0 - 8.0 Urine Protein NEGATIVE NEGATIVE mg/dL Urine Urobilinogen 2(H) NORMAL mg/dL 11/27/2018 8:48 PM T [facility] HISTORICAL RESULTS Urine Nitrite NEGATIVE NEGATIVE 11/27/2018 8:48 PM T [facility] HISTORICAL RESULTS Ur Leukocyte Esterase 25(H) NEGATIVE Chris/ul 11/27/2018 8:48 PM T [facility] HISTORICAL RESULTS Ur Microscopic Review Indicated or Ordered 11/27/2018 8:48 PM T [facility] HISTORICAL RESULTS Urine RBC 2 0 - 2 /HPF 11/27/2018 8:48 PM T [facility] HISTORICAL RESULTS Urine WBC 5 0 - 2 /HPF 11/27/2018 8:48 PM T [facility] HISTORICAL RESULTS Urine Mucus RARE /LPF 11/27/2018 8:48 PM T [facility] HISTORICAL RESULTS Ur Squamous Epith Cells Rare /HPF 11/27/2018 8:48 PM T [facility] HISTORICAL RESULTS URIC ACID CRYSTALS Few /HPF 11/27/2018 8:48 PM T [facility] HISTORICAL RESULTS 11/27/2018 7:50 PM CDT 11/27/2018 8:37 PM CDT Narrative [facility] HISTORICAL RESULTS - 11/27/2018 8:48 PM CDT Indication(s) for ordering ? us Allan Denney MD LAB MICROBIOLOGY - GENERAL ORDERABLES Final Result [facility] HISTORICAL RESULTS documented in this encounter Visit Diagnoses Not on filedocumented in this encounter
--- OUTSIDE RECORDS SUMMARY | 2024-10-01 18:00 | XMS_ITS | Clinical Summary ---
Author Organization [facility] Address [address] [place] [id number] Care Team Providers Care News Reporter Name Role Phone Salinas Escobar MD Primary Care Provider Allergies No known active allergies Medications albuterol HFA (PROVENTIL HFA,VENTOLIN HFA,PROAIR HFA) 90 mcg/actuation inhalerIndicati ons:Influenza B Inhale 2 puffs every 6 (six) hours as needed for wheezing or shortness of breath 1 each 3 Active dextroamphetami ne-amphetamine (AdderalL) 20 mg tablet Take 1 tablet (20 mg total) by mouth daily 4 Active tretinoin (RETIN-A) 0.025 % cream APPLY A PEA SIZED AMOUNT AT BEDTIME TO AFFECTED AREAS ON THIGHS 4 Active Active Problems Problem Noted Date Diagnosed Date Bilateral chronic knee pain 07/05/2023 Surgical History Surgery Date Site/Laterality Comments US ABDOMEN COMPLETE W LIVER DOPPLER (C) 05/02/2018 R ight Family History Medical History Relation Name Comments Hypertension Mother Reported Previo us High Blood Pressure - (Added by TW Conv) Relation Name Status Comments Mother Social History Tobacco Use Types Packs/Day Years Used Date Smoking Tobacco: Never Personal Safety Answer Date Recorded Have you ever been in or are you currently in a harmful physical or emotional relationship or is someone making you feel afraid or unsafe? 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 Gender Identity Not on file Sexual Orientation Not on file Obstetrics History Last Filed Vital Signs Vital Sign Reading Time Taken Comments Blood Pressure 118/82 02/20/2024 9:25 AM CDT Pulse 92 02/20/2024 9:25 AM CDT Temperature 37.3 ??C (99.2 ??F) 02/20/2024 9:25 AM CD T Respiratory Rate 16 02/20/2024 9:25 AM CDT Oxygen Saturation 97% 02/20/2024 9:25 AM CDT Inhaled Oxygen Concentration - - Weight 103.4 kg (228 lb) 02/20/2024 9:25 AM CDT Height 165.1 cm (5' 5 ) 02/20/2024 9:25 AM CDT Body Mass Index 37.94 02/20/2024 9:25 AM CDT Plan of Treatment Health Maintenance Due Date Last Done Comments Cervical Cancer Screening 1993 Depression Screening 1993 Hepatitis C Screening 1993 Varicella Vaccines (1 of 2 - 13+ 2-dose series) 2006 Regular Well Visit/Exam 18-64 12/20/2011 Influenza Vaccine (#1) 2024 7, 08/22/2014, 08/07/2013, Additional history exists DTaP/Tdap/Td Vaccine (5 - Td or Tdap) 10/05/2028 10/05/2018, 12/30/2014, 01/22/2008, Additional history exists HPV Vaccines Completed 07/30/2008, 03/18, 01/22/2008 Pneumococcal vaccine <65 Aged Out No longer eligible based on patient's age to [place] [address] EBIQUOUS OPEN ACCESS [facility] CHOICE [facility]US [facility] HMO/PPO Address: [address] [address] [place] [address] [facility] ACCESS CHOICE Care Teams News Reporter Relationship Specialty Start Date End Date Salinas Escobar MD [address] [place] [address] PCP - General Family Medicine 02/20/24
--- OUTSIDE RECORDS SUMMARY | 2024-10-01 18:00 | XMS_ITS | Encounter Summary ---
Author Organization [facility] Healthcare Address [address] [place] [address] Care Team Providers Care Chemical Processing Technician Name Role Phone Unavailable Primary Care Provider Unavailabl e Encounter Details Date Type Department Care Team (Latest Contact Info) Description 07/10/2018 8:54 AM CDT Hospital Encounter [facility] Allan Denney MD [address] [place], [place] [id number] Encounter for supervision of normal first in first trimester Social History Tobacco Use Types Packs/Day Years Used Date Smoking Tobacco: Never Comments Unknown Sex and Gender Information Value Date Recorded Sex Assigned at Not on file 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 1.Single living intrauterine at 18 weeks 1 day (based on earliest available ultrasound). 2.Suboptimal demonstration of cardiac outflow tracts. ??Otherwise unremarkable anatomic survey. 3.Estimated weight is borderline large for gestational age. 4.Bilateral ureteroceles in maternal urinary bladder. THIS IS AN ELECTRONICALLY VERIFIED FINAL REPORT 07/10/2018 4:23 PM - Electronically signed by Chris David M.D. AR D: ??07/10/2018 4:23 PM T: Report ID: [id number] Reading Location: ??[id number] [EOD] Narrative 07/10/2018 4:26 PM CDT EXAM DESCRIPTION: ??US OB Single Gestation REASON FOR STUDY: ?? anatomic screen TECHNIQUE: ??Complete transabdominal obstetric ultrasound was performed. COMPARISON: ??Obstetric ultrasound 05/02/2018 FINDINGS: Current gestational age (based on earliest available ultrasound): 18 weeks 1 day Estimated Due Date (based on earliest available ultrasound): ??12/10/2018 number: ??1 Presentation: ??Breech Placenta location: ??Posterior without previa Amniotic fluid: ??Adequate heart rate: ??147 bpm S = Seen without gross abnormality A = Abnormal NC = Not clearly seen NS = Not seen on current exam PS = Previously seen anatomic survey: Intracranial anatomy: S Nose/lips: S Nuchal fold: 0.3 cm Spine: S Four-chamber heart: S RVOT: NC LVOT: NC Diaphragm: S Stomach: S Kidneys: S Bladder: S 3-vessel cord: S cord insertion: S Upper extremities: S Lower extremities: S measurements: Biparietal diameter: 3.95 cm (18 weeks 0 days) Head circumference: 16.63 cm (19 weeks 2 days) Abdominal circumference: 13.65 cm (19 weeks 1 day) Femur length: 2.92 cm (19 weeks 0 days) Ratios: FL/AC: 21.4 (20-24) HC/AC: 1.22 (1.07-1.29) Gestational age by this ultrasound: 18 weeks 6 days CHEIKH by this ultrasound: ??12/05/2018 Estimated weight by this ultrasound: 270 g (10 ounces) EFW percentile (based on earliest available ultrasound): 92% Cervical length: 3.5 cm transabdominal Other: Bilateral ureteroceles were demonstrated in the maternal urinary bladder. Procedure Note Provider, MD Robby - 02/02/2021 EXAM DESCRIPTION: US OB Single Gestation REASON FOR STUDY: anatomic screen TECHNIQUE: Complete transabdominal obstetric ultrasound was performed. COMPARISON: Obstetric ultrasound 05/02/2018 FINDINGS: Current gestational age (based on earliest available ultrasound): 18 weeks1 day Estimated Due Date (based on earliest available ultrasound): 12/10/2018 number: 1 Presentation: Breech Placenta location: Posterior without previa Amniotic fluid: Adequate heart rate: 147 bpm S = Seen without gross abnormality A = Abnormal NC = Not clearly seen NS = Not seen on current exam PS = Previously seen anatomic survey: Intracranial anatomy: S Nose/lips: S Nuchal fold: 0.3 cm Spine: S Four-chamber heart: S RVOT: NC LVOT: NC Diaphragm: S Stomach: S Kidneys: S Bladder: S 3-vessel cord: S cord insertion: S Upper extremities: S Lower extremities: S measurements: Biparietal diameter: 3.95 cm (18 weeks 0 days) Head circumference: 16.63 cm (19 weeks 2 days) Abdominal circumference: 13.65 cm (19 weeks 1 day) Femur length: 2.92 cm (19 weeks 0 days) Ratios: FL/AC: 21.4 (20-24) HC/AC: 1.22 (1.07-1.29) Gestational age by this ultrasound: 18 weeks 6 days CHEIKH by this ultrasound: 12/05/2018 Estimated weight by this ultrasound: 270 g (10 ounces) EFW percentile (based on earliest available ultrasound): 92% Cervical length: 3.5 cm transabdominal Other: Bilateral ureteroceles were demonstrated in the maternal urinary bladder. IMPRESSION: 1.Single living intrauterine at 18 weeks 1 day (based onearliest available ultrasound). 2.Suboptimal demonstration of cardiac outflow tracts. Otherwise unremarkable anatomic survey. 3.Estimated weight is borderline large for gestational age. 4.Bilateral ureteroceles in maternal urinary bladder. THIS IS AN ELECTRONICALLY VERIFIED FINAL REPORT 07/10/2018 4:23 PM - Electronically signed by Chris David M.D. AR T: Report ID: [id number] Reading Location: [id number] [EOD] us Allan Denney MD IMG OB US PROCEDURES Final Result documented in this encounter Visit Diagnoses Diagnosis Encounter for supervision of normal first in first trimester documented in this encounter
--- OUTSIDE RECORDS SUMMARY | 2024-10-01 18:00 | XMS_ITS | Encounter Summary ---
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 Gender Identity Not on file Sexual Orientation Not on file documented as of this encounter Plan of Treatment Not on file documented as of this encounter Procedures Procedure Name Priority Date/Time Associated Diagnosis Comments CBC WITH AUTO DIFFERENTIAL Routine 06/12/2020 2:55 PM CDT LIPASE Routine 06/12/2020 2:55 PM CDT COMPREHENSIVE METABOLIC PANEL Routine 06/12/2020 2:55 PM CDT documented in this encounter Results * (ABNORMAL) CBC with auto differential (06/12/2020 2:55 PM CDT) WBC 12.1(H) 3.8 - 9.9 X10 3/ul [facility] RBC 5.16 3.90 - 5.20 x10 6/ul [facility] Hemoglobin 13.3 11.9 - 15.5 g/dL [facility] Hct 41.5 35.6 - 45.5 % [facility] MCV 80.4(L) 81.3 - 96.4 fl [facility] MCH 25.8(L) 27.1 - 33.3 pg [facility] MCHC 32.0(L) 32.3 - 35.7 g/dl [facility] RDW 13.2 11.1 - 14.9 % [facility] Plt Count 297 150 - 400 x10 3/ul [facility] MPV 11.8 9.1 - 12.3 fl [facility] Neut % 90.8 % [facility] Immature Gran % 0.3 % [facility] Lymph % 5.9 % [facility] [place] % 2.8 % [facility] Eos % 0.0 % [facility] AUTO BASO % 0.2 % [facility] NEUTROPHIL ABS # 10.9(H) 1.7 - 6.5 x10 3/ul [facility] Immature Gran # 0.0 0.0 - 0.1 x10 3/ul [facility] Absolute Lymphs (auto) 0.7(L) 0.8 - 3.3 x10 3/ul [facility] Absolute Monos (auto) 0.3 0.2 - 0.8 x10 3/ul [facility] Absolute Eos (auto) 0.0 0.0 - 0.5 x10 3/ul [facility] BASOPHIL ABS # 0.0 0.0 - 0.1 x10 3/ul [facility] Nucleat RBC Rel Count 0.0 #/100WBC [facility] NRBC abs 0.00 0.00 - 0.01 x10 3/ul [facility] Platelet Evaluation AGREE AGREE [facility] Comment: Slide review of platelets correlates with instrument count. RBC Morphology NORMAL NORMAL [facility] Absolute Neutrophils 10,900(H) 200 - 8,000 /ul [facility] 06/12/2020 2:55 PM CDT 06/12/2020 4:12 PM CDT Narrative Resulting Agency Comment CLI us Jesse Castillo MD LAB BLOOD ORDERABLES Final Result [facility] [address] [place] [address], [facility] [phone] * Lipase (06/12/2020 2:55 PM CDT) Pathologist [facility] Lipase 18 13 - 60 U/L [facility] 06/12/2020 2:55 PM CDT 06/12/2020 4:05 PM CDT Narrative Resulting Agency Comment CLI us Jesse Castillo MD LAB BLOOD ORDERABLES Final Result Performing Organization Address [facility]/[employer] de Phone Number [facility] [address] [place] [address], [facility] [phone] * (ABNORMAL) Comprehensive metabolic panel (06/12/2020 2:55 PM CDT) [facility] Sodium 139 135 - 145 mmol/L [facility] Potassium 4.0 3.3 - 5.1 mmol/L [facility] Chloride 103 96 - 108 mmol/L [facility] Carbon Dioxide 24 22 - 32 mmol/L [facility] Anion Gap 12 7 - 16 [facility] Glucose 111(H) 70 - 100 mg/dL [facility] BUN 9 8 - 25 mg/dL [facility] Creatinine 0.5 0.5 - 1.1 mg/dL [facility] Comment: NOTE: Estimated GFR (Cockroft-Gault) will NOT be calculated unless patient Height and Weight were entered. Also, Kidney Disease Stage (GFR) and Estimated GFR (Cockroft-Gault) will NOT be calculated if Creatinine result is <0.2. Kidney Disease Stage >90 mL/MIN [facility] Comment: NOTE; ??The GFR is an estimated value using the creatinine, sex, age, and race of the patient. THE Estimated Kidney Disease GFR is validated for AGES 18-70 YEARS STAGE ?mL/Min ?DESCRIPTION ??1 ?90 mL/min or more ?Normal or elevated GFR ??2 ? 60-89 mL/min ?Mildly decreased GFR ??3 ? 30-59 mL/min ?Moderately decreased GFR ??4 ? 15-29 mL/min ?Severely decreased GFR ??5 ? <15 mL/min ? Kidney failure or on dialysis Calcium 9.9 8.6 - 10.3 mg/dL [facility] [employer] [facility] Total Protein 7.9 6.4 - 8.3 g/dL [facility] [employer] [facility] Albumin 4.4 3.5 - 5.0 g/dL [facility] [employer] [facility] Globulin 3.5 2.3 - 3.5 gm/dL [facility] [employer] [facility] Albumin/Globulin Ratio 1.3 1.1 - 1.8 [facility] [employer] [facility] Total Bilirubin 0.4 0.0 - 1.2 mg/dL [facility] [employer] [facility] AST 15 0 - 32 U/L [facility] [employer] ALT 11 0 - 33 U/L [facility] Alkaline Phosphatase 120(H) 35 - 104 U/L [facility] [employer] [facility] 06/12/2020 2:55 PM CDT 06/12/2020 4:05 PM CDT Narrative Resulting Agency Comment CLI Jesse Castillo MD LAB BLOOD ORDERABLES Final Result [facility] [employer] [facility] [address] [place] [address] documented in this encounter Visit Diagnoses Not on filedocumented in this encounter Care Teams English Horn Player Relationship Specialty Start Date End Date Allan Denney MD PCP - General 12/06/18 02/19/24 documented as of this encounter
--- OUTSIDE RECORDS SUMMARY | 2024-10-01 18:00 | XMS_ITS | Encounter Summary ---
Author Organization [facility] Healthcare Address [address] [place] [address] Care Team Providers Care Special Agent In Charge Name Role Phone Unavailable Primary Care Provider Unavailabl e Encounter Details Date Type Department Care Team (Latest Contact Info) Description 08/06/2018 10:29 AM STATISTICAL CONSULTANT Hospital Encounter [facility] Allan Denney MD [address] [place] [address] Other specified related conditions, unspecified trimester; Right upper quadrant abdominal swelling, mass and lump; 22 weeks gestation of Social History Tobacco Use Types Packs/Day Years Used Date Smoking Tobacco: Never Comments Unknown Sex and Gender Information Value Date Recorded Sex Assigned at Not on file Legal Sex Female 11:00 AM STATISTICAL CONSULTANT Gender Identity Not on file Sexual Orientation Not on file documented as of this encounter Plan of Treatment Not on file documented as of this encounter Procedures Procedure Name Priority Date/Time Associated Diagnosis Comments US OB LIMITED Routine 08/06/2018 10:32 AM STATISTICAL CONSULTANT documented in this encounter Results * US Ob Limited (08/06/2018 10:32 AM STATISTICAL CONSULTANT) Anatomical Region Laterality Modality Abdomen N/A Ultrasound 08/06/2018 10:3 2 AM STATISTICAL CONSULTANT Impressions 08/07/2018 8:13 AM STATISTICAL CONSULTANT ?? 1.Single live intrauterine at 22 weeks 0 days with an estimated date of delivery of 12/10/2018. 2.Palpable mass in the upper abdomen at the midline likely represents a subserosal fibroid. ??Continued evaluation on follow-up imaging is recommended. 3.Adequate SANTA. 4.Estimated weight is within normal limits. THIS IS AN ELECTRONICALLY VERIFIED FINAL REPORT 08/07/2018 8:10 AM - Electronically signed by Romel Leija M.D. LB D: ??08/07/2018 8:10 AM T: Report ID: [id number] Reading Location: ??[id number] [EOD] Narrative 08/07/2018 8:13 AM STATISTICAL CONSULTANT EXAM DESCRIPTION: ??US Limited OB REASON FOR STUDY: ??Palpable abdominal lump. ??Evaluate for fibroid. ??Previous ultrasound was borderline size greater than dates. TECHNIQUE: ??Limited transabdominal grayscale ultrasound for obstetrical evaluation. COMPARISON: ??OB ultrasound 07/10/2018 FINDINGS: Clinical gestational age: ??22 weeks Clinical estimated Due Date: 12/10/2018 number: ??1 Presentation: ??Breech Placenta location: ??Posterior Amniotic fluid: ??14.1 cm heart rate: ??150 bpm measurements: Biparietal diameter: 5.04 cm (21 weeks 2 days) Head circumference: 20.13 cm (22 weeks 2 days) Abdominal circumference: 17.01 cm (22 weeks 0 days) Femur length: 3.75 cm (22 weeks 0 days) Ratios: FL/AC: 22.5 (20-24) HC/AC: 1.18 (1.06-1.23) Gestational age by this ultrasound: 21 weeks 6 days CHEIKH by this ultrasound: ??12/11/2018 Estimated weight by this ultrasound: 466 g (+/-70 g; 1 pound, 0 ounces, +/-2 ounces) EFW percentile (based on LMP): 42% Cervical length: 4.25 cm Other: There is a 2.9 x 2.3 x 2.9 cm hypoechoic, heterogeneous lesion in the anterior abdomen at the area of palpable concern. ??No significant internal blood flow. ??This may arise exophytically from the uterus. Procedure Note Provider, MD Robby - 02/02/2021 EXAM DESCRIPTION: US Limited OB REASON FOR STUDY: Palpable abdominal lump. Evaluate for fibroid.Previous ultrasound was borderline size greater than dates. TECHNIQUE: Limited transabdominal grayscale ultrasound for obstetrical evaluation. COMPARISON: OB ultrasound 07/10/2018 FINDINGS: Clinical gestational age: 22 weeks Clinical estimated Due Date: 12/10/2018 number: 1 Presentation: Breech Placenta location: Posterior Amniotic fluid: 14.1 cm heart rate: 150 bpm measurements: Biparietal diameter: 5.04 cm (21 weeks 2 days) Head circumference: 20.13 cm (22 weeks 2 days) Abdominal circumference: 17.01 cm (22 weeks 0 days) Femur length: 3.75 cm (22 weeks 0 days) Ratios: FL/AC: 22.5 (20-24) HC/AC: 1.18 (1.06-1.23) Gestational age by this ultrasound: 21 weeks 6 days CHEIKH by this ultrasound: 12/11/2018 Estimated weight by this ultrasound: 466 g (+/-70 g; 1 pound, 0ounces, +/-2 ounces) EFW percentile (based on LMP): 42% Cervical length: 4.25 cm Other: There is a 2.9 x 2.3 x 2.9 cm hypoechoic, heterogeneous lesion inthe anterior abdomen at the area of palpable concern. No significant internal blood flow. This may arise exophytically from the uterus. IMPRESSION: 1.Single live intrauterine at 22 weeks 0 days with an estimateddate of delivery of 12/10/2018. 2.Palpable mass in the upper abdomen at the midline likely represents a subserosal fibroid. Continued evaluation on follow-up imaging isrecommended. 3.Adequate SANTA. 4.Estimated weight is within normal limits. THIS IS AN ELECTRONICALLY VERIFIED FINAL REPORT 08/07/2018 8:10 AM - Electronically signed by Romel Leija M.D. LB T: Report ID: [id number] Reading Location: [id number] [EOD] us Allan Denney MD IMG OB US PROCEDURES Final Result documented in this encounter Visit Diagnoses Diagnosis Other specified related conditions, unspecified trimester Right upper quadrant abdominal swelling, mass and lump 22 weeks gestation of documented in this encounter
--- OUTSIDE RECORDS SUMMARY | 2024-10-01 18:00 | XMS_ITS | Encounter Summary ---
Author Organization [facility] Healthcare Address [address] [place] [address] Care Team Providers Care Physical Chemistry Teacher Name Role Phone Unavailable Primary Care Provider Unavailabl e Encounter Details Date Type Department Care Team (Latest Contact Info) Description 10/30/2018 7:01 PM INVESTIGATIONS CONSULTANT - 10/30/2018 11:47 PM INVESTIGATIONS CONSULTANT Hospital Encounter [address] [phone] Jhon Alford MD [address] [place] [address] [phone] Discharge Disposition: Discharge to home or self care Social History Tobacco Use Types Packs/Day Years Used Date Smoking Tobacco: Never Comments Unknown Sex and Gender Information Value Date Recorded Sex Assigned at Not on file Legal Sex Female 11:00 AM INVESTIGATIONS CONSULTANT Gender Identity Not on file Sexual Orientation Not on file documented as of this encounter Last Filed Vital Signs Vital Sign Reading Time Taken Comments Blood Pressure 120/86 10/30/2018 7:07 PM INVESTIGATIONS CONSULTANT Pulse 103 10/30/2018 7:07 PM INVESTIGATIONS CONSULTANT Temperature 36.9 ??C (98.5 ??F) 10/30/2018 7:07 PM CS T Respiratory Rate - - Oxygen Saturation 97% 10/30/2018 7:07 PM INVESTIGATIONS CONSULTANT Inhaled Oxygen Concentration - - Weight 104.3 kg (230 lb) 10/30/2018 7:07 PM INVESTIGATIONS CONSULTANT Height 165.1 cm (5' 5 ) 10/30/2018 7:07 PM INVESTIGATIONS CONSULTANT Body Mass Index 38.27 10/30/2018 7:07 PM INVESTIGATIONS CONSULTANT documented in this encounter Discharge Disposition Disposition Code Departure Means Destination Discharge to home or self care documented in this encounter Plan of Treatment Not on file documented as of this encounter Procedures Procedure Name Priority Date/Time Associated Diagnosis Comments INFLUENZA VIRUS PCR, CDR Routine 10/30/2018 7:38 PM INVESTIGATIONS CONSULTANT STREP A DNA PROBE Routine 10/30/2018 7:3 8 PM INVESTIGATIONS CONSULTANT CBC WITH AUTO DIFFERENTIAL Routine 10/30/2018 7:35 PM INVESTIGATIONS CONSULTANT COMPREHENSIVE METABOLIC PANEL Routine 10/30/2018 7:35 PM INVESTIGATIONS CONSULTANT documented in this encounter Results * Strep A DNA probe (10/30/2018 7:38 PM INVESTIGATIONS CONSULTANT) Strep A DNA STREP A NOT DETECTED NEGATIVE 10/30/2018 8:31 PM INVESTIGATIONS CONSULTANT [facility] HISTORICAL RESULTS 10/30/2018 7:38 PM INVESTIGATIONS CONSULTANT 10/30/2018 7:59 PM INVESTIGATIONS CONSULTANT [facility] HISTORICAL RESULTS - 10/30/2018 8:31 PM INVESTIGATIONS CONSULTANT Historical Provider LAB BODY FLUIDS AND STOOL S ORDERABLES Final Result Performing Organization Address City/[facility]/ZIP Co de Phone Number [facility] HISTORICAL RESULTS * Influenza virus PCR (10/30/2018 7:38 PM INVESTIGATIONS CONSULTANT) Pathologist [facility] Influenza A RNA FLU A POSITIVE NEGATIVE 10/30/2018 8:27 PM INVESTIGATIONS CONSULTANT [facility] HISTORICAL RESULTS Influenza B RNA FLU B NEGATIVE NEGATIVE 10/30/2018 8:27 PM INVESTIGATIONS CONSULTANT [facility] HISTORICAL RESULTS 10/30/2018 7:38 PM INVESTIGATIONS CONSULTANT 10/30/2018 7:59 PM INVESTIGATIONS CONSULTANT [facility] HISTORICAL RESULTS - 10/30/2018 8:27 PM INVESTIGATIONS CONSULTANT Collected By ?? Historical Provider LAB MICROBIOLOGY - GENERA L ORDERABLES Final Result [facility] HISTORICAL RESULTS * (ABNORMAL) Comprehensive metabolic panel (10/30/2018 7:35 PM INVESTIGATIONS CONSULTANT) Pathologist [facility] Sodium 132(L) 135 - 145 mmol/L 10/30/2018 8:08 PM INVESTIGATIONS CONSULTANT [facility] HISTORICAL RESULTS Potassium 3.4 3.3 - 5.1 mmol/L 10/30/2018 8:08 PM [facility] HISTORICAL RESULTS Chloride 98 96 - 108 mmol/L 10/30/2018 8:08 PM [facility] HISTORICAL RESULTS Carbon Dioxide 21(L) 22 - 32 mmol/L 10/30/2018 8:08 PM [facility] HISTORICAL RESULTS Anion Gap 13 7 - 16 10/30/2018 8:08 PM [facility] HISTORICAL RESULTS Glucose 92 70 - 100 mg/dL 10/30/2018 8:08 PM [facility] HISTORICAL RESULTS BUN 4(L) 8 - 25 mg/dL 10/30/2018 8:08 PM [facility] HISTORICAL RESULTS Creatinine 0.5 0.5 - 1.1 mg/dL 10/30/2018 8:08 PM [facility] HISTORICAL RESULTS Comment: NOTE: Estimated GFR (Cockroft-Gault) will NOT be calculated unless patient Height and Weight were entered. Also, Kidney Disease Stage (GFR) and Estimated GFR (Cockroft-Gault) will NOT be calculated if Creatinine result is <0.2. Kidney Disease Stage > 90 mL/MIN 10/30/2018 8:08 PM [facility] HISTORICAL RESULTS Comment: NOTE; ??The GFR is an estimated [...] mL/min ? Kidney failure or on dialysis @ Est GFR (Cockcroft-G) 208 ml/MIN 10/30/2018 8:08 PM [facility] HISTORICAL RESULTS Comment: Estimated GFR(Cockroft-Gault)is used to calculate patient medication dosage Calcium 9.3 8.6 - 10.3 mg/dL 10/30/2018 8:08 PM [facility] HISTORICAL RESULTS Total Protein 7.8 6.4 - 8.3 g/dL 10/30/2018 8:08 PM [facility] HISTORICAL RESULTS Albumin 3.9 3.5 - 5.2 g/dL 10/30/2018 8:08 PM [facility] HISTORICAL RESULTS Globulin 3.9(H) 2.3 - 3.5 gm/dL 10/30/2018 8:08 PM [facility] HISTORICAL RESULTS Albumin/Globulin Ratio 1.0(L) 1.1 - 1.8 10/30/2018 8:08 PM [facility] HISTORICAL RESULTS Total Bilirubin 0.5 0.0 - 1.2 mg/dL 10/30/2018 8:08 PM [facility] HISTORICAL RESULTS AST 36(H) 0 - 32 U/L 10/30/2018 8:08 PM [facility] HISTORICAL RESULTS ALT 23 0 - 33 U/L 10/30/2018 8:08 PM [facility] HISTORICAL RESULTS Alkaline Phosphatase 120(H) 35 - 104 U/L 10/30/2018 8:08 PM [facility] HISTORICAL RESULTS 10/30/2018 7:35 PM INVESTIGATIONS CONSULTANT 10/30/2018 7:43 PM INVESTIGATIONS CONSULTANT Narrative [facility] HISTORICAL RESULTS - 10/30/2018 8:08 PM INVESTIGATIONS CONSULTANT us Historical Provider LAB BLOOD ORDERABLES Kim cardenas Result [facility] HISTORICAL RESULTS * (ABNORMAL) CBC with auto differential (10/30/2018 7:35 PM INVESTIGATIONS CONSULTANT) WBC 8.1 3.8 - 9.9 X10 3/ul 10/30/2018 7:53 PM [facility] HISTORICAL RESULTS RBC 4.24 3.90 - 5.20 x10 6/ul 10/30/2018 7:53 PM [facility] HISTORICAL RESULTS Hemoglobin 12.4 11.9 - 15.5 g/dL 10/30/2018 7:53 PM [facility] HISTORICAL RESULTS Hct 36.8 35.6 - 45.5 % 10/30/2018 7:53 PM [facility] HISTORICAL RESULTS MCV 86.8 81.3 - 96.4 fl 10/30/2018 7:53 PM [facility] HISTORICAL RESULTS MCH 29.2 27.1 - 33.3 pg 10/30/2018 7:53 PM [facility] HISTORICAL RESULTS MCHC 33.7 32.3 - 35.7 g/dl 10/30/2018 7:53 PM [facility] HISTORICAL RESULTS RDW 13.4 11.1 - 14.9 % 10/30/2018 7:53 PM [facility] HISTORICAL RESULTS Plt Count 70(L) 150 - 400 x10 3/ul 10/30/2018 7:53 PM [facility] HISTORICAL RESULTS MPV 13.1(H) 9.1 - 12.3 fl 10/30/2018 7:53 PM [facility] HISTORICAL RESULTS Neut % 83.0 % 10/30/2018 7:53 PM [facility] HISTORICAL RESULTS Immature Gran % 0.2 % 9 7:53 PM [facility] HISTORICAL RESULTS Lymph % 7.9 % 10/30/2018 7:53 PM [facility] HISTORICAL RESULTS [place] % 8.8 % 10/30/2018 7:53 PM [facility] HISTORICAL RESULTS Eos % 0.0 % 10/30/2018 7:53 PM [facility] HISTORICAL RESULTS Baso % 0.1 % 10/30/2018 7:53 PM [facility] HISTORICAL RESULTS Absolute Neuts (auto) 6.7(H) 1.7 - 6.5 x10 3/ul 10/30/2018 7:53 PM [facility] HISTORICAL RESULTS Immature Gran # 0.0 0.0 - 0.1 x10 3/ul 10/30/2018 7:53 PM [facility] HISTORICAL RESULTS Absolute Lymphs (auto) 0.6(L) 0.8 - 3.3 x10 3/ul 10/30/2018 7:53 PM [facility] HISTORICAL RESULTS Absolute Monos (auto) 0.7 0.2 - 0.8 x10 3/ul 10/30/2018 7:53 PM INVESTIGATIONS CONSULTANT [facility] HISTORICAL RESULTS Absolute Eos (auto) 0.0 0.0 - 0.5 x10 3/ul 10/30/2018 7:53 PM [facility] HISTORICAL RESULTS Absolute Basos (auto) 0.0 0.0 - 0.1 x10 3/ul 10/30/2018 7:53 PM [facility] HISTORICAL RESULTS Nucleat RBC Rel Count 0.0 #/100WBC 10/30/2018 7:53 PM [facility] HISTORICAL RESULTS Absolute Nucleated RBC 0.00 0.00 - 0.01 x10 3/ul 10/30/2018 7:53 PM [facility] HISTORICAL RESULTS Absolute Neutrophils 6700 200 - 8000 /ul 10/30/2018 7:53 PM [facility] HISTORICAL RESULTS 10/30/2018 7:35 PM INVESTIGATIONS CONSULTANT 10/30/2018 7:43 PM INVESTIGATIONS CONSULTANT Narrative [facility] HISTORICAL RESULTS - 10/30/2018 7:53 PM INVESTIGATIONS CONSULTANT us Historical Provider LAB BLOOD ORDERABLES Kim l Result [facility] HISTORICAL RESULTS documented in this encounter Visit Diagnoses Not on filedocumented in this encounter
--- OUTSIDE RECORDS SUMMARY | 2024-10-01 18:00 | XMS_ITS | Encounter Summary ---
Author Organization [facility] Healthcare Address [address] [place] [id number] Care Team Providers Care Butter Melter Name Role Phone Allan Denney MD Primary Care Provider [phone] Reason for Visit * Reason Comments Urinary Frequency Encounter Details Date Type Department Care Team (Late st Contact Info) Description 02/04/2024 11:49 AM CDT - 02/04/2024 1:20 PM CDT [facility] Emergency Department [address] [place] [address] Urinary tract infection without hematuria, site unspecified (Primary Dx) Discharge Disposition: Discharge to home or self [...] on file Legal Sex Female 11:00 AM 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 Gender Identity Not on file Sexual Orientation Not on file documented as of this encounter Last Filed Vital Signs Vital Sign Reading Time Taken Comments Blood Pressure 104/62 02/04/2024 11:55 AM CDT Pulse 77 02/04/2024 11:55 AM CDT Temperature 37.1 ??C (98.7 ??F) 02/04/2024 9:50 AM CD T Respiratory Rate 16 02/04/2024 11:5 5 AM CDT Oxygen Saturation 98% 02/04/2024 11: 55 AM CDT Inhaled Oxygen Concentration - - Weight 103.8 kg (228 lb 13.4 oz) 02/04/2024 9:50 AM CDT Height 165.1 cm (5' 5 ) 02/04/2024 9:50 AM CDT Body Mass Index 38.08 02/04/2024 9:50 AM CDT documented in this encounter Discharge Instructions * Discharge Instructions* Mary Gomez PA - 02/04/2024 1:07 PM CDT You have a urinary tract infection Please complete the entire course of antibiotics Rest and keep well hydrated Take Tylenol or Motrin for pain Follow with your doctor in 1-2 days if no improvement Return if fever or vomiting Follow-up as recommended is mandatory. You have received emergency care only at your visit today. This is not a substitute for ongoing care, further evaluation and treatment and therefore follow-up as directed is not optional but mandatory You MUST follow up for further evaluation of all incidental abnormal radiographic and laboratory findings, Have your physician obtain records from this visit and address all the incidental abnormal findings. This may include final results of lab testing, cultures, final x-ray reports which may not have been available during the time of the visit. You must not drive or walk home. Besides the medical condition that may preclude this it is quite likely you may have been given medications that may impair your ability to do so causing a danger to yourself. Return immediately for any new symptoms, worsening of symptoms, or persistent symptoms * Attachments The following attachments cannot be sent through Care Everywhere. * Urinary Tract Infection in Women (AfterCare(R) Instructions(ER/ED)) (Russian) documented in this encounter Medications at Time of Discharge albuterol HFA (PROVENTIL HFA,VENTOLIN HFA,PROAIR HFA) 90 mcg/actuation inhalerIndication s:Influenza B Inhale 2 puffs every 6 (six) hours as needed for wheezing or shortness of breath 1 each 09/17/2023 dextroamphetamine -amphetamine (AdderalL) 20 mg tablet Take 1 tablet (20 mg total) by mouth daily 12/26/2023 tretinoin (RETIN-A) 0.025 % cream APPLY A PEA SIZED AMOUNT AT BEDTIME TO AFFECTED AREAS ON THIGHS 11/21/2023 nitrofurantoin monohydrate (MACROBID) 100 mg capsuleIndication s:Urinary Tract/Genitourina ry Infection Take 1 capsule (100 mg total) by mouth 2 (two) times a day for 5 days 10 capsule 02/04/2024 4 benzonatate (TESSALON) 200 mg capsuleIndication s:Influenza B Take 1 capsule (200 mg total) by mouth 3 (three) times a day as needed for cough 30 capsule 09/17/2023 4 documented as of this encounter Ordered Prescriptions Prescription Sig Dispense Quantity Refills Last Filled Start Date End Date nitrofurantoin monohydrate (MACROBID) 100 mg capsuleIndications :Urinary Tract/Genitourinar y Infection Take 1 capsule (100 mg total) by mouth 2 (two) times a day for 5 days 10 capsule 02/04/2024 4 documented in this encounter Discharge Disposition Disposition Code Departure Means Destination Comment s Discharge to home or self care documented in this encounter ED Notes * Mary Gomez PA - 02/04/2024 1:20 PM CDT CHIEF COMPLAINT: Chief Complaint Patient presents with Urinary Frequency HPI 6:05 PM Verónica Morton is a 28 y.o. female presenting to the ED c/o urinary symptoms. Patientstates she has been having urinary frequency. States that she has had these symptoms for the last few days. States she gets UTIs often. Denies any hematuria, dysuria. Denies any abdominal pain, nausea vomiting or fevers. Denies any back pain. Patient states she has also been having a discharge but this has been going on for months in his not new. Unsure if this is normal for her. History provided by patient PCP: Allan Denney MD PAST MEDICAL HISTORY No past medical history on file. PAST SURGICAL HISTORY Past Surgical History: Procedure Laterality Date US ABDOMEN COMPLETE W LIVER DOPPLER (C) Right 05/02/2018 FAMILY HISTORY Family History Problem Relation Age of Onset Hypertension Mother Reported Previous High Blood Pressure - (Added by TW Conv) MEDICATIONS GIVEN IN THE ED Medications nitrofurantoin monohydrate (MACROBID) capsule 100 mg (100 mg oral Given 02/04/24 1318) CURRENT HOME MEDICATIONS No current facility-administered medications for this encounter. Current Outpatient Medications: albuterol HFA (PROVENTIL HFA,VENTOLIN HFA,PROAIR HFA) 90 mcg/actuation inhaler, Inhale 2 puffs every 6 (six) hours as needed for wheezing or shortness of breath, Disp: 1 each, Rfl: 0 benzonatate (TESSALON) 200 mg capsule, Take 1 capsule (200 mg total) by mouth 3 (three) times a dayas needed for cough, Disp: 30 capsule, Rfl: 0 nitrofurantoin monohydrate (MACROBID) 100 mg capsule, Take 1 capsule (100 mg total) by mouth 2 (two) times a day for 5 days, Disp: 10 capsule, Rfl: 0 ALLERGIES No Known Allergies SOCIAL HISTORY Social History Tobacco Use Smoking status: Never Smokeless tobacco: Not on file Substance and Sexual Activity Drug use: Not on file Sexual activity: Not on file Alcohol Use: Not on file PHYSICAL EXAM TRIAGE VITAL SIGNS: ED Triage Vitals Temp Pulse Resp BP SpO2 02/04/24 0950 02/04/24 0950 02/04/24 0950 02/04/24 0950 02/04/24 0950 37.1 ??C (98.7 ??F) 89 20 105/69 98 % Temp src Heart Rate Source Patient Position BP Location FiO2 (%) 02/04/24 0950 -- -- 02/04/24 1155 -- Oral Left arm Height Height Method Weight Weight Method 02/04/24 0950 02/04/24 0950 02/04/24 0950 02/04/24 0950 1.651 m (5' 5 ) Stated 103.8 kg (228 lb 13.4 oz) Standing scale Physical Exam Vitals and nursing note reviewed. Constitutional: General: She is not in acute distress. Appearance: Normal appearance. She is normal weight. She is not ill-appearing, toxic-appearing or diaphoretic. HENT: Head: Normocephalic and atraumatic. Eyes: Pupils: Pupils are equal, round, and reactive to light. Cardiovascular: Rate and Rhythm: Normal rate and regular rhythm. Heart sounds: Normal heart sounds. No murmur heard. No friction rub. No gallop. Pulmonary: Effort: Pulmonary effort is normal. No respiratory distress. Breath sounds: Normal breath sounds. No stridor. No wheezing, rhonchi or rales. Abdominal: Tenderness: There is no abdominal tenderness. There is no right CVA tenderness, left CVA tenderness, guarding or rebound. Skin: General: Skin is warm and dry. Neurological: General: No focal deficit present. Mental Status: She is alert and oriented to person, place, and time. Mental status is at baseline. Psychiatric: Mood and Affect: Mood normal. LABS Labs Reviewed URINALYSIS AND REFLEX TO MICROSCOPIC AND CULTURE - Abnormal Result Value Color, ur Yellow Clarity, ur Clear Specific gravity, ur 1.026 pH, urine 6.0 Protein, ur ql Trace (*) Glucose, ur ql Negative Ketones, ur Negative Bilirubin, ur Negative Blood, ur 1+ (*) Urobilinogen, ur 2.0 (*) Nitrite, ur Negative Leukocyte esterase, ur 1+ (*) UA reflex comment Reflex to microscopic UA will be performed. URINALYSIS AND REFLEX TO MICROSCOPIC AND CULTURE - Abnormal Color, ur Yellow Clarity, ur Cloudy (*) Specific gravity, ur 1.025 pH, urine 7.0 Protein, ur ql Trace (*) Glucose, ur ql Negative Ketones, ur Negative Bilirubin, ur Negative Blood, ur 1+ (*) Urobilinogen, ur 2.0 (*) Nitrite, ur Negative Leukocyte esterase, ur 3+ (*) UA reflex comment Reflex to microscopic UA will be performed. URINALYSIS, MICROSCOPIC ONLY - Abnormal WBC, ur 6-10 (*) RBC, ur 21-50 (*) Epithelial cells, squamous, ur >50 (*) Bacteria, ur Trace (*) Mucous, ur Present (*) Calcium oxalate crystals, ur 1+ (*) Culture Reflex Comment Value: Reflex conditions for urine culture (WBC >10) not met. URINALYSIS, MICROSCOPIC ONLY - Abnormal WBC, ur 21-50 (*) RBC, ur 6-10 (*) Epithelial cells, squamous, ur >50 (*) Yeast, ur 4+ (*) Mucous, ur Present (*) Culture Reflex Comment Reflex to urine culture will be performed. N. GONORRHOEAE/C. TRACHOMATIS AMPLIFICATION C. trachomatis Not Detected N. gonorrhoeae Not Detected VAGINITIS PANEL Sarah DNA probe Not Detected Gardnerella DNA probe Not Detected Trichomonas DNA probe Not Detected URINE CULTURE Report Value: Preliminary Report: Culture results pending. Narrative: Urine culture reflexed based upon urinalysis results. Testing performed by [facility] ([phone]) POCT HCG, URINE HCG, ur, POC Negative Lot Number [id number] QC Backgroud Clear Acceptable QC Control Line Acceptable RADIOLOGY No results found. ED COURSE/MEDICAL DECISION MAKING Differential diagnosis included but not limited to urinary tract infection, BV, STD, , other Patient's medical records were reviewed. I discussed management or test interpretation with the following outside physician, caregiver, assisted staff: n/a ED Course as of 02/05/241804 Time: 02/03 1214 Value: Urinalysis, microscopic only(!): WBC, ur 6-10(!) RBC, ur 21-50(!) Epithelial cells, squamous, ur >50(!) Bacteria, ur Trace(!) Mucous, ur Present(!) Calcium oxalate crystals, ur 1+(!) Culture Reflex Comment Reflex conditions for urine culture (WBC >10) not met. Comment: Contaminated sample. Will get another sample. By: Mary Gomez PA Time: 02/05 1804 Comment: The patient is a 28-year-old female who presented to the ED with complaints of urinary symptoms. Her urinalysis shows that she does have UTI. Her vaginitis panel negative for Trichomonas, yeast or Gardnerella, GC chlamydia negative. Patient's negative. She was given Macrobid in the emergency department for urinary tract infection. Patient to follow-up with her primary care doctor. Stable for discharge home his vitals have been stable and patient is well-appearing. By: Mary Gomez PA Time: 02/04 1805 Comment: Recheck on patient. Non toxic appearing, vitals stable. Patient stable for discharge home. Discussed with patient work up, relevant results, and plan for discharge. Patient was given ED warnings, discharge instructions, and follow up instructions. Patient understands and agrees with plan for discharge. Patient was informed and verbalizes understanding to return to ER immediately if sympto ms worsen or persist, new concerns arise, new symptoms develop or if follow up cannot be obtained. Any questions have been addressed. Patient feels comfortable going home at this time. By: Mary Gomez PA Procedures FINAL IMPRESSION Urinary tract infection without hematuria, site unspecified DISPOSITION: Home PATIENT INSTRUCTED TO FOLLOW UP Allan Denney MD [address] [address] Schedule an appointment as soon as possible for a visit in 3 days DISCHARGE MEDICATIONS Your medication list START taking these medications Instructions Last Dose Given Next Dose Due nitrofurantoin monohydrate 100 mg capsule Commonly known as: MACROBID Take 1 capsule (100 mg total) by mouth 2 (two) times a day for 5 days ASK your doctor about these medications Instructions Last Dose Given Next Dose Due albuterol HFA 90 mcg/actuation inhaler Commonly known as: PROVENTIL HFA,VENTOLIN HFA,PROAIR HFA Inhale 2 puffs every 6 (six) hours as needed for wheezing or shortness of breath benzonatate 200 mg capsule Commonly known as: TESSALON Take 1 capsule (200 mg total) by mouth 3 (three) times a day as needed for cough Where to Get Your Medications These medications were sent to [address] [address] nitrofurantoin monohydrate 100 mg capsule This examination was transcribed using the [employer] voice recognition system without human slab lifting engineer. In an effort to expedite patient care, this report has not been adjusted for typographical, grammatical, and syntax by a trained medical practice manager. Mary Gomez PA 02/05/241805 Cosigned by Daniel Iglesias Jr., MD at 02/05/2024 9:58 PM CDT Associated attestation - Daniel Iglesias Jr., MD - 02/05/2024 9:58 PM CDT ED Attestation Based on the medical record the care appears appropriate. * Kayla Nelson RN - 02/04/2024 9:49 AM CDT Pt reports having increased urination with burning. Pt also states that she is having a white fluid discharge with an odor x2 days. documented in this encounter Plan of Treatment Not on file documented as of this encounter Procedures Procedure Name Priority Date/Time Associated Diagnosis Comments URINALYSIS AND REFLEX TO MICROSCOPIC AND CULTURE STAT 02/04/2024 12:27 PM CDT URINALYSIS, MICROSCOPIC ONLY STAT 02/04/2024 12:27 PM CDT URINE CULTURE STAT 02/04/2024 12:27 PM CDT N. GONORRHOEAE/C. TRACHOMATIS AMPLIFICATION STAT 02/04/2024 11:15 AM CDT URINALYSIS AND REFLEX TO MICROSCOPIC AND CULTURE STAT 02/04/2024 11:15 AM CDT URINALYSIS, MICROSCOPIC ONLY STAT 02/04/2024 11:15 AM CDT VAGINITIS PANEL STAT 02/04/2024 11:10 AM CDT POCT HCG, URINE STAT 02/04/2024 10:56 AM CDT documented in this encounter Results * (ABNORMAL) Urine culture Urine (02/04/2024 12:27 PM CDT) Report Final Report: Greater than or equal to 100,000 colonies/mL of Lactobacillus species Plus growth of clinically insignificant bacterial evelyn. (.) Comment:Testing performed by : [facility], [address] [facility], [place]., [address] Organism LACTOBACILLUS SPECIES YOLANDA Organism PLUS GROWTH OF CLINICALLY INSIGNIFICANT EVELYN. YOLANDA Urine 02/04/2024 12:2 7 PM CDT 02/04/2024 3:28 PM CDT Narrative YOLANDA - 02/05/2024 6:13 PM CDT Urine culture reflexed based upon urinalysis results. Testing performed by [facility] ([phone]) us Mary SHAIKH LAB MICROBIOLOGY - GENERAL ORDER RICHA Final Result YOLANDA [address] [facility] [place] [address] * (ABNORMAL) Urinalysis, microscopic only (02/04/2024 12:27 PM CDT) WBC, ur 21-50(A) 0 - 5 /HPF Comment:Testing performed by : [address] [address] RBC, ur 6-10(A) 0 - 2 /HPF YOLANDA Comment:Testing performed by : [address] [address] Epithelial cells, squamous, ur >50(A) 0 - 5 /HPF YOLANDA Comment:Testing performed by : [address] [address] Yeast, ur 4+(A) YOLANDA Comment:Testing performed by : [address] [address] Mucous, ur Present(A) YOLANDA Comment:Testing performed by : [address] [address] Culture Reflex Comment Reflex to urine culture will be performed. YOLANDA Comment:Testing performed by : [address], [place]., [address] Urine 02/04/2024 12:2 7 PM CDT 02/04/2024 12:39 PM CDT us Mary SHAIKH LAB URINE ORDERABLES Final Resul t YOLANDA [address] [facility] [place] [address] * (ABNORMAL) Urinalysis reflex to microscopic and culture Urine (02/04/2024 12:27 PM CDT) Color, ur Yellow Yellow Comment:Testing performed by : [address] [address] Clarity, ur Cloudy(A) Clear YOLANDA Comment:Testing performed by : [address] [address] Specific gravity, ur 1.025 1.003 - 1.030 YOLANDA Comment:Testing performed by : [address] [address] pH, urine 7.0 YOLANDA Comment: Interpretive Data ? Urine pH is affected by diet, medications, systemic acid-base disturbances, and renal tubular function. ??pH may affect urinary stone formation. ??For example, urine pH below 6.0 may help reduce the tendency for calcium phosphate stones and pH greater than 6.0 may reduce the tendency for uric acid stone formation. Source: [facility] [email or web address] Current Interpretive Data was last revised on 2017 Testing performed by: [address] [address] Protein, ur ql Trace(A) Negative YOLANDA Comment:Testing performed by : [address] [address] Glucose, ur ql Negative Negative YOLANDA Comment:Testing performed by : [address] [address] Ketones, ur Negative Negative YOLANDA Comment:Testing performed by : [address] [address] Bilirubin, ur Negative Negative YOLANDA Comment:Testing performed by : [address] [address] Blood, ur 1+(A) Negative YOLANDA Comment:Testing performed by : [address] [address] Urobilinogen, ur 2.0(A) <2.0 mg/dL YOLANDA Comment:Testing performed by : [address] [address] Nitrite, ur Negative Negative YOLANDA Comment:Testing performed by : [address] [address] Leukocyte esterase, ur 3+(A) Negative YOLANDA Comment:Testing performed by : [address], [place]., [address] UA reflex comment Reflex to microscopic UA will be performed. YOLANDA Comment:Testing performed by : [address] [address] Urine 02/04/2024 12:2 7 PM CDT 02/04/2024 12:39 PM CDT us Mary [facility]AI[facility] LAB MICROBIOLOGY - GENERAL ORDER RICHA Final Result YOLANDA [address] [facility] [place] [address] * (ABNORMAL) Urinalysis, microscopic only (02/04/2024 11:15 AM CDT) WBC, ur 6-10(A) 0 - 5 /HPF Comment:Testing performed by : [address] [address] RBC, ur 21-50(A) 0 - 2 /HPF YOLANDA Comment:Testing performed by : [address] [address] Epithelial cells, squamous, ur >50(A) 0 - 5 /HPF YOLANDA Comment:Testing performed by : [address] [address] Bacteria, ur Trace(A) YOLANDA Comment:Testing performed by : [address], [place]., [address] Mucous, ur Present(A) YOLANDA Comment:Testing performed by : [address], [place]., [address] Calcium oxalate crystals, ur 1+(A) YOLANDA Comment:Testing performed by : [address] [address] Culture Reflex Comment Reflex conditions for urine culture (WBC >10) not met. YOLANDA CUEVAS Comment:Testing performed by : [address] [address] Urine 02/04/2024 11:1 5 AM CDT 02/04/2024 11:26 AM CDT Mary SHAIKH LAB URINE ORDERABLES Final Resul t Performing Organization Address City/[facility]/ZIP Co de Phone Number YOLANDA [address] [place] [address] * N. gonorrhoeae/C. trachomatis Amplification Urine (02/04/2024 11:15 AM CDT) C. trachomatis Not Detected Not Detected Comment:Testing performed by : [facility], [address] [place] [address]., [address] N. gonorrhoeae Not Detected Not Detected YOLANDA Comment: Interpretive Data This assay detects Chlamydia trachomatis and Neisseria gonorrhoeae by nucleic acid amplification testing (NAAT). This assay has been cleared by the [place] Food and Drug administration. The performance characteristics of this test have been verified by the [facility]. The performance characteristics of this test have not been evaluated in individuals less than 14 years of age. Current Interpretive Data last revised 2023. Testing performed by: [address] [address] Urine (None) 02/04/2024 11:1 5 AM CDT 02/04/2024 11:27 AM CDT Mary SHAIKH LAB MICROBIOLOGY - GENERAL ORDER RICHA Final Result Performing Organization Address City/[facility]/ZIP Co de Phone Number YOLANDA [address] [place] [address] * (ABNORMAL) Urinalysis reflex to microscopic and culture Urine (02/04/2024 11:15 AM CDT) Color, ur Yellow Yellow Comment:Testing performed by : [address] [address] Clarity, ur Clear Clear YOLANDA Comment:Testing performed by : [address] [address] Specific gravity, ur 1.026 1.003 - 1.030 YOLANDA Comment:Testing performed by : [address] [address] pH, urine 6.0 YOLANDA Comment: Interpretive Data ? Urine pH is affected by diet, medications, systemic acid-base disturbances, and renal tubular function. ??pH may affect urinary stone formation. ??For example, urine pH below 6.0 may help reduce the tendency for calcium phosphate stones and pH greater than 6.0 may reduce the tendency for uric acid stone formation. Source: [facility] [email or web address] Current Interpretive Data was last revised on 2017 Testing performed by: [address] [address] Protein, ur ql Trace(A) Negative YOLANDA Comment:Testing performed by : [address] [address] Glucose, ur ql Negative Negative YOLANDA Comment:Testing performed by : [address] [address] Ketones, ur Negative Negative YOLANDA Comment:Testing performed by : [address] [address] Bilirubin, ur Negative Negative YOLANDA Comment:Testing performed by : [address] [address] Blood, ur 1+(A) Negative YOLANDA Comment:Testing performed by : [address] [address] Urobilinogen, ur 2.0(A) <2.0 mg/dL YOLANDA Comment:Testing performed by : [address] [address] Nitrite, ur Negative Negative YOLANDA Comment:Testing performed by : [address] [address] Leukocyte esterase, ur 1+(A) Negative YOLANDA CUEVAS Comment:Testing performed by : [address] [address] UA reflex comment Reflex to microscopic UA will be performed. YOLANDA CUEVAS Comment:Testing performed by : [address] [address] Urine 02/04/2024 11:1 5 AM CDT 02/04/2024 11:26 AM CDT us Mary Patricia PA LAB MICROBIOLOGY - GENERAL ORDER RICHA Final Result YOLANDA CUEVAS [address] [facility] [place] [address] * Vaginitis panel Vaginal (02/04/2024 11:10 AM CDT) Sarah DNA probe Not Detected Not Detected Comment:Testing performed by : [address] [address] Gardnerella DNA probe Not Detected Not Detected YOLANDA CUEVAS Comment:Testing performed by : [address] [address] Trichomonas DNA probe Not Detected Not Detected YOLANDA CUEVAS Comment: Interpretive Data Testing performed by [facility] via [employer] Microbial Identification Test, a DNA probe test for use in the detection and identification of Sarah species, Gardnerella vaginalis and Trichomonas vaginalis nucleic acid in vaginal fluid specimens from patients with symptoms of vaginitis/vaginosis. Negative results for these tests suggest the patient does not have candidiasis, bacterial vaginosis and/or trichomoniasis when consistent with clinical signs and symptoms. Current interpretive data was last revised on 2020. Testing performed by: [address] [address] Vaginal 02/04/2024 11:1 0 AM CDT 02/04/2024 11:26 AM CDT us Mary Patricia PA LAB MICROBIOLOGY - GENERAL ORDER RICHA Final Result YOLANDA [address] [facility] [place] [address] * POCT hCG, urine (02/04/2024 10:56 AM CDT) HCG, ur, POC Negative Negative Lot Number [id number] QC Backgroud Clear Acceptable QC Control Line Acceptable Urine 02/04/2024 10:5 6 AM CDT us Mary SHAIKH POINT OF CARE TEST ORDERABLES Fi nal Result documented in this encounter Visit Diagnoses Diagnosis Urinary tract infection without hematuria, site unspecified- Primary documented in this encounter Administered Medications Inactive Administered Medications - up to 3 most recent administrations Medication Order MAR Action Action Date Dose Rate Site nitrofurantoin monohydrate (MACROBID) capsule 100 mg 100 mg, oral, Once, On 02/04/24 at 1308, For 1 dose, Take with food, Indications: Urinary Tract/Genitourinary InfectionIndications:Urinary Tract/Genitourinary Infection Given 02/04/2024 1:18 PM CDT 100 mg documented in this encounter Active and Recently Administered Medications Times are shown in CDT. Scheduled Medication Order 02/02/2024 02/03/2024 02/04/2024 nitrofurantoin monohydrate (MACROBID) capsule 100 mg (COMPLETED) 100 mg, oral, Once, On 02/04/24 at 1308, For 1 dose, Take with food, Indications: Urinary Tract/Genitourinary Infection 1318 (Given - Provid er: Kayla Nelson, PEDRO) documented in this encounter Orders Medications Ordered That Lee ht Not Have Been Administered Count Last Ordered Date First Ordered Date nitrofurantoin monohydrate ( MACROBID) capsule 100 mg 1 02/04/2024 documented in this encounter Care Teams Butter Melter Relationship Specialty Start Date End Date Allan Denney MD PCP - General 12/06/18 02/19/24 documented as of this encounter
--- OUTSIDE RECORDS SUMMARY | 2024-10-01 18:00 | XMS_ITS | Encounter Summary ---
Author Organization [facility] Healthcare Address [address] [place] [address] Care Team Providers Care Booster Assembler Name Role Phone Allan Denney MD Primary Care Provider [phone]- [phone] Encounter Details Date Type Department Care Team (Late st Contact Info) Description 12/06/2018 8:28 PM CDT - 12/09/2018 11:35 AM CDT Hospital Encounter [facility] Allan Denney MD [address] [place] [address] Discharge Disposition: Discharge to home or self care Social History Tobacco Use Types Packs/Day Years Used Date Smoking Tobacco: Never Comments Unknown Sex and Gender Information Value Date Recorded Sex Assigned at Not on file 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 Gender Identity Not on file Sexual Orientation Not on file documented as of this encounter Last Filed Vital Signs Vital Sign Reading Time Taken Comments Blood Pressure 115/78 12/06/2018 9:00 PM CDT Pulse 98 12/06/2018 9:00 PM CDT Temperature 36.8 ??C (98.3 ??F) 12/06/2018 9:00 PM CD T Respiratory Rate - - Oxygen Saturation 99% 12/06/2018 9:00 PM CDT Inhaled Oxygen Concentration - - Weight 110 kg (242 lb 8 oz) 12/06/2018 9:00 PM C DT Height 165.1 cm (5' 5 ) 12/06/2018 9:00 PM CDT Body Mass Index 40.35 12/06/2018 9:00 PM CDT documented in this encounter Discharge Disposition Disposition Code Departure Means Destination Discharge to home or self care documented in this encounter Plan of Treatment Not on file documented as of this encounter Procedures Procedure Name Priority Date/Time Associated Diagnosis Comments CBC WITH AUTO DIFFERENTIAL Routine 12/08/2018 6:12 AM CDT PROCEDURE - RESULT 12/07/2018 12 :00 AM CDT DRUGS OF ABUSE SCREEN, URINE WITHOUT CONFIRMATION Routine 12/06/2018 10:30 PM CDT CBC WITH AUTO DIFFERENTIAL Routine 12/06/2018 8:35 PM CDT RPR Routine 12/06/2018 8:35 PM CDT documented in this encounter Results * (ABNORMAL) CBC with auto differential (12/08/2018 6:12 AM CDT) WBC 8.4 3.8 - 9.9 X10 3/ul 12/08/2018 7:39 AM CDT [facility] Comment:Results Reviewed RBC 3.48(L) 3.90 - 5.20 x10 6/ul 12/08/2018 7:39 AM CDT [facility] Comment:Results Reviewed Hemoglobin 10.2(L) 11.9 - 15.5 g/dL 12/08/2018 7:39 AM CDT [facility] Comment:Results Reviewed Hct 30.7(L) 35.6 - 45.5 % 12/08/2018 7:37 AM CDT [facility] MCV 88.2 81.3 - 96.4 fl 12/08/2018 7:37 AM CDT [facility] MCH 29.3 27.1 - 33.3 pg 12/08/2018 7:37 AM CDT [facility] MCHC 33.2 32.3 - 35.7 g/dl 12/08/2018 7:37 AM CDT [facility] RDW 13.8 11.1 - 14.9 % 12/08/2018 7:37 AM CDT [facility] Plt Count 82(L) 150 - 400 x10 3/ul 12/08/2018 7:37 AM CDT [facility] MPV 14.3(H) 9.1 - 12.3 fl 12/08/2018 7:37 AM CDT [facility] Neut % 70.1 % Immature Gran % 0.4 % 9 7:37 AM [facility] HISTORICAL RESULTS Lymph % 21.1 % Morris % 7.2 % Eos % 0.8 % Baso % 0.4 % Absolute Neuts (auto) 5.9 1.7 - 6.5 x10 3/ul Immature Gran # 0.0 0.0 - 0.1 x10 3/ul Absolute Lymphs (auto) 1.8 0.8 - 3.3 x10 3/ul Absolute Monos (auto) 0.6 0.2 - 0.8 x10 3/ul Absolute Eos (auto) 0.1 0.0 - 0.5 x10 3/ul Absolute Basos (auto) 0.0 0.0 - 0.1 x10 3/ul Nucleat RBC Rel Count 0.0 #/100WBC Absolute Nucleated RBC 0.00 0.00 - 0.01 x10 3/ul Absolute Neutrophils 5900 200 - 8000 /ul 12/08/2018 6:12 AM CDT 12/08/2018 7:33 AM CDT us Allan Denney MD LAB BLOOD ORDERABLES Final Result [facility] HISTORICAL RESULTS * PROCEDURE - RESULT (12/07/2018 12:00 AM CDT) Narrative 12/07/2018 12:00 AM CDT Ordered by an unspecified provider. us Historical Provider Final Res ult * Drug Screen, Urine without Confirmation (12/06/2018 10:30 PM CDT) Ur Amphetamine Screen NEGATIVE NEGATIVE Comment: Cutoff Limit: ??1000 ng/mL ??Detects MDMA, MDA, d-Amphetamine, d-Methamphetamine, ?MBDB-HCl, MDEA and BDB-HCl Note: ??Positive results from this drug screen are unconfirmed. ??Unconfirmed screening results should not be used for non-medical purposes. Ur Barbiturates Screen NEGATIVE NEGATIVE Comment: Cutoff limit: ??200 ng/mL ??Detects Secobarbitol, Cyclopentobarbital, Aprobarbital, ?Butalbital, Allobarbital, Butabarbital, ?Pentobarbital, Amobarbital and Phenobarbital U Benzodiazepines Scrn NEGATIVE NEGATIVE Comment:Cutoff limit: 300 ng /mL U Cannabinoids Screen NEGATIVE NEGATIVE Comment:Cutoff Limit: 50 ng/ mL U Cocaine Metab Screen NEGATIVE NEGATIVE Comment:Cutoff limit: 300 ng /mL Urine Opiates Screen NEGATIVE NEGATIVE Comment: Cutoff Limit: ??300 ng/mL Detects Morphine, Codeine, Ethyl Morphine, ?Diacetylmorphine, 6-Acetylmorphine, Dihydrocodeine, ?Jjesfxfc-0-xrzsyqbkvrr and Hydrocodone Ur Oxycodone Screen NEGATIVE NEGATIVE 12/07 12:01 AM CDT [facility] HISTORICAL RESULTS Comment:Cutoff Limit: 100 ng /mL Urine Creatinine/JAVAN 36.0 mg/dL Comment:If Creatinine is < 4 0 mg/dL, recollection is suggested. 12/06/2018 10:3 0 PM CDT 12/06/2018 11:28 PM CDT Narrative [facility] HISTORICAL RESULTS - 12/07/2018 12:01 AM CDT Collected By Allan Denney MD LAB URINE ORDERABLES Final Result Performing Organization Address [facility] de Phone Number [facility] HISTORICAL RESULTS * RPR, serum (12/06/2018 8:35 PM CDT) Treponemal IgG NONREACTIVE NONREACTIVE 12/07/19 19 9:32 PM CDT [facility] HISTORICAL RESULTS Comment: ADVIA Centaur immunoassay to determine antibodies to Treponema pallidum. 12/06/2018 8:35 PM CDT 12/06/2018 8:39 PM CDT Allan Denney MD LAB MICROBIOLOGY - GENERAL ORDERABLES Final Result Performing Organization Address [facility] de Phone Number [facility] HISTORICAL RESULTS * (ABNORMAL) CBC with auto differential (12/06/2018 8:35 PM CDT) WBC 6.2 3.8 - 9.9 X10 3/ul RBC 4.27 3.90 - 5.20 x10 6/ul Hemoglobin 12.4 11.9 - 15.5 g/dL Hct 36.4 35.6 - 45.5 % MCV 85.2 81.3 - 96.4 fl MCH 29.0 27.1 - 33.3 pg MCHC 34.1 32.3 - 35.7 g/dl RDW 13.4 11.1 - 14.9 % Plt Count 89(L) 150 - 400 x10 3/ul MPV 13.2(H) 9.1 - 12.3 fl Neut % 71.0 % Immature Gran % 0.3 % 9 8:42 PM [facility] HISTORICAL RESULTS Lymph % 21.1 % Morris % 7.1 % Eos % 0.3 % Baso % 0.2 % Absolute Neuts (auto) 4.4 1.7 - 6.5 x10 3/ul Immature Gran # 0.0 0.0 - 0.1 x10 3/ul Absolute Lymphs (auto) 1.3 0.8 - 3.3 x10 3/ul Absolute Monos (auto) 0.4 0.2 - 0.8 x10 3/ul Absolute Eos (auto) 0.0 0.0 - 0.5 x10 3/ul Absolute Basos (auto) 0.0 0.0 - 0.1 x10 3/ul Nucleat RBC Rel Count 0.0 #/100WBC Absolute Nucleated RBC 0.00 0.00 - 0.01 x10 3/ul Absolute Neutrophils 4400 200 - 8000 /ul 12/06/2018 8:35 PM CDT 12/06/2018 8:39 PM CDT us Allan Denney MD LAB BLOOD ORDERABLES Final Result [facility] HISTORICAL RESULTS documented in this encounter Visit Diagnoses Not on filedocumented in this encounter Care Teams Booster Assembler Relationship Specialty Start Date End Date Allan Denney MD PCP - General 12/06/18 02/19/24 documented as of this encounter
--- OUTSIDE RECORDS SUMMARY | 2024-10-01 18:00 | XMS_ITS | Referral Summary ---
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 Gender Identity Not on file Sexual Orientation [...] 02/20/2024 9:25 AM CDT Plan of Treatment Not on file Insurance [facility] CHOICE PLUS ANTHEM ACCESS CHOICE Member Subscriber Plan / Payer (Ef fective 2024-Present) Name:Verónica Morton Relation to Subscriber:Self Name:Verónica Morton Payer ID:[id number] (NAIC) Type:BC ALLIANCE Address: [facility] [id number] [id number] Care Teams Aircraft Powerplant Repairer Relationship Specialty Start Date End Date Salinas Escobar MD [address] [place] [address] PCP - General Family Medicine 02/20/24
--- OUTSIDE RECORDS SUMMARY | 2024-10-01 18:00 | XMS_ITS | Encounter Summary ---
Author Organization [facility] Healthcare Address [address] [place] [address] Care Team Providers Care Solutions Executive Cloud Sales Name Role Phone Allan Denney MD Primary Care Provider [phone]- [phone] Reason for Visit * MRI/CAT/PET Scan (Routine) - Pending Review Specialty Diagnoses / Procedures Referred By Cristopher t Referred To Contact Procedures ANA CRISTINA PONCE Outside Reference Transcribed Order, Provider Referral ID Status Reason Start Date Expiration Date V isits Requested Visits Authorized [id number] Pending Review 08/22/2024 09/21/2025 1 1 Encounter Details Date Type Department Care Team (Latest Contact Info) Description 09/04/2023 - 09/04/2023 11:59 PM HEALTH INSURANCE ASSESSOR Hospital Encounter [facility] [address] [place] [address] Discharge Disposition: Discharge to home or self care Social History Tobacco Use Types Packs/Day Years Used Date Smoking Tobacco: Never Comments Unknown Sex and Gender Information Value Date Recorded Sex Assigned at Not on file 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 Gender Identity Not on file Sexual Orientation Not on file documented as of this encounter Discharge Disposition Disposition Code Departure Means Destination Discharge to home or self care documented in this encounter Plan of Treatment Not on file documented as of this encounter Procedures Procedure Name Priority Date/Time Associated Diagnosis Comments ANA CRISTINA PONCE OUTSIDE REFERENCE Routine 09/04/2023 12:00 AM HEALTH INSURANCE ASSESSOR documented in this encounter Results * ANA CRISTINA PONCE Outside Reference (09/04/2023 12:00 AM HEALTH INSURANCE ASSESSOR) Narrative [facility] - 08/22/2024 4:11 PM HEALTH INSURANCE ASSESSOR This order has been auto-finalized and does not contain a result. us Provider Transcribed Order IMG MRI PROCEDURES Fi nal Result [facility] documented in this encounter Visit Diagnoses Not on filedocumented in this encounter Care Teams Solutions Executive Cloud Sales Relationship Specialty Start Date End Date Allan Denney MD PCP - General 12/06/18 02/19/24 documented as of this encounter
--- OUTSIDE RECORDS SUMMARY | 2024-10-01 18:00 | XMS_ITS | Encounter Summary ---
Author Organization [facility] Healthcare Address [address] [place] [address] Care Team Providers Care Database Security Expert Name Role Phone Allan Denney MD Primary Care Provider [phone]- [phone] Reason for Visit * MRI/CAT/PET Scan (Routine) - Pending Review Specialty Diagnoses / Procedures Referred By Cristopher t Referred To Contact Procedures ANA CRISTINA PONCE Outside Reference Transcribed Order, Provider Referral ID Status Reason Start Date Expiration Date V isits Requested Visits Authorized [id number] Pending Review 08/22/2024 09/21/2025 1 1 Encounter Details Date Type Department Care Team (Latest Contact Info) Description 09/04/2023 12:05 AM OVEN LABORER - 09/04/2023 11:59 PM OVEN LABORER Hospital Encounter [facility] Outside Films [address] [place] [address] Discharge Disposition: Discharge to home or self care Social History Tobacco Use Types Packs/Day Years Used Date Smoking Tobacco: Never Comments Unknown Sex and Gender Information Value Date Recorded Sex Assigned at Not on file 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 Gender Identity Not on file Sexual Orientation Not on file documented as of this encounter Discharge Disposition Disposition Code Departure Means Destination Discharge to home or self care documented in this encounter Plan of Treatment Not on file documented as of this encounter Procedures Procedure Name Priority Date/Time Associated Diagnosis Comments ANA CRISTINA MR OUTSIDE REFERENCE Routine 09/04/2023 12:05 AM OVEN LABORER documented in this encounter Results * K MR Outside Reference (09/04/2023 12:05 AM OVEN LABORER) Narrative [facility]ICE[facility] - 08/22/2024 4:11 PM OVEN LABORER This order has been auto-finalized and does not contain a result. us Provider Transcribed Order IMG MRI PROCEDURES Fi nal Result [facility] documented in this encounter Visit Diagnoses Not on filedocumented in this encounter Care Teams Database Security Expert Relationship Specialty Start Date End Date Allan Denney MD PCP - General 12/06/18 02/19/24 documented as of this encounter
--- OUTSIDE RECORDS SUMMARY | 2024-10-01 18:00 | XMS_ITS | Encounter Summary ---
Author Organization [facility] Address [address] [place] [address] Phone Care Team Providers Care Umbrella Finisher Name Role Phone Allan Denney MD Primary Care Provider [phone]- [phone] Encounter Details Date Type Department Care Team (Late st Contact Info) Description 12/27/2019 Telephone [facility] Dermatology [address] [facility] [address] [place] [address] Jana Rubin MA Social History Tobacco Use Types Packs/Day Years Used Date Smoking Tobacco: Never Comments Unknown Sex and Gender Information Value Date Recorded Sex Assigned at Not on file 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 Because her mailbox was not set up. Pt did not have my chart either. Sent message to Jeni to send pt a letter. documented in this encounter Plan of Treatment Not on file documented as of this encounter Visit Diagnoses Not on filedocumented in this encounter Care Teams Umbrella Finisher Relationship Specialty Start Date End Date Allan Denney MD PCP - General 12/06/18 02/19/24 documented as of this encounter
--- OUTSIDE RECORDS SUMMARY | 2024-10-01 18:00 | XMS_ITS | Encounter Summary ---
Author Organization [facility] Healthcare Address [address] [place] [address] Care Team Providers Care Manager Convention Name Role Phone Salinas Escobar MD Primary Care Provider Reason for Visit * Reason Comments COVID-19 EVALUATION Pt c/o headache, los s of taste and smell, sore throat that started 2 days ago Encounter Details Date Type Department Care Team (Late st Contact Info) Description 02/20/2024 9:30 AM CDT Office Visit 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 I strive to provide you with EXCELLENT service. You may receive a survey after your visit today. If you cannot rate your experience as EXCELLENT, please let us know how we can improve and better meet your needs. Thank you for choosing [facility]! It was my pleasure to see you today, I hope you feel better soon! Jo Castellanos LITHOGRAPHY CONTACT WORKER Upper Respiratory Infection: An upper respiratory infection or cold is a viral infection of the nose and throat. It can cause cough, congestion, runny nose, sore throat, and fever. Colds are contagious. Fever medicines can help reduce fever and pain, but the virus cannot be cured by an antibiotic, and cold medicines do not help. The body's immune system will fight off the virus. The cold usually improves in 3 to 7 days, but can cause cough for several weeks. OTC Medication Recommendations: You can use acetaminophen (Tylenol) or ibuprofen (Motrin) for fever or sore throat. Sudafed or pseudoephedrine may decrease sinus congestion. Do not use if you have a history of Hypertension (High Blood pressure). Mucinex for chest congestion. Flonase for runny nose/ear pressure/post nasal drip. Dayquil/Delsym for cough. (Coricidin HBP for cough if hypertensive). Claritin/Zyrtec for post nasal drip/drainage. Home Recommendations: Encourage fluids. Get plenty of rest You might use a cool mist humidifier/vaporizer in your room. Sleeping in a more upright position can be helpful. For infants, the nose can be cleared by using saline nose drops and suctioning with nasal bulb suction. Frequent suctioning can be irritating to infants and is best performed before feedings. Netipot or sinus rinses may be helpful for adults. Call your doctor or return to the emergency department if worse or: 1. Breathing trouble occurs. 2. Color is pale, bluish, or armendariz. 3. Child is weak or too sleepy. 4. No urination occurs in 12 hours. 5. Fever lasts for more than 2 days. * Attachments The following attachments cannot be sent through Care Everywhere. * Upper Respiratory Infection (AfterCare(R) Instructions(ER/ED)) (Vietnamese) documented in this encounter Progress Notes * Jo Castellanos NP - 02/20/2024 9:30 AM CDT Images from the original note were not included. Subjective/Objective Patient ID: Verónica Morton is a 28 y.o. female. Chief Complaint COVID-19 EVALUATION (Pt c/o headache, loss of taste and smell, sore throat that started 2 days ago) 28-year-old female patient presents today with complaints of headache, loss of taste and smell and sore throat x2 days. Patient denies any fever. Reports she has had body aches. Denies any shortness of breath or chest pain. Patient is concerned for COVID-19. Is unsure of any recent sick contacts. Review of Systems All other systems reviewed and are negative. Physical Exam Constitutional: Appearance: Normal appearance. She is normal weight. She is not ill-appearing. HENT: Head: Normocephalic. Right Ear: Tympanic membrane, ear canal and external ear normal. Left Ear: Tympanic membrane, ear canal and external ear normal. Nose: Nose normal. Mouth/Throat: Mouth: Mucous membranes are moist. Pharynx: Oropharynx is clear. No posterior oropharyngeal erythema. Eyes: Pupils: Pupils are equal, round, and reactive to light. Cardiovascular: Rate and Rhythm: Normal rate and regular rhythm. Pulses: Normal pulses. Heart sounds: Normal heart sounds. Pulmonary: Effort: Pulmonary effort is normal. Breath sounds: Normal breath sounds. Musculoskeletal: General: Normal range of motion. Cervical back: Normal range of motion. Skin: General: Skin is warm and dry. Capillary Refill: Capillary refill takes less than 2 seconds. Neurological: General: No focal deficit present. Mental Status: She is alert and oriented to person, place, and time. Mental status is at baseline. Psychiatric: Mood and Affect: Mood normal. Behavior: Behavior normal. Thought Content: Thought content normal. Judgment: Judgment normal. Vitals: 02/20/24 0925 BP: 118/82 Pulse: 92 Resp: 16 Temp: 37.3 ??C (99.2 ??F) SpO2: 97% Weight: 103.4 kg (228 lb) Height: 165.1 cm (5' 5 ) No results found. No past medical history on file. Current Outpatient Medications: albuterol HFA (PROVENTIL HFA,VENTOLIN HFA,PROAIR HFA) 90 mcg/actuation inhaler, Inhale 2 puffs every 6 (six) hours as needed for wheezing or shortness of breath, Disp: 1 each, Rfl: 0 dextroamphetamine-amphetamine (AdderalL) 20 mg tablet, Take 1 tablet (20 mg total) by mouth daily, Disp: , Rfl: tretinoin (RETIN-A) 0.025 % cream, APPLY A PEA SIZED AMOUNT AT BEDTIME TO AFFECTED AREAS ON THIGHS,Disp: , Rfl: No Known Allergies Social History Tobacco Use Smoking status: Never Smokeless tobacco: Not on file Substance and Sexual Activity Drug use: Not on file Sexual activity: Not on file Alcohol Use: Not on file Past Surgical History: Procedure Laterality Date US ABDOMEN COMPLETE W LIVER DOPPLER (C) Right 05/02/2018 Procedures Assessment/Plan No results found for this or any previous visit (from the past 4 hour(s)). Diagnoses and all orders for this visit: Nonintractable headache, unspecified chronicity pattern, unspecified headache type (Primary) - POC Influenza A/B, COVID-19 antigen Plan: Patient is nontoxic in nature and in no respiratory distress. Her rapid testing was negative.She declined PCR for COVID, flu, RSV. Discussed with patient possibly too early to catch on a rapidtest due to low viral load. Discussed with patient OTC treatment including Tylenol and Motrin as needed for symptoms. Patient declined Tessalon Perles. Disposition Treatment plan including expectations, follow up, and return precautions discussed with patient/parent, verbalizes understanding. Medication dosage, use, and potential adverse reactions discussed with patient/parent. Advised to follow up with PCP if symptoms do not resolve as expected or sooner if condition worsens. Signs/symptoms warranting ER evaluation reviewed. Patient and/or guardian was given an opportunity to ask questions, questions answered. Jo Castellanos NP documented in this encounter Plan of Treatment Not on file documented as of this encounter Procedures Procedure Name Priority Date/Time Associated Diagnosis Comments POC INFLUENZA A/B, COVID-19 ANTIGEN Routine 02/20/2024 9:30 AM CDT Nonintractable headache, unspecified chronicity pattern, unspecified headache type documented in this encounter Results * POC Influenza A/B, COVID-19 antigen (02/20/2024 9:30 AM CDT) Influenza A Ag, POC Negative Negative [facility] Influenza B Ag, POC Negative Negative [facility] COVID-19 Ag POC Presumptive Negative Presumptive Negative, Invalid [facility] Nasal 02/20/2024 9:30 AM CDT Jo Castellanos DIVING INSTRUCTOR POINT OF CARE TEST ORDERAB LES Final Result Performing Organization Address City/State/[facility] Co de Phone Number [facility] [address] [place] [address] documented in this encounter Visit Diagnoses Diagnosis Nonintractable headache, unspecified chronicity pattern, unspecified headache type- Primary Acute viral syndrome documented in this encounter Discontinued Medications Medication Sig Discontinue Reason Start Date End Da te benzonatate (TESSALON) 200 mg capsuleIndications:Influ mauricio B Take 1 capsule (200 mg total) by mouth 3 (three) times a day as needed for cough 09/17/2023 02/20/2024 documented as of this encounter Historical Medications * This list may reflect changes made after this encounter. tretinoin (RETIN-A) 0.025 % cream APPLY A PEA SIZED AMOUNT AT BEDTIME TO AFFECTED AREAS ON THIGHS 11/21/2023 dextroamphetamine -amphetamine (AdderalL) 20 mg tablet Take 1 tablet (20 mg total) by mouth daily 12/26/2023 added in this encounter Additional Health Concerns Infection Onset Date Last Indicated Resolved Time COVID: Suspected 02/20/2024 02/20/2024 02/20/2024 9:44 AM CDT documented as of this encounter Care Teams Manager Convention Relationship Specialty Start Date End Date Salinas Escobar MD [address] [address] PCP - General Family Medicine 02/20/24 documented as of this encounter
--- OUTSIDE RECORDS SUMMARY | 2024-10-01 18:00 | XMS_ITS | Encounter Summary ---
Author Organization [facility] Healthcare Address [address] [place] [address] Care Team Providers Care Fork Lift Truck Operator Name Role Phone Allan Denney MD Primary Care Provider [phone]- [phone] Encounter Details Date Type Department Care Team (Latest Contact Info) Description 07/05/2023 - 07/05/2023 11:59 PM CDT Hospital Encounter [facility] Films [address] [address] Discharge Disposition: Discharge to home or self care Social History Tobacco Use Types Packs/Day Years Used Date Smoking Tobacco: Never Comments Unknown Sex and Gender Information Value Date Recorded Sex Assigned at Not on file Legal Sex Female 11:00 AM GARMENT FORM ASSEMBLER Gender Identity Not on file Sexual Orientation Not on file documented as of this encounter Discharge Disposition Disposition Code Departure Means Destination Discharge to home or self care documented in this encounter Plan of Treatment Not on file documented as of this encounter Procedures Procedure Name Priority Date/Time Associated Diagnosis Comments XR TRANSFER OF OUTSIDE FILMS Routine 07/05/2023 12:00 AM CDT documented in this encounter Results * XR Outside Reference (07/05/2023 12:00 AM CDT) Narrative [facility]_CL[facility]ICE[facility] - 08/22/2024 4:11 PM GARMENT FORM ASSEMBLER This order has been auto-finalized and does not contain a result. us Provider Transcribed Order IMG XR PROCEDURES Fin al Result RAD_CLARIO_[facility]_M[facility] documented in this encounter Visit Diagnoses Not on filedocumented in this encounter Care Teams Fork Lift Truck Operator Relationship Specialty Start Date End Date Allan Denney MD PCP - General 12/06/18 02/19/24 documented as of this encounter
--- OUTSIDE RECORDS SUMMARY | 2024-10-01 18:00 | XMS_ITS | Continuity of Care Document ---
Author Organization [place] - [facility] [place] Address [address] [place] [address] [address] Assessment No assessment recorded. Plan of Treatment Reminders Order Date Submit Date Provider Last Modified By Organization Details Last Modified Time Details Appointments None recorded. Lab unlisted lab - [facility] swab plus, [place] 2023 [facility] (Lab), [address], [place], [address], 4 00:13:04 urinalysis, dipstick 2023 [email or web address] [place], [address], [address], [place], [address], 4 17:29:25 culture, urine 2023 [facility] (Lab), [address], [place], [address], 4 00:13:04 Referral None recorded. Procedures None recorded. Surgeries None recorded. Imaging None recorded. Medication Orders metronidazo le 0.75 % (37.5 mg/5 gram) vaginal gel 2023 024 [facility], [address], [place], [address], 4 17:44:41 Macrobid 100 mg capsule 2023 024 [facility], [address], [place], [address], 17:44:42 Patient TargetsNo targets recorded. Patient InstructionsNo instructions recorded. Reason for Referral None Reported. Results Created Date Observation Date Name Description Value Unit Range Abnormal Flag Note LastModifiedBy Organization Detail LastModifiedTime 09/09/20 24 09/09/2024 urina lysis , dipst ick Leukocytes +++ Not Available Taya cuellar [address], [place], [address], 09/09/2024 17:27:07 09/09/20 24 09/09/2024 urina lysis , dipst ick Nitrite + Not Available [place] [address], [place], [address], 09/09/2024 17:27:07 09/09/20 24 09/09/2024 urina lysis , dipst ick Urobilinogen - Not Available [facility] evi [address], [place], [address], 09/09/2024 17:27:07 09/09/20 24 09/09/2024 urina lysis , dipst ick Protein ++ Not Available [place] [address], [place], [address], 09/09/2024 17:27:07 09/09/20 24 09/09/2024 urina lysis , dipst ick pH 5 Not Available [place] [address], [place], [address], 09/09/2024 17:27:07 09/09/20 24 09/09/2024 urina lysis , dipst ick Blood ++ Not Available [place] [address], [place], [address], 09/09/2024 17:27:07 09/09/20 24 09/09/2024 urina lysis , dipst ick Specific [place] 1.020 Not Available Debbie higgins [address], [place], [address], 09/09/2024 17:27:07 09/09/20 24 09/09/2024 urina lysis , dipst ick Ketone - Not Available [place] [address], [place], [address], 09/09/2024 17:27:07 09/09/20 24 09/09/2024 urina lysis , dipst ick Bilirubin - Not Available Liberty elliott [address], [place], [address], 09/09/2024 17:27:07 09/09/20 24 09/09/2024 urina lysis , dipst ick Glucose - Not Available [place] [address], [place], [address], 09/09/2024 17:27:07 09/09/20 24 09/09/2024 urina lysis , dipst ick Appearance cloudy Not Available Taya cuellar [address], [place], [address], 09/09/2024 17:27:07 09/09/20 24 09/09/2024 urina lysis , dipst ick Color dark yellow Not Available [place] [address], [place], [address], 09/09/2024 17:27:07 Result Notes None recorded. Procedures Surgical History Date Name Laterality Status Provider Name and Address Organization Details Recorded Time 023 Date of Last Pap Smear completed Adelina Barnhart [facility] 07/17/2023 09:11:27 023 Nexplanon Removal completed ASIYA Grande [address], [place], [address], [facility] 02/14/2023 13:41:25 022 Nexplanon Insert completed ASIYA [place] [address], [place], [address], [facility] 01/17/2022 13:04:55 021 Cholecystectomy completed Jennifer Hearn [facility] 01/11/2022 11:25:34 020 repair of umbilical hernia completed Adelina Barnhart [facility] 07/17/2023 09:12:04 013 [facility]/14[facility]2023 12:41:54 Imaging Results None recorded. [...] Not Available Vitals Date Recorded Body height Body mass index (BMI) Body weight Systolic blood pressure Diastolic blood pressure Provider Name and Address Organization Details Last Updated DateTime 09/09/2024 165.1 cm 39.8 kg/m2 502800.2 2 g 126 mm[Hg] 85 mm[Hg] Gracy Rowe [facility] 17:26:38 Social History Question Answer Notes LastModified by Relevvantizat ion Details LastModified Time Tobacco Smoking Status Never Smoker Jennifer Rodriguesse lovell, [facility] 01/11/2022 11:14:43 What Is Your Level Of Alcohol Consumption? Occasional Information not available 01/11/2022 Are You Blind Or Do You Have Difficulty Seeing? No Information n ot available 01/11/2022 What Is Your Level Of Caffeine Consumption? Occasional [email or web address] Information not available 02/14/2023 In The 14 Days Before Symptom Onset, Have You Had Close Contact With A Laboratory-confirm ed COVID-19 While That Case Was Ill? No [email or web address] Information n ot available 02/14/2023 In The 14 Days Before Symptom Onset, Have You Had Close Contact With A Person Who Is Under Investigation For COVID-19 While That Person Was Ill? No Information not available 02/14/2023 Have You Been To An Area Known To Be High Risk For COVID-19? No [email or web address] Information not available 02/14/2023 Are You Deaf Or Do You Have Serious Difficulty Hearing? No Information not available 01/11/2022 What Type Of Diet Are You Following? REGULAR Information n ot available 01/11/2022 Have You Ever Been Counseled For Unhealthy Alcohol Use? No [email or web address] Information not available 02/14/2023 Do You Have Smoke And Carbon Monoxide Detectors In Your Home? Yes [email or web address] Information not available 02/14/2023 Do You Feel Stressed (tense, Restless, Nervous, Or Anxious, Or Unable To Sleep At Night)? [id number] Information not available 02/14/2023 Do You Use Any Illicit Or Recreational Drugs? No Information not available 02/14/2023 Do You Use Sunscreen Routinely? Yes [email or web address] Information not available 02/14/2023 Has Tobacco Cessation Counseling Been Provided? No [email or web address] Information not available 02/14/2023 Do You Or Have You Ever Used Any Other Forms Of Tobacco Or Nicotine? No [email or web address] Information not available 02/14/2023 Sex: Unknown Functional Status Question Answer Note LastModified by Relevvantizat ion Details LastModified Time Do you have [...] SNOMED-CT Code Diagnosis ICD10 Code Diagnosis Note [id number] NESS JUAREZ NP [place] [address] [address] 09/09/2024 17:15:08 09/09/2024 17:50:06 Urinary symptoms 114500743 R39.9 Patient presents with symptoms of UTI. Results of dipstick were {{positive * negative }} for UTI.Advise d to drink clear fluids, Tylenol for pain and take prescribed medication s as instructed . Patient encouraged to follow up within 1 week if not improving. Urine culture sent. Vaginal discharge [id number] 006 N89.8 Discussed empirical treatment with metronidaz ole for suspected BV based on reported symptoms and physical exam findings.D iscussed vulvar care guidelines in addition to laundry/sk in irritants to avoid.Valeriy mmended boric acid capsules - insert one capsule vaginally at H.[facility]. after period, intercours e, and/or with symptoms.V aginitis panel sent. Venereal d isease screening [id number] Z11.3 Pt requested STI testing for GC/CT/tric h.Discusse d the various types of STDs, related symptoms and the potential consequenc es (including effects on fertility) of STD infections . Reviewed ways to limit exposure and prevention techniques . Health Concerns Section Related Observation LastModified by Organization Detai ls LastModified Time None Recorded Concern Status LastModified by Organization Details LastModified Time None Recorded Payers Encounter Date Sequence Insurance Name Policy Number Policy Herrmann Covered Member ID Herrmann Member ID Guarantor Name 09/09/2024 1 [employer] [place] [id number] A Verónica Diego [id number] Verónica Diego Notes Date Note Type Note Provider Name and Address Organization Details Recorded Time 09/09/2024 text/html Patient here with c/o dysuria, urgency, frequency, and pelvic pressure x one week.Patient also c/o vaginal discharge and odor. Patient has hx of frequent BV infections. NESS JUAREZ NP [address], [place], [address], [facility] 09/09/2024 17:49:31 OBGyn Episode No OBEpisode recorded.
--- OUTSIDE RECORDS SUMMARY | 2024-10-01 18:00 | XMS_ITS | Encounter Summary ---
Author Organization [facility] Healthcare Address [address] [place] [address] Care Team Providers Care Draw Bench Operator Name Role Phone Allan Denney MD Primary Care Provider +1- [phone] Reason for Visit * Reason Comments Nasal Congestion Drainage, sore throa t, sob, diarrhea started Encounter Details Date Type Department Care Team (Late st Contact Info) Description 09/17/2023 8:30 AM THEOLOGY PROFESSOR Office Visit [facility] at [address] [address] Josephine Bill NP [address] [place] [address] [address] [place], [place] [address] Influenza B (Primary Dx) Social History Tobacco Use Types Packs/Day Years Used Date Smoking Tobacco: Never Personal Safety Answer Date Recorded Getting School Help Needed Not on file 09/17 Comments Unknown Sex and Gender Information Value Date Recorded Sex Assigned at Not on file Legal Sex Female 11:00 AM THEOLOGY PROFESSOR Gender Identity Not on file Sexual Orientation Not on file documented as of this encounter Last Filed Vital Signs Vital Sign Reading Time Taken Comments Blood Pressure 118/72 09/17/2023 8:44 AM THEOLOGY PROFESSOR Pulse 100 09/17/2023 8:44 AM THEOLOGY PROFESSOR Temperature 36.8 ??C (98.2 ??F) 09/17/2023 8:44 AM CS T Respiratory Rate 22 09/17/2023 8:44 AM THEOLOGY PROFESSOR Oxygen Saturation 99% 09/17/2023 8:44 AM THEOLOGY PROFESSOR Inhaled Oxygen Concentration - - Weight 105.2 kg (232 lb) 09/17/2023 8:44 AM THEOLOGY PROFESSOR Height - - Body Mass Index 38.61 02/17/2020 10:14 PM CDT documented in this encounter Patient Instructions * Patient Instructions* Josephine Bill NP - 09/17/2023 8:30 AM THEOLOGY PROFESSOR Influenza ?? Supportive care is the focus of care with influenza-make sure to stay well- hydrated and treat symptoms with over the counter medications for symptom relief. ?? Take guaifenesin expectorants, i.e. Maximum Strength Mucinex, Robitussin, or store brand for chest congestion. ?? For cough, dextromethorphan (Delsym syrup, Robitussin cough capsules or store brand). Dextromethorphan is considered safe for and breast feeding women. ?? Antihistamine, i.e. Claritin, Zyrtec or Benadryl for nasal drainage, per package directions. ?? Increase oral fluids to at least 2 liters (2 quarts) of non-caffeinated, non- alcoholic beveragesdaily ?? Increase rest, monitor temperature ?? May alternate acetaminophen (Tylenol) and ibuprofen (Motrin or Advil) with food every 4-6 hours for fever, body aches, headache or sore throat. Do not exceed maximum daily dose per package instructions ?? May use hard candy, throat lozenges, Chloraseptic spray or warm salt water gargles to soothe throat ?? Activity as tolerated, Avoid crowds and large groups ?? Avoid spreading germs by washing hands frequently and covering mouth when coughing ?? People with influenza are contagious 1 day before symptoms begin and up to 7 days after getting sick Influenza Follow-up ?? Follow up with the clinic, primary care provider(Allan Denney MD) or urgent care if symptoms become more severe. ?? If you begin to feel better, then feel significantly worse, see your primary care provider or [facility] urgent care / ER ?? Call 911 or have someone take you to ER/Urgent Care if any difficulty with breathing or shortness of breath, if you develop high fevers that do not respond to ibuprofen (Advil / Motrin) or acetaminophen (Tylenol) , if you have a hard time awakening or staying awake or become lethargic or confused, or if you develop new stiffness in your neck. If you need to be excused from more than 3 days off from work, please follow-up with your PCP. LOGY PROFESSOR * Attachments The following attachments cannot be sent through Care Everywhere. * Influenza (Paralegal Assistant) (Ecuadorean) documented in this encounter Ordered Prescriptions Prescription Sig Dispense Quantity Refills Last Filled Start Date End Date albuterol HFA (PROVENTIL HFA,VENTOLIN HFA,PROAIR HFA) 90 mcg/actuation inhalerIndications :Influenza B Inhale 2 puffs every 6 (six) hours as needed for wheezing or shortness of breath 1 each 09/17/2023 benzonatate (TESSALON) 200 mg capsuleIndications :Influenza B Take 1 capsule (200 mg total) by mouth 3 (three) times a day as needed for cough 30 capsule 09/17/2023 4 documented in this encounter Progress Notes * Josephine Bill NP - 09/17/2023 8:30 AM CST Images from the original note were not included. Patient ID: Verónica Morton is a 27 y.o. female followed by Allan Denney MD Chief Complaint Patient presents with Nasal Congestion Drainage, sore throat, sob, diarrhea started Patient presents to the clinic with reports of cough, diarrhea, chest tightness, sore throat, and headache for 3 days. Patient denies fevers, difficulty breathing, chest pain, dizziness, and body aches. She has taken cold medications for her symptoms. Review of Systems Constitutional: Negative for chills, fatigue and fever. HENT: Positive for sore throat. Negative for congestion, ear pain, postnasal drip and rhinorrhea. Respiratory: Positive for cough and chest tightness. Negative for shortness of breath and wheezing. Cardiovascular: Negative for chest pain. Gastrointestinal: Negative for diarrhea, nausea and vomiting. Musculoskeletal: Negative for myalgias. Neurological: Positive for headaches. Vitals: 09/17/23 0844 BP: 118/72 Pulse: 100 Resp: 22 Temp: 36.8 ??C (98.2 ??F) SpO2: 99% Weight: 105.2 kg (232 lb) Recent Results (from the past 24 hour(s)) POC Influenza A/B, COVID-19 antigen Collection Time: 09/17/23 8:47 AM Result Value Ref Range Influenza A Ag, POC Negative Negative Influenza B Ag, POC Positive (A) Negative COVID-19 Ag POC Presumptive Negative Presumptive Negative, Invalid Physical Exam Vitals reviewed. Constitutional: General: She is not in acute distress. Appearance: She is well-developed. She is ill-appearing. HENT: Right Ear: Tympanic membrane, ear canal and external ear normal. Tympanic membrane is not injected,erythematous or bulging. Left Ear: Tympanic membrane, ear canal and external ear normal. Tympanic membrane is not injected, erythematous or bulging. Nose: Congestion present. No rhinorrhea. Right Sinus: No maxillary sinus tenderness or frontal sinus tenderness. Left Sinus: No maxillary sinus tenderness or frontal sinus tenderness. Mouth/Throat: Lips: [place]. Mouth: Mucous membranes are moist. Pharynx: Uvula midline. Posterior oropharyngeal erythema present. No pharyngeal swelling or oropharyngeal exudate. Cardiovascular: Rate and Rhythm: Normal rate and regular rhythm. Pulmonary: Effort: Pulmonary effort is normal. No respiratory distress. Breath sounds: Decreased breath sounds present. No wheezing or rhonchi. Comments: Coughing observed Lymphadenopathy: Cervical: No cervical adenopathy. Skin: General: Skin is warm and dry. Neurological: Mental Status: She is alert and oriented to person, place, and time. Diagnoses and all orders for this visit: Influenza B (Primary) - POC Influenza A/B, COVID-19 antigen - benzonatate (TESSALON) 200 mg capsule; Take 1 capsule (200 mg total) by mouth 3 (three) times a day as needed for cough - albuterol HFA (PROVENTIL HFA,VENTOLIN HFA,PROAIR HFA) 90 mcg/actuation inhaler; Inhale 2 puffs every 6 (six) hours as needed for wheezing or shortness of breath Orders Placed This Encounter Procedures POC Influenza A/B, COVID-19 antigen Order Specific Question: Is the Patient experiencing symptoms consistent with COVID? Answer: Yes Order Specific Question: Date of Symptom Onset Answer: 09/14/2023 Order Specific Question: Is the patient hospitalized? Answer: No Order Specific Question: Is the patient admitted to an ICU? Answer: No Order Specific Question: Is this the first COVID-19 test for this patient? Answer: No Order Specific Question: Does the patient currently work in a healthcare facility with direct patient contact? Answer: No Order Specific Question: Is the patient a resident of a congregate care or living setting? Answer: No Order Specific Question: ? Answer: No Assessment/Plan # influenza B Positive --Will treat symptomatically as patient is outside of the 48 hour onset of symptoms and is not at high-risk for complication from influenza. --Lung sounds clear with no wheezing, rhonchi, or rhales present, thus low suspicion for pneumonia or complication warranting chest xray at this time. --isolate until fever free >24 hours and symptoms are improving --discussed differences between flu and COVID --OTC symptomatic treatment is appropriate --ED presentation with one or more of the following symptoms: fever uncontrolled with antipyretics,shortness of breath, chest discomfort, uncontrolled n/v/d --Pt afebrile, hemodynamically stable and non-septic appearing. No major underlying co-morbidities or objective findings that would necessitate transfer to ER for possible admission. --f/u with PCP in 3-5 days if symptoms do not improve/worsen Disposition Treatment plan including expectations, follow up, and return precautions discussed with patient/parent, verbalizes understanding. Medication dosage, use, and potential adverse reactions discussed with patient/parent. Advised to follow up with PCP if symptoms do not resolve as expected or sooner if condition worsens. Discussed Signs/symptoms warranting ER evaluation including worsening fever, increased shortness ofbreath, chest pain, severe N/V/D, or any other worrisome symptoms Patient and/or guardian was given an opportunity to ask questions, questions answered. Patient Education Influenza ?? Supportive care is the focus of care with influenza-make sure to stay well- hydrated and treat symptoms with over the counter medications for symptom relief. ?? Take guaifenesin expectorants, i.e. Maximum Strength Mucinex, Robitussin, or store brand for chest congestion. ?? For cough, dextromethorphan (Delsym syrup, Robitussin cough capsules or store brand). Dextromethorphan is considered safe for and breast feeding women. ?? Antihistamine, i.e. Claritin, Zyrtec or Benadryl for nasal drainage, per package directions. ?? Increase oral fluids to at least 2 liters (2 quarts) of non-caffeinated, non- alcoholic beveragesdaily ?? Increase rest, monitor temperature ?? May alternate acetaminophen (Tylenol) and ibuprofen (Motrin or Advil) with food every 4-6 hours for fever, body aches, headache or sore throat. Do not exceed maximum daily dose per package instructions ?? May use hard candy, throat lozenges, Chloraseptic spray or warm salt water gargles to soothe throat ?? Activity as tolerated, Avoid crowds and large groups ?? Avoid spreading germs by washing hands frequently and covering mouth when coughing ?? People with influenza are contagious 1 day before symptoms begin and up to 7 days after getting sick Influenza Follow-up ?? Follow up with the clinic, primary care provider(Allan Denney MD) or urgent care if symptoms become more severe. ?? If you begin to feel better, then feel significantly worse, see your primary care provider or [facility] urgent care / ER ?? Call 911 or have someone take you to ER/Urgent Care if any difficulty with breathing or shortness of breath, if you develop high fevers that do not respond to ibuprofen (Advil / Motrin) or acetaminophen (Tylenol) , if you have a hard time awakening or staying awake or become lethargic or confused, or if you develop new stiffness in your neck. If you need to be excused from more than 3 days off from work, please follow-up with your PCP. Josephine Bill NP LOGY PROFESSOR documented in this encounter Plan of Treatment Not on file documented as of this encounter Procedures Procedure Name Priority Date/Time Associated Diagnosis Comments POC INFLUENZA A/B, COVID-19 ANTIGEN Routine 09/17/2023 8:47 AM THEOLOGY PROFESSOR Influenza B documented in this encounter Results * (ABNORMAL) POC Influenza A/B, COVID-19 antigen (09/17/2023 8:47 AM THEOLOGY PROFESSOR) Influenza A Ag, POC Negative Negative [facility] Influenza B Ag, POC Positive(A) Negative [facility] COVID-19 Ag POC Presumptive Negative Presumptive Negative, Invalid [facility] Nasal 09/17/2023 8:47 AM THEOLOGY PROFESSOR us Josephine Bill VOICE OVER ANNOUNCER POINT OF CARE TEST ORDERABLES Final Result [facility] [address] documented in this encounter Visit Diagnoses Diagnosis Influenza B- Primary Influenza with other respiratory manifestations documented in this encounter Care Teams Draw Bench Operator Relationship Specialty Start Date End Date Allan Denney MD PCP - General 12/06/18 02/19/24 documented as of this encounter
--- OUTSIDE RECORDS SUMMARY | 2024-10-01 18:01 | XMS_ITS | Encounter Summary ---
Author Organization [facility] Address [address] [place] [address] Care Team Providers Care Registered Nurse Midwife Name Role Phone Salinas Escobar MD Primary Care Provider [phone] Encounter Details Date Type Department Care Team (Late st Contact Info) Description 02/20/2024 External Device Data [facility] ABSTRACTION Provider, Abstract NO ADDRESS ON FILE Social History Tobacco Use Types Packs/Day Years Used Date Smoking Tobacco: Never Smokeless Tobacco: Never Alcohol Use Standard Drinks/Week Comments Yes 0 (1 standard drink = 0.6 oz pur e alcohol) OCCASIONAL Feeling Safe Answer Date Recorded Are you in a relationship wi th someone who hurts you emotionally and/or physically? No 12/22/2023 Sex and Gender Information Value Date Recorded Sex Assigned at Not on file Gender Identity Not on file Sexual Orientation Not on file documented as of this encounter Plan of Treatment Not on file documented as of this encounter Visit Diagnoses Not on filedocumented in this encounter Care Teams Registered Nurse Midwife Relationship Specialty Start Date End Date Salinas Escobar MD [address] [place] [address] PCP - General Family Practice 08/14/23 documented as of this encounter
--- OUTSIDE RECORDS SUMMARY | 2024-10-01 18:01 | XMS_ITS | Encounter Summary ---
Author Organization [facility] Address [address] [place] [address] Care Team Providers Care Director Of Outreach Name Role Phone Unavailable Primary Care Provider Unavailabl e Encounter Details Date Type Department Care Team (Latest Contact Info) Description 04/28/2018 2:29 PM CDT - 04/28/2018 6:51 PM CDT Hospital Encounter [facility] Brian Kaminski II, MD [address] [place] [address] Infection of urinary tract in in first trimester; Less than 8 weeks gestation of Social History Tobacco Use Types Packs/Day Years Used Date Smoking Tobacco: Never Comments Unknown Sex and Gender Information Value Date Recorded Sex Assigned at Not on file Legal Sex Female 11:00 AM [employer] Gender Identity Not on file Sexual Orientation Not on file documented as of this encounter Last Filed Vital Signs Vital Sign Reading Time Taken Comments Blood Pressure 119/70 04/28/2018 2:30 PM CDT Pulse 81 04/28/2018 2:30 PM CDT Temperature 37.4 ??C (99.3 ??F) 04/28/2018 2:30 PM CD T Respiratory Rate - - Oxygen Saturation 100% 04/28/2018 2:30 PM CDT Inhaled Oxygen Concentration - - Weight 81.6 kg (180 lb) 04/28/2018 2:30 PM CDT Height 165.1 cm (5' 5 ) 04/28/2018 2:30 PM CDT Body Mass Index 29.95 04/28/2018 2:30 PM CDT documented in this encounter Plan of Treatment Not on file documented as of this encounter Procedures Procedure Name Priority Date/Time Associated Diagnosis Comments CBC WITH AUTO DIFFERENTIAL Routine 04/28/2018 3:29 PM CDT BASIC METABOLIC PANEL Routine 04/28/2018 3:29 PM CDT MICROBIOLOGY SPECIMEN REPORT (CONVERTED) Routine 04/28/2018 3:25 PM CDT URINALYSIS AND REFLEX TO MICROSCOPIC AND CULTURE Routine 04/28/2018 3:25 PM CDT documented in this encounter Results * (ABNORMAL) CBC with auto differential (04/28/2018 3:29 PM CDT) Pathologist [facility] WBC 9.9 3.5 - 10.5 x10 3/ul 04/28/2018 3:35 PM CDT [facility] RBC 4.56 3.76 - 4.80 x10 6/ul 04/28/2018 3:35 PM CDT [facility] Hemoglobin 13.1 11.0 - 15.0 g/dL 04/28/2018 3:35 PM CDT [facility] Hct 38.5 33.0 - 43.0 % 04/28/2018 3:35 PM CDT [facility] MCV 84.4 80.0 - 97.0 fl 04/28/2018 3:35 PM CDT [facility] MCH 28.7 27.0 - 31.2 pg 04/28/2018 3:35 PM CDT [facility] MCHC 34.0 31.8 - 35.4 g/dl 04/28/2018 3:35 PM CDT [facility] RDW 12.8 11.6 - 14.8 % 04/28/2018 3:35 PM CDT [facility] Plt Count 132(L) 150 - 450 X10 3/ul 04/28/2018 3:35 PM CDT [facility] MPV 11.6(H) 7.4 - 10.4 fl 04/28/2018 3:35 PM CDT [facility] Neut % 77.6 37.0 - 85.0 % 04/28/2018 3:35 PM CDT [facility] Immature Gran % 0.2 0.0 - 3.0 % 04/28/2018 3:35 PM CDT [facility] HISTORICAL RESULTS Lymph % 15.8 5.0 - 45.0 % 04/28/2018 3:35 PM T [facility] HISTORICAL RESULTS Rogers % 5.8 3.0 - 15.0 % 04/28/2018 3:35 PM T [facility] HISTORICAL RESULTS Eos % 0.4 0.0 - 7.0 % 04/28/2018 3:35 PM T [facility] HISTORICAL RESULTS Baso % 0.2 0.0 - 2.0 % 04/28/2018 3:35 PM T [facility] HISTORICAL RESULTS Absolute Neuts (auto) 7.7 1.7 - 8.7 x10 3/ul 04/28/2018 3:[address] [facility] HISTORICAL RESULTS Immature Gran # 0.0 0.0 - 0.3 x10 3/ul 04/28/2018 3:[address] [facility] HISTORICAL RESULTS Absolute Lymphs (auto) 1.6 0.2 - 4.6 x10 3/ul 04/28/2018 3:[address] [facility] HISTORICAL RESULTS Absolute Monos (auto) 0.6 0.1 - 1.5 x10 3/ul 04/28/2018 3:[address] [facility] HISTORICAL RESULTS Absolute Eos (auto) 0.0 0.0 - 0.7 x10 3/ul 04/28/2018 3:[address] [facility] HISTORICAL RESULTS Absolute Basos (auto) 0.0 0.0 - 0.2 x10 3/ul 04/28/2018 3:[address] [facility] HISTORICAL RESULTS Nucleat RBC Rel Count 0.0 0 - 3 #/100WBC 04/28/2018 3:[address] [facility] HISTORICAL RESULTS Absolute Nucleated RBC 0.00 x10 3/ul 04/28/2018 3:[address] [facility] HISTORICAL RESULTS Absolute Neutrophils 7700 200 - 8000 /ul 04/28/2018 3:[address] [facility] HISTORICAL RESULTS 04/28/2018 3:29 PM CDT 04/28/2018 3:33 PM CDT us Kerrie Huitron DIRECTOR [employer] LAB BLOOD ORDERABLES Final Res ult [facility] HISTORICAL RESULTS * (ABNORMAL) Basic metabolic panel (04/28/2018 3:29 PM CDT) Sodium 135 135 - 145 mmol/L 04/28/2018 3:54 PM T [facility] HISTORICAL RESULTS Potassium 3.8 3.3 - 5.1 mmol/L 04/28/2018 3:54 PM T [facility] HISTORICAL RESULTS Chloride 101 96 - 108 mmol/L 04/28/2018 3:54 PM T [facility] HISTORICAL RESULTS Carbon Dioxide 25 22 - 32 mmol/L 04/28/2018 3:54 PM T [facility] HISTORICAL RESULTS Anion Gap 9 7 - 16 04/28/2018 3:54 PM T [facility] HISTORICAL RESULTS Glucose 113(H) 70 - 100 mg/dL 04/28/2018 3:54 PM T [facility] HISTORICAL RESULTS BUN 7 6 - 20 mg/dL 04/28/2018 3:54 PM T [facility] HISTORICAL RESULTS Creatinine 0.6 0.5 - 1.1 mg/dL 04/28/2018 3:54 PM T [facility] HISTORICAL RESULTS Comment: NOTE: Estimated GFR (Cockroft-Gault) will NOT be calculated unless patient Height and Weight were entered. Also, Kidney Disease Stage (GFR) and Estimated GFR (Cockroft-Gault) will NOT be calculated if Creatinine result is <0.2. Kidney Disease Stage > 90 mL/MIN 04/28/2018 3:[address] [facility] HISTORICAL RESULTS Comment: NOTE; ??The GFR [...] or on dialysis @ Est GFR (Cockcroft-G) 153 ml/MIN 04/28/2018 3:54 PM CDT [facility] HISTORICAL RESULTS Comment: Estimated GFR(Cockroft-Gault)is used to calculate patient medication dosage Calcium 9.4 8.6 - 10.0 mg/dL 04/28/2018 3:54 PM CDT [facility] HISTORICAL RESULTS 04/28/2018 3:29 PM CDT 04/28/2018 3:33 PM CDT Kerrie Huitron DIRECTOR [employer] LAB BLOOD ORDERABLES Final Res ult [facility] HISTORICAL RESULTS * Microbiology Specimen Report (Converted) (04/28/2018 3:25 PM CDT) 04/28/2018 3:25 PM CDT 04/28/2018 3:33 PM CDT Narrative [facility] HISTORICAL RESULTS - 04/28/2018 3:25 PM CDT Microbiology Specimen Report (Converted) SPECIMEN [id number] ?? COLLECTED: 2018-04-28 15:25:00 RN ?? REQ#: [id number] REQUESTING DR: Kerrie Huitron CNP ?? SOURCE: URINE ?? SP DESC: CLEAN CATC --- PROCEDURE --- ?--- RESULT --- ?? CULTURE URINE ??(Final) ??- ??Performed at [facility] ?* COLONY COUNT: 20,000 CFU/ml ?* MIXED GRAM POSITIVE ORGANISMS ? Culture yielded multiple organisms. This generally indicates ? contamination by normal periurethral evelyn at time of ? collection. No further testing will be performed on this ? specimen. Please resubmit if clinically indicated. - [facility] ? [address] [place] [address] ? [place] [address] ? Nicolás Leary MD Procedure Note 12/08/2018 Microbiology Specimen Report (Converted) SPECIMEN [id number] COLLECTED: 2018-04-28 15:25:00 RN REQ#:[id number] REQUESTING DR: Kerrie Huitron CNP SOURCE: URINE SP DESC: CLEAN CATC --- PROCEDURE --- --- RESULT --- CULTURE URINE (Final) - Performed at [facility] * COLONY COUNT: 20,000 CFU/ml * MIXED GRAM POSITIVE ORGANISMS Culture yielded multiple organisms. This generally indicates contamination by normal periurethral evelyn at time of collection. No further testing will be performed on this specimen. Please resubmit if clinically [place] [address] Nicolás Leary MD Kerrie Huitron DIRECTOR [employer] LAB BLOOD ORDERABLES Final Res ult [facility] HISTORICAL RESULTS * (ABNORMAL) Urinalysis reflex to microscopic and culture (04/28/2018 3:25 PM CDT) Ur Collection Type CLEAN CATCH 04/28/2018 3:48 PM T [facility] HISTORICAL RESULTS Ur Culture Indicated? C&S INDICATED 04/28/2018 3:48 PM CDT [facility] HISTORICAL RESULTS Comment:Culture report to pooja stewart. Urine Color YELLOW YELLOW 04/28/2018 3:48 PM T [facility] HISTORICAL RESULTS Urine Clarity Slightly-Yadira udy CLEAR 04/28/2018 3:48 PM CDT [facility] HISTORICAL RESULTS Urine Glucose (UA) NORMAL NORMAL mg/dL 04/28/2018 3:48 PM CDT [facility] HISTORICAL RESULTS Urine Bilirubin NEGATIVE NEGATIVE mg/dl 04/28/2018 3:48 PM CDT [facility] HISTORICAL RESULTS Urine Ketones 5(H) NEGATIVE mg/dL 04/28/2018 3:48 PM CDT [facility] HISTORICAL RESULTS Ur Specific [place] 1.011 1.005 - 1.025 04/28/2018 3:48 PM T [facility] HISTORICAL RESULTS Urine Blood 0.2(H) NEGATIVE mg/dl 04/28/2018 3:[address] [facility] HISTORICAL RESULTS Urine pH 6.0 5.0 - 8.0 04/28/2018 3:[address] [facility] HISTORICAL RESULTS Urine Protein 30(H) NEGATIVE mg/dL 04/28/2018 3:48 PM T [facility] HISTORICAL RESULTS Urine Urobilinogen NORMAL NORMAL mg/dL 04/28/2018 3:[address] [facility] HISTORICAL RESULTS Urine Nitrite NEGATIVE NEGATIVE 04/28/2018 3:[address] [facility] HISTORICAL RESULTS Ur Leukocyte Esterase 75(H) NEGATIVE Chris/ul 04/28/2018 3:[address] [facility] HISTORICAL RESULTS Ur Microscopic Review Indicated or Ordered 04/28/2018 3:[address] [facility] HISTORICAL RESULTS Urine RBC 18 0 - 2 /HPF 04/28/2018 3:48 PM T [facility] HISTORICAL RESULTS Urine WBC 39 0 - 2 /HPF 04/28/2018 3:[address] [facility] HISTORICAL RESULTS Urine Mucus RARE /LPF 04/28/2018 3:[address] [facility] HISTORICAL RESULTS Ur Squamous Epith Cells Few /HPF 04/28/2018 3:[address] [facility] HISTORICAL RESULTS 04/28/2018 3:25 PM CDT 04/28/2018 3:33 PM CDT Narrative [facility] HISTORICAL RESULTS - 04/28/2018 3:48 PM CDT Indication(s) for ordering ? Pain-pelv/flank/suprapubc us Kerrie Huitron NP LAB MICROBIOLOGY - GENERAL ORD ERABLES Final Result [facility] HISTORICAL RESULTS documented in this encounter Visit Diagnoses Diagnosis Infection of urinary tract in in first trimester Less than 8 weeks gestation of documented in this encounter
--- OUTSIDE RECORDS SUMMARY | 2024-10-01 18:01 | XMS_ITS | Encounter Summary ---
Author Organization [facility] Address [address] [place] [address] Care Team Providers Care Printed Forms Proofreader Name Role Phone Salinas Escobar MD Primary Care Provider [phone] Reason for Visit * Auth/Cert (Routine) Specialty Diagnoses / Procedures Referred By Contact Referred To Contact Perioperative Diagnoses Gastroesophageal reflux disease Procedures [place] ESOPHAGOGASTRODUODENOSCOPY TRANSORAL DIAGNOSTIC ESOPHAGOGASTRODUODENOSCOPY Caden Hernandez DO [address] [facility] [address] [place] [address] [facility] Lab [address] [place] [address] Referral ID Status Reason Start Date Expiration Date Visits Re quested Visits Authorized [id number] 1 1 Encounter Details Date Type Department Care Team (Latest Contact Info) Description 12/22/2023 8:49 AM CDT - 12/22/2023 10:15 AM CDT Hospital Encounter [facility] GI Lab S [facility] [employer] [address] [place] [address] Caden Hernandez DO [address] [facility] [address] [place] [address] Gastroesophageal reflux disease Discharge Disposition: Home or Self Care Social [...] Sign Reading Time Taken Comments Blood Pressure 104/61 12/22/2023 10:02 AM CDT Pulse 73 12/22/2023 10:02 AM CDT Temperature 36.1 ??C (96.9 ??F) 12/22/2023 9:51 AM CD T Respiratory Rate 18 12/22/2023 10:02 AM CDT Oxygen Saturation 98% 12/22/2023 10:02 AM CDT Inhaled Oxygen Concentration - - Weight 107.5 kg (237 lb) 12/22/2023 9:09 AM CDT Height 165.1 cm (5' 5 ) 12/22/2023 9:09 AM CDT Body Mass Index 39.44 12/22/2023 9:09 AM CDT documented in this encounter Discharge Instructions * Discharge Instructions* Jade Tsai RN - 12/22/2023 9:47 AM CDT If you should experience: Severe abdominal pain, chest pain, fever, chills, shortness of breath, inability to swallow, abnormal bleeding or any other concerns following your procedure. Call your physician or come to the Emergency Department. Please follow these instructions: 1. During your procedure you may have received sedation. You should rest at home for the remainder of the day. You should NOT drive or perform any activities that require a completely alert mind during this recovery period. Alcohol should NOT be used for at least 24 hours. 2. Following your upper endoscopy, you may have a sore throat. Try gargling with warm water or use Chloraseptic lozenges as needed. Once you are fully alert and feel you can swallow without difficulty, you may have a light meal. You may then progress on to your usual diet, unless otherwise instructed by your physician. 3. This includes your current and historical medications prescribed by your physician (s). Continue your current medications and any newly prescribed during this visit. If you have questions, please call the physician who prescribed the medication. documented in this encounter Medications at Time of Discharge Medication Sig Dispensed Refills Start Date End Date OTHER Probiotics, iron, MVI documented as of this encounter H&P Notes * Caden Hernandez DO - 12/22/2023 9:18 AM CDT Patient: Verónica Diego : 1995 HISTORY & PHYSICAL 11/24/2023 HISTORY OF PRESENT ILLNESS: Patient is a(n) 28 y.o. female scheduled for EGD for GERD and Epigastric pain and pre-operative assessment prior to bariatric surgical procedure. Past Medical History: Diagnosis Date GERD (gastroesophageal reflux disease) Obstructive sleep apnea no cpap Past Surgical History: Procedure Laterality Date HX CHOLECYSTECTOMY HX HERNIA REPAIR Medications Prior to Admission Medication Sig Dispense Refill Last Dose OTHER Probiotics, iron, MVI No Known Allergies Social History Tobacco Use Smoking status: Never Smokeless tobacco: Never Vaping Use Vaping status: Never Used Substance Use Topics Alcohol use: Yes Comment: OCCASIONAL Drug use: Never Family History Problem Relation Name Age of Onset No Known Problems Father No Known Problems Mother No Known Problems Brother No Known Problems Sister No Known Problems Son No Known Problems Daughter REVIEW OF SYSTEMS: Constitutional: No weight loss, no malaise Respiratory: No shortness of breath, no chest pain Cardiovascular: No angina, no palpitation Gastrointestinal: No dysphagia, no abdominal pain Musculoskeletal: No muscle pain PHYSICAL EXAM: Temp 98 ??F (36.7 ??C) (Temporal) Ht 5' 5 (1.651 m) Wt 107.5 kg (237 lb) BMI 39.44 kg/m?? Head: Normal Lungs: Clear to auscultation bilaterally Airway: No apparent abnormalities Heart: Regular rate and rhythm Abdomen: Soft, nontender, nondistended Neurologic: Alert & oriented x 3 IMPRESSION: Indications for procedure as noted in HPI. PLAN: I discussed the patient's current clinical situation with her in depth. Risks of the procedure include, but are not limited to, sore throat, bleeding, perforation, and complications from anesthesia. They understand and wish to proceed with the procedure. The patient's questions were answered. Enrique Hernandez DO documented in this encounter Procedure Notes * Caden Hernandez DO - 12/22/2023 9:45 AM CDTAssociated Order(s): UPPER ENDOSCOPY REPORT [facility] Endoscopy Patient Name: Verónica Diego Procedure Date: 12/22/2023 Date of : 1995 Attending MD: Caden Hernandez DO, Procedure: Upper GI endoscopy Indications: Heartburn, Preoperative assessment for bariatric surgery to treat morbid obesity Providers: Caden Hernandez DO Referring MD: Medicines: Monitored Anesthesia Care Complications: No immediate complications. Estimated blood loss: Minimal. Procedure: Informed consent was obtained for the procedure, including moderate sedation after risks were discussed. Based on the pre-procedure assessment, including review of the patient's medical history, medications, allergies, and review of systems, the patient was deemed to be an appropriate candidate for sedation. A timeout was performed. Continuous ECG monitoring, pulse oximetry, blood pressure monitoring, and direct observation were performed. The Endoscope was introduced through the mouth, and advanced to the second part of duodenum. The upper GI endoscopy was accomplished without difficulty. The patient tolerated the procedure well. Estimated Blood Loss: Estimated blood loss was minimal. Findings: The examined esophagus was normal. Localized mildly erythematous mucosa without bleeding was found in the prepyloric region of the stomach. Biopsies were taken with a cold forceps for Helicobacter pylori testing using CLOtest. Estimated blood loss was minimal. The cardia and gastric fundus were normal on retroflexion. No gross lesions were noted in the entire examined duodenum. No biopsies or other specimens were collected for this exam. Impression: - Normal esophagus. - Erythematous mucosa in the prepyloric region of the stomach. Biopsied. - No gross lesions in the entire examined duodenum. No specimens collected. Recommendation: - Patient has a contact number available for emergencies. The signs and symptoms of potential delayed complications were discussed with the patient. Return to normal activities tomorrow. Written discharge instructions were provided to the patient. - Resume previous diet. - Continue present medications. - Await pathology results. - No repeat upper endoscopy for surveillance of Gatica's esophagus. - Return to Bariatric clinic at appointment to be scheduled. - The findings and recommendations were discussed with the patient. Caden Hernandez DO 12/22/2023 9:45:00 AM Number of Addenda: [address]; [place] [address] * Caden Hernandez DO - 12/22/2023 9:38 AM CDTAssociated Order(s): UPPER ENDOSCOPY REPORT [facility] Endoscopy Patient Name: Verónica Diego Procedure Date: 12/22/2023 Date of : 1995 Attending MD: Caden Germain. DO Mary, THIS EXAM WAS SENT IN ERROR * Lyn Blum RN - 11/28/2023 1:03 PM CDT GI PROCEDURE NOTE from Nursing PAT call Patient: Verónica Diego : 1995 Endoscopist: Surgeon(s): Caden Hernandez DO Upcoming Procedure: Procedure to be Performed: Procedure(s): ESOPHAGOGASTRODUODENOSCOPY Procedure Date/Time: 12/22/2023 at 0930 Diagnosis/Indication for procedure: Pre-Op Diagnosis Codes: * Gastroesophageal reflux disease [K21.9] Location: [facility] GI LAB Referring Physician: Salinas Escobar Patient's BMI: Body mass index is 39.27 kg/m??. Is patient a candidate for offsite location? no Medications Type of prep given: EGD Instructions sent via: Email Anticoagulants: no Relevant prior procedure/pathology: 1st EGD per pt Past Surgical History: Past Surgical History: Procedure Laterality Date HX CHOLECYSTECTOMY HX HERNIA REPAIR Past Medical History: Past Medical History: Diagnosis Date GERD (gastroesophageal reflux disease) Obstructive sleep apnea no cpap No current facility-administered medications on file prior to encounter. Current Outpatient Medications on File Prior to Encounter Medication Sig Dispense Refill OTHER Probiotics, iron, MVI documented in this encounter OR Notes * Joelle-OP - Romel Calhoun RN - 12/22/2023 9:16 AM CDT Patient/Family discussion included an explanation that: Standard practice for endoscopists at [facility] includes use of an oral bite block to facilitate upper endoscopy and to prevent you from biting onto the scope or yourself during the procedure.This bite block is placed by a [facility] procedure room nurse/precision agriculture technician prior to the procedure. Pressure that you place on this bite block during the procedure may cause damage to teeth, fillings, and/or dental appliances that may be due to pre-existing dental disease or the age/wear of your dental appliance or structural weakness of teeth or a dental appliance; that may be a known or unknown condition. Should you experience new dental symptoms or a dental complication, if you choose, an effort will be made to facilitate a same day or prompt dental evaluation by [facility] Dental Medicine. * Joelle-OP - Lyn Blum RN - 11/28/2023 1:03 PM CDT Images from the original note were not included. [facility] Routine Pre-Anesthesia Protocol for GI Lab Procedures [facility] Approved by: [facility]-Medical Executive Committee Approval Date: 11/02/2023 ORDERS ARE ENTERED ???PER PROTOCOL?? Enter the protocol in the patient???s electronic health record using We[employer]: .anestprotocolgilab Nursing Orders: Monitoring Obtain and record vital signs on admission to [facility] Continuous vital signs (Non-invasive blood pressure, pulse oximetry and cardiac monitoring) for: All inpatients All patients currently taking beta-blockers Patients diagnosed with/or at risk for sleep apnea (e.g., STOP-BANG greater than or equal to 3) Glycemic Control POC glucose for diabetics Notify provider for any POC glucose or serum glucose less than 70 mg/dL. If POC Glucose results arecritical, do not delay treatment. If appropriate, may confirm POC with: Nursing Only [id number] (this lab can be obtained at no cost to the patient when confirming a critical high or Critical low POC glucose. See hypoglycemia protocol for additional orders if needed: STL ANES Adult Perianesthesia HYPOglycemia Protocol Notify any provider for any POC glucose or serum glucose greater than 180 mg/dL. When receiving report on an inpatient, confirm if patient is receiving dextrose containing fluids to prevent hypoglycemia. Communicate with the anesthesiologist and request glucose containing fluids be continued or added to intraoperative/intraprocedure fluids. POC glucose within 30 minutes of discharge or transfer to another unit (the time-based intra-procedure POC check may be deferred during short procedures at the discretion of the provider. Laboratory Orders: POC Urine Test (POC7) (if unable to obtain urine, may obtain serum [id number]) All patients with potential for childbearing (menarche to menopause) Medication Orders: Intravenous Line Place #20 gauge IV in non-dominant, non-operative or not otherwise excluded upper extremity unless otherwise ordered by anesthesiologist. Contact responsible anesthesiologist if recommending use of a #22 gauge IV For patients with difficult IV access notify anesthesiologist. For patients with difficult IV access and an implanted infusion port, access the port in accordancewith nursing policies. Local Anesthetic to use to initiate IV line: Lidocaine 2% 0.3mL intradermal ONE TIME to numb area of IV catheter insertion PRN. IV Fluid- Adult patients (age 18 years or greater): Lactated ringer's solution to infuse at 125mL/hr, may discontinue upon discharge from procedure area If patient is found to have a serum creatinine >2 or history of renal failure, RN may change to NS at 10ml/hr documented in this encounter Plan of Treatment Not on file documented as of this encounter Procedures Procedure Name Priority Date/Time Associated Diagnosis Comments UPPER ENDOSCOPY REPORT 9:45 AM CDT KS ESOPHAGOGASTRODUODENOSCOP Y TRANSORAL DIAGNOSTIC 12/22/2023 9:45 AM CDT Gastroesophagea l reflux disease UPPER ENDOSCOPY REPORT 9:38 AM CDT HELICOBACTER PYLORI RAPID UR EASE TEST Routine 12/22/2023 9:26 AM CDT Gastroesophagea l reflux disease POC , URINE Routine 12/22/2023 9:15 AM CDT documented in this encounter Results * UPPER ENDOSCOPY REPORT (12/22/2023 9:45 AM CDT) Narrative Procedure Note Caden Hernandez DO - 12/22/2023 9:45 AM CDT [facility] Endoscopy Patient Name: Verónica Diego Procedure Date: 12/22/2023 Date of : 1995 Attending MD: Caden Hernandez DO, Procedure: Upper GI endoscopy Indications: Heartburn, Preoperative assessment for bariatric surgery to treat morbid obesity Providers: Caden Hernandez DO Referring MD: Medicines: Monitored Anesthesia Care Complications: No immediate complications. Estimated blood loss: Minimal. Procedure: Informed consent was obtained for the procedure, including moderate sedation after risks were discussed. Based on the pre-procedure assessment, including review of the patient's medical history, medications, allergies, and review of systems, the patient was deemed to be an appropriate candidate for sedation. A timeout was performed. Continuous ECG monitoring, pulse oximetry, blood pressure monitoring, and direct observation were performed. The Endoscope was introduced through the mouth, and advanced to the second part of duodenum. The upper GI endoscopy was accomplished without difficulty. The patient tolerated the procedure well. Estimated Blood Loss: Estimated blood loss was minimal. Findings: The examined esophagus was normal. Localized mildly erythematous mucosa without bleeding was found in the prepyloric region of the stomach. Biopsies were taken with a cold forceps for Helicobacter pylori testing using CLOtest. Estimated blood loss was minimal. The cardia and gastric fundus were normal on retroflexion. No gross lesions were noted in the entire examined duodenum. No biopsies or other specimens were collected for this exam. Impression: - Normal esophagus. - Erythematous mucosa in the prepyloric region of the stomach. Biopsied. - No gross lesions in the entire examined duodenum. No specimens collected. Recommendation: - Patient has a contact number available for emergencies. The signs and symptoms of potential delayed complications were discussed with the patient. Return to normal activities tomorrow. Written discharge instructions were provided to the patient. - Resume previous diet. - Continue present medications. - Await pathology results. - No repeat upper endoscopy for surveillance of Gatica's esophagus. - Return to Bariatric clinic at appointment to be scheduled. - The findings and recommendations were discussed with the patient. Caden Hernandez DO 12/22/2023 9:45:00 AM Number of Addenda: [address]; [place] [address] Caden Hernandez DO GI PROCEDURE ORDERAB LES * UPPER ENDOSCOPY REPORT (12/22/2023 9:38 AM CDT) Narrative Procedure Note Caden Hernandez DO - 12/22/2023 9:38 AM CDT [facility] Endoscopy Patient Name: Verónica Diego Procedure Date: 12/22/2023 Date of : 1995 Attending MD: Caden Hernandez DO, THIS EXAM WAS SENT IN ERROR Caden Hernandez DO GI PROCEDURE ORDERAB LES * (ABNORMAL) HELICOBACTER PYLORI RAPID UREASE TEST (12/22/2023 9:26 AM CDT) Pathologist [facility] H. PYLORI RAPID UREASE TEST Positive( A) Negative, Indeterminate 12/22/2023 10:44 PM CDT [facility] Tissue ENTIRE STOMACH / Unknown Collection / Unknown 12/22/2023 9:26 AM CDT 12/22/2023 10:36 PM CDT Caden Hernandez DO MICROBIOLOGY - GENER AL ORDERABLES [facility] CLIA# [id number] [address] [place] [address] * POC , URINE (12/22/2023 9:15 AM CDT) HCG QUAL URINE Negative Negative 12/22/2023 9:15 AM CDT [facility] Urine 12/22/2023 9:15 AM CDT 12/22/2023 9:22 AM CDT Narrative [facility] - 12/22/2023 9:15 AM CDT Positive : Result is greater than or equal to 25 mIU/mL ? Negative: ??Result is less than 25 mIU/mL Invalid: Result is borderline or indeterminate,send to lab for serum test methodology. Caden Hernandez DO POINT OF CARE TESTIN G [facility] CLIA# [id number] [address] [place] [address] documented in this encounter Visit Diagnoses Diagnosis Gastroesophageal reflux disease- Primary Esophageal reflux documented in this encounter Administered Medications Inactive Administered Medications - up to 3 most recent administrations Medication Order MAR Action Action Date Dose Rate Site lactated ringers infusion IV, at 125 mL/hr, PRE-PROCEDURE CONTINUOUS, Starting on Mon12/22/23 at 0930, Until Mon12/22/23 at 1243, Routine, Pre-Procedure Restarted 12/22/2023 9:48 AM CDT Continue from Pre-Op 12/22/2023 9:35 AM CDT 125 mL/hr New Bag 12/22/2023 9:28 AM CDT 125 mL/hr documented in this encounter Active and Recently Administered Medications Times are shown in CDT. Continuous Medication Order 12/20/2023 12/21/2023 12/22/2023 lactated ringers infusion IV, at 125 mL/hr, PRE-PROCEDURE CONTINUOUS, Starting on Mon12/22/23 at 0930, Until Mon12/22/23 at 1243, Routine, Pre-Procedure 0928 (New Bag - Prov ider: Romel Calhoun RN)0935 (Continue from Pre-Op - Provider: Shaneka Jade CRNA)0947 (Paused - Provider: Shaneka Jade CRNA - Comment: Switch to gravity)0948 (Restarted - Provider: Shaneka Jade CRNA) documented in this encounter Care Teams Printed Forms Proofreader Relationship Specialty Start Date End Date Salinas Escobar MD [address] [place] [id number] PCP - General Family Practice 08/14/23 documented as of this encounter
--- OUTSIDE RECORDS SUMMARY | 2024-10-01 18:01 | XMS_ITS | Encounter Summary ---
Author Organization [facility] Healthcare Address [address] [place] [address] Care Team Providers Care Outside Sales Account Executive Name Role Phone Unavailable Primary Care Provider Unavailabl e Encounter Details Date Type Department Care Team (Latest Contact Info) Description 11/10/2014 9:53 AM HAND TILE MAKER Hospital Encounter [facility] Sergei Hazel, [address] [place], [place] [id number] Encounter for anatomic survey Social History Tobacco Use Types Packs/Day Years Used Date Smoking Tobacco: Never Comments Unknown Sex and Gender Information Value Date Recorded Sex Assigned at Not on file Legal Sex Female 11:00 AM HAND TILE MAKER Gender Identity Not on file Sexual Orientation Not on file documented as of this encounter Plan of Treatment Not on file documented as of this encounter Procedures Procedure Name Priority Date/Time Associated Diagnosis Comments US OBSTETRIC Routine 11/10/2014 10:01 AM HAND TILE MAKER documented in this encounter Results * US Obstetric (11/10/2014 10:01 AM HAND TILE MAKER) Anatomical Region Laterality Modality Body N/A Magnetic Resonan ce 11/10/2014 10:0 1 AM HAND TILE MAKER Impressions 11/10/2014 11:55 AM HAND TILE MAKER ?? 1. ??Live intrauterine gestation corresponding to a 20-week and 2-day . ??Sonographic CHEIKH remains 03/28/2015. 2. ??Views of the spine are somewhat limited. ??The structural survey is otherwise essentially unremarkable. THIS IS AN ELECTRONICALLY VERIFIED REPORT 11/10/2014 11:52 AM: ??Emre Sanchez M.D. Emre Sanchez M.D. AT:at 11:52 AM 11:52 AM [facility] [EOD] Narrative 11/10/2014 11:55 AM [facility] OB ULTRASOUND HISTORY: ?? anatomical survey. Date: ??11/10/2014. Comparison: ??08/28/2014. Gestational age by prior ultrasound: ??20 w 2 d CHEIKH by prior ultrasound:03/28/2015 ?? number:1 Presentation:Breech Placenta location:Posteriorly Amniotic fluid:Qualitatively adequateAFI:17.2 cm S = seen with no gross abnormality identified A = abnormal NC = not clearly seen NS = not seen on current exam Body movement:s ?? cardiac activity: s heart rate: 153 Intracranial anatomy: s Heart (4 chamber): ??s Spine:nc Stomach:s Renal Areas:s Bladder:s Cord insert/abd wall:s Three vessel cord:s Diaphragm:s Extremities:s Measurements: ?? BPD:4.66 cm20 w1 d HC:18.63 cm21 w0 d AC:16.01 cm21 w1 d FL:3.57 cm21 w2 d Ratios:FL/AC:22.3 (20-24) HC/AC: ??1.16 ??( 1.09 - 1.26 ) Gestational Age by this ultrasound:20 w6 d CHEIKH by this ultrasound:03/24/2015 EFW by this ultrasound:402 grams( 0 lb. 14 oz. +/- 0 lb. 2 oz.) FINDINGS: ??Views of the spine are somewhat limited due to positioning. Procedure Note Provider, MD Robby - 02/02/2021 OB ULTRASOUND HISTORY: anatomical survey. Date: 11/10/2014. Comparison: 08/28/2014. Gestational age by prior ultrasound: 20 w 2 d CHEIKH by prior ultrasound:03/28/2015 number:1 Presentation:Breech Placenta location:Posteriorly Amniotic fluid:Qualitatively adequateAFI:17.2 cm S = seen with no gross abnormality identified A = abnormal NC = not clearly seen NS = not seen on current exam Body movement:s cardiac activity: s heart rate: 153 Intracranial anatomy: s Heart (4 chamber): s Spine:nc Stomach:s Renal Areas:s Bladder:s Cord insert/abd wall:s Three vessel cord:s Diaphragm:s Extremities:s Measurements: BPD:4.66 cm20 w1 d HC:18.63 cm21 w0 d AC:16.01 cm21 w1 d FL:3.57 cm21 w2 d Ratios:FL/AC:22.3 (20-24) HC/AC: 1.16 ( 1.09 - 1.26 ) Gestational Age by this ultrasound:20 w6 d CHEIKH by this ultrasound:03/24/2015 EFW by this ultrasound:402 grams( 0 lb. 14 oz. +/- 0 lb. 2 oz.) FINDINGS: Views of the spine are somewhat limited due to positioning. IMPRESSION: 1. Live intrauterine gestation corresponding to a 20-week and 2-day . Sonographic CHEIKH remains 03/28/2015. 2. Views of the spine are somewhat limited. The structural surveyis otherwise essentially unremarkable. THIS IS AN ELECTRONICALLY VERIFIED REPORT 11/10/2014 11:52 AM: Emre Sanchez M.D. Emre Sanchez M.D. AT:at 11:52 AM 11:52 AM [facility] [EOD] Sergei Hess DO [facility] MRI PROCEDURES Final Resul t documented in this encounter Visit Diagnoses Diagnosis Encounter for anatomic survey documented in this encounter
--- OUTSIDE RECORDS SUMMARY | 2024-10-01 18:01 | XMS_ITS | Encounter Summary ---
Author Organization [facility] Address [address] [place] [address] Care Team Providers Care Dietitian Teacher Name Role Phone Salinas Escobar MD Primary Care Provider [phone] Encounter Details Date Type Department Care Team (Late st Contact Info) Description 11/21/2023 External Device Data ST[place] ABSTRACTION Provider, Abstract NO ADDRESS ON FILE Social History Tobacco Use Types Packs/Day Years Used Date Smoking Tobacco: Never Smokeless Tobacco: Never Alcohol Use Standard Drinks/Week Comments Yes 0 (1 standard drink = 0.6 oz pur e alcohol) OCCASIONAL Sex and Gender Information Value Date Recorded Sex Assigned at Not on file Gender Identity Not on file Sexual Orientation Not on file documented as of this encounter Plan of Treatment Not on file documented as of this encounter Visit Diagnoses Not on filedocumented in this encounter Care Teams Dietitian Teacher Relationship Specialty Start Date End Date Salinas Escobar MD [facility] [place] [address] PCP - General Family Practice 08/14/23 documented as of this encounter
--- OUTSIDE RECORDS SUMMARY | 2024-10-01 18:01 | XMS_ITS | Encounter Summary ---
Author Organization [facility] Address [address] [place] [address] Care Team Providers Care Book Binder Name Role Phone Salinas Escobar MD Primary Care Provider [phone] Encounter Details Date Type Department Care Team (Late st Contact Info) Description 06/11/2024 External Device Data STL ABSTRACTION Provider, Abstract [...] on filedocumented in this encounter Care Teams Book Binder Relationship Specialty Start Date End Date Salinas Escobar MD [address] [place] [address] PCP - General Family Practice 08/14/23 documented as of this encounter
--- OUTSIDE RECORDS SUMMARY | 2024-10-01 18:01 | XMS_ITS | Encounter Summary ---
Author Organization [facility] Address [address] [place] [address] Care Team Providers Care Jewelry Appraiser Name Role Phone Salinas Escobar MD Primary Care Provider [phone] Encounter Details Date Type Department Care Team (Late st Contact Info) Description 05/09/2024 External Device Data STL ABSTRACTION Provider, Abstract [...] on filedocumented in this encounter Care Teams Jewelry Appraiser Relationship Specialty Start Date End Date Salinas Escobar MD [address] [place] [address] PCP - General Family Practice 08/14/23 documented as of this encounter
--- OUTSIDE RECORDS SUMMARY | 2024-10-01 18:01 | XMS_ITS | Encounter Summary ---
Author Organization [facility] Address [address] [place] [address] Care Team Providers Care Supervisor Contingents Name Role Phone Salinas Escobar MD Primary Care Provider [phone] Encounter Details Date Type Department Care Team [...] on filedocumented in this encounter Care Teams Supervisor Contingents Relationship Specialty Start Date End Date Salinas Escobar MD [address] [place] [address] PCP - General Family Practice 08/14/23 documented as of this encounter
--- OUTSIDE RECORDS SUMMARY | 2024-10-01 18:01 | XMS_ITS | Encounter Summary ---
Author Organization [facility] Address [address] [place] [address] Care Team Providers Care Oil Drilling Engineer Name Role Phone Salinas Escobar MD Primary Care Provider [phone] Encounter Details Date Type Department Care Team (Late st Contact Info) Description 06/04/2024 External Device Data STL ABSTRACTION Provider, Abstract [...] on filedocumented in this encounter Care Teams Oil Drilling Engineer Relationship Specialty Start Date End Date Salinas Escobar MD [address] [place] [address] PCP - General Family Practice 08/14/23 documented as of this encounter
--- OUTSIDE RECORDS SUMMARY | 2024-10-01 18:01 | XMS_ITS | Encounter Summary ---
Author Organization [facility] [employer] [facility] Address [address] [place] [address] Care Team Providers Care Supply Coordinator Name Role Phone Salinas Escobar MD Primary Care Provider [phone] Encounter Details Date Type Department Care Team (Latest Contact Info) Description 09/05/2023 3:30 PM AUDIO VISUAL DESIGN ENGINEER Telephone Check Up [facility] Oncology and Hematology - Sebast[address] [facility] [address] [place] [address] Edelmira Cai FNP [address] [facility] [address] [place] [address] Other iron deficiency anemia (Primary Dx) Social History Tobacco Use Types Packs/Day Years Used Date Smoking Tobacco: Never Smokeless Tobacco: Never Alcohol Use Standard Drinks/Week Comments Yes 0 (1 standard drink = 0.6 oz pur e alcohol) OCCASIONAL Sex and Gender Information Value Date Recorded Sex Assigned at Not on file Gender Identity Not on file Sexual Orientation Not on file documented as of this encounter Progress Notes * Edelmira Cai FNP - 09/05/2023 3:27 PM CST Hematology / Oncology Progress Note Patient Identification: Name: Verónica Diego Age: 27 y.o. Sex: female : 1995 Diagnosis: Iron Deficiency Anemia Current Treatment: Oral iron twice a day Treatment History: Oral iron starting Jul 2023 Subjective: This was a telephone visit. Patient states she has been taking oral iron once a day more regularly since our last visit. She is less fatigued and has more energy. She denies bleeding or bruising. Denies shortness of breath. Endorses wanting clearance for bariatric surgery. No other complaints Tobacco Counseling: She is not a tobacco/nicotine user. Review of Systems Constitutional: Negative for chills, fatigue, fever and unexpected weight change. HENT: Negative for mouth sores. Respiratory: Negative for cough and shortness of breath. Cardiovascular: Negative for chest pain, palpitations and leg swelling. Gastrointestinal: Negative for abdominal pain, blood in stool, constipation, diarrhea, nausea and vomiting. Genitourinary: Negative for hematuria. Musculoskeletal: Negative for arthralgias. Skin: Negative for rash and wound. Neurological: Negative for dizziness, weakness, numbness and headaches. Hematological: Negative for adenopathy. Does not bruise/bleed easily. Objective: Vital signs in last 24 hours: This was a telephone visit Physical Exam This was a telephone visit Labs: 06/26/23: WBC 7.8, Hgb 11.9, Hct 37.2, Plt 423,000, Iron 27, % sat 8, Ferritin 19, Vitamin B 12 681, 08/21/23: WBC 8.0, Hgb 11.4, Hct 36.5, Plt 437,000, Iron 30 % sat 9, Ferritin 28, B12 788, STR 1.14,MMA 144 Assessment: Plan: Iron Deficiency Anemia I have discussed lab results with patient. Labs are notable for slight increase in iron from 27 to 30 and % sat 8 to 9. Patient reports less fatigue and more energy. Patient also would like to have bariatric surgery. I have discussed the increased risks for blood loss and worsening anemia d/t iron def and b12 deficiency. She is clear for surgery on our end and understands the risks of having the bariatric surgery. Continue oral iron twice daily and repeat labs in 3 months MARJORIE Patel, 09/05/2023, 3:45 PM Hematology Oncology Nurse Practitioner [facility] This encounter was completed via audio-only two way synchronous communication. Patient's identity confirmed yes Patient gave verbal consent to have these services billed to their insurance and expressed understanding that co-insurance and deductible may apply: yes Time spent by the provider delivering the care documented in this encounter 25 minutes. This patient's plan of care has been reviewed and approved by Dr. Gustabo Ames. O VISUAL DESIGN ENGINEER documented in this encounter Plan of Treatment Scheduled Orders Name Type Priority Associated Diagnoses Orde r Schedule CBC WITH DIFFERENTIAL Lab Routine Other iron deficiency anemia Expected: 11/28/2023, Expires: 09/05/2024 documented as of this encounter Visit Diagnoses Diagnosis Other iron deficiency anemia- Primary documented in this encounter Care Teams Supply Coordinator Relationship Specialty Start Date End Date Salinas Escobar MD [address] [place] [address] PCP - General Family Practice 08/14/23 documented as of this encounter
--- OUTSIDE RECORDS SUMMARY | 2024-10-01 18:01 | XMS_ITS | Encounter Summary ---
Author Organization [facility] Healthcare Address [address] [place] [address] Care Team Providers Care Paint And Table Edger Name Role Phone Unavailable Primary Care Provider Unavailabl e Encounter Details Date Type Department Care Team (Latest Contact Info) Description 12/08/2014 8:10 AM CDT Hospital Encounter [facility] Sergei Hazel, DO [address] [place] [address] with history of infertility; Other nonspecific abnormal findings on radiological and other examinations of body structure Social History Tobacco Use Types Packs/Day Years Used Date Smoking Tobacco: Never Comments Unknown Sex and Gender Information Value Date Recorded Sex Assigned at Not on file Legal Sex Female 11:00 AM HOTEL ATTENDANT Gender Identity Not on file Sexual Orientation Not on file documented as of this encounter Plan of Treatment Not on file documented as of this encounter Procedures Procedure Name Priority Date/Time Associated Diagnosis Comments US OB LIMITED Routine 12/08/2014 8:13 AM CDT documented in this encounter Results * US Ob Limited (12/08/2014 8:13 AM CDT) Anatomical Region Laterality Modality Abdomen N/A Ultrasound 12/08/2014 8:13 AM CDT Impressions 12/09/2014 8:16 AM CDT ?? 1. ??Single living intrauterine gestational age 24 weeks and 4 days. ?? There has been appropriate interval growth. 2. ?? spine unremarkable THIS IS AN ELECTRONICALLY VERIFIED REPORT 12/09/2014 8:12 AM: ??Yasmin Hurst M.D. Yasmin Hurst M.D. TB:pippa 08:12 AM 08:12 AM [facility] [EOD] Narrative 12/09/2014 8:16 AM CDT EXAMINATION: ??Limited obstetrical ultrasound HISTORY: Follow-up spine TECHNIQUE: ??Sonographic evaluation was performed. COMPARISON: ??Obstetrical ultrasound dated 11/10/2014 FINDINGS: ??There is a single living intrauterine . ??The fetus is breech in presentation. ??Biometric measurements are as follows: Biparietal diameter 6.04 cm 24 weeks 4 days Head circumference 22.68 cm 24 weeks 5 days Abdominal circumference 19.94 cm 24 weeks 4 days Femur length 4.33 cm 24 weeks 1 day The composite gestational age is 24 weeks and 4 days plus or minus 1 week and 5 days. ??Estimated date of delivery based on these measurements is 03/26/2015. ?? Previously established CHEIKH is 03/29/2015. ??There has been appropriate interval growth. weight is 697 grams plus or minus 104 grams. ?? weight falls into the 55th percentile. SANTA is within normal range at 11.93. ??The indices and ratios are within normal limits. The spine was assessed and is unremarkable in appearance. Procedure Note Provider, MD Robby - 02/02/2021 EXAMINATION: Limited obstetrical ultrasound HISTORY: Follow-up spine TECHNIQUE: Sonographic evaluation was performed. COMPARISON: Obstetrical ultrasound dated 11/10/2014 FINDINGS: There is a single living intrauterine . The fetus is breech in presentation. Biometric measurements are as follows: Biparietal diameter 6.04 cm 24 weeks 4 days Head circumference 22.68 cm 24 weeks 5 days Abdominal circumference 19.94 cm 24 weeks 4 days Femur length 4.33 cm 24 weeks 1 day The composite gestational age is 24 weeks and 4 days plus or minus 1 weekand 5 days. Estimated date of delivery based on these measurements is03/26/2015. Previously established CHEIKH is 03/29/2015. There has been appropriateinterval growth. weight is 697 grams plus or minus 104 grams. weight fallsinto the 55th percentile. SANTA is within normal range at 11.93. The indices and ratios are withinnormal limits. The spine was assessed and is unremarkable in appearance. IMPRESSION: 1. Single living intrauterine gestational age 24 weeks and 4days. There has been appropriate interval growth. 2. spine unremarkable THIS IS AN ELECTRONICALLY VERIFIED REPORT 12/09/2014 8:12 AM: Yasmin Hurst M.D. Yasmin Hurst M.D. TB:tb 08:12 AM 08:12 AM [facility] [EOD] us Sergei Hess DO IMG OB US PROCEDURES Final Res ult documented in this encounter Visit Diagnoses Diagnosis with history of infertility Other nonspecific abnormal findings on radiological and other examinations of body structure documented in this encounter
--- OUTSIDE RECORDS SUMMARY | 2024-10-01 18:01 | XMS_ITS | Encounter Summary ---
Author Organization [facility] Healthcare Address [address] [place] [address] Care Team Providers Care Assistant To The Director Name Role Phone Unavailable Primary Care Provider Unavailabl e Encounter Details Date Type Department Care Team (Latest Contact Info) Description 05/02/2018 2:24 PM CDT Hospital Encounter [facility] Allan Denney MD [address] [place] [address] Encounter for test, result positive; Other specified disorders of kidney and ureter Social History Tobacco Use Types Packs/Day Years Used Date Smoking Tobacco: Never Comments Unknown Sex and Gender Information Value Date Recorded Sex Assigned at Not on file Legal Sex Female 11:00 AM CLOTH DYER Gender Identity Not on file Sexual Orientation Not on file documented as of this encounter Plan of Treatment Not on file documented as of this encounter Procedures Procedure Name Priority Date/Time Associated Diagnosis Comments US OB UNDER 14 WEEKS Routine 05/02/2018 2:26 PM CDT US ABDOMEN COMPLETE W LIVER DOPPLER (C) Routine 05/02/2018 12:00 AM CDT documented in this encounter Results * US Ob Under 14 Weeks (05/02/2018 2:26 PM CDT) Anatomical Region Laterality Modality Abdomen N/A Ultrasound 05/02/2018 2:26 PM CDT Impressions 05/02/2018 3:29 PM CDT ??Single intrauterine gestation with a calculated gestational age of 8 weeks 2 days expected delivery date of December 10, 2018. Incidental note is made of a left-sided ureterocele. THIS IS AN ELECTRONICALLY VERIFIED FINAL REPORT 05/02/2018 3:26 PM - Electronically signed by Jason SWEENEY D: ??05/02/2018 3:26 PM T: Report ID: [id number] Reading Location: ??[id number] [EOD] Narrative 05/02/2018 3:29 PM CDT EXAM DESCRIPTION: ??US OB <14 Wk Single Fetus; US Duplex Scan Limited REASON FOR STUDY: ??Dating examination. Beta-hCG: ??None available TECHNIQUE: ??Transabdominal images acquired of the pelvis. COMPARISON: ??None available FINDINGS: Clinical gestational age: ??4 weeks 3 days Clinical estimated Due Date: January 06, 2019 Intrauterine gestational sac: ??Present Yolk sac: ??Present Subchorionic bleed: No Placenta: ??Not identified Mean sac diameter: ??Not applicable cm [place]-rump length: ??1.82 cm heart rate: ??168 bpm Gestational age by this ultrasound: ??8 weeks 2 days CHEIKH by this ultrasound: ??December 10, 2018 Uterus: The uterus is anteverted, measuring 13 x 7.7 x 6.7. Right Ovary/Adnexa: The right ovary measures 3.6 x 2.7 x 1.9 cm. There is documentation of color Doppler flow in the right ovary. The right ovary appears unremarkable. ??No adnexal mass. Left Ovary/Adnexa: The left ovary measures 3.4 x 3.2 x 2.5 cm. There is documentation of color Doppler flow in the left ovary. ??The left ovary appears unremarkable. ??No adnexal mass. Free Fluid: None. Other Findings: Incidental note is made of a left-sided ureterocele. Procedure Note Provider, MD Robby - 02/02/2021 EXAM DESCRIPTION: US OB <14 Wk Single Fetus; US Duplex Scan Limited REASON FOR STUDY: Dating examination. Beta-hCG: None available TECHNIQUE: Transabdominal images acquired of the pelvis. COMPARISON: None available FINDINGS: Clinical gestational age: 4 weeks 3 days Clinical estimated Due Date: January 06, 2019 Intrauterine gestational sac: Present Yolk sac: Present Subchorionic bleed: No Placenta: Not identified Mean sac diameter: Not applicable cm [place]-rump length: 1.82 cm heart rate: 168 bpm Gestational age by this ultrasound: 8 weeks 2 days CHEIKH by this ultrasound: December 10, 2018 Uterus: The uterus is anteverted, measuring 13 x 7.7 x 6.7. Right Ovary/Adnexa: The right ovary measures 3.6 x 2.7 x 1.9 cm. There is documentation of color Doppler flow in the right ovary. The right ovary appears unremarkable. No adnexal mass. Left Ovary/Adnexa: The left ovary measures 3.4 x 3.2 x 2.5 cm. There is documentation of color Doppler flow in the left ovary. The left ovaryappears unremarkable. No adnexal mass. Free Fluid: None. Other Findings: Incidental note is made of a left-sided ureterocele. IMPRESSION: Single intrauterine gestation with a calculated gestationalage of 8 weeks 2 days expected delivery date of December 10, 2018. Incidental note is made of a left-sided ureterocele. THIS IS AN ELECTRONICALLY VERIFIED FINAL REPORT 05/02/2018 3:26 PM - Electronically signed by Jason SWEENEY T: Report ID: [id number] Reading Location: [id number] [EOD] us Allan Denney MD IMG OB US PROCEDURES Final Result * US Abdomen Complete W Liver Doppler (C) (05/02/2018 12:00 AM CDT) Anatomical Region Laterality Modality Abdomen Right Ultrasound 05/02/2018 Impressions 05/02/2018 3:29 PM CDT ??Single intrauterine gestation with a calculated gestational age of 8 weeks 2 days expected delivery date of December 10, 2018. Incidental note is made of a left-sided ureterocele. THIS IS AN ELECTRONICALLY VERIFIED FINAL REPORT 05/02/2018 3:26 PM - Electronically signed by Jason SWEENEY D: ??05/02/2018 3:26 PM T: Report ID: [id number] Reading Location: ??[id number] [EOD] Narrative 05/02/2018 3:29 PM CDT EXAM DESCRIPTION: ??US OB <14 Wk Single Fetus; US Duplex Scan Limited REASON FOR STUDY: ??Dating examination. Beta-hCG: ??None available TECHNIQUE: ??Transabdominal images acquired of the pelvis. COMPARISON: ??None available FINDINGS: Clinical gestational age: ??4 weeks 3 days Clinical estimated Due Date: January 06, 2019 Intrauterine gestational sac: ??Present Yolk sac: ??Present Subchorionic bleed: No Placenta: ??Not identified Mean sac diameter: ??Not applicable cm [place]-rump length: ??1.82 cm heart rate: ??168 bpm Gestational age by this ultrasound: ??8 weeks 2 days CHEIKH by this ultrasound: ??December 10, 2018 Uterus: The uterus is anteverted, measuring 13 x 7.7 x 6.7. Right Ovary/Adnexa: The right ovary measures 3.6 x 2.7 x 1.9 cm. There is documentation of color Doppler flow in the right ovary. The right ovary appears unremarkable. ??No adnexal mass. Left Ovary/Adnexa: The left ovary measures 3.4 x 3.2 x 2.5 cm. There is documentation of color Doppler flow in the left ovary. ??The left ovary appears unremarkable. ??No adnexal mass. Free Fluid: None. Other Findings: Incidental note is made of a left-sided ureterocele. Procedure Note Provider, MD Robby - 02/02/2021 EXAM DESCRIPTION: US OB <14 Wk Single Fetus; US Duplex Scan Limited REASON FOR STUDY: Dating examination. Beta-hCG: None available TECHNIQUE: Transabdominal images acquired of the pelvis. COMPARISON: None available FINDINGS: Clinical gestational age: 4 weeks 3 days Clinical estimated Due Date: January 06, 2019 Intrauterine gestational sac: Present Yolk sac: Present Subchorionic bleed: No Placenta: Not identified Mean sac diameter: Not applicable cm [place]-rump length: 1.82 cm heart rate: 168 bpm Gestational age by this ultrasound: 8 weeks 2 days CHEIKH by this ultrasound: December 10, 2018 Uterus: The uterus is anteverted, measuring 13 x 7.7 x 6.7. Right Ovary/Adnexa: The right ovary measures 3.6 x 2.7 x 1.9 cm. There is documentation of color Doppler flow in the right ovary. The right ovary appears unremarkable. No adnexal mass. Left Ovary/Adnexa: The left ovary measures 3.4 x 3.2 x 2.5 cm. There is documentation of color Doppler flow in the left ovary. The left ovaryappears unremarkable. No adnexal mass. Free Fluid: None. Other Findings: Incidental note is made of a left-sided ureterocele. IMPRESSION: Single intrauterine gestation with a calculated gestationalage of 8 weeks 2 days expected delivery date of December 10, 2018. Incidental note is made of a left-sided ureterocele. THIS IS AN ELECTRONICALLY VERIFIED FINAL REPORT 05/02/2018 3:26 PM - Electronically signed by Jason SWEENEY T: Report ID: [id number] Reading Location: [id number] [EOD] us Allan Denney MD [facility] US PROCEDURES Final Re sult documented in this encounter Visit Diagnoses Diagnosis Encounter for test, result positive Other specified disorders of kidney and ureter documented in this encounter
--- OUTSIDE RECORDS SUMMARY | 2024-10-01 18:01 | XMS_ITS | Encounter Summary ---
Author Organization [facility] Address [address] [place] [address] Care Team Providers Care Sheet Metal Duct Worker Supervisor Name Role Phone Salinas Escobar MD Primary Care Provider [phone] Encounter Details Date Type Department Care Team (Late st Contact Info) Description 05/15/2024 External Device Data STL ABSTRACTION Provider, Abstract [...] on filedocumented in this encounter Care Teams Sheet Metal Duct Worker Supervisor Relationship Specialty Start Date End Date Salinas Escobar MD [address] [place] [address] PCP - General Family Practice 08/14/23 documented as of this encounter
--- OUTSIDE RECORDS SUMMARY | 2024-10-01 18:01 | XMS_ITS | Clinical Summary ---
Author Organization [facility] Address [address] [place] [address] [place] [address] Care Team Providers Care Berry Picker Name Role Phone Salinas Escobar MD Primary Care Provider [phone] Allergies No known active allergies Medications Medication Sig Dispensed Refills Start Date End Date Status OTHER Probiotics, iron, MVI Act lyssa Active Problems No known active problems Family History Medical History Relation Name Comments No Known Problems Brother No Known Problems Daughter No Known Problems Father No Known Problems Mother No Known Problems Sister No Known Problems Son Relation Name Status Comments Brother Alive Daughter Alive Father Alive Mother Alive Sister Alive Son Alive Social History Tobacco Use Types Packs/Day [...] Mass Index 39.44 12/22/2023 9:09 AM CDT Plan of Treatment Health Maintenance Due Date Last Done Comments CERVICAL CANCER SCREENING 12/20/2023 INFLUENZA VACCINE (#1) 2024 7, 08/22/2014, 08/07/2013 DTAP/TDAP/TD VACCINES (5 - Td or Tdap) 10/05/2028 10/05/2018, 12/30/2014, 01/22/2008, Additional history exists HEPATITIS B VACCINES Completed 12/22/2003, 08/08/2000, 08/13/1999 HPV VACCINES Completed 07/30/2008, 03/18, 01/22/2008 PNEUMOCOCCAL VACCINE 0-64 YEARS Aged Out No longer eligible based on patient's age to complete this topic Advance Directives For more information, please contact: [phone] * Full Code (Latest Code Status on File) Date Activated Date Inactivated Comments 12/22/2023 9:16 AM 12/22/2023 12:53 PM Care Teams Berry Picker Relationship Specialty Start Date End Date Salinas Escobar MD [facility] [place] [address] PCP - General Family Practice 08/14/23
--- OUTSIDE RECORDS SUMMARY | 2024-10-01 18:01 | XMS_ITS | Encounter Summary ---
Author Organization [facility] Address [address] [place] [address] Care Team Providers Care Tower Foreman Name Role Phone Salinas Escobar MD Primary Care Provider [phone] Encounter Details Date Type Department Care Team (Late st Contact Info) Description 11/06/2023 External Device Data STL ABSTRACTION Provider, Abstract [...] on filedocumented in this encounter Care Teams Tower Foreman Relationship Specialty Start Date End Date Salinas Escobar MD [facility] [place] [address] PCP - General Family Practice 08/14/23 documented as of this encounter
--- OUTSIDE RECORDS SUMMARY | 2024-10-01 18:01 | XMS_ITS | Encounter Summary ---
Author Organization [facility] Healthcare Address [address] [place] [address] Care Team Providers Care Drop Press Hand Name Role Phone Unavailable Primary Care Provider Unavailabl e Encounter Details Date Type Department Care Team (Latest Contact Info) Description 08/28/2014 9:57 AM TRAFFIC LINE PAINTER Hospital Encounter [facility] Sergei Hazel, [address] [place], [place] [id number] Encounter for supervision of normal in multigravida Social History Tobacco Use Types Packs/Day Years Used Date Smoking Tobacco: Never Comments Unknown Sex and Gender Information Value Date Recorded Sex Assigned at Not on file Legal Sex Female 11:00 AM TRAFFIC LINE PAINTER Gender Identity Not on file Sexual Orientation Not on file documented as of this encounter Plan of Treatment Not on file documented as of this encounter Procedures Procedure Name Priority Date/Time Associated Diagnosis Comments US PELVIS COMPLETE Routine 08/28/2014 9: 59 AM TRAFFIC LINE PAINTER documented in this encounter Results * US Pelvis Complete (08/28/2014 9:59 AM TRAFFIC LINE PAINTER) Anatomical Region Laterality Modality Pelvis N/A Ultrasound 08/28/2014 9:59 AM TRAFFIC LINE PAINTER Impressions 08/28/2014 2:45 PM TRAFFIC LINE PAINTER ?? 1. ??Single live intrauterine with an estimated gestational age based on current measurements of 9 weeks 5 days and a corresponding estimated date of delivery of 03/28/15. 2. ??Findings suggesting a corpus luteal cyst of the maternal right ovary. THIS IS AN ELECTRONICALLY VERIFIED REPORT 08/28/2014 2:42 PM: ??Izabel Fountain M.D. Izabel Fountain M.D. SS:[email or web address] 02:42 PM 02:42 PM SWO [EOD] Narrative 08/28/2014 2:45 PM TRAFFIC LINE PAINTER EXAMINATION: ??Obstetrical ultrasound, less than 14 weeks dated 08/28/14 at 1031 hours HISTORY: , evaluation of gestational age COMPARISON: ??None TECHNIQUE: ??Huerta-scale, color flow and M-mode sonographic imaging was performed of the intrauterine and pelvis via a transabdominal approach only. FINDINGS: ??There is a single live intrauterine with an estimated gestational age based on current measurements of 9 weeks 5 days and a corresponding estimated date of delivery of 03/28/15. ??The heart rate measures 144 beats per minute. ??A yolk sac is also visualized within the gestational sac. No evidence of subchorionic hemorrhage. The maternal right ovary measures 3.6 cm x 2.1 cm x 1.9 cm in transverse dimensions. ??There is a 2.7 cm anechoic mass of the right ovary which demonstrates peripheral color flow, suggestive of the corpus luteal cyst. The maternal left ovary measures 3.9 cm x 2 cm x 2.6 cm in transverse dimensions. The left ovary demonstrates normal color flow. Procedure Note Provider, MD Robby - 02/02/2021 EXAMINATION: Obstetrical ultrasound, less than 14 weeks dated 08/28/14 at 1031 hours HISTORY: , evaluation of gestational age COMPARISON: None TECHNIQUE: Huerta-scale, color flow and M-mode sonographic imaging was performed of the intrauterine and pelvis via a transabdominal approach only. FINDINGS: There is a single live intrauterine with an estimated gestational age based on current measurements of 9 weeks 5 days and a corresponding estimated date of delivery of 03/28/15. The heart rate measures 144 beats per minute. A yolk sac is also visualized within the gestational sac. No evidence of subchorionic hemorrhage. The maternal right ovary measures 3.6 cm x 2.1 cm x 1.9 cm in transverse dimensions. There is a 2.7 cm anechoic mass of the right ovary which demonstrates peripheral color flow, suggestive of the corpus lutealcyst. The maternal left ovary measures 3.9 cm x 2 cm x 2.6 cm in transverse dimensions. The left ovary demonstrates normal color flow. IMPRESSION: 1. Single live intrauterine with an estimated gestational agebased on current measurements of 9 weeks 5 days and a corresponding estimateddate of delivery of 03/28/15. 2. Findings suggesting a corpus luteal cyst of the maternal right ovary. THIS IS AN ELECTRONICALLY VERIFIED REPORT 08/28/2014 2:42 PM: Izabel Fountain M.D. Izabel Fountain M.D. SS:[email or web address] 02:42 PM 02:42 PM SWO [EOD] us Sergei Hess DO [facility] US PROCEDURES Final Result documented in this encounter Visit Diagnoses Diagnosis Encounter for supervision of normal in multigravida documented in this encounter
--- OUTSIDE RECORDS SUMMARY | 2024-10-01 18:01 | XMS_ITS | Encounter Summary ---
Author Organization [facility] Address [address] [place] [address] Care Team Providers Care Enrollment Nurse Name Role Phone Salinas Escobar MD Primary Care Provider [phone] Encounter Details Date Type Department Care Team [...] on filedocumented in this encounter Care Teams Enrollment Nurse Relationship Specialty Start Date End Date Salinas Escobar MD [address] [address] PCP - General Family Practice 08/14/23 documented as of this encounter
--- OUTSIDE RECORDS SUMMARY | 2024-10-01 18:01 | XMS_ITS | Encounter Summary ---
Author Organization [facility] Healthcare Address [address] [place] [address] Care Team Providers Care Nursing Home Assistant Administrator Name Role Phone Unavailable Primary Care Provider Unavailabl e Encounter Details Date Type Department Care Team (Latest Contact Info) Description 03/13/2015 2:55 PM CDT Hospital Encounter [facility] Sergei Hazel, [address] [place] [address] with history of infertility; Other specified screening Social History Tobacco Use Types Packs/Day Years Used Date Smoking Tobacco: Never Comments Unknown Sex and Gender Information Value Date Recorded Sex Assigned at Not on file Legal Sex Female 11:00 AM LOBSTERMAN Gender Identity Not on file Sexual Orientation Not on file documented as of this encounter Plan of Treatment Not on file documented as of this encounter Procedures Procedure Name Priority Date/Time Associated Diagnosis Comments US OB LIMITED Routine 03/13/2015 2:57 PM CDT documented in this encounter Results * US Ob Limited (03/13/2015 2:57 PM CDT) Anatomical Region Laterality Modality Abdomen N/A Ultrasound 03/13/2015 2:57 PM CDT Impressions 03/13/2015 5:09 PM CDT ?? 1. ??Single live intrauterine with average ultrasound age of 38 weeks 4 days and estimated date of delivery of March 23, 2015. ??Normal interval growth. 2. ??Amniotic fluid index is 8.9. THIS IS AN ELECTRONICALLY VERIFIED REPORT 03/13/2015 5:08 PM: ??Cheng Jean M.D. Cheng Jean M.D. MJ:[email or web address] 05:08 PM 05:08 PM [facility] [EOD] Narrative 03/13/2015 5:09 PM CDT EXAMINATION: ??Limited obstetric ultrasound. HISTORY: ??19-year-old positive . ??Size smaller than dates. COMPARISON: ??Prior exam 12/08/2014. TECHNIQUE: ??Limited obstetric ultrasound was performed. FINDINGS: ?? Single live intrauterine . presentation is vertex. Placental location is posterior. Positive cardiac activity measuring 138 beats per minute. Cervix is closed measuring 3.6 cm. measurement: BPD 9.8 cm with EGA 39 weeks 6 days HC 34.8 cm with EGA 40 weeks 3 days AC 34.1 cm with EGA 38 weeks 0 days FL 7.4 cm with EGA 37 weeks 6 days Average ultrasound age 38 weeks 4 days Estimated date of delivery March 23, 2015. Normal interval growth compared to the previous exam. HC/AC ratio 1.02 (0.9 - 1.09) FL to AC 21.7 percent (20% - 24%) Estimated weight 3508 grams plus or minus 407 grams Estimated weight percentile 59.4 Amniotic fluid index is 8.9 Procedure Note Provider, MD Robby - 02/02/2021 EXAMINATION: Limited obstetric ultrasound. HISTORY: 19-year-old positive . Size smaller than dates. COMPARISON: Prior exam 12/08/2014. TECHNIQUE: Limited obstetric ultrasound was performed. FINDINGS: Single live intrauterine . presentation is vertex. Placental location is posterior. Positive cardiac activity measuring 138 beats per minute. Cervix is closed measuring 3.6 cm. measurement: BPD 9.8 cm with EGA 39 weeks 6 days HC 34.8 cm with EGA 40 weeks 3 days AC 34.1 cm with EGA 38 weeks 0 days FL 7.4 cm with EGA 37 weeks 6 days Average ultrasound age 38 weeks 4 days Estimated date of delivery March 23, 2015. Normal interval growth compared to the previous exam. HC/AC ratio 1.02 (0.9 - 1.09) FL to AC 21.7 percent (20% - 24%) Estimated weight 3508 grams plus or minus 407 grams Estimated weight percentile 59.4 Amniotic fluid index is 8.9 IMPRESSION: 1. Single live intrauterine with average ultrasound age of 38weeks 4 days and estimated date of delivery of March 23, 2015. Normal intervalgrowth. 2. Amniotic fluid index is 8.9. THIS IS AN ELECTRONICALLY VERIFIED REPORT 03/13/2015 5:08 PM: Cheng Jean M.D. Cheng Jean M.D. [email or web address] 05:08 PM 05:08 PM [facility] [EOD] us Sergei Hess DO IMG OB US PROCEDURES Final Res ult documented in this encounter Visit Diagnoses Diagnosis with history of infertility Other specified screening documented in this encounter
--- OUTSIDE RECORDS SUMMARY | 2024-10-01 18:01 | XMS_ITS | Encounter Summary ---
Author Organization [facility] Address [address] [place] [address] Care Team Providers Care Hepatologist Name Role Phone Salinas Escobar MD Primary Care Provider [phone] Encounter Details Date Type Department Care Team (Late st Contact Info) Description 03/19/2024 External Device Data STL ABSTRACTION Provider, Abstract [...] on filedocumented in this encounter Care Teams Hepatologist Relationship Specialty Start Date End Date Salinas Escobar MD [address] [place] [address] PCP - General Family Practice 08/14/23 documented as of this encounter
--- OUTSIDE RECORDS SUMMARY | 2024-10-01 18:01 | XMS_ITS | Encounter Summary ---
Author Organization [facility] Address [address] [place] [address] Care Team Providers Care Meat Boner And Slicer Name Role Phone Salinas Escobar MD Primary Care Provider [phone] Encounter Details Date Type Department Care Team (Late st Contact Info) Description 11/03/2023 External Device Data STL ABSTRACTION Provider, Abstract [...] on filedocumented in this encounter Care Teams Meat Boner And Slicer Relationship Specialty Start Date End Date Salinas Escobar MD [facility] [place] [address] PCP - General Family Practice 08/14/23 documented as of this encounter
--- OUTSIDE RECORDS SUMMARY | 2024-10-01 18:01 | XMS_ITS | Encounter Summary ---
Author Organization [facility] Healthcare Address [address] [place] [address] Care Team Providers Care Director Software Development Name Role Phone Unavailable Primary Care Provider Unavailabl e Encounter Details Date Type Department Care Team (Latest Contact Info) Description 03/21/2015 3:01 PM CDT - 03/24/2015 7:15 PM CDT Hospital Encounter [facility] Sergei Bonilla, [address] [place], [place] [phone] Other and unspecified cord entanglement complicating labor and delivery, delivered; Second-degree perineal laceration, with delivery; Delivery outcome of single liveborn infant Social History Tobacco Use Types Packs/Day Years Used Date Smoking Tobacco: Never Comments Unknown Sex and Gender Information Value Date Recorded Sex Assigned at Not on file Legal Sex Female 11:00 AM MENTAL 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 DIRECTOR Gender Identity Not on file Sexual Orientation Not on file documented as of this encounter Last Filed Vital Signs Vital Sign Reading Time Taken Comments Blood Pressure 102/67 03/22/2015 8:09 AM CDT Pulse 86 03/22/2015 8:09 AM CDT Temperature 37 ??C (98.6 ??F) 03/22/2015 8:09 AM CDT Respiratory Rate - - Oxygen Saturation 98% 03/22/2015 8:09 AM CDT Inhaled Oxygen Concentration - - Weight 100.7 kg (222 lb) 03/22/2015 8:09 AM CDT Height 165.1 cm (5' 5 ) 03/22/2015 8:09 AM CDT Body Mass Index 36.94 03/22/2015 8:09 AM CDT documented in this encounter Plan of Treatment Not on file documented as of this encounter Procedures Procedure Name Priority Date/Time Associated Diagnosis Comments HEMOGLOBIN AND HEMATOCRIT Routine 03/23/2015 7:03 AM CDT PROCEDURE - RESULT 03/22/2015 12 :00 AM CDT CBC WITH AUTO DIFFERENTIAL Routine 03/21/2015 2:16 PM CDT RPR Routine 03/21/2015 2:15 PM CDT URINALYSIS AND REFLEX TO MICROSCOPIC AND CULTURE Routine 03/21/2015 1:50 PM CDT DRUGS OF ABUSE SCREEN, URINE WITHOUT CONFIRMATION Routine 03/21/2015 1:50 PM CDT documented in this encounter Results * (ABNORMAL) Hemoglobin and hematocrit (03/23/2015 7:03 AM CDT) Hemoglobin 10.1(L) 11.0 - 15.0 g/dl Comment:Results reviewed Hct 29.5(L) 33.0 - 43.0 % 03/23/2015 7:03 AM CDT 03/23/2015 7:28 AM CDT Edwin Arias MD LAB BLOOD ORDERABLES Final Result [facility] HISTORICAL RESULTS * PROCEDURE - RESULT (03/22/2015 12:00 AM CDT) Narrative 03/22/2015 12:00 AM CDT Ordered by an unspecified provider. us Historical Provider Final Res ult * (ABNORMAL) CBC with auto differential (03/21/2015 2:16 PM CDT) WBC 6.8 4.6 - 10.2 x10 3/ul RBC 4.41 3.76 - 4.80 x10 6/ul Hemoglobin 13.0 11.0 - 15.0 g/dl Hct 38.4 33.0 - 43.0 % MCV 87.1 80.0 - 97.0 fl MCH 29.5 27.0 - 31.2 pg MCHC 33.9 31.8 - 35.4 g/dl RDW 13.0 11.6 - 14.8 % Plt Count 165 124 - 400 x10 3/ul MPV 11.8(H) 7.4 - 10.4 fl Differential Method AUTOMATED DIFF --------- -- Neut % 77.2 37.0 - 85.0 % Immature Gran % 0.1 0.0 - 3.0 % Lymph % 16.5 5.0 - 45.0 % [place] % 5.3 3.0 - 15.0 % Eos % 0.6 0.0 - 7.0 % Baso % 0.3 0.0 - 2.0 % ABSOLUTE COUNTS ABSOLUTE COUNTS --------- -- Absolute Neuts (auto) 5.3 1.7 - 8.7 x10 3/ul Immature Gran # 0.0 0.0 - 0.3 x10 3/ul Absolute Lymphs (auto) 1.1 0.2 - 4.6 x10 3/ul Absolute Monos (auto) 0.4 0.1 - 1.5 x10 3/ul Absolute Eos (auto) 0.0 0.0 - 0.7 x10 3/ul Absolute Basos (auto) 0.0 0.0 - 0.2 x10 3/ul 03/21/2015 2:16 PM CDT 03/21/2015 2:28 PM CDT us Edwin Arias MD LAB BLOOD ORDERABLES Final Result Performing Organization Address City/[facility]/ZIP Co de Phone Number [facility] HISTORICAL RESULTS * RPR, serum (03/21/2015 2:15 PM CDT) RPR NONREACTIVE NONREACTIVE 03/21/2015 2:15 PM CDT 03/21/2015 2:28 PM CDT Edwin Arias MD LAB MICROBIOLOGY - GENERAL ORDERABLES Final Result Performing Organization Address City/[facility]/ZIP Co de Phone Number [facility] HISTORICAL RESULTS * Urinalysis reflex to microscopic and culture (03/21/2015 1:50 PM CDT) Ur Collection Type CLEAN CATCH Ur Culture Indicated? C&S NOT INDICATED Urine Color STRAW YELLOW Urine Clarity HAZY CLEAR Urine Glucose (UA) NORMAL NORMAL mg/dL Urine Bilirubin NEGATIVE NEGATIVE mg/dl Urine Ketones NEGATIVE NEGATIVE mg/dL Ur Specific [place] 1.010 1.005 - 1.025 Urine Blood NEGATIVE NEGATIVE mg/dl Urine pH 6.5 5.0 - 8.0 Urine Protein NEGATIVE NEGATIVE mg/dL Urine Urobilinogen NORMAL NORMAL mg/dL Urine Nitrite NEGATIVE NEGATIVE Ur Leukocyte Esterase NEGATIVE NEGATIVE Chris/ul Ur Microscopic Review Indicated or Ordered Urine RBC <1 0 - 2 /HPF Urine WBC 1 0 - 2 /HPF Urine Bacteria Few /HPF Urine Mucus Rare /LPF Ur Squamous Epith Cells Rare /HPF 03/21/2015 1:50 PM [facility] 03/21/2015 2:07 PM [facility] HISTORICAL RESULTS - 03/21/2015 2:11 PM CDT us Edwin Arias MD LAB MICROBIOLOGY - GENERAL ORDERABLES Final Result Performing Organization Address City/[facility]/ZIP Co de Phone Number [facility] HISTORICAL RESULTS * Drug Screen, Urine (03/21/2015 1:50 PM CDT) Ur Amphetamine Screen NEGATIVE NEGATIVE Comment: Cutoff Limit: ??1000 ng/mL Note: ??Positive results from this drug screen are unconfirmed. ??Unconfirmed screening results should not be used for non-medical purposes. Ur Barbiturates Screen NEGATIVE NEGATIVE Comment:Cutoff limit: 200 ng /mL U Benzodiazepines Scrn NEGATIVE NEGATIVE Comment:Cutoff limit: 300 ng /mL U Cannabinoids Screen NEGATIVE NEGATIVE Comment:Cutoff Limit: 50 ng/ mL U Cocaine Metab Screen NEGATIVE NEGATIVE Comment:Cutoff limit: 300 ng /mL Urine Opiates Screen NEGATIVE NEGATIVE Comment:Cutoff Limit: 300 ng /mL Urine Creatinine/JAVAN 70.0 mg/dL Comment:If Creatinine is < 4 0 mg/dL, recollection is suggested. 03/21/2015 1:50 PM CDT 03/21/2015 2:07 PM CDT Narrative [facility] HISTORICAL RESULTS - 03/21/2015 2:30 PM CDT Collected By MB us Edwin Arias MD LAB URINE ORDERABLES Final Result Performing Organization Address [facility] Co de Phone Number [facility] HISTORICAL RESULTS documented in this encounter Visit Diagnoses Diagnosis Other and unspecified cord entanglement complicating labor and delivery, delivered Second-degree perineal laceration, with delivery Delivery outcome of single liveborn documented in this encounter
--- OUTSIDE RECORDS SUMMARY | 2024-10-01 18:01 | XMS_ITS | Encounter Summary ---
Author Organization [facility] Address [address] [place] [address] Care Team Providers Care Engraver Tire Mold Name Role Phone Salinas Escobar MD Primary Care Provider [phone] Encounter Details Date Type Department Care Team (Late st Contact Info) Description 05/14/2024 External Device Data STL ABSTRACTION Provider, Abstract [...] on filedocumented in this encounter Care Teams Engraver Tire Mold Relationship Specialty Start Date End Date Salinas Escobar MD [address] [place] [address] PCP - General Family Practice 08/14/23 documented as of this encounter
--- OUTSIDE RECORDS SUMMARY | 2024-10-01 18:01 | XMS_ITS | Encounter Summary ---
Author Organization [facility] Address [address] [place] [address] Care Team Providers Care Phytochemistry Professor Name Role Phone Salinas Escobar MD Primary Care Provider [phone] Reason for Visit * Auth/Cert (Routine) Specialty Diagnoses / Procedures Referred By Contact Referred To Contact Perioperative Diagnoses Gastroesophageal reflux disease Procedures [place] ESOPHAGOGASTRODUODENOSCOPY TRANSORAL DIAGNOSTIC ESOPHAGOGASTRODUODENOSCOPY Caden Hernandez, DO [address] [address] [facility] Gi Lab [address] [place] [address] Referral ID Status Reason Start Date Expiration Date Visits Re quested Visits Authorized [id number] 1 1 Encounter Details Date Type Department Care Team (Late st Contact Info) Description 12/22/2023 9:35 AM CDT Anesthesia Event [facility] GI Lab S [facility] [address] [place] [address] Shad Bloom MD [address] [place] [address] Anesthesia Record Procedure Summary Procedure Name Responsible Anesthesiologist Anesthesia Start Time Anesthesia Stop Time ESOPHAGOGASTRODUODENOSCOPY (Esophagus) Shad Bloom MD 12/22/23 0935 12/22/23 0953 Events Date Time Event Comment 12/22/2023 0930 0935 AN Equip Check Anesthesia eq uipment and materials checked in accordance with local policy. 0935 An Start 0935 An Start Data 0937 In Room This event disp lays the In Room time documented in the Surgical Log. Deleting this event will not remove it from the log but will remove it from the Grid and Graph timeline. 0937 Pre-Induction Immediate pre- induction anesthetic assessment performed. Vital signs as noted on graphic. 0938 Procedure Start This event d isplays the Procedure Start time documented in the Surgical Log. Deleting this event will not remove it from the log but will remove it from the Grid and Graph timeline. 0939 An Induction 0940 Anesthesia Ready 0943 Procedure Stop This event di splays the Procedure Stop time documented in the Surgical Log. Deleting this event will not remove it from the log but will remove it from the Grid and Graph timeline. 0943 Quick Note PACU hold 0944 Out of Room This event disp lays the Out of Room time documented in the Surgical Log. Deleting this event will not remove it from the log but will remove it from the Grid and Graph timeline. 0948 an stop data 0953 An Stop Meds Name Total benzocaine (HURRICAINE ONE) 20% PF spray 1 [place] lidocaine (XYLOCAINE) 2% injection 100 m g propofol (DIPRIVAN) 10??mg/mL injection 200 mg lactated ringers infusion 150 mL * Agents Name O2 Inspired O2 N2O Inspired N2O O2 * Blood No blood administrations on file. Lines, Drains, and Airways Type Details Placement Removal Peripheral IV Orientation: Anterio r, Right; Location: Hand; Gauge: 22 gauge; Insertion Attempts: 1; Patient Tolerance: tolerated well 12/22/23 0928 by Romel Calhoun RN 12/22/23 1001 by Kiana Murray, PEDRO Supraglottic Airway Type: nasal cannula; Confirmation: end tidal CO2, satisfactory chest rise 12/22/23 0935 by Shaneka Jade, PROJECT MANAGEMENT DIRECTOR 12/22/23 0950 by Kiana Murray, RN documented in this encounter Social History [...] on file documented as of this encounter OR Notes * Anesthesia Postprocedure Evaluation - Shad Bloom MD - 12/22/2023 9:54 AM CDT Phase II Postanesthesia Evaluation Including [facility] Modified Christi Score Patient seen and evaluated: Leeann Modified Chritsi Score: Score: 20 (12/22/23954) COMMENTS: No apparent Anesthesia related complications RESPIRATORY FUNCTION: Respiration: able to breath and cough freely (12/22/23954) [2=able to breathe and cough freely, 1=dyspnea, limited breathing or tachypnea, 0=apnea or mechanicventilator] O2 Saturation: able to maintain O2 saturation greater than 92% on room air (12/22/23954) [2=able to maintain O2 saturation greater than 92% on room air, 1=needs O2 inhalation to maintain O2 saturation greater than 90%, 0=O2 saturation less than 90% even with O2 supplement] Resp: 18 (12/22/231001)SpO2: 98 % (12/22/23 1002) CARDIOVASCULAR FUNCTION: BP: 104/61 (12/22/23 1002) Circulation: BP within 20% of preanesthetic level (12/22/23954) [2=BP within 20% of preanesthetic level, 1=BP within 20-49% of preanesthetic level, 0=BP within 50%of preanesthetic level] MENTAL STATUS, NEURO, ACTIVITY: PATIENT PARTICIPATION IN EVALUATIONyes Consciousness: fully awake (12/22/23954) [2=fully awake, 1=arousable on calling, 0=not responding] Activity: able to move 4 extremities voluntarily or on command (12/22/23954) [2=able to move 4 extremities voluntarily or on command, 1=able to move 2 extremities voluntarily or on command, 0=unable to move extremities voluntarily or on command] Ambulation: able to stand up and walk straight, on ordered bedrest, or performing at patient's prior level of function (12/22/23954) [2=able to stand up and walk straight, on ordered bedrest, or performing at patient's prior level of function, 1=vertigo when erect, 0=dizziness when supine] TEMPERATURE: Temp: 36.1 ??C (12/22/23950) PAIN: Pain: pain free (12/22/23954) [2=pain free, 1=pain handled by oral medication, 0=pain requiring parenteral medication] NAUSEA AND VOMITING: no nausea and no vomiting Fasting/Feeding: able to drink fluids, ice chips or NPO (12/22/23954) [2=able to drink fluids, ice chips or NPO, 1=nauseated, 0=nausea and vomiting] POSTOPERATIVE HYDRATION: well hydrated Intake/Output Summary (Last 24 hours) at 12/22/2023 1007 Last data filed at 12/22/2023954 Gross per 24 hour Intake 350 ml Output -- Net 350 ml Urine Output: has voided, adequate urine output per device, or not applicable (12/22/23954) [2=has voided, adequate urine output per device, or not applicable, 1=unable to void but comfortable, 0=unable to void and uncomfortable] WOUND: Dressing: dry and clean or not applicable (12/22/23954) [2=dry and clean or not applicable, 1=wet, marked and not increasing, 0=growing area of wetness] Shad Bloom MD 12/22/2023 10:07 AM Post Anesthesia Evaluation Vitals: Vitals Value Taken Time BP 104/61 12/22/23 1002 Temp 36.1 ??C 12/22/23950 Resp 18 12/22/23 1002 SpO2 98 % 12/22/23 1002 Pulse 73 12/22/23 1002 Heart Rate Pain Rating: Anesthesia Post Evaluation No notable events documented. Shad Bloom MD * Anesthesia Handoff - Shaneka Jade CRNA - 12/22/2023 9:53 AM CDT Post-Anesthetic transfer of care report elements to appropriate post-anesthesia recovery environment completed in accordance with procedure. I completed my handoff to the receiving nurse during which we: 1. Identified the patient 2. Identified the responsible provider 3. Reviewed the pertinent medical history 4. Discussed the surgical course 5. Reviewed intra-op anesthesia management and issues during anesthesia 6. Set expectations for post-procedure period 7. Orders as necessary and appropriate for continuation of care are present in Epic. 8. Allowed opportunity for questions and acknowledgement of understanding. Vital Signs: Vitals Value Taken Time BP 102/55 12/22/23 0951 Temp 36.1 ??C 12/22/23 0951 Resp 16 12/22/23 0951 SpO2 97 % 12/22/23 0951 Pulse 68 12/22/23 0951 Heart Rate 9:53 AM Shaneka Jade CRNA * Anesthesia Preprocedure Evaluation - Shad Bloom MD - 12/22/2023 9:28 AM CDT Relevant Problems No relevant active problems Anesthesia Evaluation Airway Mallampati: II TM distance: >3 FB Neck ROM: full Dental - normal exam Pulmonary - normal exam (+) sleep apnea on CPAP Cardiovascular - negative ROS and normal exam Rhythm: regular Rate: normal Neuro/Psych - negative ROS GI/Hepatic/Renal (+) GERD Endo/Other - negative ROS Abdominal (+) obese Anesthesia History No history of anesthetic complications. Anesthesia Plan ASA Final: 2 MAC NPO status > 8 hours Anesthetic plan and risks discussed with Patient. Plan discussed with Carousel Attendant. Smoking Compliance patient did not smoke on day of surgery documented in this encounter Plan of Treatment Not on file documented as of this encounter Visit Diagnoses Not on filedocumented in this encounter Administered Medications Inactive Administered Medications - up to 3 most recent administrations Medication Order MAR Action Action Date Dose Rate Site benzocaine PF (HURRICAINE ONE) 20 % spray Mouth/Throat, INTRA-PROCEDURE PRN, Starting on Mon12/22/23 at 0939, Until Mon12/22/23 at 0953, Routine, Anesthesia Intra-op Given 12/22/2023 9:39 AM CDT 1 Dallas lactated ringers infusion IV, at 125 mL/hr, PRE-PROCEDURE CONTINUOUS, Starting on Mon12/22/23 at 0930, Until Mon12/22/23 at 1243, Routine, Pre-Procedure Restarted 12/22/2023 9:48 AM CDT Continue from Pre-Op 12/22/2023 9:35 AM CDT 125 mL/hr New Bag 12/22/2023 9:28 AM CDT 125 mL/hr lidocaine 2 % (XYLOCAINE) injection IV, INTRA-PROCEDURE PRN, Starting on Mon12/22/23 at 0939, Until Mon12/22/23 at 0953, Routine, Anesthesia Intra-op Given 12/22/2023 9:39 AM CDT 100 mg propofoL (DIPRIVAN) injection IV, INTRA-PROCEDURE PRN, Starting on Mon12/22/23 at 0939, Until Mon12/22/23 at 0953, Anesthesia Intra-op Bolus 12/22/2023 9:40 AM CDT 50 mg New Bag 12/22/2023 9:39 AM CDT 150 mg documented in this encounter Care Teams Phytochemistry Professor Relationship Specialty Start Date End Date Salinas Escobar MD [facility] [place] [address] PCP - General Family Practice 08/14/23 documented as of this encounter
--- OUTSIDE RECORDS SUMMARY | 2024-10-01 18:01 | XMS_ITS | Encounter Summary ---
Author Organization [facility] Address [address] [place] [address] Care Team Providers Care Floor Technician Name Role Phone Salinas Escobar MD Primary Care Provider [phone] Reason for Visit * Auth/Cert (Routine) Specialty Diagnoses / Procedures Referred By Contact Referred To Contact Perioperative Diagnoses Gastroesophageal reflux disease Procedures [place] ESOPHAGOGASTRODUODENOSCOPY TRANSORAL DIAGNOSTIC ESOPHAGOGASTRODUODENOSCOPY Caden Hernandez DO [address] [facility] [address] [place] [address] [facility] Gi Lab [address] [place] [address] Referral ID Status Reason Start Date Expiration Date Visits Re quested Visits Authorized [id number] 1 1 Encounter Details Date Type Department Care Team (Latest Contact Info) Description 12/22/2023 9:45 AM CDT - 12/22/2023 10:15 AM CDT Surgery [facility] GI Lab S [facility] [employer] [address] [place] [address] Caden Hernandez DO [address] [facility] [address] [place] [address] ESOPHAGOGASTRODUODENOSCOPY Surgery Details Date/Time Status Location OR Service Patient Class Case Class Case Type Trauma Case? 12/22/2023 9:45 AM Posted [facility] GI 06 Gastroenterology Outpatient Elective No Panel 1 Procedure LRB Anes Op Region Wound Class Comments ESOPHAGOGASTRODUODENOSCOPY N/A General Esophagus Surgeon Surgeon Role Service Panel Caden Hernandez DO Primary Gastroenterology 1 documented in this encounter Social History Tobacco [...] 9:45 AM CDTAssociated Order(s): UPPER ENDOSCOPY REPORT [facility] Endoscopy Patient Name: Verónica Diego Procedure Date: [...] of Addenda: [address]; [place] [address] * Caden Hernandez DO - 12/22/2023 9:38 AM CDTAssociated Order(s): UPPER ENDOSCOPY REPORT [facility] Endoscopy Patient Name: Verónica Diego Procedure Date: 12/22/2023 Date of : 1995 Attending MD: Caden Hernandez DO, THIS EXAM WAS SENT IN ERROR * Lyn Blum RN - 11/28/2023 1:03 PM CDT GI PROCEDURE NOTE from Nursing PAT call Patient: Verónica Diego : 1995 Endoscopist: Surgeon(s): Caden Hernandez DO Upcoming Procedure: Procedure to be Performed: Procedure(s): ESOPHAGOGASTRODUODENOSCOPY Procedure Date/Time: 12/22/2023 at 0930 Diagnosis/Indication for procedure: Pre-Op Diagnosis Codes: * Gastroesophageal reflux disease [K21.9] Location: [facility] GI LAB Referring Physician: Salinas Escobar Patient's [...] explanation that: Standard practice for endoscopists at [facility] includes use of an oral bite block to facilitate upper endoscopy and to prevent you from biting onto the scope or yourself during the procedure.This bite block is placed by a [facility] procedure room nurse/microbiological lab technician prior to the procedure. Pressure that [...] same day or prompt dental evaluation by [facility] Dental Medicine. * Joelle-OP - Lyn Blum RN - 11/28/2023 1:03 PM CDT Images from the original note were not included. STL ANES Routine Pre-Anesthesia Protocol for GI Lab Procedures [facility] Approved by: [facility]-Medical Executive Committee Approval Date: 11/02/2023 ORDERS ARE ENTERED ???PER PROTOCOL?? Enter the protocol in the patient???s electronic health record using N[employer] Medical[employer]: .anestprotocolgilab Nursing Orders: Monitoring Obtain and record vital signs on admission to [facility] Continuous vital signs (Non-invasive blood pressure, pulse [...] appropriate, may confirm POC with: Nursing Only [id number] (this lab can be obtained at no [...] unable to obtain urine, may obtain serum [id number]) All patients with potential for childbearing (menarche [...] Comments UPPER ENDOSCOPY REPORT 9:45 AM CDT [place] ESOPHAGOGASTRODUODENOSCOP Y TRANSORAL DIAGNOSTIC 12/22/2023 9:45 AM [...] Hernandez DO - 12/22/2023 9:45 AM CDT [facility] Endoscopy Patient Name: Verónica Diego Procedure Date: [...] of Addenda: [address]; [place] [address] Caden Hernandez DO GI PROCEDURE ORDERAB LES * UPPER ENDOSCOPY REPORT (12/22/2023 9:38 AM CDT) Narrative Procedure Note Caden Hernandez DO - 12/22/2023 9:38 AM CDT [facility] Endoscopy Patient Name: Verónica Diego Procedure Date: 12/22/2023 Date of : 1995 Attending MD: Caden Hernandez DO, THIS EXAM WAS SENT IN ERROR Caden Hernandez DO GI PROCEDURE ORDERAB LES * (ABNORMAL) HELICOBACTER PYLORI RAPID UREASE TEST (12/22/2023 9:26 AM CDT) H. PYLORI RAPID UREASE TEST Positive( A) Negative, Indeterminate 12/22/2023 10:44 PM CDT [facility] Tissue ENTIRE STOMACH / Unknown Collection / Unknown 12/22/2023 9:26 AM CDT 12/22/2023 10:36 PM CDT Caden Hernandez DO MICROBIOLOGY - GENER AL ORDERABLES Performing Organization Address City/State/[facility] de Phone Number [facility] [employer] [facility]# [id number] [address] [place] [address] * POC , URINE (12/22/2023 9:15 AM CDT) HCG QUAL URINE Negative Negative 12/22/2023 9:15 AM CDT [facility] [employer] [facility] Urine 12/22/2023 9:15 AM CDT 12/22/2023 9:22 AM CDT Narrative [facility] [employer] [facility] - 12/22/2023 9:15 AM CDT Positive : Result is greater than or equal to 25 mIU/mL ? Negative: ??Result is less than 25 mIU/mL Invalid: Result is borderline or indeterminate,send to lab for serum test methodology. Caden Hernandez DO POINT OF CARE TESTIN G Performing Organization Address [facility] Co de Phone Number [facility] [employer] [facility]# [id number] [address] [place] [address] documented in this encounter Visit Diagnoses Diagnosis Gastroesophageal reflux disease- Primary Esophageal reflux Gastroesophageal reflux disease Esophageal reflux documented in this encounter Administered [...] CRNA) documented in this encounter Care Teams Floor Technician Relationship Specialty Start Date End Date Salinas Escobar MD [address] [place], [place] [address] [address] PCP - General Family Practice 08/14/23 documented as of this encounter
--- OUTSIDE RECORDS SUMMARY | 2024-10-01 18:02 | XMS_ITS | Encounter Summary ---
Author Organization [facility] [employer] [facility] Address [address] [place] [address] Care Team Providers Care Deck Engineer Name Role Phone Salinas Escobar MD Primary Care Provider [phone] Encounter Details Date Type Department Care Team (Late st Contact Info) Description 08/28/2023 Orders Only [facility] Oncology and Hematology - Sebastián [address] [facility] [address] [place] [address] Gustabo Ames MD [address] [facility] [address] [place] [address] Social History Tobacco Use Types Packs/Day Years [...] Procedure Name Priority Date/Time Associated Diagnosis Comments METHYLMALONIC ACID Routine 08/21/2023 10:35 AM HATCHERY WORKER documented in this encounter Results * METHYLMALONIC ACID (08/21/2023 10:35 AM HATCHERY WORKER) Blood Gustabo Ames MD CHEMISTRY ORDERABLES documented in this encounter Visit Diagnoses Not on filedocumented in this encounter Care Teams Deck Engineer Relationship Specialty Start Date End Date Salinas Escobar MD [facility] [employer] [place] [address] PCP - General Family Practice 08/14/23 documented as of this encounter
--- OUTSIDE RECORDS SUMMARY | 2024-10-01 18:02 | XMS_ITS | Continuity of Care Document ---
Author Organization [facility] Address [address] [place] [address] [place] [address] Phone Care Team Providers Care Traffic Rate Computer Name Role Phone Salinas Escobar MD Unavailable Unavailable Allergies, Adverse Reactions, Alerts Substance Reaction Status Criticality No Known Allergies Active No Inform ation Medications Medication Instructions Dosage Effective Dates (start - stop) Status Comments Adderall 20 mg tablet take 1 tablet by o ral route every day before breakfast 20 MG - Active Procedures Procedure Date OFFICE/OUTPATIENT VISIT, EST OFFICE/OUTPATIENT VISIT, EST OFFICE/OUTPATIENT VISIT, EST OFFICE/OUTPATIENT VISIT, EST OFFICE/OUTPATIENT VISIT, EST PREV VISIT, NEW, AGE 18-39 OFFICE/OUTPATIENT VISIT, NEW Advance Directives Directive Yes / No Effective Date File Name No Information Encounters Encounter Description Practice Location Reason(s) For Visit Diagnoses Date Provider Providers Copied on Encounter [facility], [address] [place], [address], [place] tel:[phone] [facility] No Information 4 Shawn Niño. [address] [employer] [facility] [place], [address]. tel:[phone] OFFICE/OUTPA TIENT VISIT, EST [facility], [address] [place], [address], [place] tel:[phone] [facility] ADD (chief complaint) weight gain1 (chief complaint) FatigueAbnormal weight gain Dec- 4 Shawn Niño. [address], [place], [address]. tel:[phone] OFFICE/OUTPA TIENT VISIT, [facility], [address], [place], [address], [place] tel:[phone] [facility] ADD (chief complaint) weight1 (chief complaint) Abnormal weight gainFatigue 4 Shawn Niño. [address], [place], [address]. tel:[phone] OFFICE/OUTPA TIENT VISIT, [facility], [address], [place], [address], [place] tel:[phone] [facility] iron1 (chief complaint) sleep apnea1 (chief complaint) obesity1 (chief complaint) sick (chief complaint) Viral infectionIron deficiencyObstructi ve Sleep Apnea HypopneaAbnormal weight gainFatigue 4 Shawn Niño. [address], [place], [address]. tel:[phone] OFFICE/OUTPA TIENT VISIT, [facility], [address], [place], [address], [place] tel:[phone] [facility] sleep apnea1 (chief complaint) iron deficiency 1 (chief complaint) FatigueIron deficiencyObstructi ve Sleep Apnea HypopneaMenorrhagia 3 Shawn Niño. [address], [place], [address]. tel:[phone] OFFICE/OUTPA TIENT VISIT, [facility], [address], [place], [address], [place] tel:[phone] [facility] low iron (chief complaint) platelet1 (chief complaint) weight gain1 (chief complaint) Iron deficiencyAbnormal weight gainFatigueThromboc ytosis 3 Shawn Niño. [address], [place], [address]. tel:[phone] PREV VISIT, NEW, AGE 18-39 [facility], [address], [place], [address], tel:[phone] [facility] physical (chief complaint) Encounter for general adult medical exam w abnormal findingsFatigueAbno rmal weight gain 3 Shawn Niño. [address], [place], [address]. tel:[phone] Family History Family Member Type Diagnosis Age At Onset Father Problem Alive and well Brother Problem Alive and well Mother Problem High cholesterol Sister Problem Alive and well Mother Problem Thyroid disorder Mother Problem Diabetes mellitus Payers Payer name Insurance type Covered constitution party ID Authoriza tion(s) No Information Social History Type Description Quantity Date Captured Comments Alcohol Use Details Unknown Caffeine Use Details Unknown Tobacco Use Status No Information Smoking Status No Information Sex Female Chief Complaint And Reason For Visit No Information Plan Of Treatment Date Type Action Status Referral Ordered: Caden Chang -[facility] Phys[facility] : Surgery (related to Abnormal weight gain) ordered Referral Referred To: Caden Chang 4 [facility] [place]
[address] [place], [place], [phone] Ordered: Referrals: [facility]opathic [facility] Osteopathic Physicians : Surgery. Caden Chang. Evaluate and treat ordered Referral Ordered: Hematology (related to Iron deficiency) ordered Referral Ordered: Referrals: Hematology. Evaluate and treat ordered Referral Ordered: SLEEP STUDY, ATTENDED ordered History Of Present Illness Encounter Date Complaint History Of Prese nt Illness ADD Patient has ADD and chronic fatigue. Patient has inattentive type. Patient feels scatterbrained. Patient feel poor focus and difficulty completing tasks. Patient states that Adderall is helping with symptoms. Patient feels more focused. Pt feels more energy. Patient denies any headache, dry mouth, headache, chest pain. Patient denies any appetite loss. weight gain1 Pt is obese Pt i s planning for bariatric surgery. Pt is seeing bariatric surgeon who will perform gastric sleeve surgery. Pt will have EGD next week ADD Patient has ADD. Patient has inattentive type. Patient feels scatterbrained. Patient feel poor focus and difficulty completing tasks. Patient states that Adderall is helping with symptoms. Patient feels more focused. Pt feels more energy. Patient denies any headache, dry mouth, headache, chest pain. Patient denies any appetite loss. Pt feels more energy as well weight1 Pt is obese and she is interested in bariatric surgery Pt has not heard from surgeon yet iron1 Pt has low iron and low MCV and high platelet .Pt has mildly heavy period Pt denies any GI bleeding Pt saw hematology and she did not get iron infusion Pt was told to continue oral irons, which she has been taking and her iron apparently improved per hematology . sick Pt c/o sore thro at, sinus congestion, headache, productive cough with yellow phlegm for two weeks .Pt feels slightly sob Pt went to urgent care two weeks ago and she tested negative for COVID but she tested positive for influenza. Pt did not receive tamiflu. she denies any Gi symptoms Pt denies any dysphagia. Pt also c/o hoarseness and ear pain obesity1 Pt is obese .Her BMI is over 40 .Pt is interested in bariatric surgery Pt wants referral to surgeon sleep apnea1 Pt has sleep bung sewer estefanía. Pt has not set up cpap yet .Pt states that she can not afford the monthly cost for cpap. Pt does have chronic fatigue and foggy brain feeling sleep apnea1 Pt has mild slee p apnea with oxygen level saturation. Pt feels very tired .Pt has severe oxygen desaturation at night. Pt is obese and she is working to get weight loss surgery soon. Pt feels very fatigue and irritable with some short term memory loss as well. iron deficiency1 Pt has iron def iciency Pt does have heavy period Pt has appointment with hematology on 08/31/23. low iron Pt has low iron and low MCV. Pt denies any blood loss .pt denies heavy period. Pt does feel severely fatigue daily. Pt just had sleep study done platelet1 Pt has high plat elet. Pt denies any bleeding or bruising weight gain1 Pt is obese Pt p lans to do bariatric surgery. Pt needs surgical clearance. physical Pt needs annual physical Pt has chronic fatigue and she snores at night. Pt denies any sob or dizziness. Pt gained 40 pounds during last year. Pt does have family history of hypothyroidism without thyroid cancer Pt states that she goes to sleep around 8 pm and wakes up around 4 am to go to work and she feels poorly rested and she feels tired throughout the day. Pt denies any other complaints Instructions Date Instruction Additional Infor supriya No Information Assessments Type Assessment Date No Information
--- OUTSIDE RECORDS SUMMARY | 2024-10-01 18:02 | XMS_ITS | Continuity of Care Document ---
Author Organization [facility] Address [address] [place] [address] Phone Care Team Providers Care Supervisor Ship Maintenance Services Name Role Phone Management, Case Unavailable Unavailable Advance Directives Directive Yes / No Effective Date File Name No Information Encounters Encounter Description Practice Location Reason(s) For Visit Diagnoses Date Provider Providers [facility]ied on [facility] [address], [place], [place], [id number], tel:[phone] [facility] No Information Management [facility]. [address], [place], [place], [id number], [place]. tel:[phone] Family History Family Member Type Diagnosis Age At Onset No Information Payers Payer name Insurance type Covered libertarian ID Authoriza tion(s) No Information Social History Type Description Quantity Date Captured Comments Sex Female Smoking Status No Information Chief Complaint And Reason For Visit No Information Reason For Referral Reason For Referral No Information History Of Present Illness Encounter Date Complaint History Of Prese nt Illness No Information Functional Status Date Functional Assessmen t No Information Instructions Date Instruction Additional Infor mation No Information Assessments Type Assessment Date No Information Patient Care Teams Name Effective Dates (start - stop) Status Members No Information
--- OUTSIDE RECORDS SUMMARY | 2024-10-01 18:02 | XMS_ITS | Encounter Summary ---
Author Organization [facility] Address [address] [place] [address] Care Team Providers Care Lieutenant Colonel Name Role Phone Salinas Escobar MD Primary Care Provider [phone] Encounter Details Date Type Department Care Team (Late st Contact Info) Description 09/02/2023 External Device Data ST[facility] ABSTRACTION Provider, Abstract [...] on filedocumented in this encounter Care Teams Lieutenant Colonel Relationship Specialty Start Date End Date Salinas Escobar MD [facility] [employer] [address] PCP - General Family Practice 08/14/23 documented as of this encounter
--- OUTSIDE RECORDS SUMMARY | 2024-10-01 18:02 | XMS_ITS | Encounter Summary ---
Author Organization [facility] Address [address] [place] [address] Care Team Providers Care Band Head Saw Operator Name Role Phone Salinas Escobar MD Primary Care Provider [phone] Reason for Visit * Reason Comments Establish Care Encounter Details Date Type Department Care Team (Late st Contact Info) Description 08/21/2023 2:30 PM FREIGHT TRAFFIC CONSULTANT Office Visit [facility] Oncology and Hematology - [place] [place] [address] Edelmira Cai FNP [address] [facility] [address] [place] [address] Iron deficiency anemia, unspecified iron deficiency anemia type (Primary Dx) Social History Tobacco Use Types [...] Sign Reading Time Taken Comments Blood Pressure 128/81 08/21/2023 2:13 PM FREIGHT TRAFFIC CONSULTANT Pulse 98 08/21/2023 2:13 PM FREIGHT TRAFFIC CONSULTANT Temperature - - Respiratory Rate 10 08/21/2023 2:13 PM FREIGHT TRAFFIC CONSULTANT Oxygen Saturation 99% 08/21/2023 2:13 PM FREIGHT TRAFFIC CONSULTANT Inhaled Oxygen Concentration - - Weight 107.5 kg (237 lb) 08/21/2023 2:13 PM FREIGHT TRAFFIC CONSULTANT Height 165.1 cm (5' 5 ) 08/21/2023 2:13 PM FREIGHT TRAFFIC CONSULTANT Body Mass Index 39.44 08/21/2023 2:13 PM FREIGHT TRAFFIC CONSULTANT documented in this encounter Progress Notes * Edelmira Cai HIGH RIGGER - 08/21/2023 2:58 PM CST Hematology-Oncology Consult Note Requesting Physician Salinas Escobar MD Primary Care Physician Salinas Escobar MD Problem List There is no problem list on file for this patient. Previous Treatment ? Measurable Disease ? Reason for Visit Verónica Diego is a 27 y.o. female who was referred for consultation for iron deficiency History of Present Illness: Verónica is a 27yr old female with a past medical history of sleep apnea, hernia, and gallbladder removal. She was referred for iron deficiency. She thinks she saw the Cancer Specialist in 2019 for iron deficiency and blood loss after delivering a child. She had gallbladder removal and feels like she cannot eat her favorite foods because of diarrhea. She has normal periods and stopped control pills 4-5 months ago. She endorses some blood in the stool infrequently. She started taking iron pills once a day this week. She donated plasma in 2019. She reports being very fatigued, low energy, and short of breath. She wants to have bariatric surgery as well because she has never been this weight before. This is also an issue for her mentally and has little motivation. She denies any night sweats, body aches, infections, cough. No other complaints. Past Medical History No past medical history on file. Surgical History Past Surgical History: Procedure Laterality Date HX CHOLECYSTECTOMY HX HERNIA REPAIR Medications No current outpatient medications on file. No current facility-administered medications for this visit. Allergies No Known Allergies Immunizations: There is no immunization history on file for this patient. Family History Family History Problem Relation Name Age of Onset No Known Problems Father No Known Problems Mother No Known Problems Brother No Known Problems Sister No Known Problems Son No Known Problems Daughter Social History Social History Tobacco Use Smoking status: Never Smokeless tobacco: Never Substance Use Topics Alcohol use: Yes Comment: OCCASIONAL TOBACCO COUNSELING She is not a tobacco/nicotine user. Review of Systems Constitutional: Positive for fatigue. Negative for chills, fever and unexpected weight change. HENT: Negative for mouth sores. Respiratory: Positive for shortness of breath. Negative for cough. Cardiovascular: Negative for chest pain, palpitations and leg swelling. Gastrointestinal: Negative for abdominal pain, blood in stool, constipation, diarrhea, nausea and vomiting. Genitourinary: Negative for hematuria. Musculoskeletal: Negative for arthralgias. Skin: Negative for rash and wound. Neurological: Negative for dizziness, weakness, numbness and headaches. Hematological: Negative for adenopathy. Does not bruise/bleed easily. Physical Exam Vitals reviewed. Constitutional: General: She is awake. Appearance: Normal appearance. She is normal weight. HENT: Head: Normocephalic and atraumatic. Mouth/Throat: Mouth: Mucous membranes are moist. Pharynx: Oropharynx is clear. Eyes: Pupils: Pupils are equal, round, and reactive to light. Cardiovascular: Rate and Rhythm: Normal rate and regular rhythm. Pulses: Normal pulses. Heart sounds: Normal heart sounds. Pulmonary: Effort: Pulmonary effort is normal. Breath sounds: Normal breath sounds. Abdominal: General: Abdomen is flat. Bowel sounds are normal. Palpations: Abdomen is soft. There is no hepatomegaly or splenomegaly. Musculoskeletal: General: Normal range of motion. Cervical back: Normal range of motion. Skin: General: Skin is warm and dry. Neurological: General: No focal deficit present. Mental Status: She is alert and oriented to person, place, and time. Psychiatric: Mood and Affect: Affect is flat. ? Labs 06/26/23: WBC 7.8, Hgb 11.9, Hct 37.2, Plt 423,000, Iron 27, % sat 8, Ferritin 19, Vitamin B 12 681, Assessment / Plan: Iron Deficiency Anemia Verónica is a 27yr old female with a past medical history of sleep apnea, hernia, and gallbladder removal. She was referred for iron deficiency. She thinks she saw the Cancer Specialist in 2019 for iron deficiency and blood loss after delivering a child. She had gallbladder removal and feels like she cannot eat her favorite foods because of diarrhea. She has normal periods and stopped control pills 4-5 months ago. She endorses some blood in the stool infrequently. She started taking iron pills once a day this week. She donated plasma in 2019. She reports being very fatigued, low energy, and short of breath. She wants to have bariatric surgery. Weight is also an issue for her mentally and has little motivation. She denies any night sweats, body aches, infections, cough. I have discussed with the patient the differential diagnoses of iron deficiency being malabsorption, bleeding, and diet. I have discussed that she has multifactorial reasons leading to increased fatigue. I have discussed the risk factors of worsening TRUONG after bariatric surgery. I have also discussed seeing a GI doctor for further evaluation and she denies at this time. Continue oral iron twice daily with vitamin c Labs today CBC, CMP, iron studies, vitamin b 12 and folate, TSR, MMA, ferritin Based on lab results, will discuss the need for iron infusion KHALIF Patel-Ricardo, 08/21/2023 2:58 PM Hematology Oncology Nurse Practitioner [facility] ? Total time spent 60 minutes, two third of the total time spent counseling patient [id number]. This patient's plan of care has been reviewed and approved by Dr. Gustabo Ames. If you have any questions regarding this hematology or oncology evaluation, feel free to contact us for further assistance. Thank you for allowing us to be a part of this patient's care. CC: Salinas Escobar MD GHT TRAFFIC CONSULTANT documented in this encounter Plan of Treatment Scheduled Orders Name Type Priority Associated Diagnoses Orde r Schedule CBC WITH DIFFERENTIAL Lab Routine Iron deficiency anemia, unspecified iron deficiency anemia type Expected: 08/21/2023, Expires: 08/21/2024 COMPREHENSIVE METABOLIC PANEL Lab Routine Iron deficiency anemia, unspecified iron deficiency anemia type Expected: 08/21/2023, Expires: 08/21/2024 FERRITIN Lab Routine Iron deficiency anemia, unspecified iron deficiency anemia type Expected: 08/21/2023, Expires: 08/21/2024 IRON, TIBC, AND PERCENT SATURATION Lab Routine Iron deficiency anemia, unspecified iron deficiency anemia type Expected: 08/21/2023, Expires: 08/21/2024 TRANSFERRIN RECEPTOR TFR SOLUBLE Lab Routine Iron deficiency anemia, unspecified iron deficiency anemia type Expected: 08/21/2023, Expires: 08/21/2024 METHYLMALONIC ACID Lab Routine Iron deficiency anemia, unspecified iron deficiency anemia type Expected: 08/21/2023, Expires: 08/21/2024 VITAMIN B12 AND FOLATE Lab Routine Iron deficiency anemia, unspecified iron deficiency anemia type Expected: 08/21/2023, Expires: 08/21/2024 documented as of this encounter Visit Diagnoses Diagnosis Iron deficiency anemia, unspecified iron deficiency anemia type- Primary documented in this encounter Care Teams Band Head Saw Operator Relationship Specialty Start Date End Date Salinas Escobar MD [address] [place] [address] PCP - General Family Practice 08/14/23 documented as of this encounter
== END 2024-09-24 14:57 | disposition home or self-care (01) ==
LOC: ANHED 14:51
PROVIDERS: Emergency Provider Physician Assistant; PCP Emergency Medicine
DX: J06.9 Acute upper respiratory infection, unspecified (principal)
CPT/HCPCS: 99281